=== PATIENT | female | born 1930 | race Caucasian/White ===

== ENCOUNTER 2016-09-23 06:37 | Day surgery (SDC) | payer OTHER, BC ==
[2016-09-23] MEDS ORDERED: DEXAMETHASONE INJECTION 10 MG, ONDANSETRON INJECTION 12 MG in SODIUM CHLORIDE 100 ML IVPB ONE (08:00)
[2016-09-23] MEDS ORDERED: SODIUM CHLORIDE IVPB ONE (08:30)
[2016-09-23] MEDS ORDERED: NIVOLUMAB IVPB ONE (08:30)
[2016-09-23 08:45] LABS: BASOPHIL 0.6 % (0-2.0); EOSINOPHIL 1.9 % (0-4.5); MCH 28.9 pg (25.7-33.7); MCHC 32.8 g/dl (32.0-36.0); MEAN CELL VOLUME 88.1 fl (80-96); MEAN PLT VOLUME 7.3 fl (7.5-11.1); NEUTROPHILS 81.2 % (42.8-82.8); PLATELET COUNT 336 K/MM3 (134-434); WHITE BLOOD COUNT 10.5 K/mm3 (4.0-10.0)
[2016-09-23] MEDS ORDERED: SODIUM CHLORIDE 250 ML IV ONE (09:30)
[2016-09-23 10:29] VITALS: BP 136/71; PULSE 111; TEMP 97.3
== END 2016-09-23 14:03 | disposition home or self-care (01) ==
LOC: J7W 06:37 → JONCCHEMO 06:37
PROVIDERS: ATTEND Internal Medicine Hematology & Oncology
DX: Z51.11 Encounter for antineoplastic chemotherapy (principal); C50.412 Malignant neoplasm of upper-outer quadrant of left female breast; C34.12 Malignant neoplasm of upper lobe, left bronchus or lung; I10 Essential (primary) hypertension; J43.9 Emphysema, unspecified
CPT/HCPCS: 96361; 96367; 96413; J9299; 36415; 85025; 96415

== ENCOUNTER 2016-10-07 07:02 | Day surgery (SDC) | payer OTHER, BC ==
[2016-10-07] MEDS ORDERED: DEXAMETHASONE INJECTION 10 MG, ONDANSETRON INJECTION 12 MG in SODIUM CHLORIDE 100 ML IVPB ONE (08:00)
[2016-10-07] MEDS ORDERED: NIVOLUMAB IVPB ONE (08:30)
[2016-10-07] MEDS ORDERED: SODIUM CHLORIDE IVPB ONE (08:30)
[2016-10-07 09:22] LABS: BASOPHIL 0.9 % (0-2.0); EOSINOPHIL 0.7 % (0-4.5); MCH 28.8 pg (25.7-33.7); MCHC 33.3 g/dl (32.0-36.0); MEAN CELL VOLUME 86.6 fl (80-96); MEAN PLT VOLUME 7.5 fl (7.5-11.1); NEUTROPHILS 80.9 % (42.8-82.8); PLATELET COUNT 218 K/MM3 (134-434); RDW 16.7 % (11.6-15.6); WHITE BLOOD COUNT 10.4 K/mm3 (4.0-10.0)
[2016-10-07] MEDS ORDERED: SODIUM CHLORIDE 250 ML IV ONE (09:30)
[2016-10-07 12:06] VITALS: BMI 23.6
== END 2016-10-07 14:34 | disposition home or self-care (01) ==
LOC: JONCCHEMO 07:02 → J7W 10:35 → JONCCHEMO 14:34
PROVIDERS: ATTEND Internal Medicine Hematology & Oncology
DX: Z51.11 Encounter for antineoplastic chemotherapy (principal); C50.412 Malignant neoplasm of upper-outer quadrant of left female breast; C34.12 Malignant neoplasm of upper lobe, left bronchus or lung
CPT/HCPCS: 96361; 96367; 96413; J1100; J2405; J7030; J9299; 36415; 85025; 96415

== ENCOUNTER 2016-10-28 06:59 | Day surgery (SDC) | payer OTHER, BC ==
[2016-10-28] MEDS ORDERED: DEXAMETHASONE INJECTION 10 MG, ONDANSETRON INJECTION 12 MG in SODIUM CHLORIDE 100 ML IVPB ONE (08:00)
[2016-10-28] MEDS ORDERED: NIVOLUMAB IVPB ONE (08:30)
[2016-10-28] MEDS ORDERED: SODIUM CHLORIDE IVPB ONE (08:30)
[2016-10-28] MEDS ORDERED: SODIUM CHLORIDE 250 ML IV ONE (09:30)
[2016-10-28 09:32] LABS: BASOPHIL 0.9 % (0-2.0); EOSINOPHIL 1.1 % (0-4.5); MCH 28.9 pg (25.7-33.7); MCHC 33.2 g/dl (32.0-36.0); MEAN PLT VOLUME 7.6 fl (7.5-11.1); NEUTROPHILS 79.3 % (42.8-82.8); PLATELET COUNT 210 K/MM3 (134-434); RDW 16.4 % (11.6-15.6); WHITE BLOOD COUNT 10.2 K/mm3 (4.0-10.0)
[2016-10-28 10:19] VITALS: TEMP 97.2
[2016-10-28 11:08] LABS: BASOPHIL 0.6 % (0-2.0); EOSINOPHIL 0.6 % (0-4.5); MCH 28.4 pg (25.7-33.7); MCHC 32.5 g/dl (32.0-36.0); MEAN CELL VOLUME 87.2 fl (80-96); NEUTROPHILS 79.6 % (42.8-82.8); PLATELET COUNT 202 K/MM3 (134-434); RDW 16.4 % (11.6-15.6)
[2016-10-28 11:31] LABS: CALCIUM 9.1 mg/dL (8.5-10.1); CREATININE 0.7 mg/dL (0.55-1.02)
[2016-10-28 12:33] LABS: ALBUMIN 3.5 g/dl (3.4-5.0); BILIRUBIN,DIRECT 0.2 mg/dL (0.0-0.2); BILIRUBIN,TOTAL 0.7 mg/dL (0.2-1.0); TOT PROT 6.7 g/dl (6.4-8.2)
[2016-10-28 12:57] VITALS: BP 106/63; PULSE 98
== END 2016-10-28 13:00 | disposition home or self-care (01) ==
LOC: JONCCHEMO 06:59 → J7W 10:07 → JONCCHEMO 13:00
PROVIDERS: ATTEND Internal Medicine Hematology & Oncology
PROC: 3E04305 Introduction of Other Antineoplastic into Central Vein, Percutaneous Approach (ICD-10-PCS; principal; 2016-10-28)
PROC: 3E0437Z Introduction of Electrolytic and Water Balance Substance into Central Vein, Percutaneous Approach (ICD-10-PCS; 2016-10-28)
PROC: 3E043GC Introduction of Other Therapeutic Substance into Central Vein, Percutaneous Approach (ICD-10-PCS; 2016-10-28)
DX: Z51.11 Encounter for antineoplastic chemotherapy (principal); C50.412 Malignant neoplasm of upper-outer quadrant of left female breast; C34.12 Malignant neoplasm of upper lobe, left bronchus or lung; I10 Essential (primary) hypertension; J43.9 Emphysema, unspecified; Z80.3 Family history of malignant neoplasm of breast; Z90.710 Acquired absence of both cervix and uterus; Z90.10 Acquired absence of unspecified breast and nipple
CPT/HCPCS: 96361; 96367; 96413; J1100; J2405; J7030; J9299; 36415; 80048; 80076; 82378; 85025

== ENCOUNTER 2016-11-11 06:55 | Day surgery (SDC) | payer OTHER, BC ==
[2016-11-11] MEDS ORDERED: DEXAMETHASONE INJECTION 10 MG, ONDANSETRON INJECTION 12 MG in SODIUM CHLORIDE 100 ML IVPB ONE (08:00)
[2016-11-11] MEDS ORDERED: NIVOLUMAB IVPB ONE (08:30)
[2016-11-11] MEDS ORDERED: SODIUM CHLORIDE IVPB ONE (08:30)
[2016-11-11 09:21] VITALS: TEMP 98.2
[2016-11-11] MEDS ORDERED: SODIUM CHLORIDE 250 ML IV ONE (09:30)
[2016-11-11 09:31] LABS: BASOPHIL 0.7 % (0-2.0); EOSINOPHIL 1.2 % (0-4.5); MCH 28.3 pg (25.7-33.7); MCHC 32.9 g/dl (32.0-36.0); MEAN CELL VOLUME 86.1 fl (80-96); MEAN PLT VOLUME 7.7 fl (7.5-11.1); NEUTROPHILS 76.6 % (42.8-82.8); PLATELET COUNT 216 K/MM3 (134-434); RDW 15.6 % (11.6-15.6); WHITE BLOOD COUNT 9.4 K/mm3 (4.0-10.0)
[2016-11-11 12:27] LABS: ALBUMIN 3.3 g/dl (3.4-5.0); BILIRUBIN,DIRECT 0.2 mg/dL (0.0-0.2); BILIRUBIN,TOTAL 0.6 mg/dL (0.2-1.0); CALCIUM 8.7 mg/dL (8.5-10.1); COCKROFT - GAULT 59.5; CREATININE 0.6 mg/dL (0.55-1.02); MAGNESIUM 1.6 mg/dL (1.8-2.4); TOT PROT 6.6 g/dl (6.4-8.2)
[2016-11-11] MEDS ORDERED: MAGNESIUM SULF 50% (8.12 MEQ/2 ML-1 GM VIAL) IVPB ONE (13:36)
[2016-11-11] MEDS ORDERED: MAGNESIUM SULF 50% (8.12 MEQ/2 ML-1 GM VIAL) ONE (13:36)
[2016-11-11 15:40] VITALS: BP 128/77; PULSE 97
== END 2016-11-11 15:35 | disposition home or self-care (01) ==
LOC: JONCCHEMO 06:55 → J7W 11:05 → JONCCHEMO 15:35
PROVIDERS: ATTEND Internal Medicine Hematology & Oncology
DX: Z51.11 Encounter for antineoplastic chemotherapy (principal); C34.90 Malignant neoplasm of unspecified part of unspecified bronchus or lung; C50.919 Malignant neoplasm of unspecified site of unspecified female breast
CPT/HCPCS: 36415; 80048; 80076; 83735; 85025; 96361; 96367; 96413; J9299

== ENCOUNTER 2016-11-25 07:09 | Day surgery (SDC) | payer OTHER, BC ==
[2016-11-25] MEDS ORDERED: ONDANSETRON INJECTION 12 MG in SODIUM CHLORIDE 50 ML IVPB ONE (08:00)
[2016-11-25] MEDS ORDERED: SODIUM CHLORIDE 250 ML IV ONE (08:00)
[2016-11-25] MEDS ORDERED: DEXAMETHASONE INJECTION 10 MG in DEXTROSE 5%-WATER - 50 ML IVPB ONE (08:00)
[2016-11-25] MEDS ORDERED: NIVOLUMAB IVPB ONE (08:30)
[2016-11-25] MEDS ORDERED: SODIUM CHLORIDE IVPB ONE (08:30)
[2016-11-25 08:51] LABS: WHITE BLOOD COUNT 9.6 K/mm3 (4.0-10.0)
[2016-11-25 08:52] LABS: BASOPHIL 0.8 % (0-2.0); EOSINOPHIL 1.3 % (0-4.5); MCH 28.7 pg (25.7-33.7); MCHC 33.3 g/dl (32.0-36.0); MEAN CELL VOLUME 86.3 fl (80-96); MEAN PLT VOLUME 7.7 fl (7.5-11.1); NEUTROPHILS 79.3 % (42.8-82.8); PLATELET COUNT 220 K/MM3 (134-434); RDW 46.8 % (11.6-15.6)
[2016-11-25 09:27] VITALS: BP 111/73; PULSE 89; TEMP 97.6
[2016-11-25 10:51] LABS: ALBUMIN 3.5 g/dl (3.4-5.0); BILIRUBIN,DIRECT 0.1 mg/dL (0.0-0.2); BILIRUBIN,TOTAL 0.4 mg/dL (0.2-1.0); CALCIUM 8.4 mg/dL (8.5-10.1); CREATININE 0.7 mg/dL (0.55-1.02); MAGNESIUM 1.6 mg/dL (1.8-2.4)
[2016-11-25 10:59] LABS: THYROID STIMULATING HORMONE 0.57 uIU/ml (0.358-3.74)
== END 2016-11-25 18:49 | disposition home or self-care (01) ==
LOC: JONCCHEMO 07:09 → J7W 09:21 → JONCCHEMO 18:49
PROVIDERS: ATTEND Internal Medicine Hematology & Oncology
DX: Z51.11 Encounter for antineoplastic chemotherapy (principal); C50.412 Malignant neoplasm of upper-outer quadrant of left female breast; C34.12 Malignant neoplasm of upper lobe, left bronchus or lung
CPT/HCPCS: 36415; 80048; 80076; 83735; 84439; 84443; 85025; 96360; 96361; 96367; 96413; J9299

== ENCOUNTER 2016-12-09 07:30 | Day surgery (SDC) | payer OTHER, BC ==
[2016-12-09] MEDS ORDERED: SODIUM CHLORIDE 250 ML IV ONE (08:00)
[2016-12-09] MEDS ORDERED: DEXAMETHASONE INJECTION 10 MG in DEXTROSE 5%-WATER - 50 ML IVPB ONE (08:00)
[2016-12-09] MEDS ORDERED: ONDANSETRON INJECTION 12 MG in SODIUM CHLORIDE 50 ML IVPB ONE (08:00)
[2016-12-09] MEDS ORDERED: SODIUM CHLORIDE IVPB ONE (08:30)
[2016-12-09] MEDS ORDERED: NIVOLUMAB IVPB ONE (08:30)
[2016-12-09 09:12] LABS: BASOPHIL 0.7 % (0-2.0); MCH 28.3 pg (25.7-33.7); MCHC 33.4 g/dl (32.0-36.0); MEAN CELL VOLUME 84.6 fl (80-96); MEAN PLT VOLUME 7.5 fl (7.5-11.1); NEUTROPHILS 74.3 % (42.8-82.8); PLATELET COUNT 230 K/MM3 (134-434); RDW 14.7 % (11.6-15.6)
[2016-12-09 13:07] LABS: BILIRUBIN,TOTAL 0.3 mg/dL (0.2-1.0)
[2016-12-09 13:14] LABS: ALBUMIN 3.2 g/dl (3.4-5.0); ALK PHOS 91 U/L (45-117); SGOT/AST 27 U/L (15-37); SGPT/ALT 17 U/L (12-78); THYROID STIMULATING HORMONE 0.46 uIU/ml (0.358-3.74); TOT PROT 6.6 g/dl (6.4-8.2)
[2016-12-09 13:16] LABS: BILIRUBIN,DIRECT < 0.1 mg/dL (0.0-0.2)
[2016-12-09] MEDS ORDERED: PORTA CATH FLUSH 10 ML IVPUSH ONE ×2 (14:23→15:35)
[2016-12-09 15:34] VITALS: BP 143/77; PULSE 99; TEMP 98
== END 2016-12-09 15:52 | disposition home or self-care (01) ==
LOC: JONCCHEMO 07:30 → J7W 10:14 → JONCCHEMO 15:52
PROVIDERS: ATTEND Internal Medicine Hematology & Oncology
DX: Z51.11 Encounter for antineoplastic chemotherapy (principal); C50.919 Malignant neoplasm of unspecified site of unspecified female breast; C78.00 Secondary malignant neoplasm of unspecified lung
CPT/HCPCS: 36415; 80076; 82378; 84439; 84443; 85025; 86300; 96360; 96361; 96367; 96413; J9299

== ENCOUNTER 2016-12-23 07:36 | Day surgery (SDC) | payer OTHER, BC ==
[2016-12-23] MEDS ORDERED: SODIUM CHLORIDE 250 ML IV ONE (08:00)
[2016-12-23] MEDS ORDERED: ONDANSETRON INJECTION 12 MG in SODIUM CHLORIDE 50 ML IVPB ONE (08:00)
[2016-12-23] MEDS ORDERED: DEXAMETHASONE INJECTION 10 MG in SODIUM CHLORIDE 50 ML IVPB ONE (08:00)
[2016-12-23] MEDS ORDERED: SODIUM CHLORIDE IVPB ONE (08:30)
[2016-12-23] MEDS ORDERED: NIVOLUMAB IVPB ONE (08:30)
[2016-12-23 08:41] LABS: BASOPHIL 0.9 % (0-2.0); EOSINOPHIL 1.2 % (0-4.5); MCH 27.8 pg (25.7-33.7); MCHC 32.8 g/dl (32.0-36.0); MEAN CELL VOLUME 84.7 fl (80-96); MEAN PLT VOLUME 7.9 fl (7.5-11.1); PLATELET COUNT 201 K/MM3 (134-434); RDW 15.2 % (11.6-15.6); WHITE BLOOD COUNT 9.2 K/mm3 (4.0-10.0)
[2016-12-23 11:30] LABS: CALCIUM 9.3 mg/dL (8.5-10.1); COCKROFT - GAULT 44.2; CREATININE 0.8 mg/dL (0.55-1.02); MAGNESIUM 1.9 mg/dL (1.8-2.4)
[2016-12-23] MEDS ORDERED: PORTA CATH FLUSH 10 ML IVPUSH ONE (11:30)
[2016-12-23 11:34] LABS: ALBUMIN 3.5 g/dl (3.4-5.0); BILIRUBIN,DIRECT 0.2 mg/dL (0.0-0.2); BILIRUBIN,TOTAL 0.5 mg/dL (0.2-1.0); TOT PROT 6.9 g/dl (6.4-8.2)
[2016-12-23 11:42] LABS: THYROID STIMULATING HORMONE 0.57 uIU/ml (0.358-3.74)
[2016-12-23 14:26] VITALS: BP 115/75; PULSE 93; TEMP 98.4
== END 2016-12-23 14:50 | disposition home or self-care (01) ==
LOC: JONCCHEMO 07:36 → J7W 09:48 → JONCCHEMO 14:50
PROVIDERS: ATTEND Internal Medicine Hematology & Oncology
DX: Z51.11 Encounter for antineoplastic chemotherapy (principal); C50.412 Malignant neoplasm of upper-outer quadrant of left female breast
CPT/HCPCS: 36415; 80048; 80076; 82378; 83735; 84439; 84443; 85025; 96360; 96361; 96367; 96375; 96413; J9299

== ENCOUNTER 2017-01-05 07:27 | Day surgery (SDC) | payer OTHER, BC ==
[2017-01-05 09:16] LABS: EOSINOPHIL 1.2 % (0-4.5); MCH 27.3 pg (25.7-33.7); MCHC 32.8 g/dl (32.0-36.0); MEAN CELL VOLUME 83.3 fl (80-96); MEAN PLT VOLUME 7.2 fl (7.5-11.1); NEUTROPHILS 78.8 % (42.8-82.8); PLATELET COUNT 246 K/MM3 (134-434); RDW 14.5 % (11.6-15.6); WHITE BLOOD COUNT 9.2 K/mm3 (4.0-10.0)
[2017-01-05] MEDS ORDERED: DEXAMETHASONE INJECTION 10 MG in SODIUM CHLORIDE 50 ML IVPB ONE (10:00)
[2017-01-05] MEDS ORDERED: ONDANSETRON INJECTION 12 MG in SODIUM CHLORIDE 50 ML IVPB ONE (10:00)
[2017-01-05] MEDS ORDERED: SODIUM CHLORIDE 250 ML IV ONE (10:00)
[2017-01-05] MEDS ORDERED: NIVOLUMAB IVPB ONE (10:30)
[2017-01-05] MEDS ORDERED: SODIUM CHLORIDE IVPB ONE (10:30)
[2017-01-05 10:44] LABS: ALBUMIN 3.1 g/dl (3.4-5.0); ANION GAP 14 (8-16); CALCIUM 8.9 mg/dL (8.5-10.1); CO2 22 mmol/L (21-32); CREATININE 0.7 mg/dL (0.55-1.02); GLUCOSE,RANDOM 106 mg/dL (74-106); MAGNESIUM 1.8 mg/dL (1.8-2.4); SGOT/AST 21 U/L (15-37); SGPT/ALT 19 U/L (12-78)
[2017-01-05 10:46] LABS: ALK PHOS 106 U/L (45-117); BILIRUBIN,TOTAL 0.2 mg/dL (0.2-1.0); TOT PROT 6.8 g/dl (6.4-8.2)
[2017-01-05 10:58] LABS: FREE T4 1.27 ng/dl (0.76-1.46); THYROID STIMULATING HORMONE 0.33 uIU/ml (0.358-3.74)
[2017-01-05] MEDS ORDERED: MAGNESIUM OXIDE 400 MG TABLET (FP) PO ONE (12:58)
[2017-01-05] MEDS ORDERED: PORTA CATH FLUSH 10 ML IVPUSH ONE (13:20)
[2017-01-05 15:19] VITALS: BP 127/77; PULSE 90; TEMP 97.8
== END 2017-01-05 15:34 | disposition home or self-care (01) ==
LOC: JONCCHEMO 07:27 → J7W 10:21 → JONCCHEMO 15:34
PROVIDERS: ATTEND Internal Medicine Hematology & Oncology
DX: Z51.11 Encounter for antineoplastic chemotherapy (principal); C50.412 Malignant neoplasm of upper-outer quadrant of left female breast
CPT/HCPCS: 36415; 80053; 83735; 84439; 84443; 85025; 96360; 96361; 96367; 96413; J9299

== ENCOUNTER 2017-01-20 07:37 | Day surgery (SDC) | payer OTHER, BC ==
[2017-01-20 09:30] LABS: BASOPHIL 0.6 % (0-2.0); EOSINOPHIL 1.4 % (0-4.5); MCH 27.3 pg (25.7-33.7); MCHC 32.5 g/dl (32.0-36.0); MEAN CELL VOLUME 84.1 fl (80-96); MEAN PLT VOLUME 7.6 fl (7.5-11.1); NEUTROPHILS 77.7 % (42.8-82.8); PLATELET COUNT 226 K/MM3 (134-434); RDW 15.6 % (11.6-15.6); WHITE BLOOD COUNT 7.6 K/mm3 (4.0-10.0)
[2017-01-20] MEDS ORDERED: ONDANSETRON INJECTION 12 MG in SODIUM CHLORIDE 50 ML IVPB ONE (10:00)
[2017-01-20] MEDS ORDERED: DEXAMETHASONE INJECTION 10 MG in SODIUM CHLORIDE 50 ML IVPB ONE (10:00)
[2017-01-20] MEDS ORDERED: SODIUM CHLORIDE 250 ML IV ONE (10:00)
[2017-01-20 10:03] LABS: ALBUMIN 3.6 g/dl (3.4-5.0); ANION GAP 8 (8-16); BILIRUBIN,DIRECT 0.1 mg/dL (0.0-0.2); BILIRUBIN,TOTAL 0.5 mg/dL (0.2-1.0); CALCIUM 8.9 mg/dL (8.5-10.1); CO2 29 mmol/L (21-32); CREATININE 0.8 mg/dL (0.55-1.02); GLUCOSE,RANDOM 99 mg/dL (74-106); MAGNESIUM 1.8 mg/dL (1.8-2.4); SGOT/AST 24 U/L (15-37); SGPT/ALT 18 U/L (12-78); TOT PROT 7.4 g/dl (6.4-8.2)
[2017-01-20 10:07] LABS: ALK PHOS 100 U/L (45-117)
[2017-01-20] MEDS ORDERED: NIVOLUMAB IVPB ONE (10:30)
[2017-01-20] MEDS ORDERED: SODIUM CHLORIDE IVPB ONE (10:30)
[2017-01-20] MEDS ORDERED: PORTA CATH FLUSH 10 ML IVPUSH ONE (10:45)
[2017-01-20 12:17] LABS: THYROID STIMULATING HORMONE 0.49 uIU/ml (0.358-3.74)
[2017-01-20 12:18] LABS: FREE T4 1.15 ng/dl (0.76-1.46)
[2017-01-20 14:35] VITALS: BP 134/72; PULSE 104; TEMP 97.9
== END 2017-01-20 16:33 | disposition home or self-care (01) ==
LOC: JONCCHEMO 07:37 → J7W 10:03 → JONCCHEMO 16:33
PROVIDERS: ATTEND Internal Medicine Hematology & Oncology
PROC: 3E04305 Introduction of Other Antineoplastic into Central Vein, Percutaneous Approach (ICD-10-PCS; principal; 2017-01-20)
PROC: 3E043GC Introduction of Other Therapeutic Substance into Central Vein, Percutaneous Approach (ICD-10-PCS; 2017-01-20)
PROC: 3E0437Z Introduction of Electrolytic and Water Balance Substance into Central Vein, Percutaneous Approach (ICD-10-PCS; 2017-01-20)
DX: Z51.11 Encounter for antineoplastic chemotherapy (principal); C34.12 Malignant neoplasm of upper lobe, left bronchus or lung; E05.20 Thyrotoxicosis with toxic multinodular goiter without thyrotoxic crisis or storm
CPT/HCPCS: 96361; 96375; 96413; J9299; 36415; 80053; 80076; 83735; 84439; 84443; 85025

== ENCOUNTER 2017-02-03 07:50 | Day surgery (SDC) | payer OTHER, BC ==
[2017-02-03 08:50] LABS: BASOPHIL 0.8 % (0-2.0); EOSINOPHIL 1.8 % (0-4.5); MCH 27.4 pg (25.7-33.7); MCHC 32.9 g/dl (32.0-36.0); MEAN CELL VOLUME 83.3 fl (80-96); MEAN PLT VOLUME 7.1 fl (7.5-11.1); NEUTROPHILS 73.4 % (42.8-82.8); PLATELET COUNT 223 K/MM3 (134-434); RDW 15.2 % (11.6-15.6); WHITE BLOOD COUNT 7.8 K/mm3 (4.0-10.0)
[2017-02-03 09:27] LABS: ALBUMIN 3.3 g/dl (3.4-5.0); ALK PHOS 88 U/L (45-117); ANION GAP 7 (8-16); BILIRUBIN,TOTAL 0.3 mg/dL (0.2-1.0); CO2 30 mmol/L (21-32); CREATININE 0.8 mg/dL (0.55-1.02); GLUCOSE,RANDOM 92 mg/dL (74-106); MAGNESIUM 1.6 mg/dL (1.8-2.4); SGOT/AST 20 U/L (15-37); SGPT/ALT 18 U/L (12-78)
[2017-02-03 09:28] LABS: BILIRUBIN,DIRECT < 0.1 mg/dL (0.0-0.2)
[2017-02-03] MEDS ORDERED: SODIUM CHLORIDE 250 ML IV ONE (10:00)
[2017-02-03] MEDS ORDERED: DEXAMETHASONE INJECTION 10 MG in SODIUM CHLORIDE 50 ML IVPB ONE (10:00)
[2017-02-03] MEDS ORDERED: ONDANSETRON INJECTION 12 MG in SODIUM CHLORIDE 50 ML IVPB ONE (10:00)
[2017-02-03] MEDS ORDERED: PORTA CATH FLUSH 10 ML IVPUSH ONE (10:02)
[2017-02-03 10:08] LABS: FREE T4 1.03 ng/dl (0.76-1.46)
[2017-02-03] MEDS ORDERED: SODIUM CHLORIDE IVPB ONE (10:30)
[2017-02-03] MEDS ORDERED: NIVOLUMAB IVPB ONE (10:30)
[2017-02-03] MEDS ORDERED: MAGNESIUM SULF 50% (8.12 MEQ/2 ML-1 GM VIAL) IVPB ONE (10:55)
[2017-02-03 14:43] VITALS: BP 106/65; PULSE 93; TEMP 98.1
== END 2017-02-03 14:58 | disposition home or self-care (01) ==
LOC: JONCCHEMO 07:50 → J7W 09:56 → JONCCHEMO 14:58
PROVIDERS: ATTEND Internal Medicine Hematology & Oncology
PROC: 3E04305 Introduction of Other Antineoplastic into Central Vein, Percutaneous Approach (ICD-10-PCS; principal; 2017-02-03)
PROC: 3E043GC Introduction of Other Therapeutic Substance into Central Vein, Percutaneous Approach (ICD-10-PCS; 2017-02-03)
PROC: 3E0437Z Introduction of Electrolytic and Water Balance Substance into Central Vein, Percutaneous Approach (ICD-10-PCS; 2017-02-03)
DX: Z51.11 Encounter for antineoplastic chemotherapy (principal); C34.12 Malignant neoplasm of upper lobe, left bronchus or lung; E05.20 Thyrotoxicosis with toxic multinodular goiter without thyrotoxic crisis or storm
CPT/HCPCS: 96361; 96375; 96413; J9299; 36415; 80053; 80076; 83735; 84439; 84443; 85025

== ENCOUNTER 2017-02-17 07:26 | Day surgery (SDC) | payer OTHER, BC ==
[2017-02-17] MEDS ORDERED: DEXAMETHASONE INJECTION 10 MG in SODIUM CHLORIDE 50 ML IVPB ONE (08:00)
[2017-02-17] MEDS ORDERED: ONDANSETRON INJECTION 12 MG in SODIUM CHLORIDE 50 ML IVPB ONE (08:15)
[2017-02-17] MEDS ORDERED: NIVOLUMAB IVPB ONE (08:30)
[2017-02-17] MEDS ORDERED: SODIUM CHLORIDE IVPB ONE (08:30)
[2017-02-17] MEDS ORDERED: SODIUM CHLORIDE 250 ML IV ONE (09:30)
[2017-02-17] MEDS ORDERED: PORTA CATH FLUSH 10 ML IVPUSH ONE (09:46)
[2017-02-17 10:50] LABS: BASOPHIL 0.5 % (0-2.0); EOSINOPHIL 0.9 % (0-4.5); MCH 27.4 pg (25.7-33.7); MCHC 32.6 g/dl (32.0-36.0); MEAN CELL VOLUME 84.1 fl (80-96); MEAN PLT VOLUME 7.5 fl (7.5-11.1); PLATELET COUNT 219 K/MM3 (134-434); WHITE BLOOD COUNT 7.5 K/mm3 (4.0-10.0)
[2017-02-17 11:21] LABS: ALBUMIN 3.5 g/dl (3.4-5.0); ANION GAP 9 (8-16); BILIRUBIN,DIRECT 0.1 mg/dL (0.0-0.2); CALCIUM 9.1 mg/dL (8.5-10.1); CO2 29 mmol/L (21-32); CREATININE 0.7 mg/dL (0.55-1.02); GLUCOSE,RANDOM 97 mg/dL (74-106); MAGNESIUM 1.7 mg/dL (1.8-2.4); SGOT/AST 23 U/L (15-37); SGPT/ALT 16 U/L (12-78)
[2017-02-17 11:23] LABS: ALK PHOS 81 U/L (45-117); BILIRUBIN,TOTAL 0.6 mg/dL (0.2-1.0); TOT PROT 6.9 g/dl (6.4-8.2)
[2017-02-17 12:04] LABS: THYROID STIMULATING HORMONE 0.37 uIU/ml (0.358-3.74)
[2017-02-17 14:43] VITALS: BP 128/62; PULSE 92; TEMP 98
== END 2017-02-17 14:48 | disposition home or self-care (01) ==
LOC: JONCCHEMO 07:26 → J7W 09:36 → JONCCHEMO 14:48
PROVIDERS: ATTEND Internal Medicine Hematology & Oncology
PROC: 3E04305 Introduction of Other Antineoplastic into Central Vein, Percutaneous Approach (ICD-10-PCS; principal; 2017-02-17)
PROC: 3E043GC Introduction of Other Therapeutic Substance into Central Vein, Percutaneous Approach (ICD-10-PCS; 2017-02-17)
PROC: 3E0437Z Introduction of Electrolytic and Water Balance Substance into Central Vein, Percutaneous Approach (ICD-10-PCS; 2017-02-17)
DX: Z51.11 Encounter for antineoplastic chemotherapy (principal); C34.12 Malignant neoplasm of upper lobe, left bronchus or lung; E05.20 Thyrotoxicosis with toxic multinodular goiter without thyrotoxic crisis or storm
CPT/HCPCS: 96361; 96375; 96413; J9299; 36415; 80048; 80076; 82378; 83735; 84439; 84443; 85025

== ENCOUNTER 2017-03-03 07:47 | Day surgery (SDC) | payer OTHER, BC ==
[2017-03-03] MEDS ORDERED: SODIUM CHLORIDE 250 ML IV ONE (08:00)
[2017-03-03] MEDS ORDERED: ONDANSETRON INJECTION 12 MG in SODIUM CHLORIDE 50 ML IVPB ONE (08:30)
[2017-03-03] MEDS ORDERED: DEXAMETHASONE INJECTION 10 MG in SODIUM CHLORIDE 50 ML IVPB ONE (08:30)
[2017-03-03] MEDS ORDERED: SODIUM CHLORIDE IVPB ONE (09:00)
[2017-03-03] MEDS ORDERED: NIVOLUMAB IVPB ONE (09:00)
[2017-03-03 09:53] LABS: BASOPHIL 0.6 % (0-2.0); EOSINOPHIL 1.5 % (0-4.5); MCH 27.6 pg (25.7-33.7); MCHC 32.4 g/dl (32.0-36.0); MEAN CELL VOLUME 85.2 fl (80-96); MEAN PLT VOLUME 7.5 fl (7.5-11.1); NEUTROPHILS 78.9 % (42.8-82.8); PLATELET COUNT 208 K/MM3 (134-434); RDW 16.7 % (11.6-15.6); WHITE BLOOD COUNT 7.4 K/mm3 (4.0-10.0)
[2017-03-03 10:18] LABS: ALBUMIN 3.5 g/dl (3.4-5.0); ALK PHOS 82 U/L (45-117); ANION GAP 5 (8-16); BILIRUBIN,DIRECT 0.1 mg/dL (0.0-0.2); BILIRUBIN,TOTAL 0.4 mg/dL (0.2-1.0); CALCIUM 9.4 mg/dL (8.5-10.1); CO2 32 mmol/L (21-32); CREATININE 0.8 mg/dL (0.55-1.02); GLUCOSE,RANDOM 93 mg/dL (74-106); MAGNESIUM 1.8 mg/dL (1.8-2.4); SGOT/AST 24 U/L (15-37); SGPT/ALT 20 U/L (12-78)
[2017-03-03] MEDS ORDERED: PORTA CATH FLUSH 10 ML IVPUSH ONE (11:05)
[2017-03-03 11:06] VITALS: TEMP 98.2
[2017-03-03 15:55] VITALS: BP 149/78; PULSE 81
== END 2017-03-03 15:00 | disposition home or self-care (01) ==
LOC: JONCCHEMO 07:47 → J7W 10:51 → JONCCHEMO 15:00
PROVIDERS: ATTEND Internal Medicine Hematology & Oncology
DX: Z51.11 Encounter for antineoplastic chemotherapy (principal); C34.12 Malignant neoplasm of upper lobe, left bronchus or lung; E05.20 Thyrotoxicosis with toxic multinodular goiter without thyrotoxic crisis or storm
CPT/HCPCS: 36415; 80053; 80076; 83735; 85025; 96361; 96375; 96413; J9299

== ENCOUNTER 2017-03-24 07:59 | Day surgery (SDC) | payer OTHER, BC ==
[2017-03-24 09:21] VITALS: TEMP 98.1
[2017-03-24 09:38] LABS: BASOPHIL 0.5 % (0-2.0); EOSINOPHIL 1.1 % (0-4.5); MCH 28.5 pg (25.7-33.7); MCHC 33.4 g/dl (32.0-36.0); MEAN CELL VOLUME 85.5 fl (80-96); MEAN PLT VOLUME 7.8 fl (7.5-11.1); NEUTROPHILS 77.6 % (42.8-82.8); PLATELET COUNT 238 K/MM3 (134-434); RDW 16.9 % (11.6-15.6); WHITE BLOOD COUNT 7.1 K/mm3 (4.0-10.0)
[2017-03-24 09:55] LABS: ALBUMIN 3.6 g/dl (3.4-5.0); ANION GAP 5 (8-16); BILIRUBIN,DIRECT < 0.2 mg/dL (0.0-0.2); BILIRUBIN,TOTAL 0.5 mg/dL (0.2-1.0); CALCIUM 9.2 mg/dL (8.5-10.1); CO2 29 mmol/L (21-32); CREATININE 0.8 mg/dL (0.55-1.02); GLUCOSE,RANDOM 104 mg/dL (74-106); MAGNESIUM 1.8 mg/dL (1.8-2.4); SGOT/AST 23 U/L (15-37)
[2017-03-24 10:00] LABS: ALK PHOS 78 U/L (45-117); SGPT/ALT 20 U/L (12-78); TOT PROT 7.1 g/dl (6.4-8.2)
[2017-03-24] MEDS ORDERED: ONDANSETRON INJECTION 12 MG in SODIUM CHLORIDE 50 ML IVPB ONE (10:00)
[2017-03-24] MEDS ORDERED: SODIUM CHLORIDE 250 ML IV ONE (10:00)
[2017-03-24] MEDS ORDERED: DEXAMETHASONE INJECTION 10 MG in DEXTROSE 5%-WATER - 50 ML IVPB ONE (10:00)
[2017-03-24] MEDS ORDERED: SODIUM CHLORIDE IVPB ONE (10:30)
[2017-03-24] MEDS ORDERED: NIVOLUMAB IVPB ONE (10:30)
[2017-03-24 10:52] LABS: THYROID STIMULATING HORMONE 0.87 uIU/ml (0.358-3.74)
[2017-03-24 17:19] VITALS: BP 124/72; PULSE 81
== END 2017-03-24 15:00 | disposition home or self-care (01) ==
LOC: JONCCHEMO 07:59 → J7W 10:47 → JONCCHEMO 15:00
PROVIDERS: ATTEND Internal Medicine Hematology & Oncology
PROC: 3E04305 Introduction of Other Antineoplastic into Central Vein, Percutaneous Approach (ICD-10-PCS; principal; 2017-03-24)
PROC: 3E043GC Introduction of Other Therapeutic Substance into Central Vein, Percutaneous Approach (ICD-10-PCS; 2017-03-24)
PROC: 3E0437Z Introduction of Electrolytic and Water Balance Substance into Central Vein, Percutaneous Approach (ICD-10-PCS; 2017-03-24)
DX: Z51.11 Encounter for antineoplastic chemotherapy (principal); C34.12 Malignant neoplasm of upper lobe, left bronchus or lung; E05.20 Thyrotoxicosis with toxic multinodular goiter without thyrotoxic crisis or storm; I10 Essential (primary) hypertension; J43.9 Emphysema, unspecified
CPT/HCPCS: 96361; 96367; 96375; 96413; J9299; 36415; 80053; 80076; 82378; 83735; 84439; 84443; 85025

== ENCOUNTER 2017-04-07 07:45 | Day surgery (SDC) | payer OTHER, BC ==
[2017-04-07 09:31] LABS: BASOPHIL 0.8 % (0-2.0); EOSINOPHIL 1.4 % (0-4.5); MCH 27.6 pg (25.7-33.7); MEAN CELL VOLUME 86.2 fl (80-96); MEAN PLT VOLUME 7.4 fl (7.5-11.1); PLATELET COUNT 236 K/MM3 (134-434); RDW 16.5 % (11.6-15.6); WHITE BLOOD COUNT 7.4 K/mm3 (4.0-10.0)
[2017-04-07] MEDS ORDERED: DEXAMETHASONE INJECTION 10 MG in SODIUM CHLORIDE 50 ML IVPB ONE (10:00)
[2017-04-07] MEDS ORDERED: SODIUM CHLORIDE 250 ML IV ONE (10:00)
[2017-04-07] MEDS ORDERED: ONDANSETRON INJECTION 12 MG in SODIUM CHLORIDE 50 ML IVPB ONE (10:00)
[2017-04-07 10:06] LABS: ALBUMIN 3.6 g/dl (3.4-5.0); ANION GAP 8 (8-16); BILIRUBIN,TOTAL 0.3 mg/dL (0.2-1.0); CALCIUM 9.5 mg/dL (8.5-10.1); CO2 29 mmol/L (21-32); CREATININE 0.7 mg/dL (0.55-1.02); GLUCOSE,RANDOM 91 mg/dL (74-106); SGOT/AST 22 U/L (15-37); SGPT/ALT 20 U/L (12-78); TOT PROT 7.3 g/dl (6.4-8.2)
[2017-04-07 10:07] LABS: ALK PHOS 86 U/L (45-117)
[2017-04-07 10:08] LABS: BILIRUBIN,DIRECT < 0.2 mg/dL (0.0-0.2)
[2017-04-07] MEDS ORDERED: SODIUM CHLORIDE IVPB ONE (10:30)
[2017-04-07] MEDS ORDERED: NIVOLUMAB IVPB ONE (10:30)
[2017-04-07 18:25] VITALS: BP 124/78; PULSE 93; TEMP 98.2
[2017-04-07] MEDS ORDERED: PORTA CATH FLUSH 10 ML IVPUSH ONE (18:25)
== END 2017-04-07 15:00 | disposition home or self-care (01) ==
LOC: JONCCHEMO 07:45 → J7W 10:33 → JONCCHEMO 15:00
PROVIDERS: ATTEND Internal Medicine Hematology & Oncology
DX: Z51.11 Encounter for antineoplastic chemotherapy (principal); C34.12 Malignant neoplasm of upper lobe, left bronchus or lung
CPT/HCPCS: 36415; 80053; 80076; 85025; 96361; 96375; 96413; J9299

== ENCOUNTER 2017-04-21 07:26 | Day surgery (SDC) | payer OTHER, BC ==
[2017-04-21] MEDS ORDERED: SODIUM CHLORIDE 250 ML IV ONE (08:00)
[2017-04-21] MEDS ORDERED: ONDANSETRON INJECTION 12 MG in SODIUM CHLORIDE 50 ML IVPB ONE (08:30)
[2017-04-21] MEDS ORDERED: DEXAMETHASONE INJECTION 10 MG in SODIUM CHLORIDE 50 ML IVPB ONE (08:30)
[2017-04-21 08:48] LABS: BASOPHIL 0.7 % (0-2.0); EOSINOPHIL 1.8 % (0-4.5); MCH 28.1 pg (25.7-33.7); MCHC 32.9 g/dl (32.0-36.0); MEAN CELL VOLUME 85.7 fl (80-96); MEAN PLT VOLUME 7.6 fl (7.5-11.1); NEUTROPHILS 74.9 % (42.8-82.8); PLATELET COUNT 231 K/MM3 (134-434); RDW 15.7 % (11.6-15.6)
[2017-04-21] MEDS ORDERED: NIVOLUMAB IVPB ONE (09:00)
[2017-04-21] MEDS ORDERED: SODIUM CHLORIDE IVPB ONE (09:00)
[2017-04-21 09:21] LABS: ALBUMIN 3.7 g/dl (3.4-5.0); ANION GAP 7 (8-16); BILIRUBIN,DIRECT 0.1 mg/dL (0.0-0.2); BILIRUBIN,TOTAL 0.3 mg/dL (0.2-1.0); CO2 29 mmol/L (21-32); CREATININE 0.9 mg/dL (0.55-1.02); GLUCOSE,RANDOM 86 mg/dL (74-106); MAGNESIUM 1.8 mg/dL (1.8-2.4); SGOT/AST 20 U/L (15-37); SGPT/ALT 20 U/L (12-78); TOT PROT 7.2 g/dl (6.4-8.2)
[2017-04-21 09:22] LABS: ALK PHOS 84 U/L (45-117)
[2017-04-21] MEDS ORDERED: PORTA CATH FLUSH 10 ML IVPUSH ONE (13:10)
[2017-04-21 17:27] VITALS: TEMP 97.8
[2017-04-21 17:33] VITALS: BP 128/62; PULSE 86
== END 2017-04-21 13:30 | disposition home or self-care (01) ==
LOC: JONCCHEMO 07:26 → J7W 09:09 → JONCCHEMO 13:30
PROVIDERS: ATTEND Internal Medicine Hematology & Oncology
PROC: 3E04305 Introduction of Other Antineoplastic into Central Vein, Percutaneous Approach (ICD-10-PCS; principal; 2017-04-21)
PROC: 3E043GC Introduction of Other Therapeutic Substance into Central Vein, Percutaneous Approach (ICD-10-PCS; 2017-04-21)
PROC: 3E0437Z Introduction of Electrolytic and Water Balance Substance into Central Vein, Percutaneous Approach (ICD-10-PCS; 2017-04-21)
DX: Z51.11 Encounter for antineoplastic chemotherapy (principal); C34.12 Malignant neoplasm of upper lobe, left bronchus or lung; E05.20 Thyrotoxicosis with toxic multinodular goiter without thyrotoxic crisis or storm
CPT/HCPCS: 36415; 80053; 80076; 83735; 85025; 96361; 96375; 96413; J9299

== ENCOUNTER 2017-05-04 07:35 | Day surgery (SDC) | payer OTHER, BC ==
[2017-05-04] MEDS ORDERED: SODIUM CHLORIDE 250 ML IV ONE (08:00)
[2017-05-04] MEDS ORDERED: ONDANSETRON INJECTION 12 MG in SODIUM CHLORIDE 50 ML IVPB ONE (08:30)
[2017-05-04] MEDS ORDERED: DEXAMETHASONE INJECTION 10 MG in SODIUM CHLORIDE 50 ML IVPB ONE (08:30)
[2017-05-04] MEDS ORDERED: SODIUM CHLORIDE IVPB ONE (09:00)
[2017-05-04] MEDS ORDERED: NIVOLUMAB IVPB ONE (09:00)
[2017-05-04 09:55] LABS: BASOPHIL 0.3 % (0-2.0); EOSINOPHIL 0.8 % (0-4.5); MCH 27.7 pg (25.7-33.7); MCHC 32.2 g/dl (32.0-36.0); MEAN PLT VOLUME 7.7 fl (7.5-11.1); NEUTROPHILS 81.3 % (42.8-82.8); PLATELET COUNT 220 K/MM3 (134-434); RDW 15.2 % (11.6-15.6); WHITE BLOOD COUNT 8.2 K/mm3 (4.0-10.0)
[2017-05-04 10:31] LABS: ALBUMIN 3.6 g/dl (3.4-5.0); ANION GAP 10 (8-16); BILIRUBIN,DIRECT 0.1 mg/dL (0.0-0.2); CALCIUM 9.5 mg/dL (8.5-10.1); CO2 28 mmol/L (21-32); CREATININE 0.8 mg/dL (0.55-1.02); GLUCOSE,RANDOM 93 mg/dL (74-106); MAGNESIUM 1.9 mg/dL (1.8-2.4); SGOT/AST 19 U/L (15-37); SGPT/ALT 19 U/L (12-78)
[2017-05-04 10:33] LABS: ALK PHOS 79 U/L (45-117); BILIRUBIN,TOTAL 0.6 mg/dL (0.2-1.0); TOT PROT 7.1 g/dl (6.4-8.2)
[2017-05-04 18:04] VITALS: BP 117/69; PULSE 80
[2017-05-04 18:22] VITALS: TEMP 97.8
== END 2017-05-04 13:45 | disposition home or self-care (01) ==
LOC: JONCCHEMO 07:35 → J7W 10:15 → JONCCHEMO 13:45
PROVIDERS: ATTEND Internal Medicine Hematology & Oncology
DX: Z51.11 Encounter for antineoplastic chemotherapy (principal); C34.12 Malignant neoplasm of upper lobe, left bronchus or lung
CPT/HCPCS: 36415; 80053; 80076; 83735; 85025; 96361; 96375; 96413; J9299

== ENCOUNTER 2017-05-18 07:31 | Day surgery (SDC) | payer OTHER, BC ==
[2017-05-18 09:10] LABS: BASOPHIL 0.4 % (0-2.0); EOSINOPHIL 0.5 % (0-4.5); MCH 27.7 pg (25.7-33.7); MCHC 31.9 g/dl (32.0-36.0); MEAN CELL VOLUME 86.8 fl (80-96); MEAN PLT VOLUME 7.3 fl (7.5-11.1); NEUTROPHILS 82.7 % (42.8-82.8); PLATELET COUNT 214 K/MM3 (134-434); RDW 14.8 % (11.6-15.6); WHITE BLOOD COUNT 11.2 K/mm3 (4.0-10.0)
[2017-05-18 09:37] LABS: ALBUMIN 3.5 g/dl (3.4-5.0); ALK PHOS 82 U/L (45-117); ANION GAP 8 (8-16); BILIRUBIN,DIRECT 0.1 mg/dL (0.0-0.2); BILIRUBIN,TOTAL 0.4 mg/dL (0.2-1.0); CO2 29 mmol/L (21-32); CREATININE 0.8 mg/dL (0.55-1.02); GLUCOSE,RANDOM 91 mg/dL (74-106); MAGNESIUM 1.8 mg/dL (1.8-2.4); SGOT/AST 20 U/L (15-37); SGPT/ALT 18 U/L (12-78); TOT PROT 7.4 g/dl (6.4-8.2)
[2017-05-18 09:48] VITALS: TEMP 97.9
[2017-05-18] MEDS ORDERED: PORTA CATH FLUSH 10 ML IVPUSH ONE (09:55)
[2017-05-18] MEDS ORDERED: ONDANSETRON INJECTION 12 MG in SODIUM CHLORIDE 50 ML IVPB ONE (10:00)
[2017-05-18] MEDS ORDERED: DEXAMETHASONE INJECTION 10 MG in DEXTROSE 5%-WATER - 50 ML IVPB ONE (10:00)
[2017-05-18] MEDS ORDERED: SODIUM CHLORIDE 250 ML IV ONE (10:00)
[2017-05-18] MEDS ORDERED: SODIUM CHLORIDE IVPB ONE (10:30)
[2017-05-18] MEDS ORDERED: NIVOLUMAB IVPB ONE (10:30)
[2017-05-18 15:46] VITALS: BP 119/77; PULSE 85
== END 2017-05-18 13:00 | disposition home or self-care (01) ==
LOC: JONCCHEMO 07:31 → J7W 09:38 → JONCCHEMO 13:00
PROVIDERS: ATTEND Internal Medicine Hematology & Oncology
DX: Z51.11 Encounter for antineoplastic chemotherapy (principal); C34.12 Malignant neoplasm of upper lobe, left bronchus or lung
CPT/HCPCS: 36415; 80053; 80076; 83735; 85025; 96361; 96367; 96375; 96413; J9299

== ENCOUNTER 2017-06-01 06:51 | Day surgery (SDC) | payer OTHER, BC ==
[2017-06-01 09:30] LABS: BASOPHIL 0.8 % (0-2.0); EOSINOPHIL 0.7 % (0-4.5); MCH 27.5 pg (25.7-33.7); MCHC 32.5 g/dl (32.0-36.0); MEAN CELL VOLUME 84.6 fl (80-96); MEAN PLT VOLUME 7.1 fl (7.5-11.1); NEUTROPHILS 81.7 % (42.8-82.8); PLATELET COUNT 284 K/MM3 (134-434); RDW 14.4 % (11.6-15.6); WHITE BLOOD COUNT 11.4 K/mm3 (4.0-10.0)
[2017-06-01 09:54] LABS: ALBUMIN 3.5 g/dl (3.4-5.0); ALK PHOS 88 U/L (45-117); ANION GAP 7 (8-16); BILIRUBIN,DIRECT 0.1 mg/dL (0.0-0.2); BILIRUBIN,TOTAL 0.4 mg/dL (0.2-1.0); CALCIUM 9.3 mg/dL (8.5-10.1); CO2 30 mmol/L (21-32); CREATININE 0.8 mg/dL (0.55-1.02); GLUCOSE,RANDOM 89 mg/dL (74-106); SGOT/AST 17 U/L (15-37); SGPT/ALT 17 U/L (12-78); TOT PROT 7.4 g/dl (6.4-8.2)
[2017-06-01] MEDS ORDERED: ONDANSETRON INJECTION 12 MG in SODIUM CHLORIDE 50 ML IVPB ONE (10:00)
[2017-06-01] MEDS ORDERED: SODIUM CHLORIDE 250 ML IV ONE (10:00)
[2017-06-01] MEDS ORDERED: DEXAMETHASONE INJECTION 10 MG in DEXTROSE 5%-WATER - 50 ML IVPB ONE (10:00)
[2017-06-01] MEDS ORDERED: SODIUM CHLORIDE IVPB ONE (10:30)
[2017-06-01] MEDS ORDERED: NIVOLUMAB IVPB ONE (10:30)
[2017-06-01 14:55] VITALS: TEMP 97.7
[2017-06-01 14:57] VITALS: BP 127/70; PULSE 91
[2017-06-01] MEDS ORDERED: PORTA CATH FLUSH 10 ML IVPUSH ONE (15:40)
== END 2017-06-01 13:25 | disposition home or self-care (01) ==
LOC: JONCNONCHE 06:51 → J7W 10:18 → JONCNONCHE 13:25
PROVIDERS: ATTEND Internal Medicine Hematology & Oncology
DX: Z12.11 Encounter for screening for malignant neoplasm of colon (principal); C34.12 Malignant neoplasm of upper lobe, left bronchus or lung
CPT/HCPCS: 36415; 80053; 80076; 83735; 85025; 96361; 96375; 96413; J9299

== ENCOUNTER 2017-06-29 07:11 | Day surgery (SDC) | payer OTHER, BC ==
[2017-06-29 09:11] LABS: BASOPHIL 0.8 % (0-2.0); EOSINOPHIL 2.2 % (0-4.5); MCH 27.8 pg (25.7-33.7); MCHC 32.2 g/dl (32.0-36.0); MEAN CELL VOLUME 86.6 fl (80-96); MEAN PLT VOLUME 7.8 fl (7.5-11.1); NEUTROPHILS 77.9 % (42.8-82.8); PLATELET COUNT 199 K/MM3 (134-434)
[2017-06-29 09:38] LABS: ALBUMIN 3.5 g/dl (3.4-5.0); ANION GAP 5 (8-16); BILIRUBIN,DIRECT < 0.2 mg/dL (0.0-0.2); BILIRUBIN,TOTAL 0.4 mg/dL (0.2-1.0); CALCIUM 8.8 mg/dL (8.5-10.1); CO2 32 mmol/L (21-32); CREATININE 0.7 mg/dL (0.55-1.02); GLUCOSE,RANDOM 92 mg/dL (74-106); MAGNESIUM 1.5 mg/dL (1.8-2.4); SGOT/AST 18 U/L (15-37); SGPT/ALT 18 U/L (12-78)
[2017-06-29 09:40] LABS: ALK PHOS 81 U/L (45-117)
[2017-06-29] MEDS ORDERED: ONDANSETRON INJECTION 12 MG in SODIUM CHLORIDE 50 ML IVPB ONE (10:00)
[2017-06-29] MEDS ORDERED: SODIUM CHLORIDE 250 ML IV ONE (10:00)
[2017-06-29] MEDS ORDERED: DEXAMETHASONE INJECTION 10 MG in DEXTROSE 5%-WATER - 50 ML IVPB ONE (10:00)
[2017-06-29] MEDS ORDERED: SODIUM CHLORIDE IVPB ONE (10:30)
[2017-06-29] MEDS ORDERED: NIVOLUMAB IVPB ONE (10:30)
[2017-06-29] MEDS ORDERED: PORTA CATH FLUSH 10 ML IVPUSH ONE (11:32)
[2017-06-29 11:33] VITALS: TEMP 97.7
[2017-06-29 14:38] VITALS: BP 127/75; PULSE 97
== END 2017-06-29 13:30 | disposition home or self-care (01) ==
LOC: JONCCHEMO 07:11 → J7W 10:36 → JONCCHEMO 13:30
PROVIDERS: ATTEND Internal Medicine Hematology & Oncology
DX: Z51.11 Encounter for antineoplastic chemotherapy (principal); C34.12 Malignant neoplasm of upper lobe, left bronchus or lung; Z85.3 Personal history of malignant neoplasm of breast
CPT/HCPCS: 36415; 80053; 80076; 83735; 85025; 96361; 96375; 96413; J9299

== ENCOUNTER 2017-07-13 07:25 | Day surgery (SDC) | payer OTHER, BC ==
[2017-07-13] MEDS ORDERED: SODIUM CHLORIDE 250 ML IV ONE (08:00)
[2017-07-13] MEDS ORDERED: DEXAMETHASONE INJECTION 10 MG, ONDANSETRON INJECTION 12 MG in SODIUM CHLORIDE 100 ML IVPB ONE (08:30)
[2017-07-13] MEDS ORDERED: SODIUM CHLORIDE IVPB ONE (09:00)
[2017-07-13] MEDS ORDERED: NIVOLUMAB IVPB ONE (09:00)
[2017-07-13 10:02] LABS: BASOPHIL 0.5 % (0-2.0); EOSINOPHIL 1.1 % (0-4.5); MCH 27.6 pg (25.7-33.7); MCHC 32.3 g/dl (32.0-36.0); MEAN CELL VOLUME 85.5 fl (80-96); MEAN PLT VOLUME 7.6 fl (7.5-11.1); NEUTROPHILS 81.1 % (42.8-82.8); PLATELET COUNT 263 K/MM3 (134-434); RDW 14.7 % (11.6-15.6); WHITE BLOOD COUNT 7.9 K/mm3 (4.0-10.0)
[2017-07-13 10:27] LABS: ALBUMIN 3.5 g/dl (3.4-5.0); ANION GAP 10 (8-16); BILIRUBIN,DIRECT < 0.2 mg/dL (0.0-0.2); BILIRUBIN,TOTAL 0.5 mg/dL (0.2-1.0); CO2 30 mmol/L (21-32); CREATININE 0.7 mg/dL (0.55-1.02); GLUCOSE,RANDOM 98 mg/dL (74-106); MAGNESIUM 1.7 mg/dL (1.8-2.4); SGOT/AST 18 U/L (15-37); SGPT/ALT 18 U/L (12-78); TOT PROT 7.2 g/dl (6.4-8.2)
[2017-07-13 10:28] LABS: ALK PHOS 76 U/L (45-117)
[2017-07-13 11:29] VITALS: TEMP 97.6
[2017-07-13 14:58] VITALS: BP 110/60; PULSE 90
== END 2017-07-13 16:00 | disposition home or self-care (01) ==
LOC: JONCCHEMO 07:25 → J7W 10:25 → JONCCHEMO 16:00
PROVIDERS: ATTEND Internal Medicine Hematology & Oncology
DX: Z51.11 Encounter for antineoplastic chemotherapy (principal); C34.12 Malignant neoplasm of upper lobe, left bronchus or lung; Z85.3 Personal history of malignant neoplasm of breast
CPT/HCPCS: 36415; 80053; 80076; 83735; 85025; 96361; 96367; 96375; 96413; J9299

== ENCOUNTER 2017-07-27 07:43 | Day surgery (SDC) | payer OTHER, BC ==
[2017-07-27] MEDS ORDERED: SODIUM CHLORIDE 250 ML IV ONE (08:00)
[2017-07-27] MEDS ORDERED: DEXAMETHASONE INJECTION 10 MG, ONDANSETRON INJECTION 12 MG in SODIUM CHLORIDE 100 ML IVPB ONE (08:30)
[2017-07-27] MEDS ORDERED: NIVOLUMAB IVPB ONE (09:00)
[2017-07-27] MEDS ORDERED: SODIUM CHLORIDE IVPB ONE (09:00)
[2017-07-27 09:38] LABS: BASO % 0.6 % (0-2.0); EOS % 1.6 % (0-4.5); MCH 27.1 pg (25.7-33.7); MCHC 31.7 g/dl (32.0-36.0); MEAN CELL VOLUME 85.5 fl (80-96); MEAN PLT VOLUME 7.8 fl (7.5-11.1); NEUT % 79.1 % (42.8-82.8); PLATELET COUNT 272 K/MM3 (134-434); RDW 15.2 % (11.6-15.6); WHITE BLOOD COUNT 9.2 K/mm3 (4.0-10.0)
[2017-07-27 10:08] LABS: ALBUMIN 3.5 g/dl (3.4-5.0); ALK PHOS 90 U/L (45-117); ANION GAP 6 (8-16); BILIRUBIN,DIRECT < 0.2 mg/dL (0.0-0.2); BILIRUBIN,TOTAL 0.4 mg/dL (0.2-1.0); CALCIUM 9.3 mg/dL (8.5-10.1); CO2 31 mmol/L (21-32); CREATININE 0.7 mg/dL (0.55-1.02); GLUCOSE,RANDOM 81 mg/dL (74-106); MAGNESIUM 1.9 mg/dL (1.8-2.4); SGOT/AST 19 U/L (15-37); SGPT/ALT 20 U/L (12-78); TOT PROT 7.4 g/dl (6.4-8.2)
[2017-07-27 11:02] VITALS: TEMP 97.9
[2017-07-27] MEDS ORDERED: PORTA CATH FLUSH 10 ML IVPUSH ONE (11:02)
[2017-07-27 14:13] VITALS: BP 128/76; PULSE 83
== END 2017-07-27 13:15 | disposition home or self-care (01) ==
LOC: JONCCHEMO 07:43 → J7W 10:01 → JONCCHEMO 13:15
PROVIDERS: ATTEND Internal Medicine Hematology & Oncology
PROC: 3E04305 Introduction of Other Antineoplastic into Central Vein, Percutaneous Approach (ICD-10-PCS; principal; 2017-07-27)
PROC: 3E043GC Introduction of Other Therapeutic Substance into Central Vein, Percutaneous Approach (ICD-10-PCS; 2017-07-27)
PROC: 3E0437Z Introduction of Electrolytic and Water Balance Substance into Central Vein, Percutaneous Approach (ICD-10-PCS; 2017-07-27)
DX: Z51.11 Encounter for antineoplastic chemotherapy (principal); C34.12 Malignant neoplasm of upper lobe, left bronchus or lung; E05.20 Thyrotoxicosis with toxic multinodular goiter without thyrotoxic crisis or storm; Z85.3 Personal history of malignant neoplasm of breast; J43.9 Emphysema, unspecified; I10 Essential (primary) hypertension
CPT/HCPCS: 36415; 80053; 80076; 83735; 85025; 96361; 96375; 96413; J9299

== ENCOUNTER 2017-08-10 07:44 | Day surgery (SDC) | payer OTHER, BC ==
[2017-08-10 09:46] LABS: BASO % 0.4 % (0-2.0); EOS % 1.1 % (0-4.5); HEMATOCRIT 41.8 % (32.4-45.2); HEMOGLOBIN 13.1 GM/dL (10.7-15.3); LYMPH % 9.7 % (8-40); MCHC 31.3 g/dl (32.0-36.0); MEAN CELL VOLUME 86.1 fl (80-96); MEAN PLT VOLUME 7.8 fl (7.5-11.1); MONO % 7.2 % (3.8-10.2); NEUT % 81.6 % (42.8-82.8); PLATELET COUNT 243 K/MM3 (134-434); RBC 4.86 M/mm3 (3.60-5.2); RDW 15.7 % (11.6-15.6); WHITE BLOOD COUNT 10.1 K/mm3 (4.0-10.0)
[2017-08-10] MEDS ORDERED: DEXAMETHASONE INJECTION 10 MG, ONDANSETRON INJECTION 12 MG in SODIUM CHLORIDE 250 ML IVPB ONE (10:00)
[2017-08-10 10:26] LABS: ALBUMIN 3.8 g/dl (3.4-5.0); ALK PHOS 94 U/L (45-117); ANION GAP 9 (8-16); BILIRUBIN,DIRECT < 0.2 mg/dL (0.0-0.2); BILIRUBIN,TOTAL 0.4 mg/dL (0.2-1.0); BLOOD UREA NITROGEN 28 mg/dL (7-18); CALCIUM 9.7 mg/dL (8.5-10.1); CHLORIDE 102 mmol/L (98-107); CO2 30 mmol/L (21-32); CREATININE 0.9 mg/dL (0.55-1.02); GLUCOSE,RANDOM 83 mg/dL (74-106); MAGNESIUM 1.6 mg/dL (1.8-2.4); POTASSIUM 3.9 mmol/L (3.5-5.1); SGOT/AST 26 U/L (15-37); SGPT/ALT 21 U/L (12-78); SODIUM 141 mmol/L (136-145); TOT PROT 7.7 g/dl (6.4-8.2)
[2017-08-10] MEDS ORDERED: NIVOLUMAB IVPB ONE (11:00)
[2017-08-10] MEDS ORDERED: SODIUM CHLORIDE IVPB ONE (11:00)
[2017-08-10] MEDS ORDERED: SODIUM CHLORIDE 250 ML IV ONE (14:15)
[2017-08-10 19:40] VITALS: TEMP 97.7
[2017-08-10] MEDS ORDERED: PORTA CATH FLUSH 10 ML IVPUSH ONE (19:44)
[2017-08-10 19:45] VITALS: BP 123/81; PULSE 94
== END 2017-08-10 15:30 | disposition home or self-care (01) ==
LOC: JONCCHEMO 07:44 → J7W 11:06 → JONCCHEMO 15:30
PROVIDERS: ATTEND Internal Medicine Hematology & Oncology
DX: Z51.11 Encounter for antineoplastic chemotherapy (principal); C34.12 Malignant neoplasm of upper lobe, left bronchus or lung; Z85.3 Personal history of malignant neoplasm of breast; E05.20 Thyrotoxicosis with toxic multinodular goiter without thyrotoxic crisis or storm; J43.9 Emphysema, unspecified; I10 Essential (primary) hypertension
CPT/HCPCS: 36415; 80053; 80076; 83735; 85025; 96361; 96367; 96375; 96413; J9299

== ENCOUNTER 2017-08-24 07:31 | Day surgery (SDC) | payer OTHER, BC ==
[2017-08-24 09:18] LABS: BASO % 0.7 % (0-2.0); EOS % 1.9 % (0-4.5); HEMATOCRIT 41.2 % (32.4-45.2); LYMPH % 10.2 % (8-40); MCH 27.1 pg (25.7-33.7); MCHC 31.6 g/dl (32.0-36.0); MEAN CELL VOLUME 85.8 fl (80-96); MEAN PLT VOLUME 7.6 fl (7.5-11.1); MONO % 7.9 % (3.8-10.2); NEUT % 79.3 % (42.8-82.8); PLATELET COUNT 237 K/MM3 (134-434); WHITE BLOOD COUNT 9.1 K/mm3 (4.0-10.0)
[2017-08-24 09:45] LABS: ALBUMIN 3.5 g/dl (3.4-5.0); ANION GAP 8 (8-16); BILIRUBIN,DIRECT < 0.2 mg/dL (0.0-0.2); BLOOD UREA NITROGEN 16 mg/dL (7-18); CALCIUM 8.5 mg/dL (8.5-10.1); CHLORIDE 102 mmol/L (98-107); CO2 29 mmol/L (21-32); CREATININE 0.8 mg/dL (0.55-1.02); GLUCOSE,RANDOM 81 mg/dL (74-106); MAGNESIUM 1.6 mg/dL (1.8-2.4); POTASSIUM 3.9 mmol/L (3.5-5.1); SGOT/AST 21 U/L (15-37); SGPT/ALT 18 U/L (12-78); SODIUM 139 mmol/L (136-145)
[2017-08-24 09:47] LABS: ALK PHOS 80 U/L (45-117); BILIRUBIN,TOTAL 0.5 mg/dL (0.2-1.0); TOT PROT 7.3 g/dl (6.4-8.2)
[2017-08-24] MEDS ORDERED: DEXAMETHASONE INJECTION 10 MG, ONDANSETRON INJECTION 12 MG in SODIUM CHLORIDE 100 ML IVPB ONE (10:00)
[2017-08-24] MEDS ORDERED: SODIUM CHLORIDE 250 ML IV ONE (10:00)
[2017-08-24] MEDS ORDERED: SODIUM CHLORIDE IVPB ONE (10:30)
[2017-08-24] MEDS ORDERED: NIVOLUMAB IVPB ONE (10:30)
[2017-08-24] MEDS ORDERED: MAGNESIUM 1GM/D5W - 1 GM/100 ML IVPB IVPB ONE (11:30)
[2017-08-24 12:51] VITALS: TEMP 97.6
[2017-08-24] MEDS ORDERED: PORTA CATH FLUSH 10 ML IVPUSH ONE (13:03)
[2017-08-24 15:44] VITALS: BP 113/72; PULSE 87
== END 2017-08-24 15:30 | disposition home or self-care (01) ==
LOC: JONCCHEMO 07:31 → J7W 10:38 → JONCCHEMO 15:30
PROVIDERS: ATTEND Internal Medicine Hematology & Oncology
DX: Z51.11 Encounter for antineoplastic chemotherapy (principal); C34.12 Malignant neoplasm of upper lobe, left bronchus or lung
CPT/HCPCS: 36415; 80053; 80076; 83735; 85025; 96361; 96367; 96375; 96413; 96415; 96417; J9299

== ENCOUNTER 2017-09-07 07:16 | Day surgery (SDC) | payer OTHER, BC ==
[2017-09-07] MEDS ORDERED: SODIUM CHLORIDE 250 ML IV ONE (08:00)
[2017-09-07] MEDS ORDERED: DEXAMETHASONE INJECTION 10 MG, ONDANSETRON INJECTION 12 MG in SODIUM CHLORIDE 100 ML IVPB ONE (08:30)
[2017-09-07] MEDS ORDERED: SODIUM CHLORIDE IVPB ONE (09:00)
[2017-09-07] MEDS ORDERED: NIVOLUMAB IVPB ONE (09:00)
[2017-09-07 09:11] LABS: BASO % 0.5 % (0-2.0); EOS % 1.2 % (0-4.5); HEMATOCRIT 41.7 % (32.4-45.2); HEMOGLOBIN 13.2 GM/dL (10.7-15.3); LYMPH % 10.2 % (8-40); MCH 27.1 pg (25.7-33.7); MCHC 31.7 g/dl (32.0-36.0); MEAN CELL VOLUME 85.5 fl (80-96); MEAN PLT VOLUME 7.9 fl (7.5-11.1); MONO % 6.6 % (3.8-10.2); NEUT % 81.5 % (42.8-82.8); PLATELET COUNT 229 K/MM3 (134-434); RBC 4.87 M/mm3 (3.60-5.2); RDW 15.6 % (11.6-15.6); WHITE BLOOD COUNT 9.2 K/mm3 (4.0-10.0)
[2017-09-07 10:07] LABS: ALBUMIN 3.7 g/dl (3.4-5.0); ALK PHOS 82 U/L (45-117); ANION GAP 9 (8-16); BILIRUBIN,DIRECT < 0.2 mg/dL (0.0-0.2); BILIRUBIN,TOTAL 0.5 mg/dL (0.2-1.0); BLOOD UREA NITROGEN 18 mg/dL (7-18); CALCIUM 9.4 mg/dL (8.5-10.1); CHLORIDE 100 mmol/L (98-107); CO2 31 mmol/L (21-32); CREATININE 0.8 mg/dL (0.55-1.02); GLUCOSE,RANDOM 79 mg/dL (74-106); MAGNESIUM 1.7 mg/dL (1.8-2.4); POTASSIUM 3.9 mmol/L (3.5-5.1); SGOT/AST 23 U/L (15-37); SGPT/ALT 18 U/L (12-78); SODIUM 140 mmol/L (136-145); TOT PROT 7.5 g/dl (6.4-8.2)
[2017-09-07] MEDS ORDERED: MAGNESIUM 1GM/D5W - 1 GM/100 ML IVPB IVPB ONE (11:15)
[2017-09-07 12:02] VITALS: TEMP 97.9
[2017-09-07] MEDS ORDERED: PORTA CATH FLUSH 10 ML IVPUSH ONE (12:05)
[2017-09-07 14:20] VITALS: BP 112/67; PULSE 92
== END 2017-09-07 14:10 | disposition home or self-care (01) ==
LOC: JONCCHEMO 07:16 → J7W 09:46 → JONCCHEMO 14:10
PROVIDERS: ATTEND Internal Medicine Hematology & Oncology
DX: Z51.11 Encounter for antineoplastic chemotherapy (principal); C34.12 Malignant neoplasm of upper lobe, left bronchus or lung
CPT/HCPCS: 36415; 80053; 80076; 83735; 85025; 96361; 96367; 96375; 96413; 96417; J1100; J9299

== ENCOUNTER 2017-09-21 07:30 | Day surgery (SDC) | payer OTHER, BC ==
[2017-09-21] MEDS ORDERED: SODIUM CHLORIDE 250 ML IV ONE (08:00)
[2017-09-21] MEDS ORDERED: DEXAMETHASONE INJECTION 10 MG, ONDANSETRON INJECTION 12 MG in SODIUM CHLORIDE 100 ML IVPB ONE (08:30)
[2017-09-21] MEDS ORDERED: NIVOLUMAB IVPB ONE (09:00)
[2017-09-21] MEDS ORDERED: SODIUM CHLORIDE IVPB ONE (09:00)
[2017-09-21 10:06] LABS: BASO % 0.4 % (0-2.0); EOS % 1.1 % (0-4.5); HEMATOCRIT 41.1 % (32.4-45.2); HEMOGLOBIN 13.1 GM/dL (10.7-15.3); LYMPH % 11.3 % (8-40); MCH 27.3 pg (25.7-33.7); MCHC 31.9 g/dl (32.0-36.0); MEAN CELL VOLUME 85.6 fl (80-96); MEAN PLT VOLUME 7.9 fl (7.5-11.1); NEUT % 80.2 % (42.8-82.8); PLATELET COUNT 235 K/MM3 (134-434); RDW 15.6 % (11.6-15.6); WHITE BLOOD COUNT 10.3 K/mm3 (4.0-10.0)
[2017-09-21 11:53] VITALS: TEMP 97.8
[2017-09-21] MEDS ORDERED: PORTA CATH FLUSH 10 ML IVPUSH ONE (11:53)
[2017-09-21 12:01] LABS: ALBUMIN 3.5 g/dl (3.4-5.0); ALK PHOS 75 U/L (45-117); ANION GAP 8 (8-16); BILIRUBIN,DIRECT < 0.2 mg/dL (0.0-0.2); BILIRUBIN,TOTAL 0.5 mg/dL (0.2-1.0); BLOOD UREA NITROGEN 16 mg/dL (7-18); CALCIUM 8.3 mg/dL (8.5-10.1); CHLORIDE 106 mmol/L (98-107); CO2 26 mmol/L (21-32); CREATININE 0.8 mg/dL (0.55-1.02); GLUCOSE,RANDOM 85 mg/dL (74-106); MAGNESIUM 1.6 mg/dL (1.8-2.4); SGOT/AST 22 U/L (15-37); SGPT/ALT 19 U/L (12-78); SODIUM 140 mmol/L (136-145); TOT PROT 7.1 g/dl (6.4-8.2)
[2017-09-21] MEDS ORDERED: MAGNESIUM SULF 50% (8.12 MEQ/2 ML-1 GM VIAL) ONE (12:37)
[2017-09-21] MEDS ORDERED: MAGNESIUM SULF 50% (8.12 MEQ/2 ML-1 GM VIAL) IVPB ONE (13:00)
[2017-09-21 15:37] VITALS: BP 118/64; PULSE 84
== END 2017-09-21 13:30 | disposition home or self-care (01) ==
LOC: JONCCHEMO 07:30 → J7W 10:30 → JONCCHEMO 13:30
PROVIDERS: ATTEND Internal Medicine Hematology & Oncology
DX: Z51.11 Encounter for antineoplastic chemotherapy (principal); C34.12 Malignant neoplasm of upper lobe, left bronchus or lung
CPT/HCPCS: 36415; 80053; 80076; 83735; 85025; 96367; 96375; 96413; J1100; J2405; J9299

== ENCOUNTER 2017-10-05 07:37 | Day surgery (SDC) | payer OTHER, BC ==
[2017-10-05] MEDS ORDERED: SODIUM CHLORIDE 250 ML IV ONE (09:00)
[2017-10-05 09:46] LABS: BASO % 0.4 % (0-2.0); EOS % 0.7 % (0-4.5); HEMATOCRIT 40.9 % (32.4-45.2); LYMPH % 11.7 % (8-40); MCH 27.3 pg (25.7-33.7); MCHC 31.8 g/dl (32.0-36.0); MEAN PLT VOLUME 7.4 fl (7.5-11.1); MONO % 8.2 % (3.8-10.2); PLATELET COUNT 221 K/MM3 (134-434); RBC 4.76 M/mm3 (3.60-5.2); RDW 15.9 % (11.6-15.6)
[2017-10-05] MEDS ORDERED: DEXAMETHASONE INJECTION 10 MG, ONDANSETRON INJECTION 12 MG in SODIUM CHLORIDE 100 ML IVPB ONE (10:00)
[2017-10-05 10:12] LABS: ALBUMIN 3.6 g/dl (3.4-5.0); ANION GAP 4 (8-16); BILIRUBIN,DIRECT < 0.2 mg/dL (0.0-0.2); BILIRUBIN,TOTAL 0.4 mg/dL (0.2-1.0); BLOOD UREA NITROGEN 18 mg/dL (7-18); CALCIUM 8.9 mg/dL (8.5-10.1); CHLORIDE 104 mmol/L (98-107); CO2 32 mmol/L (21-32); CREATININE 0.7 mg/dL (0.55-1.02); GLUCOSE,RANDOM 91 mg/dL (74-106); MAGNESIUM 1.9 mg/dL (1.8-2.4); POTASSIUM 4.1 mmol/L (3.5-5.1); SGOT/AST 18 U/L (15-37); SGPT/ALT 14 U/L (12-78); SODIUM 140 mmol/L (136-145); TOT PROT 7.1 g/dl (6.4-8.2)
[2017-10-05 10:13] LABS: ALK PHOS 77 U/L (45-117)
[2017-10-05] MEDS ORDERED: NIVOLUMAB IVPB ONE (10:30)
[2017-10-05] MEDS ORDERED: SODIUM CHLORIDE IVPB ONE (10:30)
[2017-10-05 16:59] VITALS: PULSE 80; TEMP 97.5
[2017-10-05 17:04] VITALS: BP 118/76
[2017-10-05] MEDS ORDERED: PORTA CATH FLUSH 10 ML IVPUSH ONE (17:04)
== END 2017-10-05 13:50 | disposition home or self-care (01) ==
LOC: JONCCHEMO 07:37 → J7W 10:33 → JONCCHEMO 13:50
PROVIDERS: ATTEND Internal Medicine Hematology & Oncology
PROC: 3E04305 Introduction of Other Antineoplastic into Central Vein, Percutaneous Approach (ICD-10-PCS; principal; 2017-10-05)
PROC: 3E043GC Introduction of Other Therapeutic Substance into Central Vein, Percutaneous Approach (ICD-10-PCS; 2017-10-05)
PROC: 3E0437Z Introduction of Electrolytic and Water Balance Substance into Central Vein, Percutaneous Approach (ICD-10-PCS; 2017-10-05)
DX: Z51.11 Encounter for antineoplastic chemotherapy (principal); C34.12 Malignant neoplasm of upper lobe, left bronchus or lung; E05.20 Thyrotoxicosis with toxic multinodular goiter without thyrotoxic crisis or storm
CPT/HCPCS: 36415; 80053; 80076; 83735; 85025; 96361; 96367; 96375; 96413; J1100; J9299

== ENCOUNTER 2017-10-19 07:16 | Day surgery (SDC) | payer OTHER, BC ==
[2017-10-19] MEDS ORDERED: SODIUM CHLORIDE 250 ML IV ONE (09:00)
[2017-10-19 09:52] LABS: BASO % 0.5 % (0-2.0); EOS % 1.1 % (0-4.5); HEMATOCRIT 39.6 % (32.4-45.2); HEMOGLOBIN 13.1 GM/dL (10.7-15.3); LYMPH % 10.5 % (8-40); MCH 28.5 pg (25.7-33.7); MCHC 33.2 g/dl (32.0-36.0); MEAN CELL VOLUME 85.9 fl (80-96); MEAN PLT VOLUME 7.9 fl (7.5-11.1); MONO % 7.3 % (3.8-10.2); NEUT % 80.6 % (42.8-82.8); PLATELET COUNT 266 K/MM3 (134-434); RBC 4.61 M/mm3 (3.60-5.2); RDW 16.3 % (11.6-15.6); WHITE BLOOD COUNT 9.3 K/mm3 (4.0-10.0)
[2017-10-19] MEDS ORDERED: DEXAMETHASONE INJECTION 10 MG, ONDANSETRON INJECTION 12 MG in SODIUM CHLORIDE 100 ML IVPB ONE (10:00)
[2017-10-19 10:16] LABS: ALBUMIN 3.6 g/dl (3.4-5.0); ANION GAP 10 (8-16); BLOOD UREA NITROGEN 18 mg/dL (7-18); CALCIUM 9.1 mg/dL (8.5-10.1); CHLORIDE 102 mmol/L (98-107); CO2 30 mmol/L (21-32); CREATININE 0.7 mg/dL (0.55-1.02); GLUCOSE,RANDOM 84 mg/dL (74-106); POTASSIUM 4.1 mmol/L (3.5-5.1); SGOT/AST 23 U/L (15-37); SGPT/ALT 17 U/L (12-78); SODIUM 142 mmol/L (136-145)
[2017-10-19 10:18] LABS: ALK PHOS 88 U/L (45-117); BILIRUBIN,TOTAL 0.6 mg/dL (0.2-1.0); TOT PROT 7.3 g/dl (6.4-8.2)
[2017-10-19] MEDS ORDERED: NIVOLUMAB IVPB ONE (10:30)
[2017-10-19] MEDS ORDERED: SODIUM CHLORIDE IVPB ONE (10:30)
[2017-10-19 12:14] LABS: ALBUMIN 3.7 g/dl (3.4-5.0); BILIRUBIN,DIRECT < 0.2 mg/dL (0.0-0.2); MAGNESIUM 1.9 mg/dL (1.8-2.4); SGOT/AST 22 U/L (15-37); SGPT/ALT 16 U/L (12-78)
[2017-10-19 12:16] LABS: ALK PHOS 85 U/L (45-117); BILIRUBIN,TOTAL 0.3 mg/dL (0.2-1.0); TOT PROT 7.2 g/dl (6.4-8.2)
[2017-10-19 14:33] VITALS: TEMP 97.6
[2017-10-19] MEDS ORDERED: PORTA CATH FLUSH 10 ML IVPUSH ONE (14:33)
[2017-10-19 14:35] VITALS: BP 123/75; PULSE 92
== END 2017-10-19 13:50 | disposition home or self-care (01) ==
LOC: JONCCHEMO 07:16 → J7W 10:44 → JONCCHEMO 13:50
PROVIDERS: ATTEND Internal Medicine Hematology & Oncology
DX: Z51.11 Encounter for antineoplastic chemotherapy (principal); C34.12 Malignant neoplasm of upper lobe, left bronchus or lung; E05.20 Thyrotoxicosis with toxic multinodular goiter without thyrotoxic crisis or storm
CPT/HCPCS: 36415; 80053; 80076; 83735; 84439; 84443; 85025; 96361; 96367; 96375; 96413; J1100; J9299

== ENCOUNTER 2017-11-02 07:32 | Day surgery (SDC) | payer OTHER, BC ==
[2017-11-02] MEDS ORDERED: NIVOLUMAB IVPB ONE (08:30)
[2017-11-02] MEDS ORDERED: SODIUM CHLORIDE IVPB ONE (08:30)
[2017-11-02] MEDS ORDERED: DEXAMETHASONE INJECTION 10 MG, ONDANSETRON INJECTION 12 MG in SODIUM CHLORIDE 100 ML IVPB ONE (08:30)
[2017-11-02] MEDS ORDERED: SODIUM CHLORIDE 250 ML IV ONE (09:00)
[2017-11-02 09:42] LABS: BASO % 0.2 % (0-2.0); EOS % 0.8 % (0-4.5); HEMATOCRIT 40.7 % (32.4-45.2); HEMOGLOBIN 13.3 GM/dL (10.7-15.3); LYMPH % 10.8 % (8-40); MCH 28.2 pg (25.7-33.7); MCHC 32.7 g/dl (32.0-36.0); MEAN CELL VOLUME 86.2 fl (80-96); MEAN PLT VOLUME 8.1 fl (7.5-11.1); MONO % 6.5 % (3.8-10.2); NEUT % 81.7 % (42.8-82.8); PLATELET COUNT 207 K/MM3 (134-434); RBC 4.72 M/mm3 (3.60-5.2); RDW 15.9 % (11.6-15.6)
[2017-11-02 10:06] LABS: ALBUMIN 3.7 g/dl (3.4-5.0); ALK PHOS 80 U/L (45-117); ANION GAP 5 (8-16); BILIRUBIN,TOTAL 0.3 mg/dL (0.2-1.0); BLOOD UREA NITROGEN 23 mg/dL (7-18); CALCIUM 9.3 mg/dL (8.5-10.1); CHLORIDE 105 mmol/L (98-107); CO2 32 mmol/L (21-32); CREATININE 0.7 mg/dL (0.55-1.02); GLUCOSE,RANDOM 86 mg/dL (74-106); POTASSIUM 3.9 mmol/L (3.5-5.1); SGOT/AST 21 U/L (15-37); SGPT/ALT 17 U/L (12-78); SODIUM 142 mmol/L (136-145); TOT PROT 7.4 g/dl (6.4-8.2)
[2017-11-02 11:27] LABS: BILIRUBIN,DIRECT < 0.2 mg/dL (0.0-0.2); MAGNESIUM 1.7 mg/dL (1.8-2.4)
[2017-11-02 11:30] VITALS: TEMP 98.1
[2017-11-02] MEDS ORDERED: PORTA CATH FLUSH 10 ML IVPUSH ONE (12:10)
[2017-11-02 13:53] VITALS: BP 114/70; PULSE 93
== END 2017-11-02 13:59 | disposition home or self-care (01) ==
LOC: JONCCHEMO 07:32 → J7W 11:04 → JONCCHEMO 13:59
PROVIDERS: ATTEND Internal Medicine Hematology & Oncology
DX: Z51.11 Encounter for antineoplastic chemotherapy (principal); C34.12 Malignant neoplasm of upper lobe, left bronchus or lung
CPT/HCPCS: 36415; 80053; 80076; 83735; 85025; 96361; 96367; 96375; 96413; J1100; J2405; J9299

== ENCOUNTER 2017-11-16 07:19 | Day surgery (SDC) | payer OTHER, BC ==
[2017-11-16] MEDS ORDERED: SODIUM CHLORIDE 250 ML IV ONE (08:00)
[2017-11-16] MEDS ORDERED: DEXAMETHASONE INJECTION 10 MG, ONDANSETRON INJECTION 12 MG in SODIUM CHLORIDE 100 ML IVPB ONE (08:30)
[2017-11-16 08:52] VITALS: TEMP 98
[2017-11-16] MEDS ORDERED: SODIUM CHLORIDE IVPB ONE (09:00)
[2017-11-16] MEDS ORDERED: NIVOLUMAB IVPB ONE (09:00)
[2017-11-16 09:13] LABS: BASO % 0.5 % (0-2.0); EOS % 0.6 % (0-4.5); HEMATOCRIT 41.1 % (32.4-45.2); HEMOGLOBIN 13.4 GM/dL (10.7-15.3); LYMPH % 10.1 % (8-40); MCH 27.8 pg (25.7-33.7); MCHC 32.7 g/dl (32.0-36.0); MEAN CELL VOLUME 85.1 fl (80-96); MEAN PLT VOLUME 7.5 fl (7.5-11.1); MONO % 6.3 % (3.8-10.2); NEUT % 82.5 % (42.8-82.8); PLATELET COUNT 277 K/MM3 (134-434); RBC 4.84 M/mm3 (3.60-5.2); WHITE BLOOD COUNT 9.5 K/mm3 (4.0-10.0)
[2017-11-16 09:32] LABS: ALBUMIN 3.8 g/dl (3.4-5.0); ALK PHOS 85 U/L (45-117); ANION GAP 6 (8-16); BILIRUBIN,TOTAL 0.4 mg/dL (0.2-1.0); BLOOD UREA NITROGEN 19 mg/dL (7-18); CALCIUM 9.4 mg/dL (8.5-10.1); CHLORIDE 103 mmol/L (98-107); CO2 32 mmol/L (21-32); CREATININE 0.8 mg/dL (0.55-1.02); GLUCOSE,RANDOM 100 mg/dL (74-106); POTASSIUM 4.6 mmol/L (3.5-5.1); SGOT/AST 22 U/L (15-37); SGPT/ALT 19 U/L (12-78); SODIUM 141 mmol/L (136-145); TOT PROT 7.8 g/dl (6.4-8.2)
[2017-11-16 09:34] LABS: BILIRUBIN,DIRECT 0.2 mg/dL (0.0-0.2)
[2017-11-16] MEDS ORDERED: PORTA CATH FLUSH 10 ML IVPUSH ONE (09:41)
[2017-11-16 13:35] VITALS: BP 116/65; PULSE 94
== END 2017-11-16 12:10 | disposition home or self-care (01) ==
LOC: JONCCHEMO 07:19 → J7W 09:31 → JONCCHEMO 12:10
PROVIDERS: ATTEND Internal Medicine Hematology & Oncology
DX: Z51.11 Encounter for antineoplastic chemotherapy (principal); C34.12 Malignant neoplasm of upper lobe, left bronchus or lung
CPT/HCPCS: 36415; 80053; 80076; 83735; 85025; 96361; 96367; 96375; 96413; J1100; J2405; J9299

== ENCOUNTER 2017-11-30 07:27 | Day surgery (SDC) | payer OTHER, BC ==
[2017-11-30] MEDS ORDERED: SODIUM CHLORIDE 250 ML IV ONE (09:00)
[2017-11-30 09:27] LABS: BASO % 0.3 % (0-2.0); EOS % 0.6 % (0-4.5); HEMATOCRIT 41.1 % (32.4-45.2); HEMOGLOBIN 13.4 GM/dL (10.7-15.3); LYMPH % 6.2 % (8-40); MCH 28.2 pg (25.7-33.7); MCHC 32.6 g/dl (32.0-36.0); MEAN CELL VOLUME 86.5 fl (80-96); MEAN PLT VOLUME 7.6 fl (7.5-11.1); MONO % 6.1 % (3.8-10.2); NEUT % 86.8 % (42.8-82.8); PLATELET COUNT 265 K/MM3 (134-434); RBC 4.74 M/mm3 (3.60-5.2); RDW 15.6 % (11.6-15.6); WHITE BLOOD COUNT 10.3 K/mm3 (4.0-10.0)
[2017-11-30 09:53] LABS: ALBUMIN 3.6 g/dl (3.4-5.0); ALK PHOS 88 U/L (45-117); ANION GAP 5 (8-16); BILIRUBIN,TOTAL 0.4 mg/dL (0.2-1.0); BLOOD UREA NITROGEN 17 mg/dL (7-18); CALCIUM 9.6 mg/dL (8.5-10.1); CHLORIDE 104 mmol/L (98-107); CO2 32 mmol/L (21-32); CREATININE 0.7 mg/dL (0.55-1.02); GLUCOSE,RANDOM 94 mg/dL (74-106); POTASSIUM 4.4 mmol/L (3.5-5.1); SGOT/AST 18 U/L (15-37); SGPT/ALT 15 U/L (12-78); SODIUM 141 mmol/L (136-145); TOT PROT 7.7 g/dl (6.4-8.2)
[2017-11-30 09:58] LABS: ALBUMIN 3.6 g/dl (3.4-5.0); ALK PHOS 92 U/L (45-117); BILIRUBIN,DIRECT < 0.2 mg/dL (0.0-0.2); BILIRUBIN,TOTAL 0.4 mg/dL (0.2-1.0); SGOT/AST 20 U/L (15-37); SGPT/ALT 15 U/L (12-78); TOT PROT 7.9 g/dl (6.4-8.2)
[2017-11-30] MEDS ORDERED: DEXAMETHASONE INJECTION 10 MG, ONDANSETRON INJECTION 12 MG in SODIUM CHLORIDE 100 ML IVPB ONE (10:00)
[2017-11-30] MEDS ORDERED: NIVOLUMAB IVPB ONE (10:30)
[2017-11-30] MEDS ORDERED: SODIUM CHLORIDE IVPB ONE (10:30)
[2017-11-30 11:57] VITALS: TEMP 97.8
[2017-11-30] MEDS ORDERED: PORTA CATH FLUSH 10 ML IVPUSH ONE (11:57)
[2017-11-30 14:52] VITALS: BP 126/76; PULSE 91
== END 2017-11-30 13:05 | disposition home or self-care (01) ==
LOC: JONCCHEMO 07:27 → J7W 10:00 → JONCCHEMO 13:05
PROVIDERS: ATTEND Internal Medicine Hematology & Oncology
DX: Z51.11 Encounter for antineoplastic chemotherapy (principal); C34.12 Malignant neoplasm of upper lobe, left bronchus or lung
CPT/HCPCS: 36415; 80053; 80076; 82378; 83735; 85025; 86300; 96361; 96367; 96375; 96413; J1100; J9299

== ENCOUNTER 2017-12-14 07:33 | Day surgery (SDC) | payer OTHER, BC ==
[2017-12-14] MEDS ORDERED: SODIUM CHLORIDE 250 ML IV ONE (09:00)
[2017-12-14 09:47] LABS: BASO % 0.5 % (0-2.0); EOS % 0.8 % (0-4.5); HEMATOCRIT 37.2 % (32.4-45.2); HEMOGLOBIN 12.6 GM/dL (10.7-15.3); LYMPH % 9.4 % (8-40); MCH 28.8 pg (25.7-33.7); MCHC 33.8 g/dl (32.0-36.0); MEAN CELL VOLUME 85.3 fl (80-96); MEAN PLT VOLUME 7.5 fl (7.5-11.1); MONO % 7.7 % (3.8-10.2); NEUT % 81.6 % (42.8-82.8); PLATELET COUNT 267 K/MM3 (134-434); RBC 4.36 M/mm3 (3.60-5.2); RDW 15.5 % (11.6-15.6); WHITE BLOOD COUNT 8.8 K/mm3 (4.0-10.0)
[2017-12-14] MEDS ORDERED: DEXAMETHASONE INJECTION 10 MG, ONDANSETRON INJECTION 12 MG in SODIUM CHLORIDE 100 ML IVPB ONE (10:00)
[2017-12-14] MEDS ORDERED: NIVOLUMAB IVPB ONE (10:30)
[2017-12-14] MEDS ORDERED: SODIUM CHLORIDE IVPB ONE (10:30)
[2017-12-14 11:13] LABS: ALBUMIN 3.5 g/dl (3.4-5.0); ALK PHOS 84 U/L (45-117); ANION GAP 5 (8-16); BILIRUBIN,TOTAL 0.4 mg/dL (0.2-1.0); BLOOD UREA NITROGEN 17 mg/dL (7-18); CALCIUM 9.1 mg/dL (8.5-10.1); CHLORIDE 105 mmol/L (98-107); CO2 31 mmol/L (21-32); CREATININE 0.7 mg/dL (0.55-1.02); GLUCOSE,RANDOM 96 mg/dL (74-106); POTASSIUM 4.5 mmol/L (3.5-5.1); SGOT/AST 18 U/L (15-37); SGPT/ALT 13 U/L (12-78); SODIUM 141 mmol/L (136-145); TOT PROT 7.5 g/dl (6.4-8.2)
[2017-12-14 15:03] VITALS: TEMP 97.7
[2017-12-14 15:05] VITALS: BP 113/73; PULSE 91
[2017-12-15 00:47] LABS: ALBUMIN 3.9 g/dl (3.4-5.0); ALK PHOS 85 U/L (45-117); BILIRUBIN,DIRECT < 0.2 mg/dL (0.0-0.2); BILIRUBIN,TOTAL 0.3 mg/dL (0.2-1.0); SGOT/AST 21 U/L (15-37); SGPT/ALT 13 U/L (12-78); TOT PROT 7.3 g/dl (6.4-8.2)
[2017-12-15 01:16] LABS: MAGNESIUM 1.8 mg/dL (1.8-2.4)
== END 2017-12-14 13:40 | disposition home or self-care (01) ==
LOC: JONCCHEMO 07:33 → J7W 10:30 → JONCCHEMO 13:40
PROVIDERS: ATTEND Internal Medicine Hematology & Oncology
DX: Z51.11 Encounter for antineoplastic chemotherapy (principal); C34.12 Malignant neoplasm of upper lobe, left bronchus or lung
CPT/HCPCS: 36415; 80053; 80076; 83735; 85025; 96361; 96367; 96375; 96413; J1100; J9299

== ENCOUNTER 2017-12-28 07:23 | Day surgery (SDC) | payer OTHER, BC ==
[2017-12-28] MEDS ORDERED: SODIUM CHLORIDE 250 ML IV ONE (08:00)
[2017-12-28] MEDS ORDERED: DEXAMETHASONE INJECTION 10 MG, ONDANSETRON INJECTION 12 MG in SODIUM CHLORIDE 100 ML IVPB ONE (08:30)
[2017-12-28] MEDS ORDERED: SODIUM CHLORIDE IVPB ONE (09:00)
[2017-12-28] MEDS ORDERED: NIVOLUMAB IVPB ONE (09:00)
[2017-12-28 09:46] LABS: BASO % 0.6 % (0-2.0); EOS % 1.4 % (0-4.5); HEMOGLOBIN 13.6 GM/dL (10.7-15.3); MCH 27.8 pg (25.7-33.7); MCHC 32.3 g/dl (32.0-36.0); MEAN PLT VOLUME 8.2 fl (7.5-11.1); MONO % 7.4 % (3.8-10.2); NEUT % 79.6 % (42.8-82.8); PLATELET COUNT 261 K/MM3 (134-434); RBC 4.88 M/mm3 (3.60-5.2); WHITE BLOOD COUNT 8.6 K/mm3 (4.0-10.0)
[2017-12-28 10:15] LABS: ALBUMIN 3.7 g/dl (3.4-5.0); ALK PHOS 85 U/L (45-117); ANION GAP 5 (8-16); BILIRUBIN,DIRECT < 0.2 mg/dL (0.0-0.2); BILIRUBIN,TOTAL 0.5 mg/dL (0.2-1.0); BLOOD UREA NITROGEN 19 mg/dL (7-18); CALCIUM 9.2 mg/dL (8.5-10.1); CHLORIDE 104 mmol/L (98-107); CO2 31 mmol/L (21-32); CREATININE 0.7 mg/dL (0.55-1.02); GLUCOSE,RANDOM 90 mg/dL (74-106); SGPT/ALT 17 U/L (12-78); SODIUM 140 mmol/L (136-145); TOT PROT 7.8 g/dl (6.4-8.2)
[2017-12-28 10:46] LABS: POTASSIUM 4.3 mmol/L (3.5-5.1)
[2017-12-28 10:47] LABS: MAGNESIUM 2.1 mg/dL (1.8-2.4); SGOT/AST 24 U/L (15-37)
[2017-12-28 11:53] VITALS: TEMP 97.9
[2017-12-28 15:10] VITALS: BP 161/87; PULSE 95
== END 2017-12-28 13:10 | disposition home or self-care (01) ==
LOC: JONCCHEMO 07:23 → J7W 10:19 → JONCCHEMO 13:10
PROVIDERS: ATTEND Internal Medicine Hematology & Oncology
DX: Z51.11 Encounter for antineoplastic chemotherapy (principal); C34.12 Malignant neoplasm of upper lobe, left bronchus or lung
CPT/HCPCS: 36415; 80053; 80076; 83735; 85025; 96361; 96367; 96375; 96413; J1100; J2405; J9299

== ENCOUNTER 2018-01-11 07:41 | Day surgery (SDC) | payer OTHER, BC ==
[2018-01-11] MEDS ORDERED: SODIUM CHLORIDE 250 ML IV ONE (08:00)
[2018-01-11] MEDS ORDERED: DEXAMETHASONE INJECTION 10 MG, ONDANSETRON INJECTION 12 MG in SODIUM CHLORIDE 100 ML IVPB ONE (08:30)
[2018-01-11] MEDS ORDERED: NIVOLUMAB IVPB ONE (09:00)
[2018-01-11] MEDS ORDERED: SODIUM CHLORIDE IVPB ONE (09:00)
[2018-01-11 09:52] LABS: BASO % 0.6 % (0-2.0); EOS % 1.7 % (0-4.5); HEMATOCRIT 40.1 % (32.4-45.2); LYMPH % 9.6 % (8-40); MCH 27.8 pg (25.7-33.7); MCHC 32.3 g/dl (32.0-36.0); MEAN CELL VOLUME 86.1 fl (80-96); MEAN PLT VOLUME 8.1 fl (7.5-11.1); NEUT % 80.1 % (42.8-82.8); PLATELET COUNT 216 K/MM3 (134-434); RBC 4.66 M/mm3 (3.60-5.2); RDW 16.4 % (11.6-15.6)
[2018-01-11 10:16] LABS: ANION GAP 4 (8-16); CALCIUM 9.2 mg/dL (8.5-10.1); CHLORIDE 102 mmol/L (98-107); CO2 33 mmol/L (21-32); CREATININE 0.7 mg/dL (0.55-1.02); GLUCOSE,RANDOM 86 mg/dL (74-106); POTASSIUM 4.3 mmol/L (3.5-5.1); SODIUM 139 mmol/L (136-145)
[2018-01-11 10:31] LABS: BLOOD UREA NITROGEN 16 mg/dL (7-18)
[2018-01-11 18:02] VITALS: BP 136/67; PULSE 82; TEMP 97.5
== END 2018-01-11 13:30 | disposition home or self-care (01) ==
LOC: JONCCHEMO 07:41 → J7W 10:34 → JONCCHEMO 13:30
PROVIDERS: ATTEND Internal Medicine Hematology & Oncology
DX: Z51.11 Encounter for antineoplastic chemotherapy (principal); C34.12 Malignant neoplasm of upper lobe, left bronchus or lung
CPT/HCPCS: 36415; 80048; 83735; 85025; 96367; 96375; 96413; J1100; J2405; J9299

== ENCOUNTER 2018-01-25 07:30 | Day surgery (SDC) | payer OTHER, BC ==
[2018-01-25 09:33] LABS: BASO % 0.6 % (0-2.0); EOS % 1.6 % (0-4.5); HEMATOCRIT 40.5 % (32.4-45.2); HEMOGLOBIN 13.3 GM/dL (10.7-15.3); LYMPH % 11.1 % (8-40); MCH 28.4 pg (25.7-33.7); MCHC 32.7 g/dl (32.0-36.0); MEAN CELL VOLUME 86.7 fl (80-96); MEAN PLT VOLUME 8.1 fl (7.5-11.1); MONO % 6.4 % (3.8-10.2); NEUT % 80.3 % (42.8-82.8); PLATELET COUNT 223 K/MM3 (134-434); RBC 4.67 M/mm3 (3.60-5.2); RDW 16.3 % (11.6-15.6); WHITE BLOOD COUNT 7.9 K/mm3 (4.0-10.0)
[2018-01-25] MEDS ORDERED: DEXAMETHASONE INJECTION 10 MG, ONDANSETRON INJECTION 12 MG in SODIUM CHLORIDE 100 ML IVPB ONE (10:00)
[2018-01-25 10:05] LABS: ALBUMIN 3.7 g/dl (3.4-5.0); ALK PHOS 77 U/L (45-117); ANION GAP 5 (8-16); BILIRUBIN,DIRECT 0.2 mg/dL (0.0-0.2); BILIRUBIN,TOTAL 0.6 mg/dL (0.2-1.0); BLOOD UREA NITROGEN 22 mg/dL (7-18); CALCIUM 9.1 mg/dL (8.5-10.1); CHLORIDE 105 mmol/L (98-107); CO2 31 mmol/L (21-32); CREATININE 0.9 mg/dL (0.55-1.02); GLUCOSE,RANDOM 98 mg/dL (74-106); MAGNESIUM 1.6 mg/dL (1.8-2.4); POTASSIUM 4.4 mmol/L (3.5-5.1); SGOT/AST 24 U/L (15-37); SGPT/ALT 22 U/L (12-78); SODIUM 141 mmol/L (136-145); TOT PROT 7.4 g/dl (6.4-8.2)
[2018-01-25] MEDS ORDERED: NIVOLUMAB IVPB ONE (10:30)
[2018-01-25] MEDS ORDERED: SODIUM CHLORIDE 250 ML IV ONE (10:30)
[2018-01-25] MEDS ORDERED: SODIUM CHLORIDE IVPB ONE (10:30)
[2018-01-25] MEDS ORDERED: MAGNESIUM SULFATE IN WATER 2 GM/50 ML IVPB IVPB ONE (11:00)
[2018-01-25 15:35] VITALS: PULSE 85; TEMP 98.4
[2018-01-25 15:36] VITALS: BP 114/72
[2018-01-25] MEDS ORDERED: PORTA CATH FLUSH 10 ML IVPUSH ONE (15:45)
== END 2018-01-25 13:40 | disposition home or self-care (01) ==
LOC: JONCCHEMO 07:30 → J7W 10:05 → JONCCHEMO 13:40
PROVIDERS: ATTEND Internal Medicine Hematology & Oncology
DX: Z51.11 Encounter for antineoplastic chemotherapy (principal); C34.12 Malignant neoplasm of upper lobe, left bronchus or lung
CPT/HCPCS: 36415; 80053; 80076; 83735; 85025; 96361; 96367; 96375; 96413; 96417; J1100; J9299

== ENCOUNTER 2018-03-01 07:33 | Day surgery (SDC) | payer OTHER, BC ==
[2018-03-01] MEDS ORDERED: SODIUM CHLORIDE 250 ML IV ONE (08:00)
[2018-03-01] MEDS ORDERED: SODIUM CHLORIDE 500 ML IV ONE ×2 (08:00→11:30)
[2018-03-01] MEDS ORDERED: DEXAMETHASONE INJECTION 10 MG, ONDANSETRON INJECTION 12 MG in SODIUM CHLORIDE 100 ML IVPB ONE (08:30)
[2018-03-01] MEDS ORDERED: NIVOLUMAB IVPB ONE (09:00)
[2018-03-01] MEDS ORDERED: SODIUM CHLORIDE IVPB ONE (09:00)
[2018-03-01] MEDS ORDERED: FOSAPREPITANT DIMEGLUMINE 150 MG in SODIUM CHLORIDE 145 ML IVPB ONE (09:30)
[2018-03-01] MEDS ORDERED: DEXAMETHASONE INJECTION 10 MG in SODIUM CHLORIDE 50 ML IVPB ONE (09:30)
[2018-03-01] MEDS ORDERED: PALONOSETRON HCL 0.25 MG/5 ML VIAL IVPUSH ONE (09:30)
[2018-03-01 09:41] LABS: BASO % 0.4 % (0-2.0); EOS % 0.7 % (0-4.5); HEMATOCRIT 40.8 % (32.4-45.2); HEMOGLOBIN 13.4 GM/dL (10.7-15.3); LYMPH % 7.6 % (8-40); MCH 28.1 pg (25.7-33.7); MCHC 32.9 g/dl (32.0-36.0); MEAN CELL VOLUME 85.5 fl (80-96); MEAN PLT VOLUME 7.9 fl (7.5-11.1); MONO % 6.1 % (3.8-10.2); NEUT % 85.2 % (42.8-82.8); PLATELET COUNT 222 K/MM3 (134-434); RBC 4.77 M/mm3 (3.60-5.2); RDW 15.5 % (11.6-15.6); WHITE BLOOD COUNT 9.2 K/mm3 (4.0-10.0)
[2018-03-01] MEDS ORDERED: GEMCITABINE HCL 1,672 MG in SODIUM CHLORIDE 250 ML IV ONE (10:00)
[2018-03-01 10:19] LABS: ALBUMIN 3.6 g/dl (3.4-5.0); BILIRUBIN,DIRECT 0.2 mg/dL (0.0-0.2); MAGNESIUM 1.7 mg/dL (1.8-2.4)
[2018-03-01 10:25] LABS: ALBUMIN 3.5 g/dl (3.4-5.0); ANION GAP 8 (8-16); BLOOD UREA NITROGEN 16 mg/dL (7-18); CHLORIDE 107 mmol/L (98-107); CO2 30 mmol/L (21-32); GLUCOSE,RANDOM 94 mg/dL (74-106); SODIUM 145 mmol/L (136-145)
[2018-03-01] MEDS ORDERED: SODIUM CHLORIDE IV ONE (10:30)
[2018-03-01] MEDS ORDERED: CISPLATIN IV ONE (10:30)
[2018-03-01 10:38] LABS: ALK PHOS 81 U/L (45-117); BILIRUBIN,TOTAL 0.4 mg/dL (0.2-1.0); CREATININE 0.7 mg/dL (0.55-1.02); SGOT/AST 20 U/L (15-37); SGPT/ALT 19 U/L (12-78); TOT PROT 7.1 g/dl (6.4-8.2); TOT PROT 7.5 g/dl (6.4-8.2)
[2018-03-01] MEDS ORDERED: PORTA CATH FLUSH 10 ML IVPUSH ONE (11:57)
[2018-03-01 14:12] VITALS: BP 139/66; PULSE 96
[2018-03-01 14:21] VITALS: TEMP 98.2
== END 2018-03-01 14:15 | disposition home or self-care (01) ==
LOC: JONCCHEMO 07:33 → J7W 10:11 → JONCCHEMO 14:15
PROVIDERS: ATTEND Internal Medicine Hematology & Oncology
DX: Z51.11 Encounter for antineoplastic chemotherapy (principal)
CPT/HCPCS: 36415; 80053; 80076; 82378; 83735; 84439; 84443; 85025; 96361; 96367; 96375; 96413; J1100; J2405; J9299

== ENCOUNTER 2018-03-15 07:21 | Day surgery (SDC) | payer OTHER, BC ==
[2018-03-15] MEDS ORDERED: SODIUM CHLORIDE 250 ML IV ONE (09:00)
[2018-03-15 09:06] LABS: BASO % 0.5 % (0-2.0); EOS % 1.5 % (0-4.5); HEMATOCRIT 38.6 % (32.4-45.2); LYMPH % 10.3 % (8-40); MCH 28.6 pg (25.7-33.7); MCHC 33.8 g/dl (32.0-36.0); MEAN CELL VOLUME 84.6 fl (80-96); MEAN PLT VOLUME 8.3 fl (7.5-11.1); MONO % 9.3 % (3.8-10.2); NEUT % 78.4 % (42.8-82.8); PLATELET COUNT 213 K/MM3 (134-434); RBC 4.56 M/mm3 (3.60-5.2); RDW 14.9 % (11.6-15.6); WHITE BLOOD COUNT 7.8 K/mm3 (4.0-10.0)
[2018-03-15 09:37] VITALS: TEMP 98.2
[2018-03-15] MEDS ORDERED: PORTA CATH FLUSH 10 ML IVPUSH ONE (09:37)
[2018-03-15] MEDS ORDERED: DEXAMETHASONE INJECTION 10 MG, ONDANSETRON INJECTION 12 MG in SODIUM CHLORIDE 100 ML IVPB ONE (10:00)
[2018-03-15] MEDS ORDERED: NIVOLUMAB IVPB ONE (10:30)
[2018-03-15] MEDS ORDERED: SODIUM CHLORIDE IVPB ONE (10:30)
[2018-03-15 11:06] LABS: CHLORIDE 106 mmol/L (98-107); SODIUM 142 mmol/L (136-145)
[2018-03-15 11:12] LABS: ALBUMIN 3.6 g/dl (3.4-5.0); ALK PHOS 78 U/L (45-117); ANION GAP 13 (8-16); BILIRUBIN,TOTAL 0.5 mg/dL (0.2-1.0); BLOOD UREA NITROGEN 21 mg/dL (7-18); CALCIUM 9.1 mg/dL (8.5-10.1); CO2 23 mmol/L (21-32); CREATININE 0.7 mg/dL (0.55-1.02); GLUCOSE,RANDOM 88 mg/dL (74-106); SGPT/ALT 20 U/L (12-78); TOT PROT 7.1 g/dl (6.4-8.2)
[2018-03-15 11:18] LABS: BILIRUBIN,DIRECT < 0.2 mg/dL (0.0-0.2); MAGNESIUM 1.7 mg/dL (1.8-2.4); POTASSIUM 4.4 mmol/L (3.5-5.1); SGOT/AST 34 U/L (15-37)
[2018-03-15] MEDS ORDERED: MAGNESIUM 1GM/D5W - 1 GM/100 ML IVPB IVPB ONE (12:30)
[2018-03-15] MEDS ORDERED: MAGNESIUM SULF 50% (8.12 MEQ/2 ML-1 GM VIAL) ONE (12:43)
[2018-03-15 15:21] VITALS: BP 121/67; PULSE 78
== END 2018-03-15 14:00 | disposition home or self-care (01) ==
LOC: JONCCHEMO 07:21 → J7W 09:16 → JONCCHEMO 14:00
PROVIDERS: ATTEND Internal Medicine Hematology & Oncology
DX: Z51.11 Encounter for antineoplastic chemotherapy (principal); C34.12 Malignant neoplasm of upper lobe, left bronchus or lung
CPT/HCPCS: 36415; 80053; 80076; 82378; 83735; 85025; 96361; 96367; 96375; 96413; 96417; J1100; J9299

== ENCOUNTER 2018-03-29 07:24 | Day surgery (SDC) | payer OTHER, BC ==
[2018-03-29] MEDS ORDERED: SODIUM CHLORIDE 250 ML IV ONE (09:00)
[2018-03-29 09:39] LABS: BASO % 0.5 % (0-2.0); EOS % 1.1 % (0-4.5); HEMATOCRIT 38.9 % (32.4-45.2); HEMOGLOBIN 12.8 GM/dL (10.7-15.3); LYMPH % 11.4 % (8-40); MCH 27.4 pg (25.7-33.7); MCHC 32.8 g/dl (32.0-36.0); MEAN CELL VOLUME 83.6 fl (80-96); MEAN PLT VOLUME 7.8 fl (7.5-11.1); MONO % 8.6 % (3.8-10.2); NEUT % 78.4 % (42.8-82.8); PLATELET COUNT 197 K/MM3 (134-434); RBC 4.66 M/mm3 (3.60-5.2); RDW 14.9 % (11.6-15.6); WHITE BLOOD COUNT 7.3 K/mm3 (4.0-10.0)
[2018-03-29] MEDS ORDERED: DEXAMETHASONE INJECTION 10 MG, ONDANSETRON INJECTION 12 MG in SODIUM CHLORIDE 100 ML IVPB ONE (10:00)
[2018-03-29 10:09] LABS: CALCIUM 8.9 mg/dL (8.5-10.1); CHLORIDE 105 mmol/L (98-107); POTASSIUM 3.9 mmol/L (3.5-5.1); SODIUM 143 mmol/L (136-145)
[2018-03-29 10:16] LABS: ALBUMIN 3.4 g/dl (3.4-5.0); ALK PHOS 75 U/L (45-117); ANION GAP 8 MMOL/L (8-16); BILIRUBIN,DIRECT < 0.2 mg/dL (0.0-0.2); BILIRUBIN,TOTAL 0.4 mg/dL (0.2-1.0); BLOOD UREA NITROGEN 16 mg/dL (7-18); CO2 30 mmol/L (21-32); CREATININE 0.7 mg/dL (0.55-1.02); GLUCOSE,RANDOM 107 mg/dL (74-106); MAGNESIUM 1.6 mg/dL (1.8-2.4); SGOT/AST 21 U/L (15-37); SGPT/ALT 20 U/L (12-78); TOT PROT 7.1 g/dl (6.4-8.2)
[2018-03-29] MEDS ORDERED: NIVOLUMAB IVPB ONE (10:30)
[2018-03-29] MEDS ORDERED: SODIUM CHLORIDE IVPB ONE (10:30)
[2018-03-29] MEDS ORDERED: MAGNESIUM SULF 50% (8.12 MEQ/2 ML-1 GM VIAL) IVPB ONE (10:45)
[2018-03-29 13:11] VITALS: TEMP 97.9
[2018-03-29] MEDS ORDERED: PORTA CATH FLUSH 10 ML IVPUSH ONE (13:18)
[2018-03-29 14:16] VITALS: BP 130/81; PULSE 95
== END 2018-03-29 14:22 | disposition home or self-care (01) ==
LOC: JONCCHEMO 07:24 → J7W 10:50 → JONCCHEMO 14:22
PROVIDERS: ATTEND Internal Medicine Hematology & Oncology
DX: Z51.11 Encounter for antineoplastic chemotherapy (principal); C34.12 Malignant neoplasm of upper lobe, left bronchus or lung
CPT/HCPCS: 36415; 80048; 80076; 83735; 85025; 96361; 96366; 96367; 96375; 96413; 96417; J1100; J9299

== ENCOUNTER 2018-04-13 07:36 | Day surgery (SDC) | payer OTHER, BC ==
[2018-04-13] MEDS ORDERED: SODIUM CHLORIDE 250 ML IV ONE (08:00)
[2018-04-13] MEDS ORDERED: DEXAMETHASONE INJECTION 10 MG, ONDANSETRON INJECTION 12 MG in SODIUM CHLORIDE 100 ML IVPB ONE (08:30)
[2018-04-13] MEDS ORDERED: SODIUM CHLORIDE IVPB ONE (09:00)
[2018-04-13] MEDS ORDERED: NIVOLUMAB IVPB ONE (09:00)
[2018-04-13 09:03] LABS: BASO % 0.6 % (0-2.0); EOS % 1.5 % (0-4.5); HEMATOCRIT 39.8 % (32.4-45.2); HEMOGLOBIN 12.8 GM/dL (10.7-15.3); LYMPH % 10.7 % (8-40); MCH 27.7 pg (25.7-33.7); MCHC 32.2 g/dl (32.0-36.0); MEAN CELL VOLUME 85.8 fl (80-96); MONO % 9.3 % (3.8-10.2); NEUT % 77.9 % (42.8-82.8); PLATELET COUNT 214 K/MM3 (134-434); RBC 4.63 M/mm3 (3.60-5.2); RDW 15.8 % (11.6-15.6); WHITE BLOOD COUNT 6.9 K/mm3 (4.0-10.0)
[2018-04-13 09:31] LABS: ALBUMIN 3.3 g/dl (3.4-5.0); ANION GAP 8 MMOL/L (8-16); BILIRUBIN,DIRECT < 0.2 mg/dL (0.0-0.2); BILIRUBIN,TOTAL 0.4 mg/dL (0.2-1.0); BLOOD UREA NITROGEN 27 mg/dL (7-18); CALCIUM 8.9 mg/dL (8.5-10.1); CHLORIDE 105 mmol/L (98-107); CO2 30 mmol/L (21-32); CREATININE 0.7 mg/dL (0.55-1.02); GLUCOSE,RANDOM 92 mg/dL (74-106); MAGNESIUM 1.8 mg/dL (1.8-2.4); POTASSIUM 4.1 mmol/L (3.5-5.1); SGOT/AST 22 U/L (15-37); SGPT/ALT 18 U/L (12-78); SODIUM 143 mmol/L (136-145)
[2018-04-13 09:32] LABS: ALK PHOS 86 U/L (45-117)
[2018-04-13 13:54] VITALS: TEMP 97.8
[2018-04-13] MEDS ORDERED: PORTA CATH FLUSH 10 ML IVPUSH ONE (13:55)
[2018-04-13 14:08] VITALS: BP 123/67; PULSE 88
== END 2018-04-13 13:00 | disposition home or self-care (01) ==
LOC: JONCCHEMO 07:36 → J7W 09:50 → JONCCHEMO 13:00
PROVIDERS: ATTEND Internal Medicine Hematology & Oncology
PROC: 3E04305 Introduction of Other Antineoplastic into Central Vein, Percutaneous Approach (ICD-10-PCS; principal; 2018-04-13)
PROC: 3E043GC Introduction of Other Therapeutic Substance into Central Vein, Percutaneous Approach (ICD-10-PCS; 2018-04-13)
PROC: 3E0437Z Introduction of Electrolytic and Water Balance Substance into Central Vein, Percutaneous Approach (ICD-10-PCS; 2018-04-13)
DX: Z51.11 Encounter for antineoplastic chemotherapy (principal); C50.412 Malignant neoplasm of upper-outer quadrant of left female breast; C34.12 Malignant neoplasm of upper lobe, left bronchus or lung
CPT/HCPCS: 36415; 80053; 80076; 83735; 84436; 84439; 84443; 85025; 96361; 96367; 96375; 96413; J1100; J2405; J9299

== ENCOUNTER 2018-04-27 07:32 | Day surgery (SDC) | payer OTHER, BC ==
[2018-04-27] MEDS ORDERED: SODIUM CHLORIDE 250 ML IV ONE (09:00)
[2018-04-27 09:24] LABS: BASO % 0.5 % (0-2.0); EOS % 1.1 % (0-4.5); HEMOGLOBIN 13.1 GM/dL (10.7-15.3); LYMPH % 12.4 % (8-40); MCH 28.5 pg (25.7-33.7); MCHC 33.6 g/dl (32.0-36.0); MEAN CELL VOLUME 84.7 fl (80-96); MEAN PLT VOLUME 8.3 fl (7.5-11.1); MONO % 8.7 % (3.8-10.2); NEUT % 77.3 % (42.8-82.8); PLATELET COUNT 212 K/MM3 (134-434); RBC 4.61 M/mm3 (3.60-5.2); RDW 15.4 % (11.6-15.6); WHITE BLOOD COUNT 7.5 K/mm3 (4.0-10.0)
[2018-04-27 09:50] LABS: ALBUMIN 3.5 g/dl (3.4-5.0); ANION GAP 8 MMOL/L (8-16); BILIRUBIN,DIRECT < 0.2 mg/dL (0.0-0.2); BLOOD UREA NITROGEN 22 mg/dL (7-18); CALCIUM 9.4 mg/dL (8.5-10.1); CHLORIDE 105 mmol/L (98-107); CO2 29 mmol/L (21-32); CREATININE 0.8 mg/dL (0.55-1.3); GLUCOSE,RANDOM 81 mg/dL (74-106); MAGNESIUM 1.7 mg/dL (1.8-2.4); POTASSIUM 4.2 mmol/L (3.5-5.1); SGOT/AST 22 U/L (15-37); SODIUM 142 mmol/L (136-145)
[2018-04-27 09:53] LABS: ALK PHOS 84 U/L (45-117); BILIRUBIN,TOTAL 0.5 mg/dL (0.2-1); SGPT/ALT 17 U/L (13-61); TOT PROT 7.2 g/dl (6.4-8.2)
[2018-04-27] MEDS ORDERED: DEXAMETHASONE INJECTION 10 MG, ONDANSETRON INJECTION 12 MG in SODIUM CHLORIDE 100 ML IVPB ONE (10:00)
[2018-04-27] MEDS ORDERED: SODIUM CHLORIDE IVPB ONE (10:30)
[2018-04-27] MEDS ORDERED: NIVOLUMAB IVPB ONE (10:30)
[2018-04-27] MEDS ORDERED: MAGNESIUM OXIDE 400 MG TABLET (FP) PO ONE (11:15)
[2018-04-27 15:48] VITALS: TEMP 98.6
[2018-04-27] MEDS ORDERED: PORTA CATH FLUSH 10 ML IVPUSH ONE (16:28)
[2018-04-27 16:32] VITALS: BP 122/68; PULSE 95
== END 2018-04-27 14:15 | disposition home or self-care (01) ==
LOC: JONCCHEMO 07:32 → JERBED 10:03 → J7W 10:33 → JONCCHEMO 14:15
PROVIDERS: ATTEND Internal Medicine Hematology & Oncology
DX: Z51.11 Encounter for antineoplastic chemotherapy (principal); C50.412 Malignant neoplasm of upper-outer quadrant of left female breast; C34.12 Malignant neoplasm of upper lobe, left bronchus or lung
CPT/HCPCS: 36415; 80053; 80076; 83735; 85025; 96361; 96367; 96375; 96413; J1100; J9299

== ENCOUNTER 2018-05-11 08:40 | Day surgery (SDC) | payer OTHER, BC ==
[2018-05-11] MEDS ORDERED: SODIUM CHLORIDE 250 ML IV ONE (09:00)
[2018-05-11 09:57] LABS: BASO % 0.6 % (0-2.0); EOS % 1.2 % (0-4.5); HEMATOCRIT 39.3 % (32.4-45.2); HEMOGLOBIN 12.3 GM/dL (10.7-15.3); LYMPH % 10.6 % (8-40); MCH 26.9 pg (25.7-33.7); MCHC 31.4 g/dl (32.0-36.0); MEAN CELL VOLUME 85.6 fl (80-96); MEAN PLT VOLUME 7.8 fl (7.5-11.1); MONO % 9.4 % (3.8-10.2); NEUT % 78.2 % (42.8-82.8); PLATELET COUNT 204 K/MM3 (134-434); RBC 4.59 M/mm3 (3.60-5.2); RDW 15.6 % (11.6-15.6); WHITE BLOOD COUNT 6.6 K/mm3 (4.0-10.0)
[2018-05-11] MEDS ORDERED: DEXAMETHASONE INJECTION 10 MG, ONDANSETRON INJECTION 12 MG in SODIUM CHLORIDE 100 ML IVPB ONE (10:00)
[2018-05-11] MEDS ORDERED: SODIUM CHLORIDE IVPB ONE (10:30)
[2018-05-11] MEDS ORDERED: NIVOLUMAB IVPB ONE (10:30)
[2018-05-11 11:46] LABS: ALBUMIN 3.4 g/dl (3.4-5.0); ALK PHOS 82 U/L (45-117); BILIRUBIN,DIRECT < 0.2 mg/dL (0.0-0.2); BILIRUBIN,TOTAL 0.4 mg/dL (0.2-1); MAGNESIUM 1.9 mg/dL (1.8-2.4); SGOT/AST 24 U/L (15-37); SGPT/ALT 16 U/L (13-61); TOT PROT 7.1 g/dl (6.4-8.2)
[2018-05-11 11:50] LABS: ALBUMIN 3.5 g/dl (3.4-5.0); ALK PHOS 82 U/L (45-117); ANION GAP 5 MMOL/L (8-16); BILIRUBIN,TOTAL 0.5 mg/dL (0.2-1); BLOOD UREA NITROGEN 26 mg/dL (7-18); CALCIUM 8.8 mg/dL (8.5-10.1); CHLORIDE 104 mmol/L (98-107); CO2 31 mmol/L (21-32); CREATININE 0.8 mg/dL (0.55-1.3); GLUCOSE,RANDOM 72 mg/dL (74-106); POTASSIUM 4.3 mmol/L (3.5-5.1); SGOT/AST 24 U/L (15-37); SGPT/ALT 17 U/L (13-61); SODIUM 141 mmol/L (136-145); TOT PROT 7.3 g/dl (6.4-8.2)
[2018-05-11 16:22] VITALS: BP 122/69; PULSE 87; TEMP 98.1
[2018-05-11] MEDS ORDERED: PORTA CATH FLUSH 10 ML IVPUSH ONE (16:22)
== END 2018-05-11 14:00 | disposition home or self-care (01) ==
LOC: JONCCHEMO 08:40 → J7W 10:27 → JONCCHEMO 14:00
PROVIDERS: ATTEND Internal Medicine Hematology & Oncology
DX: Z51.11 Encounter for antineoplastic chemotherapy (principal); C34.12 Malignant neoplasm of upper lobe, left bronchus or lung; C50.412 Malignant neoplasm of upper-outer quadrant of left female breast
CPT/HCPCS: 36415; 80053; 80076; 83735; 84439; 84443; 85025; 96361; 96367; 96375; 96413; J1100; J9299

== ENCOUNTER 2018-05-25 07:38 | Day surgery (SDC) | payer OTHER, BC ==
[2018-05-25] MEDS ORDERED: DEXAMETHASONE INJECTION 10 MG, ONDANSETRON INJECTION 12 MG in SODIUM CHLORIDE 100 ML IVPB ONE (10:00)
[2018-05-25] MEDS ORDERED: SODIUM CHLORIDE 250 ML IV ONE (10:00)
[2018-05-25 10:08] LABS: BASO % 0.5 % (0-2.0); EOS % 0.6 % (0-4.5); HEMATOCRIT 40.8 % (32.4-45.2); HEMOGLOBIN 13.2 GM/dL (10.7-15.3); LYMPH % 9.1 % (8-40); MCHC 32.4 g/dl (32.0-36.0); MEAN CELL VOLUME 86.4 fl (80-96); MEAN PLT VOLUME 8.2 fl (7.5-11.1); MONO % 7.1 % (3.8-10.2); NEUT % 82.7 % (42.8-82.8); PLATELET COUNT 207 K/MM3 (134-434); RBC 4.72 M/mm3 (3.60-5.2); RDW 15.9 % (11.6-15.6); WHITE BLOOD COUNT 8.1 K/mm3 (4.0-10.0)
[2018-05-25] MEDS ORDERED: SODIUM CHLORIDE IVPB ONE (10:30)
[2018-05-25] MEDS ORDERED: NIVOLUMAB IVPB ONE (10:30)
[2018-05-25 10:35] LABS: ALBUMIN 3.7 g/dl (3.4-5.0); BILIRUBIN,DIRECT 0.2 mg/dL (0.0-0.2); BILIRUBIN,TOTAL 0.7 mg/dL (0.2-1); MAGNESIUM 1.9 mg/dL (1.8-2.4); TOT PROT 7.4 g/dl (6.4-8.2)
[2018-05-25 10:36] LABS: ALBUMIN 3.6 g/dl (3.4-5.0); ALK PHOS 82 U/L (45-117); ANION GAP 4 MMOL/L (8-16); BILIRUBIN,TOTAL 0.5 mg/dL (0.2-1); BLOOD UREA NITROGEN 22 mg/dL (7-18); CALCIUM 9.3 mg/dL (8.5-10.1); CHLORIDE 105 mmol/L (98-107); CO2 29 mmol/L (21-32); CREATININE 0.7 mg/dL (0.55-1.3); GLUCOSE,RANDOM 81 mg/dL (74-106); POTASSIUM 4.2 mmol/L (3.5-5.1); SGOT/AST 27 U/L (15-37); SGPT/ALT 20 U/L (13-61); SODIUM 138 mmol/L (136-145); TOT PROT 7.2 g/dl (6.4-8.2)
[2018-05-25 14:28] VITALS: BP 120/72; PULSE 95; TEMP 96.8
== END 2018-05-25 13:45 | disposition home or self-care (01) ==
LOC: JONCCHEMO 07:38 → J7W 10:41 → JONCCHEMO 13:45
PROVIDERS: ATTEND Internal Medicine Hematology & Oncology
DX: Z51.11 Encounter for antineoplastic chemotherapy (principal); C34.12 Malignant neoplasm of upper lobe, left bronchus or lung; C50.412 Malignant neoplasm of upper-outer quadrant of left female breast
CPT/HCPCS: 36415; 80053; 80076; 83735; 85025; 96361; 96367; 96375; 96413; J1100; J9299

== ENCOUNTER 2018-06-08 07:29 | Day surgery (SDC) | payer OTHER, BC ==
[2018-06-08] MEDS ORDERED: SODIUM CHLORIDE 250 ML IV ONE (09:00)
[2018-06-08] MEDS ORDERED: DEXAMETHASONE INJECTION 10 MG, ONDANSETRON INJECTION 12 MG in SODIUM CHLORIDE 100 ML IVPB ONE (10:00)
[2018-06-08 10:25] LABS: BASO % 0.3 % (0-2.0); EOS % 0.7 % (0-4.5); HEMATOCRIT 42.8 % (32.4-45.2); HEMOGLOBIN 13.6 GM/dL (10.7-15.3); LYMPH % 10.8 % (8-40); MCH 27.8 pg (25.7-33.7); MCHC 31.8 g/dl (32.0-36.0); MEAN CELL VOLUME 87.5 fl (80-96); MEAN PLT VOLUME 8.4 fl (7.5-11.1); MONO % 5.5 % (3.8-10.2); NEUT % 82.7 % (42.8-82.8); PLATELET COUNT 204 K/MM3 (134-434); RDW 16.4 % (11.6-15.6); WHITE BLOOD COUNT 7.2 K/mm3 (4.0-10.0)
[2018-06-08] MEDS ORDERED: NIVOLUMAB IVPB ONE (10:30)
[2018-06-08] MEDS ORDERED: SODIUM CHLORIDE IVPB ONE (10:30)
[2018-06-08 11:01] LABS: ALBUMIN 3.9 g/dl (3.4-5.0); ALK PHOS 92 U/L (45-117); ANION GAP 8 MMOL/L (8-16); BILIRUBIN,DIRECT 0.1 mg/dL (0.0-0.2); BILIRUBIN,TOTAL 0.4 mg/dL (0.2-1); BLOOD UREA NITROGEN 22 mg/dL (7-18); CALCIUM 9.2 mg/dL (8.5-10.1); CHLORIDE 105 mmol/L (98-107); CO2 28 mmol/L (21-32); CREATININE 0.7 mg/dL (0.55-1.3); GLUCOSE,RANDOM 89 mg/dL (74-106); MAGNESIUM 2.1 mg/dL (1.8-2.4); POTASSIUM 4.2 mmol/L (3.5-5.1); SGOT/AST 28 U/L (15-37); SGPT/ALT 22 U/L (13-61); SODIUM 141 mmol/L (136-145); TOT PROT 7.6 g/dl (6.4-8.2)
[2018-06-08 14:11] VITALS: TEMP 98.4
[2018-06-08] MEDS ORDERED: PORTA CATH FLUSH 10 ML IVPUSH ONE (14:11)
[2018-06-08 14:18] VITALS: BP 109/51; PULSE 89
== END 2018-06-08 13:30 | disposition home or self-care (01) ==
LOC: JONCCHEMO 07:29 → J7W 10:38 → JONCCHEMO 13:30
PROVIDERS: ATTEND Internal Medicine Hematology & Oncology
DX: Z51.11 Encounter for antineoplastic chemotherapy (principal); C34.12 Malignant neoplasm of upper lobe, left bronchus or lung; C50.412 Malignant neoplasm of upper-outer quadrant of left female breast
CPT/HCPCS: 36415; 80053; 80076; 83735; 84439; 84443; 85025; 96361; 96367; 96375; 96413; J1100; J9299

== ENCOUNTER 2018-06-22 07:14 | Day surgery (SDC) | payer OTHER, BC ==
[2018-06-22] MEDS ORDERED: SODIUM CHLORIDE 250 ML IV ONE (08:00)
[2018-06-22] MEDS ORDERED: DEXAMETHASONE INJECTION 10 MG, ONDANSETRON INJECTION 12 MG in SODIUM CHLORIDE 100 ML IVPB ONE (08:30)
[2018-06-22] MEDS ORDERED: SODIUM CHLORIDE IVPB ONE (09:00)
[2018-06-22] MEDS ORDERED: NIVOLUMAB IVPB ONE (09:00)
[2018-06-22 09:20] LABS: BASO % 0.5 % (0-2.0); EOS % 1.4 % (0-4.5); HEMATOCRIT 42.9 % (32.4-45.2); HEMOGLOBIN 13.7 GM/dL (10.7-15.3); LYMPH % 11.6 % (8-40); MCH 27.8 pg (25.7-33.7); MCHC 31.9 g/dl (32.0-36.0); MEAN CELL VOLUME 87.1 fl (80-96); MEAN PLT VOLUME 7.9 fl (7.5-11.1); NEUT % 78.5 % (42.8-82.8); PLATELET COUNT 200 K/MM3 (134-434); RBC 4.93 M/mm3 (3.60-5.2); WHITE BLOOD COUNT 7.5 K/mm3 (4.0-10.0)
[2018-06-22 09:55] LABS: ALK PHOS 92 U/L (45-117); ANION GAP 8 MMOL/L (8-16); BILIRUBIN,TOTAL 0.4 mg/dL (0.2-1); BLOOD UREA NITROGEN 28 mg/dL (7-18); CALCIUM 9.2 mg/dL (8.5-10.1); CHLORIDE 103 mmol/L (98-107); CO2 29 mmol/L (21-32); CREATININE 0.8 mg/dL (0.55-1.3); GLUCOSE,RANDOM 77 mg/dL (74-106); POTASSIUM 4.2 mmol/L (3.5-5.1); SGOT/AST 24 U/L (15-37); SGPT/ALT 19 U/L (13-61); SODIUM 140 mmol/L (136-145); TOT PROT 7.5 g/dl (6.4-8.2)
[2018-06-22 10:47] LABS: BILIRUBIN,DIRECT 0.1 mg/dL (0.0-0.2); MAGNESIUM 1.8 mg/dL (1.8-2.4)
[2018-06-22 16:12] VITALS: BP 124/66; PULSE 86; TEMP 97.8
== END 2018-06-22 13:25 | disposition home or self-care (01) ==
LOC: JONCCHEMO 07:14 → J7W 10:01 → JONCCHEMO 13:25
PROVIDERS: ATTEND Internal Medicine Hematology & Oncology
DX: Z51.11 Encounter for antineoplastic chemotherapy (principal); C34.12 Malignant neoplasm of upper lobe, left bronchus or lung
CPT/HCPCS: 36415; 80053; 80076; 83735; 84439; 84443; 85025; 96361; 96367; 96375; 96413; J1100; J2405; J9299

== ENCOUNTER 2018-07-06 07:12 | Day surgery (SDC) | payer OTHER, BC ==
[2018-07-06] MEDS ORDERED: SODIUM CHLORIDE 250 ML IV ONE (09:00)
[2018-07-06 09:40] LABS: HEMATOCRIT 37.5 % (32.4-45.2); MEAN CELL VOLUME 85.3 fl (80-96); RBC 4.39 M/mm3 (3.60-5.2); WHITE BLOOD COUNT 8.6 K/mm3 (4.0-10.0)
[2018-07-06 09:41] LABS: BASO % 0.5 % (0-2.0); EOS % 0.5 % (0-4.5); LYMPH % 7.4 % (8-40); MCH 29.5 pg (25.7-33.7); MCHC 34.6 g/dl (32.0-36.0); MEAN PLT VOLUME 8.1 fl (7.5-11.1); MONO % 7.1 % (3.8-10.2); NEUT % 84.5 % (42.8-82.8); PLATELET COUNT 236 K/MM3 (134-434); RDW 15.8 % (11.6-15.6)
[2018-07-06] MEDS ORDERED: DEXAMETHASONE SODIUM PHOSPHATE 10 MG, ONDANSETRON INJECTION 12 MG in SODIUM CHLORIDE 10... IVPB ONE (10:00)
[2018-07-06] MEDS ORDERED: NIVOLUMAB IVPB ONE (10:30)
[2018-07-06] MEDS ORDERED: SODIUM CHLORIDE IVPB ONE (10:30)
[2018-07-06 10:40] LABS: ALBUMIN 3.4 g/dl (3.4-5.0); ALK PHOS 87 U/L (45-117); ANION GAP 9 MMOL/L (8-16); BILIRUBIN,DIRECT 0.2 mg/dL (0.0-0.2); BILIRUBIN,TOTAL 0.5 mg/dL (0.2-1); BLOOD UREA NITROGEN 21 mg/dL (7-18); CHLORIDE 104 mmol/L (98-107); CO2 27 mmol/L (21-32); CREATININE 0.8 mg/dL (0.55-1.3); GLUCOSE,RANDOM 88 mg/dL (74-106); MAGNESIUM 2.1 mg/dL (1.8-2.4); POTASSIUM 4.2 mmol/L (3.5-5.1); SGOT/AST 25 U/L (15-37); SGPT/ALT 19 U/L (13-61); SODIUM 140 mmol/L (136-145); TOT PROT 7.1 g/dl (6.4-8.2)
[2018-07-06 13:35] VITALS: TEMP 98.1
[2018-07-06 14:58] VITALS: BP 122/68; PULSE 92
== END 2018-07-06 13:00 | disposition home or self-care (01) ==
LOC: JONCCHEMO 07:12 → J7W 10:55 → JONCCHEMO 13:00
PROVIDERS: ATTEND Internal Medicine Hematology & Oncology
DX: Z51.11 Encounter for antineoplastic chemotherapy (principal); C34.12 Malignant neoplasm of upper lobe, left bronchus or lung
CPT/HCPCS: 36415; 80053; 80076; 83735; 85025; 96361; 96367; 96375; 96413; J9299

== ENCOUNTER 2018-07-20 05:47 | Day surgery (SDC) | payer OTHER, BC ==
[2018-07-20] MEDS ORDERED: SODIUM CHLORIDE 250 ML IV ONE (09:00)
[2018-07-20 09:35] LABS: BASO % 0.5 % (0-2.0); EOS % 0.7 % (0-4.5); HEMATOCRIT 40.3 % (32.4-45.2); HEMOGLOBIN 12.7 GM/dL (10.7-15.3); LYMPH % 8.5 % (8-40); MCH 27.5 pg (25.7-33.7); MCHC 31.6 g/dl (32.0-36.0); MEAN PLT VOLUME 7.8 fl (7.5-11.1); MONO % 7.6 % (3.8-10.2); NEUT % 82.7 % (42.8-82.8); PLATELET COUNT 248 K/MM3 (134-434); RBC 4.63 M/mm3 (3.60-5.2); RDW 15.7 % (11.6-15.6); WHITE BLOOD COUNT 11.5 K/mm3 (4.0-10.0)
[2018-07-20 09:38] VITALS: TEMP 98.2
[2018-07-20] MEDS ORDERED: DEXAMETHASONE SODIUM PHOSPHATE 10 MG, ONDANSETRON INJECTION 12 MG in SODIUM CHLORIDE 10... IVPB ONE (10:00)
[2018-07-20 10:17] LABS: ALBUMIN 3.4 g/dl (3.4-5.0); BILIRUBIN,DIRECT 0.1 mg/dL (0.0-0.2); BILIRUBIN,TOTAL 0.4 mg/dL (0.2-1); MAGNESIUM 1.9 mg/dL (1.8-2.4)
[2018-07-20 10:18] LABS: ALBUMIN 3.4 g/dl (3.4-5.0); ALK PHOS 95 U/L (45-117); ANION GAP 7 MMOL/L (8-16); BILIRUBIN,TOTAL 0.3 mg/dL (0.2-1); BLOOD UREA NITROGEN 20 mg/dL (7-18); CALCIUM 8.7 mg/dL (8.5-10.1); CHLORIDE 104 mmol/L (98-107); CO2 29 mmol/L (21-32); CREATININE 0.7 mg/dL (0.55-1.3); GLUCOSE,RANDOM 92 mg/dL (74-106); POTASSIUM 4.4 mmol/L (3.5-5.1); SGOT/AST 23 U/L (15-37); SGPT/ALT 21 U/L (13-61); SODIUM 140 mmol/L (136-145)
[2018-07-20] MEDS ORDERED: SODIUM CHLORIDE IVPB ONE (10:30)
[2018-07-20] MEDS ORDERED: NIVOLUMAB IVPB ONE (10:30)
[2018-07-20] MEDS ORDERED: PORTA CATH FLUSH 10 ML IVPUSH ONE (11:00)
[2018-07-20 14:38] VITALS: BP 126/73; PULSE 78
== END 2018-07-20 13:30 | disposition home or self-care (01) ==
LOC: JONCCHEMO 05:47 → J7W 10:15 → JONCCHEMO 13:30
PROVIDERS: ATTEND Internal Medicine Hematology & Oncology
DX: Z51.11 Encounter for antineoplastic chemotherapy (principal); C34.12 Malignant neoplasm of upper lobe, left bronchus or lung
CPT/HCPCS: 36415; 80053; 80076; 83735; 85025; 96361; 96367; 96375; 96413; J9299

== ENCOUNTER 2018-08-10 07:22 | Day surgery (SDC) | payer OTHER, BC ==
[2018-08-10] MEDS ORDERED: SODIUM CHLORIDE 250 ML IV ONE (08:00)
[2018-08-10] MEDS ORDERED: DEXAMETHASONE SODIUM PHOSPHATE 10 MG, ONDANSETRON INJECTION 12 MG in SODIUM CHLORIDE 10... IVPB ONE (08:30)
[2018-08-10] MEDS ORDERED: SODIUM CHLORIDE IVPB ONE (09:00)
[2018-08-10] MEDS ORDERED: NIVOLUMAB IVPB ONE (09:00)
[2018-08-10 09:45] LABS: BASO % 0.5 % (0-2.0); EOS % 0.8 % (0-4.5); HEMATOCRIT 39.7 % (32.4-45.2); HEMOGLOBIN 13.5 GM/dL (10.7-15.3); LYMPH % 10.7 % (8-40); MCH 29.1 pg (25.7-33.7); MEAN CELL VOLUME 85.7 fl (80-96); MONO % 7.8 % (3.8-10.2); NEUT % 80.2 % (42.8-82.8); PLATELET COUNT 212 K/MM3 (134-434); RBC 4.63 M/mm3 (3.60-5.2); RDW 16.2 % (11.6-15.6); WHITE BLOOD COUNT 6.8 K/mm3 (4.0-10.0)
[2018-08-10] MEDS ORDERED: MAGNESIUM SULF 50% (8.12 MEQ/2 ML-1 GM VIAL) IVPB ONE (10:15)
[2018-08-10] MEDS ORDERED: PORTA CATH FLUSH 10 ML IVPUSH ONE (10:24)
[2018-08-10 10:25] LABS: ALBUMIN 3.7 g/dl (3.4-5.0); ALK PHOS 86 U/L (45-117); ANION GAP 7 MMOL/L (8-16); BILIRUBIN,DIRECT 0.1 mg/dL (0.0-0.2); BILIRUBIN,TOTAL 0.4 mg/dL (0.2-1); BLOOD UREA NITROGEN 25 mg/dL (7-18); CHLORIDE 103 mmol/L (98-107); CO2 29 mmol/L (21-32); CREATININE 0.9 mg/dL (0.55-1.3); GLUCOSE,RANDOM 105 mg/dL (74-106); MAGNESIUM 1.9 mg/dL (1.8-2.4); POTASSIUM 4.3 mmol/L (3.5-5.1); SGOT/AST 25 U/L (15-37); SGPT/ALT 19 U/L (13-61); SODIUM 139 mmol/L (136-145); TOT PROT 7.5 g/dl (6.4-8.2)
[2018-08-10 10:26] VITALS: TEMP 97.6
[2018-08-10 14:05] VITALS: BP 117/65; PULSE 100
== END 2018-08-10 14:15 | disposition home or self-care (01) ==
LOC: JONCCHEMO 07:22 → J7W 09:59 → JONCCHEMO 14:15
PROVIDERS: ATTEND Internal Medicine Hematology & Oncology
DX: Z51.11 Encounter for antineoplastic chemotherapy (principal); C34.12 Malignant neoplasm of upper lobe, left bronchus or lung
CPT/HCPCS: 36415; 80048; 80076; 83735; 84439; 84443; 85025; 96361; 96367; 96375; 96413; 96417; J2405; J9299

== ENCOUNTER 2018-08-24 07:15 | Day surgery (SDC) | payer OTHER, BC ==
[2018-08-24] MEDS ORDERED: SODIUM CHLORIDE 250 ML IV ONE (08:00)
[2018-08-24] MEDS ORDERED: DEXAMETHASONE SODIUM PHOSPHATE 10 MG, ONDANSETRON INJECTION 12 MG in SODIUM CHLORIDE 10... IVPB ONE (08:30)
[2018-08-24] MEDS ORDERED: SODIUM CHLORIDE IVPB ONE (09:00)
[2018-08-24] MEDS ORDERED: NIVOLUMAB IVPB ONE (09:00)
[2018-08-24 09:12] LABS: BASO % 0.5 % (0-2.0); EOS % 1.1 % (0-4.5); HEMATOCRIT 40.2 % (32.4-45.2); HEMOGLOBIN 13.6 GM/dL (10.7-15.3); LYMPH % 13.3 % (8-40); MCH 29.4 pg (25.7-33.7); MCHC 33.9 g/dl (32.0-36.0); MEAN CELL VOLUME 86.8 fl (80-96); MEAN PLT VOLUME 8.7 fl (7.5-11.1); MONO % 9.2 % (3.8-10.2); NEUT % 75.9 % (42.8-82.8); PLATELET COUNT 220 K/MM3 (134-434); RBC 4.63 M/mm3 (3.60-5.2); WHITE BLOOD COUNT 9.1 K/mm3 (4.0-10.0)
[2018-08-24 09:38] LABS: ANION GAP 8 MMOL/L (8-16); BLOOD UREA NITROGEN 25 mg/dL (7-18); CALCIUM 9.1 mg/dL (8.5-10.1); CHLORIDE 104 mmol/L (98-107); CO2 30 mmol/L (21-32); CREATININE 0.9 mg/dL (0.55-1.3); GLUCOSE,RANDOM 95 mg/dL (74-106); MAGNESIUM 1.8 mg/dL (1.8-2.4); POTASSIUM 4.3 mmol/L (3.5-5.1); SODIUM 143 mmol/L (136-145); URIC ACID 4.8 mg/dL (2.6-7.2)
[2018-08-24 10:11] LABS: LDH 199 U/L (84-246)
[2018-08-24 11:00] LABS: ALBUMIN 3.8 g/dl (3.4-5.0); BILIRUBIN,DIRECT 0.1 mg/dL (0.0-0.2); BILIRUBIN,TOTAL 0.5 mg/dL (0.2-1); TOT PROT 7.4 g/dl (6.4-8.2)
[2018-08-24 17:15] VITALS: BP 129/63; PULSE 74; TEMP 98.1
[2018-08-24] MEDS ORDERED: PORTA CATH FLUSH 10 ML IVPUSH ONE (17:15)
== END 2018-08-24 13:20 | disposition home or self-care (01) ==
LOC: JONCCHEMO 07:15 → J7W 10:19 → JONCCHEMO 13:20
PROVIDERS: ATTEND Internal Medicine Hematology & Oncology
DX: Z51.11 Encounter for antineoplastic chemotherapy (principal); C34.12 Malignant neoplasm of upper lobe, left bronchus or lung
CPT/HCPCS: 36415; 80048; 80076; 83615; 83735; 84550; 85025; 96361; 96367; 96375; 96413; J2405; J9299

== ENCOUNTER 2018-09-14 07:06 | Day surgery (SDC) | payer OTHER, BC ==
[2018-09-14] MEDS ORDERED: SODIUM CHLORIDE 250 ML IV ONE (09:00)
[2018-09-14 09:27] LABS: BASO % 0.2 % (0-2.0); EOS % 0.5 % (0-4.5); HEMATOCRIT 40.8 % (32.4-45.2); HEMOGLOBIN 13.9 GM/dL (10.7-15.3); LYMPH % 6.6 % (8-40); MCHC 34.1 g/dl (32.0-36.0); MEAN CELL VOLUME 87.9 fl (80-96); MEAN PLT VOLUME 8.1 fl (7.5-11.1); MONO % 8.6 % (3.8-10.2); NEUT % 84.1 % (42.8-82.8); PLATELET COUNT 208 K/MM3 (134-434); RBC 4.64 M/mm3 (3.60-5.2); RDW 14.8 % (11.6-15.6); WHITE BLOOD COUNT 8.1 K/mm3 (4.0-10.0)
[2018-09-14] MEDS ORDERED: DEXAMETHASONE SODIUM PHOSPHATE 10 MG, ONDANSETRON INJECTION 12 MG in SODIUM CHLORIDE 10... IVPB ONE (10:00)
[2018-09-14 10:01] LABS: ALBUMIN 3.6 g/dl (3.4-5.0); ALK PHOS 94 U/L (45-117); ANION GAP 6 MMOL/L (8-16); BILIRUBIN,DIRECT 0.2 mg/dL (0.0-0.2); BILIRUBIN,TOTAL 0.5 mg/dL (0.2-1); BLOOD UREA NITROGEN 17 mg/dL (7-18); CALCIUM 9.2 mg/dL (8.5-10.1); CHLORIDE 103 mmol/L (98-107); CO2 32 mmol/L (21-32); CREATININE 0.7 mg/dL (0.55-1.3); GLUCOSE,RANDOM 88 mg/dL (74-106); MAGNESIUM 1.8 mg/dL (1.8-2.4); POTASSIUM 3.8 mmol/L (3.5-5.1); SGOT/AST 20 U/L (15-37); SGPT/ALT 17 U/L (13-61); SODIUM 141 mmol/L (136-145); TOT PROT 7.4 g/dl (6.4-8.2)
[2018-09-14] MEDS ORDERED: NIVOLUMAB IVPB ONE (10:30)
[2018-09-14] MEDS ORDERED: SODIUM CHLORIDE IVPB ONE (10:30)
[2018-09-14] MEDS ORDERED: PORTA CATH FLUSH 10 ML IVPUSH ONE (16:14)
[2018-09-14 16:18] VITALS: BP 123/82; PULSE 115; TEMP 97.9
== END 2018-09-14 13:45 | disposition home or self-care (01) ==
LOC: JONCCHEMO 07:06 → J7W 10:38 → JONCCHEMO 13:45
PROVIDERS: ATTEND Internal Medicine Hematology & Oncology
DX: Z51.11 Encounter for antineoplastic chemotherapy (principal); C34.12 Malignant neoplasm of upper lobe, left bronchus or lung
CPT/HCPCS: 36415; 80048; 80076; 83735; 84436; 84439; 84443; 85025; 96361; 96367; 96375; 96413; J2405; J9299

== ENCOUNTER 2018-09-28 05:39 | Day surgery (SDC) | payer OTHER, BC ==
[2018-09-28] MEDS ORDERED: SODIUM CHLORIDE 250 ML IV ONE (08:00)
[2018-09-28] MEDS ORDERED: DEXAMETHASONE SODIUM PHOSPHATE 10 MG, ONDANSETRON INJECTION 12 MG in SODIUM CHLORIDE 10... IVPB ONE (08:30)
[2018-09-28] MEDS ORDERED: NIVOLUMAB IVPB ONE (09:00)
[2018-09-28] MEDS ORDERED: SODIUM CHLORIDE IVPB ONE (09:00)
[2018-09-28 09:01] LABS: BASO % 0.3 % (0-2.0); EOS % 0.4 % (0-4.5); HEMATOCRIT 38.3 % (32.4-45.2); HEMOGLOBIN 12.7 GM/dL (10.7-15.3); LYMPH % 6.9 % (8-40); MCHC 33.3 g/dl (32.0-36.0); MEAN CELL VOLUME 87.2 fl (80-96); MEAN PLT VOLUME 7.7 fl (7.5-11.1); MONO % 6.2 % (3.8-10.2); NEUT % 86.2 % (42.8-82.8); PLATELET COUNT 236 K/MM3 (134-434); RBC 4.39 M/mm3 (3.60-5.2); RDW 14.6 % (11.6-15.6); WHITE BLOOD COUNT 9.8 K/mm3 (4.0-10.0)
[2018-09-28 09:40] LABS: ALBUMIN 3.5 g/dl (3.4-5.0); BILIRUBIN,DIRECT 0.1 mg/dL (0.0-0.2); BILIRUBIN,TOTAL 0.4 mg/dL (0.2-1); MAGNESIUM 1.6 mg/dL (1.8-2.4); TOT PROT 7.1 g/dl (6.4-8.2)
[2018-09-28 09:51] LABS: ALBUMIN 3.5 g/dl (3.4-5.0); ALK PHOS 89 U/L (45-117); ANION GAP 5 MMOL/L (8-16); BILIRUBIN,TOTAL 0.4 mg/dL (0.2-1); BLOOD UREA NITROGEN 20 mg/dL (7-18); CALCIUM 8.8 mg/dL (8.5-10.1); CHLORIDE 105 mmol/L (98-107); CO2 31 mmol/L (21-32); CREATININE 0.7 mg/dL (0.55-1.3); GLUCOSE,RANDOM 87 mg/dL (74-106); POTASSIUM 3.8 mmol/L (3.5-5.1); SGOT/AST 20 U/L (15-37); SGPT/ALT 20 U/L (13-61); SODIUM 141 mmol/L (136-145); TOT PROT 7.1 g/dl (6.4-8.2)
[2018-09-28] MEDS ORDERED: MAGNESIUM SULF 50% (8.12 MEQ/2 ML-1 GM VIAL) IVPB ONE (11:30)
[2018-09-28 15:44] VITALS: BP 129/67; PULSE 107; TEMP 97.8
== END 2018-09-28 14:05 | disposition home or self-care (01) ==
LOC: JONCCHEMO 05:39 → J7W 09:58 → JONCCHEMO 14:05
PROVIDERS: ATTEND Internal Medicine Hematology & Oncology
DX: Z51.11 Encounter for antineoplastic chemotherapy (principal); C34.12 Malignant neoplasm of upper lobe, left bronchus or lung
CPT/HCPCS: 36415; 80053; 80076; 82150; 82530; 82533; 83690; 83735; 84439; 84443; 85025; 96361; 96367; 96368; 96375; 96413; 96417; J2405; J9299

== ENCOUNTER 2018-10-12 07:10 | Day surgery (SDC) | payer OTHER, BC ==
[2018-10-12] MEDS ORDERED: SODIUM CHLORIDE 250 ML IV ONE (08:00)
[2018-10-12] MEDS ORDERED: DEXAMETHASONE SODIUM PHOSPHATE 10 MG, ONDANSETRON INJECTION 12 MG in SODIUM CHLORIDE 10... IVPB ONE (08:30)
[2018-10-12] MEDS ORDERED: SODIUM CHLORIDE IVPB ONE (09:00)
[2018-10-12] MEDS ORDERED: NIVOLUMAB IVPB ONE (09:00)
[2018-10-12 09:23] LABS: BASO % 0.4 % (0-2.0); EOS % 0.8 % (0-4.5); HEMATOCRIT 39.4 % (32.4-45.2); HEMOGLOBIN 13.2 GM/dL (10.7-15.3); LYMPH % 8.2 % (8-40); MCH 29.7 pg (25.7-33.7); MCHC 33.6 g/dl (32.0-36.0); MEAN CELL VOLUME 88.4 fl (80-96); MEAN PLT VOLUME 8.1 fl (7.5-11.1); MONO % 8.4 % (3.8-10.2); NEUT % 82.2 % (42.8-82.8); PLATELET COUNT 211 K/MM3 (134-434); RBC 4.46 M/mm3 (3.60-5.2); RDW 14.6 % (11.6-15.6); WHITE BLOOD COUNT 7.1 K/mm3 (4.0-10.0)
[2018-10-12 09:51] LABS: ALBUMIN 3.5 g/dl (3.4-5.0); ALK PHOS 88 U/L (45-117); ANION GAP 4 MMOL/L (8-16); BILIRUBIN,TOTAL 0.5 mg/dL (0.2-1); BLOOD UREA NITROGEN 25 mg/dL (7-18); CALCIUM 9.4 mg/dL (8.5-10.1); CHLORIDE 104 mmol/L (98-107); CO2 32 mmol/L (21-32); CREATININE 0.8 mg/dL (0.55-1.3); GLUCOSE,RANDOM 98 mg/dL (74-106); POTASSIUM 4.3 mmol/L (3.5-5.1); SGOT/AST 19 U/L (15-37); SGPT/ALT 17 U/L (13-61); SODIUM 141 mmol/L (136-145); TOT PROT 7.4 g/dl (6.4-8.2)
[2018-10-12 09:57] LABS: ALBUMIN 3.6 g/dl (3.4-5.0); BILIRUBIN,DIRECT 0.2 mg/dL (0.0-0.2); BILIRUBIN,TOTAL 0.6 mg/dL (0.2-1); MAGNESIUM 1.9 mg/dL (1.8-2.4); TOT PROT 7.4 g/dl (6.4-8.2)
[2018-10-12 16:13] VITALS: TEMP 97.5
[2018-10-12] MEDS ORDERED: PORTA CATH FLUSH 10 ML IVPUSH ONE (16:13)
[2018-10-12 16:15] VITALS: BP 131/87; PULSE 100
== END 2018-10-12 14:00 | disposition home or self-care (01) ==
LOC: JONCCHEMO 07:10 → J7W 11:04 → JONCCHEMO 14:00
PROVIDERS: ATTEND Internal Medicine Hematology & Oncology
DX: Z51.11 Encounter for antineoplastic chemotherapy (principal); C34.12 Malignant neoplasm of upper lobe, left bronchus or lung
CPT/HCPCS: 36415; 80053; 80076; 83735; 85025; 96361; 96367; 96375; 96413; J2405; J9299

== ENCOUNTER 2018-10-26 06:21 | Day surgery (SDC) | payer OTHER, BC ==
[2018-10-26] MEDS ORDERED: SODIUM CHLORIDE 250 ML IV ONE (09:00)
[2018-10-26 09:13] LABS: BASO % 0.2 % (0-2.0); EOS % 0.3 % (0-4.5); HEMATOCRIT 39.9 % (32.4-45.2); HEMOGLOBIN 13.5 GM/dL (10.7-15.3); LYMPH % 5.6 % (8-40); MCH 29.9 pg (25.7-33.7); MCHC 33.8 g/dl (32.0-36.0); MEAN CELL VOLUME 88.5 fl (80-96); MEAN PLT VOLUME 8.1 fl (7.5-11.1); MONO % 4.6 % (3.8-10.2); NEUT % 89.3 % (42.8-82.8); PLATELET COUNT 221 K/MM3 (134-434); RBC 4.51 M/mm3 (3.60-5.2); RDW 14.8 % (11.6-15.6); WHITE BLOOD COUNT 9.6 K/mm3 (4.0-10.0)
[2018-10-26 09:53] LABS: ALBUMIN 3.4 g/dl (3.4-5.0); ALK PHOS 87 U/L (45-117); ANION GAP 8 MMOL/L (8-16); BILIRUBIN,TOTAL 0.5 mg/dL (0.2-1); BLOOD UREA NITROGEN 22 mg/dL (7-18); CALCIUM 9.1 mg/dL (8.5-10.1); CHLORIDE 101 mmol/L (98-107); CO2 29 mmol/L (21-32); CREATININE 0.7 mg/dL (0.55-1.3); GLUCOSE,RANDOM 102 mg/dL (74-106); POTASSIUM 4.2 mmol/L (3.5-5.1); SGOT/AST 21 U/L (15-37); SGPT/ALT 19 U/L (13-61); SODIUM 138 mmol/L (136-145); TOT PROT 7.6 g/dl (6.4-8.2)
[2018-10-26] MEDS ORDERED: DEXAMETHASONE SODIUM PHOSPHATE 10 MG, ONDANSETRON INJECTION 12 MG in SODIUM CHLORIDE 10... IVPB ONE (10:00)
[2018-10-26 10:18] LABS: ALBUMIN 3.4 g/dl (3.4-5.0); BILIRUBIN,DIRECT 0.1 mg/dL (0.0-0.2); BILIRUBIN,TOTAL 0.5 mg/dL (0.2-1); MAGNESIUM 1.9 mg/dL (1.8-2.4); TOT PROT 7.5 g/dl (6.4-8.2)
[2018-10-26] MEDS ORDERED: SODIUM CHLORIDE IVPB ONE (10:30)
[2018-10-26] MEDS ORDERED: NIVOLUMAB IVPB ONE (10:30)
[2018-10-26 13:19] VITALS: TEMP 97.8
[2018-10-26 13:27] VITALS: BP 108/56; PULSE 74
[2018-10-26] MEDS ORDERED: PORTA CATH FLUSH 10 ML IVPUSH ONE (13:27)
== END 2018-10-26 12:25 | disposition home or self-care (01) ==
LOC: JONCCHEMO 06:21 → J7W 09:25 → JONCCHEMO 12:25
PROVIDERS: ATTEND Internal Medicine Hematology & Oncology
PROC: 3E04305 Introduction of Other Antineoplastic into Central Vein, Percutaneous Approach (ICD-10-PCS; principal; 2018-10-26)
PROC: 3E043GC Introduction of Other Therapeutic Substance into Central Vein, Percutaneous Approach (ICD-10-PCS; 2018-10-26)
PROC: 3E0437Z Introduction of Electrolytic and Water Balance Substance into Central Vein, Percutaneous Approach (ICD-10-PCS; 2018-10-26)
DX: Z51.11 Encounter for antineoplastic chemotherapy (principal); C34.12 Malignant neoplasm of upper lobe, left bronchus or lung; Z85.3 Personal history of malignant neoplasm of breast; E05.20 Thyrotoxicosis with toxic multinodular goiter without thyrotoxic crisis or storm; I10 Essential (primary) hypertension; J43.9 Emphysema, unspecified
CPT/HCPCS: 36415; 80053; 80076; 82150; 83690; 83735; 84439; 84443; 85025; 96367; 96375; 96413; J2405; J9299

== ENCOUNTER 2018-11-09 07:02 | Day surgery (SDC) | payer OTHER, BC ==
[2018-11-09 08:53] LABS: BASO % 1.1 % (0-2.0); EOS % 0.4 % (0-4.5); HEMATOCRIT 40.3 % (32.4-45.2); MCH 28.3 pg (25.7-33.7); MCHC 32.3 g/dl (32.0-36.0); MEAN CELL VOLUME 87.6 fl (80-96); MEAN PLT VOLUME 7.2 fl (7.5-11.1); MONO % 5.1 % (3.8-10.2); NEUT % 88.4 % (42.8-82.8); PLATELET COUNT 254 K/MM3 (134-434); RDW 14.6 % (11.6-15.6); WHITE BLOOD COUNT 13.6 K/mm3 (4.0-10.0)
[2018-11-09] MEDS ORDERED: SODIUM CHLORIDE 250 ML IV ONE (09:00)
[2018-11-09 09:22] LABS: ALBUMIN 3.6 g/dl (3.4-5.0); ALK PHOS 87 U/L (45-117); ANION GAP 9 MMOL/L (8-16); BILIRUBIN,TOTAL 0.3 mg/dL (0.2-1); BLOOD UREA NITROGEN 22 mg/dL (7-18); CALCIUM 9.4 mg/dL (8.5-10.1); CHLORIDE 102 mmol/L (98-107); CO2 29 mmol/L (21-32); CREATININE 0.7 mg/dL (0.55-1.3); GLUCOSE,RANDOM 95 mg/dL (74-106); POTASSIUM 4.2 mmol/L (3.5-5.1); SGOT/AST 21 U/L (15-37); SGPT/ALT 18 U/L (13-61); SODIUM 140 mmol/L (136-145); TOT PROT 7.4 g/dl (6.4-8.2)
[2018-11-09 09:29] LABS: ALBUMIN 3.5 g/dl (3.4-5.0); BILIRUBIN,DIRECT 0.1 mg/dL (0.0-0.2); BILIRUBIN,TOTAL 0.3 mg/dL (0.2-1); MAGNESIUM 2.1 mg/dL (1.8-2.4); TOT PROT 7.3 g/dl (6.4-8.2)
[2018-11-09] MEDS ORDERED: DEXAMETHASONE SODIUM PHOSPHATE 10 MG, ONDANSETRON INJECTION 12 MG in SODIUM CHLORIDE 10... IVPB ONE (10:00)
[2018-11-09] MEDS ORDERED: SODIUM CHLORIDE IVPB ONE (10:30)
[2018-11-09] MEDS ORDERED: NIVOLUMAB IVPB ONE (10:30)
[2018-11-09] MEDS ORDERED: PORTA CATH FLUSH 10 ML IVPUSH ONE (12:45)
[2018-11-09 13:40] VITALS: BP 116/73; PULSE 92
[2018-11-09 13:41] VITALS: TEMP 99.1
== END 2018-11-09 13:20 | disposition home or self-care (01) ==
LOC: JONCCHEMO 07:02 → J7W 09:44 → JONCCHEMO 13:20
PROVIDERS: ATTEND Internal Medicine Hematology & Oncology
DX: Z51.11 Encounter for antineoplastic chemotherapy (principal); C34.12 Malignant neoplasm of upper lobe, left bronchus or lung
CPT/HCPCS: 36415; 80053; 80076; 82150; 82530; 83690; 83735; 84439; 84443; 85025; 96361; 96367; 96375; 96413; J2405; J9299

== ENCOUNTER 2018-11-23 07:08 | Day surgery (SDC) | payer OTHER, BC ==
[2018-11-23] MEDS ORDERED: SODIUM CHLORIDE 250 ML IV ONE (08:00)
[2018-11-23] MEDS ORDERED: DEXAMETHASONE SODIUM PHOSPHATE 10 MG, ONDANSETRON INJECTION 12 MG in SODIUM CHLORIDE 10... IVPB ONE (08:30)
[2018-11-23] MEDS ORDERED: NIVOLUMAB IVPB ONE (09:00)
[2018-11-23] MEDS ORDERED: SODIUM CHLORIDE IVPB ONE (09:00)
[2018-11-23 09:37] LABS: BASO % 0.3 % (0-2.0); EOS % 1.2 % (0-4.5); HEMATOCRIT 39.4 % (32.4-45.2); HEMOGLOBIN 12.9 GM/dL (10.7-15.3); LYMPH % 8.5 % (8-40); MCH 28.8 pg (25.7-33.7); MCHC 32.9 g/dl (32.0-36.0); MEAN CELL VOLUME 87.8 fl (80-96); MEAN PLT VOLUME 8.1 fl (7.5-11.1); MONO % 8.4 % (3.8-10.2); NEUT % 81.6 % (42.8-82.8); PLATELET COUNT 195 K/MM3 (134-434); RBC 4.48 M/mm3 (3.60-5.2); RDW 15.4 % (11.6-15.6); WHITE BLOOD COUNT 8.1 K/mm3 (4.0-10.0)
[2018-11-23 10:02] LABS: ALBUMIN 3.6 g/dl (3.4-5.0); ALK PHOS 85 U/L (45-117); ANION GAP 3 MMOL/L (8-16); BILIRUBIN,DIRECT 0.2 mg/dL (0.0-0.2); BILIRUBIN,TOTAL 0.5 mg/dL (0.2-1); BLOOD UREA NITROGEN 20 mg/dL (7-18); CALCIUM 9.4 mg/dL (8.5-10.1); CHLORIDE 104 mmol/L (98-107); CO2 35 mmol/L (21-32); CREATININE 0.7 mg/dL (0.55-1.3); GLUCOSE,RANDOM 84 mg/dL (74-106); MAGNESIUM 1.9 mg/dL (1.8-2.4); POTASSIUM 4.3 mmol/L (3.5-5.1); SGOT/AST 20 U/L (15-37); SGPT/ALT 19 U/L (13-61); SODIUM 141 mmol/L (136-145); TOT PROT 7.2 g/dl (6.4-8.2)
[2018-11-23 15:04] VITALS: PULSE 94; TEMP 98.3
[2018-11-23 15:08] VITALS: BP 111/76
[2018-11-23] MEDS ORDERED: PORTA CATH FLUSH 10 ML IVPUSH ONE (15:08)
== END 2018-11-23 12:35 | disposition home or self-care (01) ==
LOC: JONCCHEMO 07:08 → J7W 09:27 → JONCCHEMO 12:35
PROVIDERS: ATTEND Internal Medicine Hematology & Oncology
DX: Z51.11 Encounter for antineoplastic chemotherapy (principal); C34.12 Malignant neoplasm of upper lobe, left bronchus or lung
CPT/HCPCS: 36415; 80048; 80076; 83735; 85025; 96361; 96367; 96375; 96413; J2405; J9299

== ENCOUNTER 2018-12-14 07:13 | Day surgery (SDC) | payer OTHER, BC ==
[2018-12-14] MEDS ORDERED: SODIUM CHLORIDE 250 ML IV ONE (09:00)
[2018-12-14] MEDS ORDERED: DEXAMETHASONE SODIUM PHOSPHATE 10 MG, ONDANSETRON INJECTION 12 MG in SODIUM CHLORIDE 10... IVPB ONE (09:30)
[2018-12-14] MEDS ORDERED: SODIUM CHLORIDE IVPB ONE (10:00)
[2018-12-14] MEDS ORDERED: NIVOLUMAB IVPB ONE (10:00)
[2018-12-14 10:07] LABS: BASO % 0.7 % (0-2.0); HEMATOCRIT 41.2 % (32.4-45.2); HEMOGLOBIN 13.4 GM/dL (10.7-15.3); MCH 28.2 pg (25.7-33.7); MCHC 32.4 g/dl (32.0-36.0); MEAN PLT VOLUME 8.2 fl (7.5-11.1); MONO % 8.5 % (3.8-10.2); NEUT % 74.8 % (42.8-82.8); PLATELET COUNT 224 K/MM3 (134-434); RBC 4.74 M/mm3 (3.60-5.2); RDW 15.7 % (11.6-15.6); WHITE BLOOD COUNT 7.2 K/mm3 (4.0-10.0)
[2018-12-14 11:43] LABS: ALBUMIN 3.9 g/dl (3.4-5.0); BILIRUBIN,DIRECT 0.2 mg/dL (0.0-0.2); BILIRUBIN,TOTAL 0.6 mg/dL (0.2-1); CREATININE 0.9 mg/dL (0.55-1.3); MAGNESIUM 1.9 mg/dL (1.8-2.4); POTASSIUM 4.5 mmol/L (3.5-5.1); TOT PROT 7.4 g/dl (6.4-8.2)
[2018-12-14 15:27] VITALS: TEMP 97.7
[2018-12-14 15:28] VITALS: BP 126/74; PULSE 89
== END 2018-12-14 14:15 | disposition home or self-care (01) ==
LOC: JONCCHEMO 07:13 → J7W 09:32 → JONCCHEMO 14:15
PROVIDERS: ATTEND Internal Medicine Hematology & Oncology
DX: Z51.11 Encounter for antineoplastic chemotherapy (principal); C34.12 Malignant neoplasm of upper lobe, left bronchus or lung; Z87.891 Personal history of nicotine dependence; Z85.3 Personal history of malignant neoplasm of breast
CPT/HCPCS: 36415; 80053; 80076; 83735; 84439; 84443; 85025; 96361; 96367; 96375; 96413; J2405; J9299

== ENCOUNTER 2018-12-28 07:35 | Day surgery (SDC) | payer OTHER, BC ==
[2018-12-28] MEDS ORDERED: SODIUM CHLORIDE 250 ML IV ONE (09:00)
[2018-12-28 09:07] LABS: BASO % 0.6 % (0-2.0); EOS % 2.1 % (0-4.5); HEMATOCRIT 41.9 % (32.4-45.2); HEMOGLOBIN 13.3 GM/dL (10.7-15.3); LYMPH % 9.9 % (8-40); MCH 27.8 pg (25.7-33.7); MCHC 31.7 g/dl (32.0-36.0); MEAN CELL VOLUME 87.7 fl (80-96); MEAN PLT VOLUME 7.9 fl (7.5-11.1); MONO % 7.9 % (3.8-10.2); NEUT % 79.5 % (42.8-82.8); PLATELET COUNT 181 K/MM3 (134-434); RBC 4.78 M/mm3 (3.60-5.2); RDW 15.9 % (11.6-15.6); WHITE BLOOD COUNT 6.7 K/mm3 (4.0-10.0)
[2018-12-28 09:46] LABS: ALBUMIN 3.6 g/dl (3.4-5.0); BILIRUBIN,DIRECT 0.1 mg/dL (0.0-0.2); BILIRUBIN,TOTAL 0.4 mg/dL (0.2-1); CALCIUM 9.3 mg/dL (8.5-10.1); CREATININE 0.6 mg/dL (0.55-1.3); MAGNESIUM 2.3 mg/dL (1.8-2.4); POTASSIUM 4.6 mmol/L (3.5-5.1); TOT PROT 7.2 g/dl (6.4-8.2)
[2018-12-28] MEDS ORDERED: DEXAMETHASONE SODIUM PHOSPHATE 10 MG, ONDANSETRON INJECTION 12 MG in SODIUM CHLORIDE 10... IVPB ONE (10:00)
[2018-12-28] MEDS ORDERED: SODIUM CHLORIDE IVPB ONE (10:30)
[2018-12-28] MEDS ORDERED: NIVOLUMAB IVPB ONE (10:30)
[2018-12-28 15:08] VITALS: BP 136/67; TEMP 98.1
[2018-12-28] MEDS ORDERED: PORTA CATH FLUSH 10 ML IVPUSH ONE (15:09)
[2018-12-28 15:11] VITALS: PULSE 99
== END 2018-12-28 13:03 | disposition home or self-care (01) ==
LOC: JONCCHEMO 07:35 → J7W 10:06 → JONCCHEMO 13:03
PROVIDERS: ATTEND Internal Medicine Hematology & Oncology
DX: Z51.11 Encounter for antineoplastic chemotherapy (principal); C34.12 Malignant neoplasm of upper lobe, left bronchus or lung; Z87.891 Personal history of nicotine dependence; Z85.3 Personal history of malignant neoplasm of breast
CPT/HCPCS: 36415; 80048; 80076; 83735; 84439; 84443; 85025; 96361; 96367; 96375; 96413; J2405; J9299

== ENCOUNTER 2019-01-11 07:15 | Day surgery (SDC) | payer OTHER, BC ==
[2019-01-11] MEDS ORDERED: SODIUM CHLORIDE 250 ML IV ONE (09:00)
[2019-01-11 09:05] LABS: BASO % 0.6 % (0-2.0); EOS % 1.9 % (0-4.5); HEMATOCRIT 42.1 % (32.4-45.2); HEMOGLOBIN 13.5 GM/dL (10.7-15.3); LYMPH % 15.2 % (8-40); MCHC 32.1 g/dl (32.0-36.0); MEAN CELL VOLUME 87.2 fl (80-96); MEAN PLT VOLUME 7.9 fl (7.5-11.1); MONO % 9.5 % (3.8-10.2); NEUT % 72.8 % (42.8-82.8); PLATELET COUNT 201 K/MM3 (134-434); RBC 4.82 M/mm3 (3.60-5.2); RDW 16.1 % (11.6-15.6); WHITE BLOOD COUNT 6.9 K/mm3 (4.0-10.0)
[2019-01-11 09:39] LABS: ALBUMIN 3.9 g/dl (3.4-5.0); BILIRUBIN,DIRECT 0.1 mg/dL (0.0-0.2); BILIRUBIN,TOTAL 0.5 mg/dL (0.2-1); CALCIUM 9.6 mg/dL (8.5-10.1); CREATININE 0.9 mg/dL (0.55-1.3); MAGNESIUM 2.3 mg/dL (1.8-2.4); TOT PROT 7.6 g/dl (6.4-8.2)
[2019-01-11] MEDS ORDERED: DEXAMETHASONE SODIUM PHOSPHATE 10 MG, ONDANSETRON INJECTION 12 MG in SODIUM CHLORIDE 10... IVPB ONE (10:00)
[2019-01-11] MEDS ORDERED: NIVOLUMAB IVPB ONE (10:30)
[2019-01-11] MEDS ORDERED: SODIUM CHLORIDE IVPB ONE (10:30)
[2019-01-11 17:07] VITALS: BP 133/68; PULSE 96; TEMP 98.6
[2019-01-11] MEDS ORDERED: PORTA CATH FLUSH 10 ML IVPUSH ONE (17:07)
== END 2019-01-11 12:40 | disposition home or self-care (01) ==
LOC: JONCCHEMO 07:15 → J7W 09:27 → JONCCHEMO 12:40
PROVIDERS: ATTEND Internal Medicine Hematology & Oncology
DX: Z51.11 Encounter for antineoplastic chemotherapy (principal); C34.12 Malignant neoplasm of upper lobe, left bronchus or lung; Z87.891 Personal history of nicotine dependence; Z85.3 Personal history of malignant neoplasm of breast
CPT/HCPCS: 36415; 80048; 80076; 82150; 83690; 83735; 84443; 85025; 96361; 96367; 96375; 96413; J2405; J9299

== ENCOUNTER 2019-01-25 06:35 | Day surgery (SDC) | payer OTHER, BC ==
[2019-01-25 08:42] LABS: BASO % 0.6 % (0-2.0); EOS % 0.8 % (0-4.5); HEMATOCRIT 40.3 % (32.4-45.2); HEMOGLOBIN 13.2 GM/dL (10.7-15.3); LYMPH % 7.2 % (8-40); MCH 28.6 pg (25.7-33.7); MCHC 32.9 g/dl (32.0-36.0); MEAN PLT VOLUME 7.2 fl (7.5-11.1); MONO % 6.2 % (3.8-10.2); NEUT % 85.2 % (42.8-82.8); PLATELET COUNT 253 K/MM3 (134-434); RBC 4.63 M/mm3 (3.60-5.2); RDW 15.6 % (11.6-15.6); WHITE BLOOD COUNT 9.3 K/mm3 (4.0-10.0)
[2019-01-25] MEDS ORDERED: SODIUM CHLORIDE 250 ML IV ONE (09:00)
[2019-01-25 09:24] LABS: ALBUMIN 3.4 g/dl (3.4-5.0); BILIRUBIN,DIRECT 0.1 mg/dL (0.0-0.2); BILIRUBIN,TOTAL 0.5 mg/dL (0.2-1); BLOOD UREA NITROGEN 19.9 mg/dL (7-18); CALCIUM 9.1 mg/dL (8.5-10.1); CREATININE 0.8 mg/dL (0.55-1.3); MAGNESIUM 2.1 mg/dL (1.8-2.4); POTASSIUM 4.1 mmol/L (3.5-5.1); TOT PROT 7.3 g/dl (6.4-8.2)
[2019-01-25] MEDS ORDERED: DEXAMETHASONE SODIUM PHOSPHATE 10 MG, ONDANSETRON INJECTION 12 MG in SODIUM CHLORIDE 10... IVPB ONE (09:30)
[2019-01-25] MEDS ORDERED: SODIUM CHLORIDE IVPB ONE (10:00)
[2019-01-25] MEDS ORDERED: NIVOLUMAB IVPB ONE (10:00)
[2019-01-25 15:55] VITALS: BP 121/67; PULSE 84; TEMP 98
[2019-01-25] MEDS ORDERED: PORTA CATH FLUSH 10 ML IVPUSH ONE (15:55)
== END 2019-01-25 13:50 | disposition home or self-care (01) ==
LOC: JONCCHEMO 06:35 → J7W 09:47 → JONCCHEMO 13:50
PROVIDERS: ATTEND Internal Medicine Hematology & Oncology
DX: Z51.11 Encounter for antineoplastic chemotherapy (principal); C50.911 Malignant neoplasm of unspecified site of right female breast; C79.31 Secondary malignant neoplasm of brain
CPT/HCPCS: 36415; 80048; 80076; 82150; 83690; 83735; 84443; 85025; 96361; 96367; 96375; 96413; J2405; J9299

== ENCOUNTER 2019-02-15 05:47 | Day surgery (SDC) | payer OTHER, BC ==
[2019-02-15] MEDS ORDERED: SODIUM CHLORIDE 250 ML IV ONE (09:00)
[2019-02-15 09:25] LABS: BASO % 0.3 % (0-2.0); EOS % 0.6 % (0-4.5); HEMATOCRIT 41.4 % (32.4-45.2); HEMOGLOBIN 13.5 GM/dL (10.7-15.3); MCH 27.9 pg (25.7-33.7); MCHC 32.5 g/dl (32.0-36.0); MEAN CELL VOLUME 85.8 fl (80-96); MEAN PLT VOLUME 7.7 fl (7.5-11.1); MONO % 7.9 % (3.8-10.2); NEUT % 82.2 % (42.8-82.8); RBC 4.82 M/mm3 (3.60-5.2); RDW 14.8 % (11.6-15.6); WHITE BLOOD COUNT 7.8 K/mm3 (4.0-10.0)
[2019-02-15] MEDS ORDERED: DEXAMETHASONE SODIUM PHOSPHATE 10 MG, ONDANSETRON INJECTION 12 MG in SODIUM CHLORIDE 10... IVPB ONE (10:00)
[2019-02-15 10:03] LABS: ALBUMIN 3.6 g/dl (3.4-5.0); BILIRUBIN,DIRECT 0.2 mg/dL (0.0-0.2); BILIRUBIN,TOTAL 0.6 mg/dL (0.2-1); BLOOD UREA NITROGEN 22.4 mg/dL (7-18); CALCIUM 9.3 mg/dL (8.5-10.1); CREATININE 0.8 mg/dL (0.55-1.3); MAGNESIUM 2.1 mg/dL (1.8-2.4); TOT PROT 7.7 g/dl (6.4-8.2)
[2019-02-15 10:15] LABS: PLATELET COUNT 267 K/MM3 (134-434)
[2019-02-15] MEDS ORDERED: NIVOLUMAB IVPB ONE (10:30)
[2019-02-15] MEDS ORDERED: SODIUM CHLORIDE IVPB ONE (10:30)
[2019-02-15 16:05] VITALS: BP 102/66; PULSE 100; TEMP 97.9
[2019-02-15] MEDS ORDERED: PORTA CATH FLUSH 10 ML IVPUSH ONE (16:05)
== END 2019-02-15 13:00 | disposition home or self-care (01) ==
LOC: JONCCHEMO 05:47 → J7W 09:57 → JONCCHEMO 13:00
PROVIDERS: ATTEND Internal Medicine Hematology & Oncology
DX: Z51.11 Encounter for antineoplastic chemotherapy (principal); C50.911 Malignant neoplasm of unspecified site of right female breast; C79.31 Secondary malignant neoplasm of brain
CPT/HCPCS: 36415; 80048; 80076; 82150; 83690; 83735; 84443; 85025; 96361; 96367; 96375; 96413; J2405; J9299

== ENCOUNTER 2019-03-01 07:07 | Day surgery (SDC) | payer OTHER, BC | END 2019-03-01 13:15 | disposition home or self-care (01) | LOC: JONCCHEMO 07:07 → J7W 10:06 → JONCCHEMO 13:15 ==

== ENCOUNTER 2019-03-15 06:46 | Day surgery (SDC) | payer OTHER, BC ==
[2019-03-15] MEDS ORDERED: SODIUM CHLORIDE 250 ML IV ONE (09:00)
[2019-03-15 09:22] LABS: BASO % 0.8 % (0-2.0); EOS % 1.5 % (0-4.5); HEMATOCRIT 39.2 % (32.4-45.2); HEMOGLOBIN 12.7 GM/dL (10.7-15.3); LYMPH % 14.4 % (8-40); MCH 28.1 pg (25.7-33.7); MCHC 32.5 g/dl (32.0-36.0); MEAN CELL VOLUME 86.6 fl (80-96); MEAN PLT VOLUME 7.6 fl (7.5-11.1); MONO % 7.3 % (3.8-10.2); PLATELET COUNT 209 K/MM3 (134-434); RBC 4.52 M/mm3 (3.60-5.2); RDW 15.2 % (11.6-15.6); WHITE BLOOD COUNT 6.3 K/mm3 (4.0-10.0)
[2019-03-15] MEDS ORDERED: DEXAMETHASONE SODIUM PHOSPHATE 10 MG, ONDANSETRON INJECTION 12 MG in SODIUM CHLORIDE 10... IVPB ONE (09:30)
[2019-03-15 09:57] LABS: AMYLASE 52 U/L (25-115); LIPASE 101 U/L (73-393)
[2019-03-15] MEDS ORDERED: SODIUM CHLORIDE IVPB ONE (10:00)
[2019-03-15] MEDS ORDERED: NIVOLUMAB IVPB ONE (10:00)
[2019-03-15 10:13] LABS: ALBUMIN 3.5 g/dl (3.4-5.0); BILIRUBIN,DIRECT 0.2 mg/dL (0.0-0.2); BILIRUBIN,TOTAL 0.4 mg/dL (0.2-1); BLOOD UREA NITROGEN 21.8 mg/dL (7-18); CALCIUM 9.1 mg/dL (8.5-10.1); CREATININE 0.8 mg/dL (0.55-1.3); TOT PROT 7.1 g/dl (6.4-8.2)
[2019-03-15 15:09] VITALS: BP 133/71; PULSE 95; TEMP 97.9
[2019-03-15] MEDS ORDERED: PORTA CATH FLUSH 10 ML IVPUSH ONE (15:10)
== END 2019-03-15 14:20 | disposition home or self-care (01) ==
LOC: JONCCHEMO 06:46 → J7W 10:18 → JONCCHEMO 14:20
PROVIDERS: ATTEND Internal Medicine Hematology & Oncology
DX: Z51.11 Encounter for antineoplastic chemotherapy (principal); C34.90 Malignant neoplasm of unspecified part of unspecified bronchus or lung; C50.911 Malignant neoplasm of unspecified site of right female breast; C79.31 Secondary malignant neoplasm of brain; E05.90 Thyrotoxicosis, unspecified without thyrotoxic crisis or storm
CPT/HCPCS: 36415; 80048; 80076; 82150; 83690; 83735; 84443; 85025; 96361; 96367; 96375; 96413; J2405; J9299

== ENCOUNTER 2019-03-29 06:58 | Day surgery (SDC) | payer OTHER, BC ==
[2019-03-29] MEDS ORDERED: SODIUM CHLORIDE 250 ML IV ONE (09:00)
[2019-03-29 09:07] LABS: BASO % 0.9 % (0-2.0); EOS % 1.8 % (0-4.5); HEMATOCRIT 39.2 % (32.4-45.2); HEMOGLOBIN 12.8 GM/dL (10.7-15.3); LYMPH % 14.3 % (8-40); MCH 28.4 pg (25.7-33.7); MCHC 32.6 g/dl (32.0-36.0); MEAN CELL VOLUME 87.2 fl (80-96); MEAN PLT VOLUME 7.7 fl (7.5-11.1); MONO % 9.1 % (3.8-10.2); NEUT % 73.9 % (42.8-82.8); PLATELET COUNT 208 K/MM3 (134-434); RBC 4.49 M/mm3 (3.60-5.2); RDW 15.6 % (11.6-15.6); WHITE BLOOD COUNT 7.4 K/mm3 (4.0-10.0)
[2019-03-29] MEDS ORDERED: DEXAMETHASONE SODIUM PHOSPHATE 10 MG, ONDANSETRON INJECTION 12 MG in SODIUM CHLORIDE 10... IVPB ONE (09:30)
[2019-03-29 09:43] LABS: ALBUMIN 3.5 g/dl (3.4-5.0); BILIRUBIN,DIRECT 0.1 mg/dL (0.0-0.2); BILIRUBIN,TOTAL 0.5 mg/dL (0.2-1); BLOOD UREA NITROGEN 18.9 mg/dL (7-18); CALCIUM 9.1 mg/dL (8.5-10.1); CREATININE 0.8 mg/dL (0.55-1.3); POTASSIUM 4.2 mmol/L (3.5-5.1)
[2019-03-29] MEDS ORDERED: SODIUM CHLORIDE IVPB ONE (10:00)
[2019-03-29] MEDS ORDERED: NIVOLUMAB IVPB ONE (10:00)
[2019-03-29 15:39] VITALS: TEMP 98.3
[2019-03-29 15:45] VITALS: BP 139/61; PULSE 89
[2019-03-29] MEDS ORDERED: PORTA CATH FLUSH 10 ML IVPUSH ONE (15:45)
== END 2019-03-29 15:00 | disposition home or self-care (01) ==
LOC: JONCCHEMO 06:58 → J7W 10:40 → JONCCHEMO 15:00
PROVIDERS: ATTEND Internal Medicine Hematology & Oncology
DX: Z51.11 Encounter for antineoplastic chemotherapy (principal); C34.90 Malignant neoplasm of unspecified part of unspecified bronchus or lung; C50.911 Malignant neoplasm of unspecified site of right female breast; C79.31 Secondary malignant neoplasm of brain; E05.90 Thyrotoxicosis, unspecified without thyrotoxic crisis or storm
CPT/HCPCS: 36415; 80048; 80076; 82150; 83690; 83735; 84439; 84443; 85025; 96361; 96367; 96375; 96413; J2405; J9299

== ENCOUNTER 2019-04-12 05:38 | Day surgery (SDC) | payer OTHER, BC ==
[2019-04-12 09:26] LABS: ALBUMIN 3.6 g/dl (3.4-5.0); BILIRUBIN,DIRECT 0.1 mg/dL (0.0-0.2); BILIRUBIN,TOTAL 0.4 mg/dL (0.2-1); BLOOD UREA NITROGEN 16.4 mg/dL (7-18); CALCIUM 9.1 mg/dL (8.5-10.1); CREATININE 0.8 mg/dL (0.55-1.3); MAGNESIUM 1.8 mg/dL (1.8-2.4); POTASSIUM 4.6 mmol/L (3.5-5.1)
[2019-04-12 09:45] LABS: BASO % 0.4 % (0-2.0); EOS % 1.6 % (0-4.5); HEMATOCRIT 39.9 % (32.4-45.2); HEMOGLOBIN 13.1 GM/dL (10.7-15.3); MCH 28.5 pg (25.7-33.7); MCHC 32.9 g/dl (32.0-36.0); MEAN CELL VOLUME 86.5 fl (80-96); MEAN PLT VOLUME 7.9 fl (7.5-11.1); MONO % 7.2 % (3.8-10.2); NEUT % 77.8 % (42.8-82.8); PLATELET COUNT 222 K/MM3 (134-434); RBC 4.62 M/mm3 (3.60-5.2); RDW 16.1 % (11.6-15.6); WHITE BLOOD COUNT 7.9 K/mm3 (4.0-10.0)
[2019-04-12] MEDS ORDERED: DEXAMETHASONE SODIUM PHOSPHATE 10 MG, ONDANSETRON INJECTION 12 MG in SODIUM CHLORIDE 10... IVPB ONE (10:00)
[2019-04-12] MEDS ORDERED: SODIUM CHLORIDE 250 ML IV ONE (10:00)
[2019-04-12] MEDS ORDERED: SODIUM CHLORIDE IVPB ONE (10:30)
[2019-04-12] MEDS ORDERED: NIVOLUMAB IVPB ONE (10:30)
[2019-04-12 17:10] VITALS: TEMP 98.7
[2019-04-12 17:18] VITALS: BP 122/69; PULSE 81
[2019-04-12] MEDS ORDERED: PORTA CATH FLUSH 10 ML IVPUSH ONE (17:18)
== END 2019-04-12 13:40 | disposition home or self-care (01) ==
LOC: JONCCHEMO 05:38 → J7W 10:00 → JONCCHEMO 13:40
PROVIDERS: ATTEND Internal Medicine Hematology & Oncology
DX: Z51.11 Encounter for antineoplastic chemotherapy (principal); C34.90 Malignant neoplasm of unspecified part of unspecified bronchus or lung; C50.911 Malignant neoplasm of unspecified site of right female breast; C79.31 Secondary malignant neoplasm of brain
CPT/HCPCS: 36415; 80048; 80076; 82150; 83690; 83735; 84443; 85025; 96361; 96367; 96375; 96413; J9299

== ENCOUNTER 2019-04-26 05:21 | Day surgery (SDC) | payer OTHER, BC ==
[2019-04-26 08:49] LABS: BASO % 0.6 % (0-2.0); EOS % 0.8 % (0-4.5); HEMATOCRIT 40.9 % (32.4-45.2); HEMOGLOBIN 13.3 GM/dL (10.7-15.3); LYMPH % 9.9 % (8-40); MCH 28.3 pg (25.7-33.7); MCHC 32.5 g/dl (32.0-36.0); MEAN CELL VOLUME 87.2 fl (80-96); MEAN PLT VOLUME 7.6 fl (7.5-11.1); NEUT % 82.7 % (42.8-82.8); PLATELET COUNT 230 K/MM3 (134-434); RBC 4.69 M/mm3 (3.60-5.2); RDW 16.3 % (11.6-15.6); WHITE BLOOD COUNT 8.1 K/mm3 (4.0-10.0)
[2019-04-26] MEDS ORDERED: SODIUM CHLORIDE 250 ML IV ONE (09:00)
[2019-04-26 09:26] LABS: ALBUMIN 3.7 g/dl (3.4-5.0); BILIRUBIN,TOTAL 0.7 mg/dL (0.2-1); BLOOD UREA NITROGEN 15.1 mg/dL (7-18); CALCIUM 9.2 mg/dL (8.5-10.1); CREATININE 0.8 mg/dL (0.55-1.3); MAGNESIUM 1.9 mg/dL (1.8-2.4); POTASSIUM 4.2 mmol/L (3.5-5.1); TOT PROT 7.1 g/dl (6.4-8.2)
[2019-04-26] MEDS ORDERED: DEXAMETHASONE SODIUM PHOSPHATE 10 MG, ONDANSETRON INJECTION 12 MG in SODIUM CHLORIDE 10... IVPB ONE (10:00)
[2019-04-26] MEDS ORDERED: NIVOLUMAB IVPB ONE (10:30)
[2019-04-26] MEDS ORDERED: SODIUM CHLORIDE IVPB ONE (10:30)
[2019-04-26 15:01] VITALS: TEMP 98.6
[2019-04-26] MEDS ORDERED: PORTA CATH FLUSH 10 ML IVPUSH ONE (15:01)
[2019-04-26 15:02] VITALS: BP 120/68; PULSE 105
== END 2019-04-26 13:00 | disposition home or self-care (01) ==
LOC: JONCCHEMO 05:21 → J7W 09:23 → JONCCHEMO 13:00
PROVIDERS: ATTEND Internal Medicine Hematology & Oncology
DX: Z51.11 Encounter for antineoplastic chemotherapy (principal); C34.92 Malignant neoplasm of unspecified part of left bronchus or lung; C77.1 Secondary and unspecified malignant neoplasm of intrathoracic lymph nodes; Z72.0 Tobacco use; Z85.3 Personal history of malignant neoplasm of breast
CPT/HCPCS: 36415; 80053; 83735; 84439; 84443; 85025; 96361; 96367; 96375; 96413; J9299

== ENCOUNTER 2019-05-10 05:39 | Day surgery (SDC) | payer OTHER, BC ==
[2019-05-10] MEDS ORDERED: SODIUM CHLORIDE 250 ML IV ONE (09:00)
[2019-05-10 09:15] LABS: BASO % 0.4 % (0-2.0); EOS % 1.2 % (0-4.5); HEMATOCRIT 41.3 % (32.4-45.2); HEMOGLOBIN 13.6 GM/dL (10.7-15.3); LYMPH % 11.9 % (8-40); MCH 28.6 pg (25.7-33.7); MEAN CELL VOLUME 86.6 fl (80-96); MEAN PLT VOLUME 7.9 fl (7.5-11.1); MONO % 7.8 % (3.8-10.2); NEUT % 78.7 % (42.8-82.8); PLATELET COUNT 238 K/MM3 (134-434); RBC 4.76 M/mm3 (3.60-5.2); RDW 15.4 % (11.6-15.6); WHITE BLOOD COUNT 7.9 K/mm3 (4.0-10.0)
[2019-05-10] MEDS ORDERED: DEXAMETHASONE SODIUM PHOSPHATE 10 MG, ONDANSETRON INJECTION 12 MG in SODIUM CHLORIDE 10... IVPB ONE (09:30)
[2019-05-10 09:51] LABS: ALBUMIN 3.8 g/dl (3.4-5.0); BILIRUBIN,TOTAL 0.4 mg/dL (0.2-1); BLOOD UREA NITROGEN 26.8 mg/dL (7-18); CALCIUM 9.6 mg/dL (8.5-10.1); CREATININE 0.9 mg/dL (0.55-1.3); POTASSIUM 4.3 mmol/L (3.5-5.1); TOT PROT 7.5 g/dl (6.4-8.2)
[2019-05-10] MEDS ORDERED: NIVOLUMAB IVPB ONE (10:00)
[2019-05-10] MEDS ORDERED: SODIUM CHLORIDE IVPB ONE (10:00)
[2019-05-10 15:49] VITALS: PULSE 90
[2019-05-10] MEDS ORDERED: PORTA CATH FLUSH 10 ML IVPUSH ONE (15:49)
[2019-05-10 15:51] VITALS: BP 113/75; TEMP 98.7
== END 2019-05-10 13:27 | disposition home or self-care (01) ==
LOC: JONCCHEMO 05:39 → J7W 09:55 → JONCCHEMO 13:27
PROVIDERS: ATTEND Internal Medicine Hematology & Oncology
DX: Z51.11 Encounter for antineoplastic chemotherapy (principal); C34.2 Malignant neoplasm of middle lobe, bronchus or lung; C77.1 Secondary and unspecified malignant neoplasm of intrathoracic lymph nodes; Z72.0 Tobacco use; Z85.3 Personal history of malignant neoplasm of breast
CPT/HCPCS: 36415; 80053; 83735; 85025; 96361; 96367; 96375; 96413; J9299

== ENCOUNTER 2019-05-23 07:07 | Day surgery (SDC) | payer OTHER, BC ==
[2019-05-23] MEDS ORDERED: SODIUM CHLORIDE 250 ML IV ONE (09:00)
[2019-05-23] MEDS ORDERED: DEXAMETHASONE SODIUM PHOSPHATE 10 MG, ONDANSETRON INJECTION 12 MG in SODIUM CHLORIDE 10... IVPB ONE (09:30)
[2019-05-23] MEDS ORDERED: SODIUM CHLORIDE IVPB ONE ×2 (10:00)
[2019-05-23] MEDS ORDERED: NIVOLUMAB IVPB ONE ×2 (10:00)
[2019-05-23 10:19] LABS: BASO % 0.4 % (0-2.0); EOS % 0.7 % (0-4.5); HEMATOCRIT 41.8 % (32.4-45.2); HEMOGLOBIN 13.7 GM/dL (10.7-15.3); LYMPH % 10.9 % (8-40); MCH 28.4 pg (25.7-33.7); MCHC 32.7 g/dl (32.0-36.0); MEAN CELL VOLUME 86.7 fl (80-96); MEAN PLT VOLUME 7.8 fl (7.5-11.1); MONO % 5.7 % (3.8-10.2); NEUT % 82.3 % (42.8-82.8); PLATELET COUNT 212 K/MM3 (134-434); RBC 4.82 M/mm3 (3.60-5.2); WHITE BLOOD COUNT 8.6 K/mm3 (4.0-10.0)
[2019-05-23 10:54] LABS: ALBUMIN 3.7 g/dl (3.4-5.0); BILIRUBIN,TOTAL 0.6 mg/dL (0.2-1); BLOOD UREA NITROGEN 20.7 mg/dL (7-18); CREATININE 0.7 mg/dL (0.55-1.3); MAGNESIUM 1.9 mg/dL (1.8-2.4); POTASSIUM 4.1 mmol/L (3.5-5.1); TOT PROT 7.1 g/dl (6.4-8.2)
[2019-05-23 16:42] VITALS: BP 137/67; PULSE 89; TEMP 98.1
[2019-05-23] MEDS ORDERED: PORTA CATH FLUSH 10 ML IVPUSH ONE (16:42)
== END 2019-05-23 13:55 | disposition home or self-care (01) ==
LOC: JONCCHEMO 07:07 → J7W 10:58 → JONCCHEMO 13:55
PROVIDERS: ATTEND Internal Medicine Hematology & Oncology
DX: Z51.11 Encounter for antineoplastic chemotherapy (principal); C34.2 Malignant neoplasm of middle lobe, bronchus or lung; C77.1 Secondary and unspecified malignant neoplasm of intrathoracic lymph nodes; Z85.3 Personal history of malignant neoplasm of breast; Z72.0 Tobacco use
CPT/HCPCS: 36415; 80053; 83735; 85025; 96361; 96367; 96375; 96413; J2405; J9299

== ENCOUNTER 2019-06-07 05:26 | Day surgery (SDC) | payer OTHER, BC ==
[2019-06-07] MEDS ORDERED: SODIUM CHLORIDE 250 ML IV ONE (09:00)
[2019-06-07 09:43] LABS: BASO % 0.5 % (0-2.0); EOS % 0.9 % (0-4.5); HEMATOCRIT 41.2 % (32.4-45.2); HEMOGLOBIN 13.5 GM/dL (10.7-15.3); LYMPH % 11.6 % (8-40); MCH 28.2 pg (25.7-33.7); MCHC 32.8 g/dl (32.0-36.0); MEAN PLT VOLUME 7.7 fl (7.5-11.1); PLATELET COUNT 223 K/MM3 (134-434); RBC 4.78 M/mm3 (3.60-5.2); RDW 14.7 % (11.6-15.6); WHITE BLOOD COUNT 6.9 K/mm3 (4.0-10.0)
[2019-06-07] MEDS ORDERED: DEXAMETHASONE SODIUM PHOSPHATE 10 MG, ONDANSETRON INJECTION 12 MG in SODIUM CHLORIDE 10... IVPB ONE (10:00)
[2019-06-07 10:18] LABS: ALBUMIN 3.5 g/dl (3.4-5.0); BILIRUBIN,TOTAL 0.8 mg/dL (0.2-1); BLOOD UREA NITROGEN 17.5 mg/dL (7-18); CALCIUM 9.1 mg/dL (8.5-10.1); CREATININE 0.7 mg/dL (0.55-1.3); POTASSIUM 4.1 mmol/L (3.5-5.1)
[2019-06-07] MEDS ORDERED: SODIUM CHLORIDE IVPB ONE (10:30)
[2019-06-07] MEDS ORDERED: NIVOLUMAB IVPB ONE (10:30)
[2019-06-07 14:19] VITALS: TEMP 98.3
[2019-06-07 14:20] VITALS: BP 149/63; PULSE 63
== END 2019-06-07 12:40 | disposition home or self-care (01) ==
LOC: JONCCHEMO 05:26 → J7W 09:32 → JONCCHEMO 12:40
PROVIDERS: ATTEND Internal Medicine Hematology & Oncology
PROC: 3E04305 Introduction of Other Antineoplastic into Central Vein, Percutaneous Approach (ICD-10-PCS; principal; 2019-06-07)
PROC: 3E043GC Introduction of Other Therapeutic Substance into Central Vein, Percutaneous Approach (ICD-10-PCS; 2019-06-07)
PROC: 3E0437Z Introduction of Electrolytic and Water Balance Substance into Central Vein, Percutaneous Approach (ICD-10-PCS; 2019-06-07)
DX: Z51.11 Encounter for antineoplastic chemotherapy (principal); C34.12 Malignant neoplasm of upper lobe, left bronchus or lung; E05.20 Thyrotoxicosis with toxic multinodular goiter without thyrotoxic crisis or storm; Z85.3 Personal history of malignant neoplasm of breast
CPT/HCPCS: 36415; 80053; 83735; 84443; 85025; 96361; 96367; 96413; J2405; J9299

== ENCOUNTER 2019-06-28 07:04 | Day surgery (SDC) | payer OTHER, BC ==
[2019-06-28] MEDS ORDERED: SODIUM CHLORIDE 250 ML IV ONE (09:00)
[2019-06-28] MEDS ORDERED: DEXAMETHASONE SODIUM PHOSPHATE 10 MG, ONDANSETRON INJECTION 12 MG in SODIUM CHLORIDE 10... IVPB ONE (10:00)
[2019-06-28] MEDS ORDERED: SODIUM CHLORIDE IVPB ONE (10:30)
[2019-06-28] MEDS ORDERED: NIVOLUMAB IVPB ONE (10:30)
[2019-06-28 10:57] LABS: BASO % 0.4 % (0-2.0); EOS % 0.9 % (0-4.5); HEMATOCRIT 40.7 % (32.4-45.2); HEMOGLOBIN 13.3 GM/dL (10.7-15.3); MCH 28.2 pg (25.7-33.7); MCHC 32.8 g/dl (32.0-36.0); MEAN CELL VOLUME 86.1 fl (80-96); MEAN PLT VOLUME 7.8 fl (7.5-11.1); MONO % 7.2 % (3.8-10.2); NEUT % 77.5 % (42.8-82.8); PLATELET COUNT 241 K/MM3 (134-434); RBC 4.73 M/mm3 (3.60-5.2); RDW 14.9 % (11.6-15.6); WHITE BLOOD COUNT 6.2 K/mm3 (4.0-10.0)
[2019-06-28 11:47] LABS: ALBUMIN 3.7 g/dl (3.4-5.0); BILIRUBIN,TOTAL 0.5 mg/dL (0.2-1); BLOOD UREA NITROGEN 18.7 mg/dL (7-18); CALCIUM 9.2 mg/dL (8.5-10.1); CREATININE 0.7 mg/dL (0.55-1.3); MAGNESIUM 1.7 mg/dL (1.8-2.4); POTASSIUM 4.1 mmol/L (3.5-5.1); TOT PROT 7.2 g/dl (6.4-8.2)
[2019-06-28] MEDS ORDERED: MAGNESIUM OXIDE 400 MG TABLET (FP) PO ONE (15:00)
[2019-06-28] MEDS ORDERED: PORTA CATH FLUSH 10 ML IVPUSH ONE (16:45)
[2019-06-28 16:47] VITALS: BP 120/57; PULSE 98; TEMP 99.1
== END 2019-06-28 15:35 | disposition home or self-care (01) ==
LOC: JONCCHEMO 07:04 → J7W 14:21 → JONCCHEMO 15:35
PROVIDERS: ATTEND Internal Medicine Hematology & Oncology
DX: Z51.11 Encounter for antineoplastic chemotherapy (principal); C34.12 Malignant neoplasm of upper lobe, left bronchus or lung; E05.90 Thyrotoxicosis, unspecified without thyrotoxic crisis or storm; Z85.3 Personal history of malignant neoplasm of breast; Z87.891 Personal history of nicotine dependence
CPT/HCPCS: 36415; 80053; 83735; 84443; 85025; 96361; 96367; 96413; J9299

== ENCOUNTER 2019-07-12 05:39 | Day surgery (SDC) | payer OTHER, BC ==
[2019-07-12 08:49] LABS: BASO % 0.4 % (0-2.0); EOS % 1.5 % (0-4.5); HEMATOCRIT 41.7 % (32.4-45.2); HEMOGLOBIN 13.5 GM/dL (10.7-15.3); LYMPH % 12.4 % (8-40); MCHC 32.5 g/dl (32.0-36.0); MEAN CELL VOLUME 86.1 fl (80-96); MEAN PLT VOLUME 7.9 fl (7.5-11.1); NEUT % 78.7 % (42.8-82.8); PLATELET COUNT 237 K/MM3 (134-434); RBC 4.84 M/mm3 (3.60-5.2); RDW 14.7 % (11.6-15.6); WHITE BLOOD COUNT 7.7 K/mm3 (4.0-10.0)
[2019-07-12] MEDS ORDERED: SODIUM CHLORIDE 250 ML IV ONE (09:00)
[2019-07-12 09:27] LABS: ALBUMIN 3.6 g/dl (3.4-5.0); BILIRUBIN,TOTAL 0.4 mg/dL (0.2-1); BLOOD UREA NITROGEN 18.6 mg/dL (7-18); CALCIUM 9.1 mg/dL (8.5-10.1); CREATININE 0.8 mg/dL (0.55-1.3); MAGNESIUM 1.9 mg/dL (1.8-2.4); POTASSIUM 3.9 mmol/L (3.5-5.1); TOT PROT 7.1 g/dl (6.4-8.2)
[2019-07-12] MEDS ORDERED: DEXAMETHASONE SODIUM PHOSPHATE 10 MG, ONDANSETRON INJECTION 12 MG in SODIUM CHLORIDE 10... IVPB ONE (09:30)
[2019-07-12] MEDS ORDERED: SODIUM CHLORIDE IVPB ONE (10:00)
[2019-07-12] MEDS ORDERED: NIVOLUMAB IVPB ONE (10:00)
[2019-07-12 14:25] VITALS: BP 127/68; PULSE 94; TEMP 97.4
[2019-07-12] MEDS ORDERED: PORTA CATH FLUSH 10 ML IVPUSH ONE (14:25)
== END 2019-07-12 13:05 | disposition home or self-care (01) ==
LOC: JONCCHEMO 05:39 → J7W 09:40 → JONCCHEMO 13:05
PROVIDERS: ATTEND Internal Medicine Hematology & Oncology
DX: Z51.11 Encounter for antineoplastic chemotherapy (principal); C34.12 Malignant neoplasm of upper lobe, left bronchus or lung; C79.51 Secondary malignant neoplasm of bone; Z85.3 Personal history of malignant neoplasm of breast
CPT/HCPCS: 36415; 80053; 83735; 84443; 85025; 96361; 96367; 96413; J2405; J9299

== ENCOUNTER 2019-07-26 07:19 | Day surgery (SDC) | payer OTHER, BC ==
[2019-07-26 08:49] LABS: BASO % 0.4 % (0-2.0); EOS % 0.6 % (0-4.5); HEMATOCRIT 38.9 % (32.4-45.2); LYMPH % 9.9 % (8-40); MCH 28.5 pg (25.7-33.7); MCHC 33.3 g/dl (32.0-36.0); MEAN CELL VOLUME 85.5 fl (80-96); MEAN PLT VOLUME 7.8 fl (7.5-11.1); MONO % 5.9 % (3.8-10.2); NEUT % 83.2 % (42.8-82.8); PLATELET COUNT 219 K/MM3 (134-434); RBC 4.55 M/mm3 (3.60-5.2); RDW 14.9 % (11.6-15.6); WHITE BLOOD COUNT 8.4 K/mm3 (4.0-10.0)
[2019-07-26] MEDS ORDERED: SODIUM CHLORIDE 250 ML IV ONE (09:00)
[2019-07-26 09:25] LABS: ALBUMIN 3.6 g/dl (3.4-5.0); BILIRUBIN,TOTAL 0.4 mg/dL (0.2-1); BLOOD UREA NITROGEN 18.7 mg/dL (7-18); CALCIUM 8.9 mg/dL (8.5-10.1); CREATININE 0.7 mg/dL (0.55-1.3); MAGNESIUM 1.6 mg/dL (1.8-2.4); POTASSIUM 3.6 mmol/L (3.5-5.1); TOT PROT 7.3 g/dl (6.4-8.2)
[2019-07-26] MEDS ORDERED: DEXAMETHASONE SODIUM PHOSPHATE 10 MG, ONDANSETRON INJECTION 12 MG in SODIUM CHLORIDE 10... IVPB ONE (10:00)
[2019-07-26] MEDS ORDERED: amLODIPine BESYLATE 2.5 MG TABLET (FP) PO PRN (10:08)
[2019-07-26] MEDS ORDERED: MAGNESIUM OXIDE 400 MG TABLET (FP) PO ONE (10:15)
[2019-07-26] MEDS ORDERED: NIVOLUMAB IVPB ONE (10:30)
[2019-07-26] MEDS ORDERED: SODIUM CHLORIDE IVPB ONE (10:30)
[2019-07-26 12:46] VITALS: TEMP 97.8
[2019-07-26] MEDS ORDERED: PORTA CATH FLUSH 10 ML IVPUSH ONE (12:48)
[2019-07-26 13:54] VITALS: BP 144/78; PULSE 101
== END 2019-07-26 14:00 | disposition home or self-care (01) ==
LOC: JONCCHEMO 07:19 → J7W 10:05 → JONCCHEMO 14:00
PROVIDERS: ATTEND Internal Medicine Hematology & Oncology
PROC: 3E04305 Introduction of Other Antineoplastic into Central Vein, Percutaneous Approach (ICD-10-PCS; principal; 2019-07-26)
PROC: 3E043GC Introduction of Other Therapeutic Substance into Central Vein, Percutaneous Approach (ICD-10-PCS; 2019-07-26)
PROC: 3E0437Z Introduction of Electrolytic and Water Balance Substance into Central Vein, Percutaneous Approach (ICD-10-PCS; 2019-07-26)
DX: Z51.11 Encounter for antineoplastic chemotherapy (principal); C34.12 Malignant neoplasm of upper lobe, left bronchus or lung; E05.00 Thyrotoxicosis with diffuse goiter without thyrotoxic crisis or storm; Z85.3 Personal history of malignant neoplasm of breast; J43.8 Other emphysema
CPT/HCPCS: 36415; 80053; 83735; 84443; 85025; 96361; 96367; 96413; J9299

== ENCOUNTER 2019-08-03 13:39 | Emergency (ER) | payer OTHER, BC ==
[2019-08-03 13:57] VITALS: BP 97/44; PULSE 82; TEMP 98; BMI 22.4
[2019-08-03] MEDS ORDERED: SODIUM CHLORIDE 0.9% 500 ML INFUS.BAG IV ONE (14:57)
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
[2019-08-03 15:51] LABS: BASO % 0.2 % (0-2.0); EOS % 0.2 % (0-4.5); HEMATOCRIT 32.3 % (32.4-45.2); HEMOGLOBIN 10.6 GM/dL (10.7-15.3); LYMPH % 5.8 % (8-40); MCH 27.9 pg (25.7-33.7); MCHC 32.7 g/dl (32.0-36.0); MEAN CELL VOLUME 85.4 fl (80-96); MEAN PLT VOLUME 8.5 fl (7.5-11.1); MONO % 9.3 % (3.8-10.2); NEUT % 84.5 % (42.8-82.8); PLATELET COUNT 222 K/MM3 (134-434); RBC 3.79 M/mm3 (3.60-5.2); RDW 14.7 % (11.6-15.6); WHITE BLOOD COUNT 11.7 K/mm3 (4.0-10.0)
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
[2019-08-03 16:23] LABS: ALBUMIN 2.8 g/dl (3.4-5.0); BILIRUBIN,TOTAL 0.8 mg/dL (0.2-1); BLOOD UREA NITROGEN 25.4 mg/dL (7-18); CALCIUM 8.6 mg/dL (8.5-10.1); CREATININE 0.7 mg/dL (0.55-1.3); POTASSIUM 3.9 mmol/L (3.5-5.1); TOT PROT 6.6 g/dl (6.4-8.2)
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
--- NOTE | 2019-08-04 13:36 | EKG ---
Test Reason : Blood Pressure : / mmHG Vent. Rate : 082 BPM Atrial Rate : 082 BPM P-R Int : 148 ms QRS Dur : 078 ms QT Int : 354 ms P-R-T Axes : 061 011 057 degrees QTc Int : 413 ms SINUS RHYTHM WITH PREMATURE ATRIAL COMPLEXES OTHERWISE NORMAL ECG WHEN COMPARED WITH ECG OF 03-DEC-2014 13:05, PREMATURE ATRIAL COMPLEXES ARE NOW PRESENT Confirmed by MD WYATT, MIKAELA ([id number]) on 08/04/2019 1:35:41 PM Referred By: Confirmed By:MIKAELA SCHNEIDER MD
== END 2019-08-03 19:00 | disposition left against medical advice (07) ==
LOC: JER 13:39
DX: S29.8XXA Other specified injuries of thorax, initial encounter (principal); V49.69XA Unspecified car occupant injured in collision with other motor vehicles in traffic accident, initial encounter; Y92.488 Other paved roadways as the place of occurrence of the external cause; Y93.89 Activity, other specified; Y99.8 Other external cause status; I10 Essential (primary) hypertension; E03.9 Hypothyroidism, unspecified; J44.9 Chronic obstructive pulmonary disease, unspecified; D64.9 Anemia, unspecified; C34.90 Malignant neoplasm of unspecified part of unspecified bronchus or lung; Z85.3 Personal history of malignant neoplasm of breast; Z90.12 Acquired absence of left breast and nipple
CPT/HCPCS: 36415; 71260-TC; 74177-TC; 80053; 82550; 84484; 85025; 93005; 93010; 99282-25; Q9967

== ENCOUNTER 2019-08-16 05:38 | Day surgery (SDC) | payer OTHER, BC ==
[2019-08-16 09:32] LABS: BASO % 0.4 % (0-2.0); EOS % 0.9 % (0-4.5); HEMATOCRIT 36.5 % (32.4-45.2); LYMPH % 6.2 % (8-40); MCH 27.9 pg (25.7-33.7); MEAN CELL VOLUME 84.7 fl (80-96); MEAN PLT VOLUME 7.2 fl (7.5-11.1); MONO % 5.4 % (3.8-10.2); NEUT % 87.1 % (42.8-82.8); PLATELET COUNT 336 K/MM3 (134-434); RBC 4.31 M/mm3 (3.60-5.2); RDW 15.1 % (11.6-15.6); WHITE BLOOD COUNT 9.7 K/mm3 (4.0-10.0)
[2019-08-16] MEDS ORDERED: SODIUM CHLORIDE 250 ML IV ONE (10:00)
[2019-08-16] MEDS ORDERED: DEXAMETHASONE SODIUM PHOSPHATE 10 MG, ONDANSETRON INJECTION 12 MG in SODIUM CHLORIDE 10... IVPB ONE (10:00)
[2019-08-16] MEDS ORDERED: NIVOLUMAB IVPB ONE (10:30)
[2019-08-16] MEDS ORDERED: SODIUM CHLORIDE IVPB ONE (10:30)
[2019-08-16 10:42] LABS: ALBUMIN 3.3 g/dl (3.4-5.0); BILIRUBIN,TOTAL 0.4 mg/dL (0.2-1); CALCIUM 9.2 mg/dL (8.5-10.1); CREATININE 0.7 mg/dL (0.55-1.3); MAGNESIUM 1.8 mg/dL (1.8-2.4); TOT PROT 7.1 g/dl (6.4-8.2)
[2019-08-16 12:52] LABS: EPI CELLS 3.8 /HPF (0-5/HPF); HYALINE CASTS 4 /lpf (0-8); URINE APPEARANCE CLEAR; URINE BACTERIA 23.4 /hpf (NEGATIVE); URINE BILIRUBIN NEGATIVE (NEGATIVE); URINE COLOR DK YELLOW; URINE GLUCOSE (UA) NEGATIVE (NEGATIVE); URINE KETONE NEGATIVE (NEGATIVE); URINE LEUK ESTERASE 1+ (NEGATIVE); URINE NITRITE NEGATIVE (NEGATIVE); URINE PROTEIN NEGATIVE (NEGATIVE); URINE UROBILINOGEN 0.2 mg/dL (0.2-1.0); URINE WBC 4 /hpf (0-5)
[2019-08-16 15:05] LABS: URINE RBC 0 /hpf (0-4)
[2019-08-16 15:56] VITALS: BP 106/67; PULSE 104; TEMP 97.7
[2019-08-16] MEDS ORDERED: PORTA CATH FLUSH 10 ML IVPUSH ONE (15:56)
[2019-08-17 11:07] LABS: MICROALBUMIN/CREATININE RATIO 11.3 mg/g creat (0.0-30.0)
== END 2019-08-16 14:20 | disposition home or self-care (01) ==
LOC: JONCCHEMO 05:38 → J7W 10:12 → JONCCHEMO 14:20
PROVIDERS: ATTEND Internal Medicine Hematology & Oncology
DX: Z51.11 Encounter for antineoplastic chemotherapy (principal); C34.12 Malignant neoplasm of upper lobe, left bronchus or lung; J43.8 Other emphysema
CPT/HCPCS: 36415; 80053; 81003; 82043; 82306; 82570; 83036; 83735; 84439; 84443; 84481; 85025; 96361; 96367; 96413; J9299

== ENCOUNTER 2019-08-30 07:03 | Day surgery (SDC) | payer OTHER, BC ==
[2019-08-30] MEDS ORDERED: SODIUM CHLORIDE 250 ML IV ONE (09:00)
[2019-08-30 09:30] LABS: BASO % 0.6 % (0-2.0); EOS % 1.6 % (0-4.5); HEMATOCRIT 37.3 % (32.4-45.2); LYMPH % 7.8 % (8-40); MCH 27.5 pg (25.7-33.7); MCHC 32.3 g/dl (32.0-36.0); MEAN CELL VOLUME 85.2 fl (80-96); MONO % 5.8 % (3.8-10.2); NEUT % 84.2 % (42.8-82.8); PLATELET COUNT 279 K/MM3 (134-434); RBC 4.37 M/mm3 (3.60-5.2); RDW 16.1 % (11.6-15.6); WHITE BLOOD COUNT 7.9 K/mm3 (4.0-10.0)
[2019-08-30] MEDS ORDERED: DEXAMETHASONE SODIUM PHOSPHATE 10 MG, ONDANSETRON INJECTION 12 MG in SODIUM CHLORIDE 10... IVPB ONE (09:30)
[2019-08-30 09:53] LABS: ALBUMIN 3.2 g/dl (3.4-5.0); BILIRUBIN,DIRECT 0.2 mg/dL (0.0-0.2); BILIRUBIN,TOTAL 0.5 mg/dL (0.2-1); BLOOD UREA NITROGEN 17.8 mg/dL (7-18); CALCIUM 9.2 mg/dL (8.5-10.1); CREATININE 0.7 mg/dL (0.55-1.3); MAGNESIUM 1.7 mg/dL (1.8-2.4); POTASSIUM 4.1 mmol/L (3.5-5.1); TOT PROT 6.6 g/dl (6.4-8.2)
[2019-08-30] MEDS ORDERED: SODIUM CHLORIDE IVPB ONE (10:00)
[2019-08-30] MEDS ORDERED: NIVOLUMAB IVPB ONE (10:00)
[2019-08-30] MEDS ORDERED: MAGNESIUM OXIDE 400 MG TABLET (FP) PO ONE (10:17)
[2019-08-30 14:08] VITALS: TEMP 97.8
[2019-08-30 14:18] VITALS: BP 138/72; PULSE 86
[2019-08-30] MEDS ORDERED: PORTA CATH FLUSH 10 ML IVPUSH ONE (14:18)
== END 2019-08-30 13:10 | disposition home or self-care (01) ==
LOC: JONCCHEMO 07:03 → J7W 09:56 → JONCCHEMO 13:10
PROVIDERS: ATTEND Internal Medicine Hematology & Oncology
DX: Z51.11 Encounter for antineoplastic chemotherapy (principal); C34.12 Malignant neoplasm of upper lobe, left bronchus or lung
CPT/HCPCS: 36415; 80048; 80076; 83735; 84439; 85025; 86376; 86800; 96361; 96367; 96413; J2405; J9299

== ENCOUNTER 2019-09-13 05:36 | Day surgery (SDC) | payer OTHER, BC ==
[2019-09-13] MEDS ORDERED: SODIUM CHLORIDE 250 ML IV ONE (09:15)
[2019-09-13 09:26] LABS: BASO % 0.5 % (0-2.0); EOS % 1.3 % (0-4.5); HEMATOCRIT 36.8 % (32.4-45.2); LYMPH % 9.4 % (8-40); MCH 27.5 pg (25.7-33.7); MCHC 32.5 g/dl (32.0-36.0); MEAN CELL VOLUME 84.6 fl (80-96); MEAN PLT VOLUME 7.8 fl (7.5-11.1); MONO % 7.4 % (3.8-10.2); NEUT % 81.4 % (42.8-82.8); PLATELET COUNT 268 K/MM3 (134-434); RBC 4.35 M/mm3 (3.60-5.2); RDW 15.8 % (11.6-15.6); WHITE BLOOD COUNT 10.1 K/mm3 (4.0-10.0)
[2019-09-13] MEDS ORDERED: DEXAMETHASONE SODIUM PHOSPHATE 10 MG, ONDANSETRON INJECTION 12 MG in SODIUM CHLORIDE 10... IVPB ONE (09:30)
[2019-09-13] MEDS ORDERED: SODIUM CHLORIDE IVPB ONE (10:00)
[2019-09-13] MEDS ORDERED: NIVOLUMAB IVPB ONE (10:00)
[2019-09-13 10:10] LABS: ALBUMIN 3.5 g/dl (3.4-5.0); BILIRUBIN,TOTAL 0.6 mg/dL (0.2-1); BLOOD UREA NITROGEN 19.6 mg/dL (7-18); CALCIUM 9.4 mg/dL (8.5-10.1); CREATININE 0.7 mg/dL (0.55-1.3); MAGNESIUM 1.8 mg/dL (1.8-2.4); POTASSIUM 4.1 mmol/L (3.5-5.1); TOT PROT 7.4 g/dl (6.4-8.2)
[2019-09-13 16:29] VITALS: TEMP 98.6
[2019-09-13 16:37] VITALS: BP 122/63; PULSE 96
== END 2019-09-13 13:20 | disposition home or self-care (01) ==
LOC: JONCCHEMO 05:36 → J7W 09:41 → JONCCHEMO 13:20
PROVIDERS: ATTEND Internal Medicine Hematology & Oncology
PROC: 3E04305 Introduction of Other Antineoplastic into Central Vein, Percutaneous Approach (ICD-10-PCS; principal; 2019-09-13)
PROC: 3E043GC Introduction of Other Therapeutic Substance into Central Vein, Percutaneous Approach (ICD-10-PCS; 2019-09-13)
PROC: 3E0437Z Introduction of Electrolytic and Water Balance Substance into Central Vein, Percutaneous Approach (ICD-10-PCS; 2019-09-13)
DX: Z51.11 Encounter for antineoplastic chemotherapy (principal); C34.12 Malignant neoplasm of upper lobe, left bronchus or lung
CPT/HCPCS: 36415; 80053; 83735; 84443; 85025; 96361; 96367; 96413; J2405; J9299

== ENCOUNTER 2019-10-04 05:45 | Day surgery (SDC) | payer OTHER, BC ==
[2019-10-04 09:14] LABS: BASO % 0.5 % (0-2.0); EOS % 1.6 % (0-4.5); HEMATOCRIT 38.1 % (32.4-45.2); HEMOGLOBIN 12.3 GM/dL (10.7-15.3); LYMPH % 11.2 % (8-40); MCHC 32.2 g/dl (32.0-36.0); MEAN PLT VOLUME 7.9 fl (7.5-11.1); MONO % 8.4 % (3.8-10.2); NEUT % 78.3 % (42.8-82.8); PLATELET COUNT 263 K/MM3 (134-434); RBC 4.54 M/mm3 (3.60-5.2); RDW 15.2 % (11.6-15.6); WHITE BLOOD COUNT 7.4 K/mm3 (4.0-10.0)
[2019-10-04] MEDS ORDERED: DEXAMETHASONE SODIUM PHOSPHATE 10 MG, ONDANSETRON INJECTION 12 MG in SODIUM CHLORIDE 10... IVPB ONE (10:00)
[2019-10-04] MEDS ORDERED: SODIUM CHLORIDE 250 ML IV ONE (10:00)
[2019-10-04 10:04] LABS: ALBUMIN 3.6 g/dl (3.4-5.0); BILIRUBIN,TOTAL 0.4 mg/dL (0.2-1); BLOOD UREA NITROGEN 23.6 mg/dL (7-18); CALCIUM 9.6 mg/dL (8.5-10.1); CREATININE 0.8 mg/dL (0.55-1.3); POTASSIUM 4.2 mmol/L (3.5-5.1); TOT PROT 7.5 g/dl (6.4-8.2)
[2019-10-04] MEDS ORDERED: SODIUM CHLORIDE IVPB ONE (10:30)
[2019-10-04] MEDS ORDERED: NIVOLUMAB IVPB ONE (10:30)
[2019-10-04 14:40] VITALS: TEMP 98
[2019-10-04] MEDS ORDERED: PORTA CATH FLUSH 10 ML IVPUSH ONE (14:56)
[2019-10-04 14:57] VITALS: BP 114/63; PULSE 91
== END 2019-10-04 13:45 | disposition home or self-care (01) ==
LOC: JONCCHEMO 05:45 → J7W 10:15 → JONCCHEMO 13:45
PROVIDERS: ATTEND Internal Medicine Hematology & Oncology
DX: Z51.11 Encounter for antineoplastic chemotherapy (principal); C34.12 Malignant neoplasm of upper lobe, left bronchus or lung
CPT/HCPCS: 36415; 80053; 83735; 84443; 85025; 96361; 96367; 96413; J2405; J9299

== ENCOUNTER 2019-10-18 05:32 | Day surgery (SDC) | payer OTHER, BC ==
[2019-10-18 08:50] LABS: BASO % 0.4 % (0-2.0); EOS % 0.8 % (0-4.5); HEMATOCRIT 37.2 % (32.4-45.2); LYMPH % 11.8 % (8-40); MCH 26.8 pg (25.7-33.7); MCHC 32.3 g/dl (32.0-36.0); MEAN CELL VOLUME 82.9 fl (80-96); MONO % 8.4 % (3.8-10.2); NEUT % 78.6 % (42.8-82.8); PLATELET COUNT 238 K/MM3 (134-434); RBC 4.49 M/mm3 (3.60-5.2); RDW 15.6 % (11.6-15.6); WHITE BLOOD COUNT 7.3 K/mm3 (4.0-10.0)
[2019-10-18] MEDS ORDERED: SODIUM CHLORIDE 250 ML IV ONE (09:00)
[2019-10-18 09:30] LABS: ALBUMIN 3.5 g/dl (3.4-5.0); BILIRUBIN,TOTAL 0.5 mg/dL (0.2-1); BLOOD UREA NITROGEN 20.8 mg/dL (7-18); CALCIUM 8.6 mg/dL (8.5-10.1); CREATININE 0.7 mg/dL (0.55-1.3); MAGNESIUM 1.7 mg/dL (1.8-2.4); POTASSIUM 3.8 mmol/L (3.5-5.1); TOT PROT 7.1 g/dl (6.4-8.2)
[2019-10-18] MEDS ORDERED: MAGNESIUM OXIDE 400 MG TABLET (FP) PO ONE (09:57)
[2019-10-18] MEDS ORDERED: DEXAMETHASONE SODIUM PHOSPHATE 10 MG, ONDANSETRON INJECTION 12 MG in SODIUM CHLORIDE 10... IVPB ONE (10:00)
[2019-10-18] MEDS ORDERED: SODIUM CHLORIDE IVPB ONE (10:30)
[2019-10-18] MEDS ORDERED: NIVOLUMAB IVPB ONE (10:30)
[2019-10-18] MEDS ORDERED: ALTEPLASE 2 MG VIAL CVP ONE (13:30)
[2019-10-18 17:29] VITALS: TEMP 97.9
[2019-10-18] MEDS ORDERED: PORTA CATH FLUSH 10 ML IVPUSH ONE (17:34)
[2019-10-18 17:35] VITALS: BP 125/65; PULSE 96
== END 2019-10-18 15:00 | disposition home or self-care (01) ==
LOC: JONCCHEMO 05:32 → J7W 09:30 → JONCCHEMO 15:00
PROVIDERS: ATTEND Nurse Practitioner Family
DX: Z51.11 Encounter for antineoplastic chemotherapy (principal); C34.12 Malignant neoplasm of upper lobe, left bronchus or lung
CPT/HCPCS: 36415; 80053; 83735; 84443; 85025; J2405; J2997; J9299

== ENCOUNTER 2019-11-01 06:23 | Day surgery (SDC) | payer OTHER, BC ==
[2019-11-01] MEDS ORDERED: SODIUM CHLORIDE 250 ML IV ONE (09:00)
[2019-11-01 09:01] LABS: BASO % 0.5 % (0-2.0); HEMATOCRIT 38.1 % (32.4-45.2); HEMOGLOBIN 12.2 GM/dL (10.7-15.3); LYMPH % 10.6 % (8-40); MCH 26.5 pg (25.7-33.7); MCHC 32.2 g/dl (32.0-36.0); MEAN CELL VOLUME 82.4 fl (80-96); MEAN PLT VOLUME 7.8 fl (7.5-11.1); MONO % 6.3 % (3.8-10.2); NEUT % 81.6 % (42.8-82.8); PLATELET COUNT 257 K/MM3 (134-434); RBC 4.62 M/mm3 (3.60-5.2); RDW 15.3 % (11.6-15.6); WHITE BLOOD COUNT 7.3 K/mm3 (4.0-10.0)
[2019-11-01] MEDS ORDERED: DEXAMETHASONE SODIUM PHOSPHATE 10 MG, ONDANSETRON INJECTION 12 MG in SODIUM CHLORIDE 10... IVPB ONE (09:30)
[2019-11-01 09:36] LABS: BLOOD UREA NITROGEN 18.4 mg/dL (7-18)
[2019-11-01 09:37] LABS: ALBUMIN 3.6 g/dl (3.4-5.0); BILIRUBIN,TOTAL 0.8 mg/dL (0.2-1); CREATININE 0.7 mg/dL (0.55-1.3); MAGNESIUM 1.7 mg/dL (1.8-2.4); POTASSIUM 3.7 mmol/L (3.5-5.1); TOT PROT 7.4 g/dl (6.4-8.2)
[2019-11-01] MEDS ORDERED: SODIUM CHLORIDE IVPB ONE (10:00)
[2019-11-01] MEDS ORDERED: NIVOLUMAB IVPB ONE (10:00)
[2019-11-01] MEDS ORDERED: MAGNESIUM OXIDE 400 MG TABLET (FP) PO ONE (10:45)
[2019-11-01 14:43] VITALS: TEMP 97.9
[2019-11-01 14:53] VITALS: BP 131/72; PULSE 98
== END 2019-11-01 13:15 | disposition home or self-care (01) ==
LOC: JONCCHEMO 06:23 → J7W 10:07 → JONCCHEMO 13:15
PROVIDERS: ATTEND Nurse Practitioner Family
DX: Z51.11 Encounter for antineoplastic chemotherapy (principal); C34.12 Malignant neoplasm of upper lobe, left bronchus or lung
CPT/HCPCS: 36415; 80053; 83735; 84443; 85025; 96361; 96367; 96413; J2405; J9299

== ENCOUNTER 2020-02-05 05:36 | Day surgery (SDC) | payer OTHER, BC ==
[2020-02-05] MEDS ORDERED: SODIUM CHLORIDE 250 ML IV ONE (10:00)
[2020-02-05] MEDS ORDERED: DEXAMETHASONE SODIUM PHOSPHATE 10 MG, ONDANSETRON INJECTION 12 MG in SODIUM CHLORIDE 10... IVPB ONE (10:00)
[2020-02-05 10:23] LABS: BASO % 0.6 % (0-2.0); HEMOGLOBIN 10.7 GM/dL (10.7-15.3); LYMPH % 10.7 % (8-40); MCH 25.7 pg (25.7-33.7); MCHC 31.5 g/dl (32.0-36.0); MEAN CELL VOLUME 81.6 fl (80-96); MEAN PLT VOLUME 8.1 fl (7.5-11.1); MONO % 6.8 % (3.8-10.2); NEUT % 80.9 % (42.8-82.8); PLATELET COUNT 274 K/MM3 (134-434); RBC 4.16 M/mm3 (3.60-5.2); RDW 16.9 % (11.6-15.6); WHITE BLOOD COUNT 7.5 K/mm3 (4.0-10.0)
[2020-02-05] MEDS ORDERED: NIVOLUMAB IVPB ONE (10:30)
[2020-02-05] MEDS ORDERED: SODIUM CHLORIDE IVPB ONE (10:30)
[2020-02-05 11:38] LABS: ALBUMIN 3.2 g/dl (3.4-5.0); BILIRUBIN,DIRECT 0.1 mg/dL (0.0-0.2); BILIRUBIN,TOTAL 0.3 mg/dL (0.2-1); BLOOD UREA NITROGEN 17.7 mg/dL (7-18); CREATININE 0.7 mg/dL (0.55-1.3); MAGNESIUM 1.9 mg/dL (1.8-2.4); POTASSIUM 4.2 mmol/L (3.5-5.1); TOT PROT 6.8 g/dl (6.4-8.2)
[2020-02-05 15:56] VITALS: TEMP 98.3
[2020-02-05] MEDS ORDERED: PORTA CATH FLUSH 10 ML IVPUSH ONE (15:59)
[2020-02-05 16:00] VITALS: BP 124/64; PULSE 102
== END 2020-02-05 14:25 | disposition home or self-care (01) ==
LOC: JONCCHEMO 05:36
PROVIDERS: ATTEND Nurse Practitioner Family
PROC: 3E04305 Introduction of Other Antineoplastic into Central Vein, Percutaneous Approach (ICD-10-PCS; principal; 2020-02-05)
PROC: 3E043GC Introduction of Other Therapeutic Substance into Central Vein, Percutaneous Approach (ICD-10-PCS; 2020-02-05)
PROC: 3E0437Z Introduction of Electrolytic and Water Balance Substance into Central Vein, Percutaneous Approach (ICD-10-PCS; 2020-02-05)
DX: Z51.11 Encounter for antineoplastic chemotherapy (principal); C34.12 Malignant neoplasm of upper lobe, left bronchus or lung; E05.20 Thyrotoxicosis with toxic multinodular goiter without thyrotoxic crisis or storm; Z85.3 Personal history of malignant neoplasm of breast; Z90.10 Acquired absence of unspecified breast and nipple; I10 Essential (primary) hypertension; J43.9 Emphysema, unspecified
CPT/HCPCS: 36415; 80048; 80076; 83735; 84439; 84443; 85025; 96361; 96367; 96413; J9299

== ENCOUNTER 2020-02-19 07:15 | Day surgery (SDC) | payer OTHER, BC ==
[2020-02-19] MEDS ORDERED: SODIUM CHLORIDE 250 ML IV ONE (09:00)
[2020-02-19] MEDS ORDERED: DEXAMETHASONE SODIUM PHOSPHATE 10 MG, ONDANSETRON INJECTION 12 MG in SODIUM CHLORIDE 10... IVPB ONE (09:30)
[2020-02-19] MEDS ORDERED: NIVOLUMAB IVPB ONE (10:00)
[2020-02-19] MEDS ORDERED: SODIUM CHLORIDE IVPB ONE (10:00)
[2020-02-19 10:03] LABS: BASO % 0.4 % (0-2.0); EOS % 1.2 % (0-4.5); HEMATOCRIT 35.1 % (32.4-45.2); HEMOGLOBIN 11.1 GM/dL (10.7-15.3); LYMPH % 11.8 % (8-40); MCH 25.4 pg (25.7-33.7); MCHC 31.7 g/dl (32.0-36.0); MEAN CELL VOLUME 80.2 fl (80-96); MEAN PLT VOLUME 8.2 fl (7.5-11.1); MONO % 7.7 % (3.8-10.2); NEUT % 78.9 % (42.8-82.8); PLATELET COUNT 263 K/MM3 (134-434); RBC 4.38 M/mm3 (3.60-5.2); RDW 16.8 % (11.6-15.6); WHITE BLOOD COUNT 7.9 K/mm3 (4.0-10.0)
[2020-02-19 11:48] LABS: ALBUMIN 3.3 g/dl (3.4-5.0); BILIRUBIN,DIRECT 0.1 mg/dL (0.0-0.2); BILIRUBIN,TOTAL 0.4 mg/dL (0.2-1); BLOOD UREA NITROGEN 21.3 mg/dL (7-18); CALCIUM 8.8 mg/dL (8.5-10.1); CREATININE 0.8 mg/dL (0.55-1.3); MAGNESIUM 1.8 mg/dL (1.8-2.4); POTASSIUM 4.6 mmol/L (3.5-5.1); TOT PROT 6.9 g/dl (6.4-8.2)
[2020-02-19 12:18] LABS: URINE APPEARANCE CLEAR; URINE BILIRUBIN NEGATIVE (NEGATIVE); URINE COLOR DK YELLOW; URINE GLUCOSE (UA) NEGATIVE (NEGATIVE); URINE KETONE NEGATIVE (NEGATIVE); URINE LEUK ESTERASE NEGATIVE (NEGATIVE); URINE NITRITE NEGATIVE (NEGATIVE); URINE PROTEIN NEGATIVE (NEGATIVE); URINE UROBILINOGEN 0.2 mg/dL (0.2-1.0)
[2020-02-19 15:30] VITALS: TEMP 98.2
[2020-02-19 15:31] VITALS: BP 103/51; PULSE 84
== END 2020-02-19 14:30 | disposition home or self-care (01) ==
LOC: JONCCHEMO 07:15
PROVIDERS: ATTEND Internal Medicine Hematology & Oncology
DX: Z51.11 Encounter for antineoplastic chemotherapy (principal); C34.12 Malignant neoplasm of upper lobe, left bronchus or lung; Z85.3 Personal history of malignant neoplasm of breast
CPT/HCPCS: 36415; 80048; 80061; 80076; 81003; 82306; 82565; 83036; 83721; 83735; 84439; 84443; 85025; 86376; 86800; 96361; 96367; 96413; J2405; J9299

== ENCOUNTER 2020-03-04 07:05 | Day surgery (SDC) | payer OTHER, BC ==
[2020-03-04] MEDS ORDERED: SODIUM CHLORIDE 250 ML IV ONE (09:00)
[2020-03-04] MEDS ORDERED: DEXAMETHASONE SODIUM PHOSPHATE 10 MG, ONDANSETRON INJECTION 12 MG in SODIUM CHLORIDE 10... IVPB ONE (09:30)
[2020-03-04] MEDS ORDERED: SODIUM CHLORIDE IVPB ONE (10:00)
[2020-03-04] MEDS ORDERED: NIVOLUMAB IVPB ONE (10:00)
[2020-03-04 11:02] LABS: BASO % 0.4 % (0-2.0); EOS % 0.3 % (0-4.5); HEMATOCRIT 35.8 % (32.4-45.2); HEMOGLOBIN 11.2 GM/dL (10.7-15.3); LYMPH % 4.3 % (8-40); MCH 25.1 pg (25.7-33.7); MCHC 31.3 g/dl (32.0-36.0); MEAN CELL VOLUME 80.4 fl (80-96); MEAN PLT VOLUME 8.2 fl (7.5-11.1); MONO % 4.7 % (3.8-10.2); NEUT % 90.3 % (42.8-82.8); PLATELET COUNT 292 K/MM3 (134-434); RBC 4.45 M/mm3 (3.60-5.2); RDW 16.5 % (11.6-15.6); WHITE BLOOD COUNT 15.8 K/mm3 (4.0-10.0)
[2020-03-04 11:39] LABS: ALBUMIN 3.4 g/dl (3.4-5.0); BILIRUBIN,DIRECT 0.1 mg/dL (0.0-0.2); BILIRUBIN,TOTAL 0.4 mg/dL (0.2-1); BLOOD UREA NITROGEN 18.9 mg/dL (7-18); CALCIUM 9.1 mg/dL (8.5-10.1); CREATININE 0.8 mg/dL (0.55-1.3); TOT PROT 7.1 g/dl (6.4-8.2)
[2020-03-04 15:21] VITALS: TEMP 97.8
[2020-03-04 15:30] VITALS: BP 110/57; PULSE 100
[2020-03-04] MEDS ORDERED: PORTA CATH FLUSH 10 ML IVPUSH ONE (15:30)
== END 2020-03-04 14:10 | disposition home or self-care (01) ==
LOC: JONCCHEMO 07:05
PROVIDERS: ATTEND Internal Medicine Hematology & Oncology
DX: Z51.11 Encounter for antineoplastic chemotherapy (principal); C34.12 Malignant neoplasm of upper lobe, left bronchus or lung; Z85.3 Personal history of malignant neoplasm of breast
CPT/HCPCS: 36415; 80048; 80076; 83735; 84439; 84443; 85025; 96361; 96367; 96413; J2405; J9299

== ENCOUNTER 2020-03-18 07:22 | Day surgery (SDC) | payer OTHER, BC ==
[2020-03-18] MEDS ORDERED: SODIUM CHLORIDE 250 ML IV ONE (09:00)
[2020-03-18] MEDS ORDERED: DEXAMETHASONE SODIUM PHOSPHATE 10 MG, ONDANSETRON INJECTION 12 MG in SODIUM CHLORIDE 10... IVPB ONE (10:00)
[2020-03-18] MEDS ORDERED: SODIUM CHLORIDE IVPB ONE (10:30)
[2020-03-18] MEDS ORDERED: NIVOLUMAB IVPB ONE (10:30)
[2020-03-18 10:46] LABS: BASO % 0.4 % (0-2.0); EOS % 0.3 % (0-4.5); HEMATOCRIT 33.8 % (32.4-45.2); HEMOGLOBIN 10.4 GM/dL (10.7-15.3); LYMPH % 5.4 % (8-40); MCH 24.1 pg (25.7-33.7); MCHC 30.8 g/dl (32.0-36.0); MEAN CELL VOLUME 78.5 fl (80-96); MEAN PLT VOLUME 7.7 fl (7.5-11.1); MONO % 5.5 % (3.8-10.2); NEUT % 88.4 % (42.8-82.8); PLATELET COUNT 346 K/MM3 (134-434); RBC 4.31 M/mm3 (3.60-5.2); RDW 15.6 % (11.6-15.6); WHITE BLOOD COUNT 12.8 K/mm3 (4.0-10.0)
[2020-03-18 11:20] LABS: BILIRUBIN,DIRECT 0.1 mg/dL (0.0-0.2); BILIRUBIN,TOTAL 0.5 mg/dL (0.2-1); BLOOD UREA NITROGEN 15.9 mg/dL (7-18); CREATININE 0.8 mg/dL (0.55-1.3); MAGNESIUM 1.9 mg/dL (1.8-2.4); TOT PROT 7.2 g/dl (6.4-8.2)
[2020-03-18 16:00] VITALS: TEMP 97.9
[2020-03-18 16:03] VITALS: BP 117/65; PULSE 93
== END 2020-03-18 13:10 | disposition home or self-care (01) ==
LOC: JONCCHEMO 07:22
PROVIDERS: ATTEND Internal Medicine Hematology & Oncology
DX: Z51.11 Encounter for antineoplastic chemotherapy (principal); C34.12 Malignant neoplasm of upper lobe, left bronchus or lung; Z85.3 Personal history of malignant neoplasm of breast
CPT/HCPCS: 36415; 80048; 80076; 83735; 84439; 84443; 85025; 96361; 96367; 96413; J9299

== ENCOUNTER 2020-04-15 07:10 | Day surgery (SDC) | payer OTHER, BC ==
[2020-04-15] MEDS ORDERED: SODIUM CHLORIDE 250 ML IV ONE (09:00)
[2020-04-15] MEDS ORDERED: DEXAMETHASONE SODIUM PHOSPHATE 10 MG, ONDANSETRON INJECTION 12 MG in SODIUM CHLORIDE 10... IVPB ONE (09:30)
[2020-04-15 09:45] LABS: BASO % 0.5 % (0-2.0); EOS % 0.3 % (0-4.5); HEMATOCRIT 31.5 % (32.4-45.2); HEMOGLOBIN 9.8 GM/dL (10.7-15.3); LYMPH % 7.8 % (8-40); MEAN CELL VOLUME 77.3 fl (80-96); MEAN PLT VOLUME 7.8 fl (7.5-11.1); MONO % 8.1 % (3.8-10.2); NEUT % 83.3 % (42.8-82.8); PLATELET COUNT 240 K/MM3 (134-434); RBC 4.07 M/mm3 (3.60-5.2); WHITE BLOOD COUNT 7.6 K/mm3 (4.0-10.0)
[2020-04-15] MEDS ORDERED: SODIUM CHLORIDE IVPB ONE (10:00)
[2020-04-15] MEDS ORDERED: NIVOLUMAB IVPB ONE (10:00)
[2020-04-15 10:16] LABS: BILIRUBIN,DIRECT 0.2 mg/dL (0.0-0.2); BILIRUBIN,TOTAL 0.4 mg/dL (0.2-1); BLOOD UREA NITROGEN 20.5 mg/dL (7-18); CALCIUM 8.5 mg/dL (8.5-10.1); CREATININE 0.7 mg/dL (0.55-1.3); MAGNESIUM 1.7 mg/dL (1.8-2.4); POTASSIUM 3.9 mmol/L (3.5-5.1); TOT PROT 6.5 g/dl (6.4-8.2)
[2020-04-15] MEDS ORDERED: MAGNESIUM OXIDE 400 MG TABLET (FP) PO ONE (11:45)
[2020-04-15 17:29] VITALS: TEMP 98.4
[2020-04-15 17:33] VITALS: BP 102/64; PULSE 97
[2020-04-15] MEDS ORDERED: PORTA CATH FLUSH 10 ML IVPUSH ONE (17:33)
== END 2020-04-15 13:30 | disposition home or self-care (01) ==
LOC: JONCCHEMO 07:10
PROVIDERS: ATTEND Internal Medicine Hematology & Oncology
PROC: 3E04305 Introduction of Other Antineoplastic into Central Vein, Percutaneous Approach (ICD-10-PCS; principal; 2020-04-15)
PROC: 3E043GC Introduction of Other Therapeutic Substance into Central Vein, Percutaneous Approach (ICD-10-PCS; 2020-04-15)
PROC: 3E0437Z Introduction of Electrolytic and Water Balance Substance into Central Vein, Percutaneous Approach (ICD-10-PCS; 2020-04-15)
DX: Z51.11 Encounter for antineoplastic chemotherapy (principal); C34.12 Malignant neoplasm of upper lobe, left bronchus or lung; E05.20 Thyrotoxicosis with toxic multinodular goiter without thyrotoxic crisis or storm
CPT/HCPCS: 36415; 80048; 80076; 82150; 82728; 83540; 83550; 83690; 83735; 84439; 84443; 85025; 96361; 96367; 96413; J2405; J9299

== ENCOUNTER 2020-04-29 06:49 | Day surgery (SDC) | payer OTHER, BC ==
--- OUTSIDE RECORDS SUMMARY | 2020-04-29 06:52 | XMS ---
:1930 Author Organization [facility] Support Name Relationship Address Phone RE, RETIRED Unavailable Unavailable Unavailable JUAREZ SUNG [address] [place] [address] RE Unavailable Unavailable Unavailable JUAN GUTIERREZ 2 [facility] [phone] [place] [address] Re-disclosure Warning The records that you are about to access may contain information from federally- assisted alcohol or drug abuse programs. If such information is present, then the following federally mandated warning applies: This information has been disclosed to you from records protected by federal confidentiality rules (42 CFR part 2). The federal rules prohibit you from making any further disclosure of this information unless further disclosure is expressly permitted by the written consent of the person to whom it pertains or as otherwise permitted by 42 CFR part 2. A general authorization for the release of medical or other information is NOT sufficient for this purpose. The Federal rules restrict any use of the information to criminally investigate or prosecute any alcohol or drug abuse patient.The records that you are about to access may contain highly sensitive health information, the redisclosure of which is protected by Article 27-F of the [facility] Public Health law. If you continue you may haveaccess to information: Regarding HIV / AIDS; Provided by facilities licensed or operated by the [facility] Office of Mental Health; or Provided by the [facility] Office for People With Developmental Disabilities. If such information is present, then the following [facility] mandated warning applies: This information has been disclosed to you from confidential records which are protected by state law. State law prohibits you from making any further disclosure of this information without the specific written consent of the person to whom it pertains, or as otherwise permitted by law. Any unauthorized further disclosure in violation of state law may result in a fine or long-term sentence or both. A general authorization for the release of medical or other information is NOT sufficient authorization for further disclosure. Insurance Providers Payer name Policy type Policy ID Covered Covered republican's Policy P ricky / Coverage republican ID relationship to Gill Inf ormation type gill BC PPO [id number] SP [id number] GHI CBP OUTPT [id number] SP [id number] MEDICARE [id number] SP [id number] GHI CBP OUTPT [id number] SP [id number] BC PPO [id number] SP [id number] GHI CBP OUTPT [id number] SP [id number] BC PPO [id number] SP [id number] GHI CBP OUTPT [id number] SP [id number] BC PPO [id number] SP [id number] PENDING WC/NF [id number] SP [id number] ONLY MEDICARE [id number] SP [id number] A SELF PAY INSURANCE
[2020-04-29] MEDS ORDERED: IRON SUCROSE INJECTION 200 MG in SODIUM CHLORIDE 100 ML IVPB ONE (09:30)
[2020-04-29 09:41] LABS: BASO % 0.5 % (0-2.0); EOS % 0.2 % (0-4.5); HEMATOCRIT 33.6 % (32.4-45.2); HEMOGLOBIN 10.5 GM/dL (10.7-15.3); LYMPH % 8.2 % (8-40); MCH 23.8 pg (25.7-33.7); MCHC 31.3 g/dl (32.0-36.0); MEAN PLT VOLUME 7.9 fl (7.5-11.1); MONO % 5.9 % (3.8-10.2); NEUT % 85.2 % (42.8-82.8); PLATELET COUNT 271 K/MM3 (134-434); RBC 4.42 M/mm3 (3.60-5.2); RDW 17.9 % (11.6-15.6); WHITE BLOOD COUNT 9.4 K/mm3 (4.0-10.0)
[2020-04-29] MEDS ORDERED: SODIUM CHLORIDE 250 ML IV ONE (10:00)
[2020-04-29 10:21] LABS: ALBUMIN 3.2 g/dl (3.4-5.0); BILIRUBIN,DIRECT 0.1 mg/dL (0.0-0.2); BILIRUBIN,TOTAL 0.4 mg/dL (0.2-1); BLOOD UREA NITROGEN 19.2 mg/dL (7-18); CALCIUM 8.8 mg/dL (8.5-10.1); CREATININE 0.7 mg/dL (0.55-1.3); MAGNESIUM 1.9 mg/dL (1.8-2.4); POTASSIUM 4.1 mmol/L (3.5-5.1); TOT PROT 6.9 g/dl (6.4-8.2)
[2020-04-29] MEDS ORDERED: DEXAMETHASONE SODIUM PHOSPHATE 10 MG, ONDANSETRON INJECTION 12 MG in SODIUM CHLORIDE 10... IVPB ONE (10:30)
[2020-04-29] MEDS ORDERED: NIVOLUMAB IVPB ONE (11:00)
[2020-04-29] MEDS ORDERED: SODIUM CHLORIDE IVPB ONE (11:00)
[2020-04-29 16:00] VITALS: TEMP 98.1
[2020-04-29 16:08] VITALS: BP 108/54; PULSE 84
== END 2020-04-29 13:20 | disposition home or self-care (01) ==
LOC: JONCCHEMO 06:49
PROVIDERS: ATTEND Internal Medicine Hematology & Oncology
DX: Z51.11 Encounter for antineoplastic chemotherapy (principal); C34.12 Malignant neoplasm of upper lobe, left bronchus or lung
CPT/HCPCS: 36415; 80048; 80076; 82150; 83690; 83735; 84439; 84443; 85025; 96361; 96367; 96413; J1756; J2405; J9299

== ENCOUNTER 2020-05-18 12:27 | Inpatient (IN) | payer OTHER, BC ==
[2020-05-18 12:42] VITALS: BMI 22.5
--- OUTSIDE RECORDS SUMMARY | 2020-05-18 12:45 | XMS ---
:1930 Author Organization [facility] Support Name Relationship Address Phone RE, RETIRED Unavailable Unavailable Unavailable JUAREZ SUNG [address] [place] [address] RE Unavailable Unavailable Unavailable JUAN GUTIERREZ 2 [facility] [phone] [place] [address] Re-disclosure Warning The records that you are [...] is protected by Article 27-F of the [facility] Public Health law. If you continue you may haveaccess to information: Regarding HIV / AIDS; Provided by facilities licensed or operated by the [facility] Office of Mental Health; or Provided by the [facility] Office for People With Developmental Disabilities. If such information is present, then the following [facility] mandated warning applies: This information has been [...] law may result in a fine or longterm sentence or both. A general authorization for the release of medical or other information is NOT sufficient authorization for further disclosure. Insurance Providers Payer name Policy type Policy ID Covered Covered alliance party's Policy P ricky / Coverage alliance party ID relationship to Gill Inf ormation type gill BC PPO [id number] SP [id number] GHI CBP OUTPT [id number] SP [id number] MEDICARE [id number] SP [id number] BC PPO [id number] SP [id number] GHI CBP OUTPT [id number] SP [id number] GHI CBP OUTPT [id number] SP [id number] BC PPO [id number] SP [id number] GHI CBP OUTPT [id number] SP [id number] BC PPO [id number] SP [id number] PENDING WC/NF [id number] SP [id number] ONLY MEDICARE [id number] SP [id number] A SELF PAY INSURANCE
--- NOTE | 2020-05-18 13:44 | PDOC ---
History of Present Illness - General Chief Complaint: Injury Stated Complaint: FALL Time Seen by Provider: 05/18/20 12:43 - History of Present Illness Initial Comments: 05/18/20 13:22 HPI: 89 y/o F with hx of HTN, COPD, chemo+radiation for lung cancer, left breast cancer s/p left breast mastectomy, hypothyroidism, anemia presenting with pain from previous fall. Patient fell down 7 stairs 2 weeks ago. She reports her right leg gave out and denies any syncopal symptoms. She was helped up by her tenant and was able to walk back up the stairs home. She now reports persistent left knee pain and BL diffuse thorax and back pain. She also reports worsening SOB [id number] since the fall. She denies fever, chills, chest pain, leg swelling, abd pain, n/v. PMHx: as noted above ROS: as noted SHx: Denies tobacco use; no alcohol use; no rec drugs Allergies: NKDA ROS: GENERAL/CONSTITUTIONAL: No fever or chills. No weakness. HEAD, EYES, EARS, NOSE AND THROAT: No change in vision. No ear pain or discharge. No sore throat. CARDIOVASCULAR: No chest pain; +shortness of breath RESPIRATORY: No wheezing, or hemoptysis. GASTROINTESTINAL: No nausea, vomiting, diarrhea or constipation. GENITOURINARY: No dysuria, frequency, or change in urination. MUSCULOSKELETAL: +back pain. SKIN: No rash NEUROLOGIC: No headache, vertigo, loss of consciousness, or change in strength/sensation. ENDOCRINE: No increased thirst. No abnormal weight change HEMATOLOGIC/LYMPHATIC: No anemia, easy bleeding, or history of blood clots. ALLERGIC/IMMUNOLOGIC: No hives or skin allergy. PE: GENERAL: Awake, alert, and fully oriented, no acute distress HEAD: No signs of trauma, normocephalic, atraumatic EYES: EOMI, sclera anicteric, conjunctiva clear ENT: Auricles normal inspection, hearing grossly normal, nares patent, oropharynx clear without exudates. Moist mucosa NECK: Normal ROM, no lymphadenopathy, no midline cervical ttp LUNGS: No increased work of breathing, symmetrical chest rise, bibasilar rales HEART: Regular rate, regular rhythm, normal S1 and S2, no murmur, peripheral pulses 2+ and equal bilaterally. ABDOMEN: Soft, nondistended, nontender. No guarding, no rebound. No masses. No CVAT MUSCULOSKELETAL: FROM, diffuse anterior and posterior thorax pain with no focal bony ttp, left knee with FROM and no bony ttp NEUROLOGICAL: Cranial nerves II through XII grossly intact. Normal speech, stable gait, no focal sensorimotor deficits SKIN: Warm, Dry, normal turgor, no rashes or lesions noted Past History - Medical History Allergies/Adverse Reactions: Allergies Allergy/AdvReac Type Severity Reaction Status Date / Time No Known Drug Allergies Allergy Verified 08/03/19 13:56 Home Medications: Ambulatory Orders Sertraline HCl [Zoloft] 12.5 mg PO ASDIR 09/28/11 Nebivolol HCl [Bystolic] 10 mg PO HS 03/18/16 Multivit-Min/Iron Fum/Folic AC [Uagni-Cxkuwvs-Zaodltru Tablet] 1 tablet PO DAILY 11/11/16 Alprazolam 0.25 mg PO ASDIR PRN 03/15/19 Mirtazapine 15 mg PO HS 03/15/19 Albuterol Sulfate Inhaler - [Ventolin HFA Inhaler -] 1 puff IH ASDIR 04/01/20 Omeprazole Magnesium [Prilosec] 2.5 mg PO DAILY 04/01/20 Umeclidinium Brm/Vilanterol Tr [Anoro Ellipta 62.5-25 Mcg INH] 1 puff IH ASDIR 04/01/20 Tramadol HCl 12.5 mg PO 05/18/20 Anemia: Yes (bleeding internally) Asthma: No Cancer: Yes (LEFT BREAST, LUNG CA) Cardiac Disorders: No CVA: No COPD: Yes CHF: No Dementia: No Diabetes: No GI Disorders: Yes (HX OF DUODENAL EROSION, ULCER) Disorders: No HTN: Yes Hypercholesterolemia: No Liver Disease: No Seizures: No Thyroid Disease: Yes (HYPOTHYROIDISM, nodules) - Surgical History Abdominal Surgery: Yes (PARTIAL COLECTOMY FOR ABD. MASS) Appendectomy: No Cardiac Surgery: No Cholecystectomy: No Lung Surgery: Yes (L LUNG BX) Neurologic Surgery: No Orthopedic Surgery: No - Immunization History Immunization Up to Date: Yes - Psycho-Social/Smoking History Smoking History: Never smoked Have you smoked in the past 12 months: No If you are a former smoker, when did you quit?: 10 YRS *Physical Exam - Vital Signs Last Vital Signs Temp Pulse Resp BP Pulse Ox 97 F L 66 22 H 110/72 73 L 05/18/20 12:31 05/18/20 12:31 05/18/20 12:31 05/18/20 12:31 05/18/20 12:31 ED Treatment Course - LABORATORY CBC & Chemistry Diagram: 05/18/20 13:50 05/18/20 13:50 - RADIOLOGY Radiology Studies Ordered: Category Date Time Status CERVICAL SPINE CT W/O CONTR [CT] Stat CT Scan 05/18/20 13:[address] WITHOUT CONTRAST [CT] Stat CT Scan 05/18/20 13:[address] WITHOUT CONTRAST [CT] Stat CT Scan 05/18/20 13:[address] W/O CONTRAST [CT] Stat CT Scan 05/18/20 13:[address] W/O CONTRAST [CT] Stat CT Scan 05/18/20 13:11 Ordered Medical Decision Making - Medical Decision Making 05/18/20 13:59 89 y/o F with hx of HTN, COPD, chemo+radiation for lung cancer, left breast cancer s/p left breast mastectomy, hypothyroidism, anemia presenting with pain from previous fall now complaining from left knee pain, anterior/posterior thorax pain and SOB. VSS, AF. PE with thoracic midline ttp and diffuse thorax ttp. Will perform trauma w/u -ct head, C/T/L spine, chest -ekg, cbc, cmp, card prof, mg -pain control 05/18/20 14:02 ekg with sinus tachy, nl intervals, no waqas/d, peaked t waves in v3/v4 05/18/20 19:38 CT chest with left sided infiltrate; will treat for pna ct head C/T/L spine negative for fx will treat for hypoxia, sob, and pna Discharge - Discharge Information Problems reviewed: Yes Clinical Impression/Diagnosis: Pneumonia, SOB (shortness of breath) Condition: Stable - Admission Yes - Follow up/Referral - Patient Discharge Instructions - Post Discharge Activity
[2020-05-18] MEDS ORDERED: ACETAMINOPHEN 1000 MG/100 ML VIAL (NON FORMULARY) IVPB ONE (13:53)
--- NOTE | 2020-05-18 13:54 | PDOC ---
Documentation entered by Celi Lawson SCRIBE, acting as scribe for Bro Trevino MD. Bro Trevino MD: This documentation has been prepared by the darlinibeRenny Sydney, SCRIBE, under my direction and personally reviewed by me in its entirety. I confirm that the documentation accurately reflects all work, treatment, procedures, and medical decision making performed by me. Attending Attestation - Resident Resident Name: FareedKanika - ED Attending Attestation I have performed the following: I have examined & evaluated the patient, The case was reviewed & discussed with the resident, I agree w/resident's findings & plan, Exceptions are as noted - HPI HPI: 05/18/20 13:14 89y F hx of breast ca, lung ca (on inmmunotherapy) presents sp fall 2 weeks ago. She fell down 7 stairs without any LOC, was assissted by a tenant and was ambulatory immediately afterwards and had some mild chest/rib discofmort. She expected to be sore for couple of days however the soreness has not improved, Right knee it is painful when she is weightbearing however no pain she is moving at rest. Pt also notes her soreness int eh chest has not improved very much. She was also having worsening SOB. She dneis any headache, n/v, vision changes, neck pain, focal numbness/tingling/weakness, fever/chills. She has had a chronic cough since being dx with her ca, she denie scough being any wrose than usual. - Physicial Exam PE: 05/18/20 13:51 GENERAL: The patient is awake, alert, and fully oriented, Nontoxic - in no acute distress. HEAD: Normocephalic, atraumatic. EYES: extraocular movements intact, sclera anicteric, conjunctiva clear. ENT: Normal voice, Moist mucous membranes. NECK: Normal range of motion, supple LUNGS: scattered bibasilar rales, no acute respiratory distress HEART: Regular rate and rhythm, normal S1 and S2 without murmur, rub or gallop. ABDOMEN: Soft, nontender, No guarding, no rebound. No CVA tenderness BACK: Mild tenderness in the mid throacic spine without stepoff/crepitis/ecchymosis EXTREMITIES: Normal range of motion, no edema. no focal bony tenderness NEUROLOGICAL: No facial assymetry, Normal speech, moving all 4 ext spontaneously and symmetrically, PSYCH: Normal mood, normal affect. SKIN: Warm, Dry, normal turgor, - Medical Decision Making 05/18/20 13:[address] to r/o rib fx or complciations such as atelectasis/pna will obtian ct head/spine will reasesss Heart Score/ECG Review - ECG Impressions Comment:: 05/18/20 14:02 Twelve-lead EKG was performed and reviewed by me. There is normal sinus rhythm with a rate of 112 The axis is normal. The intervals are normal.
[2020-05-18] MEDS ORDERED: ACETAMINOPHEN INJECTION 100 ML IVPB ONE (13:58)
[2020-05-18] MEDS ORDERED: ACETAMINOPHEN 500 MG TABLET (FP) PO ONE (14:02)
[2020-05-18 14:03] LABS: BASO % 0.1 % (0-2.0); EOS % 0.3 % (0-4.5); HEMATOCRIT 29.7 % (32.4-45.2); HEMOGLOBIN 9.3 GM/dL (10.7-15.3); LYMPH % 5.9 % (8-40); MCH 23.2 pg (25.7-33.7); MCHC 31.2 g/dl (32.0-36.0); MEAN CELL VOLUME 74.4 fl (80-96); MEAN PLT VOLUME 7.2 fl (7.5-11.1); NEUT % 87.7 % (42.8-82.8); PLATELET COUNT 390 K/MM3 (134-434); RDW 18.5 % (11.6-15.6); WHITE BLOOD COUNT 13.6 K/mm3 (4.0-10.0)
[2020-05-18 14:38] LABS: ALBUMIN 2.5 g/dl (3.4-5.0); BILIRUBIN,TOTAL 0.5 mg/dL (0.2-1); BLOOD UREA NITROGEN 32.3 mg/dL (7-18); CALCIUM 8.6 mg/dL (8.5-10.1); CREATININE 0.8 mg/dL (0.55-1.3); MAGNESIUM 2.1 mg/dL (1.8-2.4); PHOSPHOROUS 3.5 mg/dL (2.5-4.9); POTASSIUM 4.4 mmol/L (3.5-5.1); TOT PROT 6.4 g/dl (6.4-8.2)
[2020-05-18] MEDS ORDERED: ACETAMINOPHEN 325 MG TABLET (FP) ONE (15:19)
[2020-05-18] MEDS ORDERED: AZITHROMYCIN IVPB 500 MG in DEXTROSE 5%-WATER - 250 ML IVPB ONE (18:43)
[2020-05-18] MEDS ORDERED: CEFTRIAXONE 1 GM in DEXTROSE 5%-WATER - 100 ML IVPB ONE (18:43)
[2020-05-18] MEDS ORDERED: CEFTRIAXONE 1 GM/50 ML BAG ONE (18:53)
--- NOTE | 2020-05-18 19:24 | PN ---
Teaching Attending Note Name of Resident: Laney Olivas ATTENDING PHYSICIAN STATEMENT I saw and evaluated the patient. I reviewed the resident's note and discussed the case with the resident. I agree with the resident's findings and plan as documented. SUBJECTIVE: Patient is an 89 year old woman with a PMH of HTN, COPD, Lung cancer (on ?ch emo+radiation, immunotherapy), Left breast cancer (s/p left breast mastectomy), Hypothyroidism and Anemia presenting with pain from previous fall. Patient fell down 7 stairs 2 weeks ago. She reports her right leg gave out and denies any syncopal symptoms. She was helped up by her tenant and was able to walk back up the stairs home. She now reports persistent left knee pain and bilateral diffuse thorax and back pain. She also reports worsening SOB for 2 weeks since the fall. Has a cough productive of yellowish sputum. Patient denies headache, palpitations, dizziness, fever, chills, nausea, vomiting, diarrhea, constipation, dysuria, frequency, urgency, melena, hematochezia or hematuria. Lives alone. Former smoker. Denies alcohol, tobacco or illicit drug use. No sick contacts or recent travels. Family history is unremarkable. OBJECTIVE: Alert Vital Signs Period Temp Pulse Resp BP Sys/Delatorre Pulse Ox Last 24 Hr 97 F-98.3 F 66-102 16-22 106-110/57-72 73-100 HEENT: No Jaundice, eye redness or discharge, PERRLA, EOMI. Normocephalic, atraumatic. External ears are normal and hearing is grossly intact. No nasal discharge. Neck: Supple, nontender. No palpable adenopathy or thyromegaly. No JVD Chest: Good effort. Clear to auscultation and percussion. Heart: Regular. No S3, rub or murmur Abdomen: Not distended, soft, nontender and no HSM. No rebound or guarding. Normal bowel sounds. Ext: Peripheral pulses intact. No leg edema. Skin: Warm and dry. No petechiae, rash or ecchymosis. Neuro: Alert. Oriented x3. CN 2-12 grossly intact. Sensation grossly intact in all four extremities and DTR are symmetric. Psych: Appropriate mood and affect. Good insight. Home Medications Medication Instructions Recorded Sertraline HCl [Zoloft] 12.5 mg PO ASDIR 09/28/11 Nebivolol HCl [Bystolic] 10 mg PO HS 03/18/16 Multivit-Min/Iron Fum/Folic AC 1 tablet PO DAILY 11/11/16 [Sgbbk-Xpnsodx-Qhnyneie Tablet] Alprazolam 0.25 mg PO ASDIR PRN 03/15/19 Mirtazapine 15 mg PO HS 03/15/19 Albuterol Sulfate Inhaler - 1 puff IH ASDIR 04/01/20 [Ventolin HFA Inhaler -] Omeprazole Magnesium [Prilosec] 2.5 mg PO DAILY 04/01/20 Umeclidinium Brm/Vilanterol Tr 1 puff IH ASDIR 04/01/20 [Anoro Ellipta 62.5-25 Mcg INH] Tramadol HCl 12.5 mg PO 05/18/20 Abnormal Lab Results 05/18/20 05/18/20 13:50 13:50 WBC 13.6 H Hgb 9.3 L Hct 29.7 L MCV 74.4 L MCH 23.2 L MCHC 31.2 L RDW 18.5 H MPV 7.2 L Absolute Neuts (auto) 11.9 H Neutrophils % 87.7 H Lymphocytes % 5.9 L D Anion Gap 5 L BUN 32.3 H Alkaline Phosphatase 143 H Creatine Kinase 25 L Troponin I 0.09 H Albumin 2.5 L Current Medications Generic Name Dose Route Start Last Admin Trade Name Freq PRN Reason Stop Dose Admin Acetaminophen 650 mg 05/18/20 22:04 Tylenol - PO Q4H PRN PAIN LEVEL 6-10 Albuterol Sulfate 2 puff 05/18/20 22:22 Ventolin Hfa Inhaler - IH Q4H PRN SHORT OF BREATH/WHEEZING Ceftriaxone Sodium 1 gm/ 50 mls @ 100 mls/hr 05/19/20 10:00 Dextrose IVPB DAILY [facility]ITY Azithromycin 500 mg in 250 mls @ 250 mls/hr 05/19/20 10:00 Zithromax 500mg Ivpb (Pre-Docked) IVPB DAILY [facility] Methylprednisolone Sodium Succinate 40 mg 05/19/20 10:00 Solu-Medrol - IVPUSH DAILY [facility] ASSESSMENT AND PLAN: 1. Fall/Pneumonia/Acute hypoxic respiratory failure - No evidence of acute intracranial pathology on noncontrast head CT scan. Cervical, thoracic and lumbar spine CT did not show any fracture or subluxation. Oxygen saturation was 73-93% on room air. CT of chest reported as showing MAHENDRA consolidation/infiltrate. ER staff prescribed Tylenol, IV Ceftriaxone, IV Azit hromycin for the patient. Will treat with Duoneb, Solumedrol 40 mg qd and Symbicort and monitor peak flow. EKG shows sinus tachycardia at 112/minute, PACs and QTc 455 with no significant acute ischemic ST-T wave changes. Initial troponin is 0.09. Elevated troponin may be demand ischemia, but will rule out ACS. Will trend troponin, repeat EKG, get ECHO and consult ID/Pulmonary. Viral testing for COVID-19 ordered and patient placed on airborne, droplet and contact isolation. Started on supplemental oxygen via nasal cannula. Will continue comprehensive care for all of patients comorbid conditions. 2. Hypoalbuminemia - Possibly due to combined effects of malnutrition and inflammation associated with comorbid conditions. Will ensure adequate dietary protein intake and also consult front desk person. Urinalysis pending. 3. Anemia Likely multifactorial. Will do basic anemia work up including serial stool guaiacs, reticulocyte count and iron studies. GI consult. 4. Hypertension Will restart suitable outpatient antihypertensive drugs when clinically appropriate. Subsequently, will revise regimen to ensure [id number] excellent BP control. Patient counseled on the injurious effects of uncontrolled hypertension. Nonpharmacologic measures to control hypertension like weight loss, salt restriction and exercise stressed. Importance of adherence to treatment regimen and attainment of normotension emphasized. 5. DVT prophylaxis - Lovenox 40 mg SQ q 24 hours. 6. Advance directives - Full code
[2020-05-18] MEDS ORDERED: AZITHROMYCIN IVPB 500 MG/250 ML BAG IVPB ONE (19:32)
--- OUTSIDE RECORDS SUMMARY | 2020-05-18 20:56 | XMS ---
:1930 Author Organization [facility] Support Name Relationship Address Phone RE, RETIRED Unavailable Unavailable Unavailable JUARZE SUNG [address] [place] [address] RE Unavailable Unavailable Unavailable JUAN GUTIERREZ [address] [facility] [phone] [place] [address] Re-disclosure Warning The records that you are [...] is protected by Article 27-F of the [facility] Public Health law. If you continue you may haveaccess to information: Regarding HIV / AIDS; Provided by facilities licensed or operated by the [facility] Office of Mental Health; or Provided by the [facility] Office for People With Developmental Disabilities. If such information is present, then the following [facility] mandated warning applies: This information has [...] law may result in a fine or fpc sentence or both. A general authorization for the release of medical or other information is NOT sufficient authorization for further disclosure. Insurance Providers Payer name Policy type Policy ID Covered Covered alliance party's Policy P ricky / Coverage alliance party ID relationship to Gill Inf ormation type gill BC PPO [id number] SP [id number] GHI CBP OUTPT [id number] SP [id number] MEDICARE [id number] SP [id number] BC PPO [id number] SP [id number] GHI CBP OUTPT [id number] SP [id number] GHI CBP OUTPT [id number] SP [id number] BC PPO [id number] SP [id number] GHI CBP OUTPT [id number] SP [id number] BC PPO [id number] SP [id number] PENDING WC/NF [id number] SP [id number] ONLY MEDICARE [id number] SP [id number] A SELF PAY INSURANCE
--- NOTE | 2020-05-18 21:30 | HP ---
CHIEF COMPLAINT: Fall 2 weeks ago with persistent symptoms PCP: Dr. Bro Garcia HISTORY OF PRESENT ILLNESS: Rehan Perea is an 89 year old woman with left squamous cell lung cancer (diagnosed 2013), on immunotherapy, and PMH htn, COPD, hypothyroidism, GI bleed (duodenal ulcer 4 years ago) presenting with 2 weeks of worsening dyspnea, chronic cough, left knee pain, and rib cage pain following a fall she experienced approx 2 weeks ago. Patient lives by herself, states she was walking the 10 steps up to her apartment door when she tripped and landed on her buttocks; landing on a sitting position at the top of the stairs. She denies preceding lightheadedness, palpitations, chest pain, headache, nausea. States she had been experiencing her chronic left leg pain prior to the incident. Denies LOC during the fall, and says it was unwitnessed. She had her cell phone in hands and was able to call her apartment tenant, who immediately presented to her and urged her to seek care at the ED. She refused, as she said she was 'not in much pain', and believed her soreness would subside over the past few days. However, the soreness on her rib/cage/side where she landed did not subside, and gradually worsened to 9/10 while she ambulates at home. She also reported increased dyspnea, and worsening in her chronic cough, with more sputum production than usual. Denies fever, chills, lightheadedness, nausea, vomiting, abdominal pain, hematochezia. Reports 22 pound weight loss the past 3 months. ER course was notable for: - Vitals: T 98.4, HR 104, BP 112/70, RR 16, O2 sat 92% on room air --> 100% on 2L O2 - First troponin .09 --> second troponin .08 - CT head, cervical, thoracic, lumbar -- negative for acute intracranial pathology - CT chest: L upper lung mass vs. consolidation - EKG: sinus tachy, no ST elevation/depression, PACs PAST MEDICAL HISTORY: L squamous cell lung caner on immunotherapy Opdivo -- diagnosed 2013 Breast cancer s/p L breast mastectomy Hypertension COPD Duodenal erosion -- 4 years ago PAST SURGICAL HISTORY: Mastectomy 1985 Partial colectomy (?) Social History: Smoking: Former smoker, quit 10 years ago Alcohol: Socially (1x/mo) Drugs: None Allergies No Known Drug Allergies Allergy (Verified 08/03/19 13:56) HOME MEDICATIONS: Home Medications Medication Instructions Recorded Sertraline HCl [Zoloft] 12.5 mg PO ASDIR 09/28/11 Nebivolol HCl [Bystolic] 10 mg PO HS 03/18/16 Multivit-Min/Iron Fum/Folic AC 1 tablet PO DAILY 11/11/16 [Ifwxv-Ethkrdz-Bpsrbrfg Tablet] Alprazolam 0.25 mg PO ASDIR PRN 03/15/19 Mirtazapine 15 mg PO HS 03/15/19 Albuterol Sulfate Inhaler - 1 puff IH ASDIR 04/01/20 [Ventolin HFA Inhaler -] Omeprazole Magnesium [Prilosec] 2.5 mg PO DAILY 04/01/20 Umeclidinium Brm/Vilanterol Tr 1 puff IH ASDIR 04/01/20 [Anoro Ellipta 62.5-25 Mcg INH] Tramadol HCl 12.5 mg PO 05/18/20 REVIEW OF SYSTEMS SEE HPI PHYSICAL EXAMINATION Vital Signs - 24 hr 05/18/20 05/18/20 05/18/20 12:31 12:50 16:00 Temperature 97 F L 98.3 F Pulse Rate 66 Pulse Rate [ 102 H Left Radial] Respiratory 22 H 16 Rate Blood Pressure 110/72 Blood Pressure 106/57 L [Right Arm] O2 Sat by Pulse 73 L 93 L 100 Oximetry (%) 05/18/20 20:54 Temperature 98.4 F Pulse Rate Pulse Rate [ 87 Left Radial] Respiratory 20 Rate Blood Pressure Blood Pressure 112/70 [Right Arm] O2 Sat by Pulse 98 Oximetry (%) GENERAL: Awake, alert, and fully oriented, in no acute distress. HEAD: Normal with no signs of trauma. EYES: Pupils equal, round and reactive to light, extraocular movements intact EARS, NOSE, THROAT: Ears normal, nares patent, oropharynx clear without exudates. NECK: Normal range of motion, supple without lymphadenopathy LUNGS: Crackles at apex of left lung. No accessory muscle use. HEART: Regular rate and rhythm, normal S1 and S2 without murmur. Tenderness to palpation overlying sternum. ABDOMEN: Soft, nontender, not distended, normoactive bowel sounds, no guarding, no rebound, no masses. MUSCULOSKELETAL: Normal range of motion at knee joints. LOWER EXTREMITIES: 2+ pulses, warm, well-perfused. No calf tenderness. No peripheral edema. NEUROLOGICAL: Alert and oriented X3. Cranial nerves II-XII intact. PSYCHIATRIC: Cooperative. Good eye contact. Appropriate mood and affect. SKIN: Warm, dry, normal turgor, no rashes or lesions noted, normal capillary refill. Laboratory Results - last 24 hr 05/18/20 05/18/20 05/18/20 13:50 13:50 13:50 WBC 13.6 H RBC 4.00 Hgb 9.3 L Hct 29.7 L MCV 74.4 L MCH 23.2 L MCHC 31.2 L RDW 18.5 H Plt Count 390 D MPV 7.2 L Absolute Neuts (auto) 11.9 H Neutrophils % 87.7 H Lymphocytes % 5.9 L D Monocytes % 6.0 Eosinophils % 0.3 Basophils % 0.1 Nucleated RBC % 0 Sodium 138 Potassium 4.4 Chloride 102 Carbon Dioxide 31 Anion Gap 5 L BUN 32.3 H Creatinine 0.8 Est GFR (CKD-EPI)AfAm 76.83 Est GFR (CKD-EPI)NonAf 66.29 Random Glucose 93 Calcium 8.6 Phosphorus 3.5 Magnesium 2.1 Total Bilirubin 0.5 AST 35 ALT 44 Alkaline Phosphatase 143 H Creatine Kinase 25 L Troponin I 0.09 H Total Protein 6.4 Albumin 2.5 L Blood Type O POSITIVE Antibody Screen Negative ASSESSMENT/PLAN: Rehan Perea is a 89 year old diagnosed with left squamous cell lung cancer, on Opdivo, who experienced a fall 2 weeks ago and presents today with worsening pain where she landed (left chest wall, left knee), and dyspnea, with imaging revealing L upper lobe infiltrate. Pneumonia vs. less likely COPD exacerbation - CXR: L upper lobe consolidation with a white count of 13.6 - Received 1 dose Azithromycin, Rocephin in ED - F/u UA to r/o other source of infection - Continue with Ceftriaxone, Azithromycin - Continue with Solumedrol 40 Anemia with low MCV - Likely iron def anemia - F/u iron studies - GI consult to evaluate for GI bleed - F/u Serial stool guaiac x 3 R/O ACS - Trend troponin - First trop elevated .09 --> .08 - Likely demand ischemia in setting of decreased PO intake over past week Fall - Likely mechanical - CT imaging head, cervical, thoracic, lumbar spine, and chest CT negative for acute pathology - F/u L knee XR ordered - Fall risk precautions Dehydration - Decreased po intake over past week - Encourage po intake to avoid iv fluids DVT prophylaxis: SCD (anemic r/o gi bleed) FEN - No standing fluids - Monitor am labs - Diet: low sodium Dispo: Med/surg Family Medical History Family History: As Documented Visit type - Medication Review Med list reviewed for High Risk Meds patients 65 and older: Yes - Emergency Visit Emergency Visit: Yes ED Registration Date: 05/18/20 Care time: The patient presented to the Emergency Department on the above date and was hospitalized for further evaluation of their emergent condition. - New Patient This patient is new to me today: Yes Date on this admission: 05/19/20 - Critical Care Critical Care patient: No ATTENDING PHYSICIAN STATEMENT I saw and evaluated the patient. I reviewed the resident's note and discussed the case with the resident. I agree with the resident's findings and plan as documented. SUBJECTIVE: OBJECTIVE: ASSESSMENT AND PLAN:
--- NOTE | 2020-05-18 21:43 | EKG ---
Test Reason : Blood Pressure : / mmHG Vent. Rate : 112 BPM Atrial Rate : 112 BPM P-R Int : 138 ms QRS Dur : 076 ms QT Int : 334 ms P-R-T Axes : -10 002 054 degrees QTc Int : 455 ms SINUS TACHYCARDIA WITH PREMATURE ATRIAL COMPLEXES OTHERWISE NORMAL ECG WHEN COMPARED WITH ECG OF 03-AUG-2019 15:33, NO SIGNIFICANT CHANGE WAS FOUND Confirmed by Joanie Hester ([id number]) on 05/18/2020 9:43:31 PM Referred By: Confirmed By:Joanie Hester
[2020-05-18] MEDS ORDERED: ACETAMINOPHEN 325 MG TABLET (FP) PO PRN (22:04)
[2020-05-18] MEDS ORDERED: ALBUTEROL SO4 HFA INHALER IH PRN (22:22)
[2020-05-18] MEDS ORDERED: methylPREDNISolone NA SUCC 40 MG/1 ML VIAL IVPUSH ONE (22:26)
[2020-05-19] MEDS ORDERED: methylPREDNISolone NA SUCC 40 MG/1 ML VIAL ONE ×2 (00:30→11:02)
[2020-05-19] MEDS ORDERED: MELATONIN 5 MG TABLETS ONE (02:35)
[2020-05-19 05:41] LABS: BASO % 0.5 % (0-2.0); HEMATOCRIT 31.7 % (32.4-45.2); HEMOGLOBIN 9.7 GM/dL (10.7-15.3); LYMPH % 2.7 % (8-40); MCH 22.9 pg (25.7-33.7); MCHC 30.7 g/dl (32.0-36.0); MEAN CELL VOLUME 74.6 fl (80-96); MONO % 0.8 % (3.8-10.2); PLATELET COUNT 375 K/MM3 (134-434); RBC 4.25 M/mm3 (3.60-5.2); RDW 18.6 % (11.6-15.6); WHITE BLOOD COUNT 15.4 K/mm3 (4.0-10.0)
[2020-05-19 06:08] LABS: ALBUMIN 2.5 g/dl (3.4-5.0); BILIRUBIN,TOTAL 0.4 mg/dL (0.2-1); BLOOD UREA NITROGEN 33.6 mg/dL (7-18); CALCIUM 8.6 mg/dL (8.5-10.1); CREATININE 0.8 mg/dL (0.55-1.3); POTASSIUM 5.1 mmol/L (3.5-5.1); TOT PROT 6.4 g/dl (6.4-8.2)
[2020-05-19 06:15] LABS: ANISOCYTOSIS 2+; MACROCYTOSIS 0; OVALOCYTE 1+; PLATELET ESTIMATE NORMAL
[2020-05-19] MEDS ORDERED: CEFTRIAXONE 1 GM in DEXTROSE 5%-WATER - 50 ML IVPB SCH (10:00)
--- NOTE | 2020-05-19 10:36 | CON.CARD ---
Consult Consult Specialty:: Cardiology Referred by:: Hospitalist Medicine Reason for Consultation:: Elevated troponins - History of Present Illness Chief Complaint: Post mechanical fall, gait disturbance History of Present Illness: Patient is an 89 year old woman with a PMH of HTN, COPD, Lung cancer (on ?chemo+radiation, immunotherapy), Left breast cancer (s/p left breast mastectomy), Hypothyroidism, anemia, sciatica presented with pain from previous fall. Patient fell down 7 stairs 2 weeks ago. She reports her right leg gave out and denies any near or true syncopal symptoms. She was helped up by her tenant and was able to walk back up the stairs home. She now reports persistent left knee pain and bilateral diffuse thorax and back pain, CT scan shows T8 compression fractures. Patient denies headache, chest pain, dyspnea, palpitations, dizziness, fever, chills, nausea, vomiting, diarrhea, constipation, dysuria, frequency, urgency, melena, hematochezia or hematuria. Lives alone. Former smoker. Denies alcohol, tobacco or illicit drug use. No sick contacts or recent travels. Family history is unremarkable. - History Source History Provided By: Patient Limitations to Obtaining History: No Limitations - Past Medical History Pulmonary: Yes: COPD - Alcohol/Substance Use Hx Alcohol Use: No - Smoking History Smoking history: Never smoked Have you smoked in the past 12 months: No If you are a former smoker, when did you quit?: 10 YRS Home Medications - Allergies Allergies/Adverse Reactions: Allergies Allergy/AdvReac Type Severity Reaction Status Date / Time No Known Drug Allergies Allergy Verified 08/03/19 13:56 - Home Medications Home Medications: Ambulatory Orders Sertraline HCl [Zoloft] 12.5 mg PO ASDIR 09/28/11 Nebivolol HCl [Bystolic] 10 mg PO HS 03/18/16 Multivit-Min/Iron Fum/Folic AC [Kzanc-Syjrfqa-Pglpuusm Tablet] 1 tablet PO DAILY 11/11/16 Alprazolam 0.25 mg PO ASDIR PRN 03/15/19 Mirtazapine 15 mg PO HS 03/15/19 Albuterol Sulfate Inhaler - [Ventolin HFA Inhaler -] 1 puff IH ASDIR 04/01/20 Omeprazole Magnesium [Prilosec] 2.5 mg PO DAILY 04/01/20 Umeclidinium Brm/Vilanterol Tr [Anoro Ellipta 62.5-25 Mcg INH] 1 puff IH ASDIR 04/01/20 Review of Systems - Review of Systems Musculoskeletal: reports: Back Pain Neurological: reports: Unsteady Gait Vital Signs: Vital Signs Temperature 98.2 F 05/19/20 06:20 Pulse Rate 92 H 05/19/20 06:20 Respiratory Rate 18 05/19/20 06:20 Blood Pressure 123/66 05/19/20 06:20 O2 Sat by Pulse Oximetry (%) 100 05/19/20 06:20 Constitutional: Yes: No Distress, Calm, Thin Neck: Yes: Supple Respiratory: Yes: Regular, CTA Bilaterally Gastrointestinal: Yes: Normal Bowel Sounds, Soft Cardiovascular: Yes: Regular Rate and Rhythm JVD: No Carotid Bruit: No Heart Sounds: Yes: S1, S2 Edema: No - Other Data Labs, Other Data: CBC, BMP 05/19/20 05:35 05/19/20 05:35 Troponin, BNP 05/18/20 05/19/20 13:50 00:30 Troponin I 0.09 H 0.08 H Troponin, BNP 05/18/20 05/19/20 13:50 00:30 Troponin I 0.[address] @ 112 PAC Ejection Fraction %: LVEF > or = 40 % Imaging - Results Chest X-ray: Report Reviewed (NAD) Problem List - Problems (1) Demand ischemia Code(s): I24.8 - OTHER FORMS OF ACUTE ISCHEMIC HEART DISEASE (2) Sinus tachycardia Code(s): R00.0 - TACHYCARDIA, UNSPECIFIED (3) Compression fracture of T8 vertebra Code(s): S22.060A - WEDGE COMPRESSION FRACTURE OF T7-T8 VERTEBRA, INIT Qualifiers: Encounter type: initial encounter Qualified Code(s): S22.060A - Wedge compression fracture of T7-T8 vertebra, initial encounter for closed fracture (4) Pneumonia Code(s): J18.9 - PNEUMONIA, UNSPECIFIED ORGANISM Qualifiers: Pneumonia type: due to unspecified organism Laterality: left Lung l ocation: upper lobe of lung Qualified Code(s): J18.9 - Pneumonia, unspecified organism (5) SOB (shortness of breath) Code(s): R06.02 - SHORTNESS OF BREATH (6) COPD (chronic obstructive pulmonary disease) Code(s): J44.9 - CHRONIC OBSTRUCTIVE PULMONARY DISEASE, UNSPECIFIED Qualifiers: COPD type: unspecified COPD Qualified Code(s): J44.9 - Chronic obstructive pulmonary disease, unspecified (7) Mass of left lung Code(s): R91.8 - OTHER NONSPECIFIC ABNORMAL FINDING OF LUNG FIELD Assessment/Plan 05/18/[address]: New compression fracture T8, with moderate-sized left effusion and new small right effusion, MAHENDRA/periaortic mass unchanged 1. Mechanical fall due to gait instability, T8 compression fracture 2. Acute hypoxic respiratory failure, MAHENDRA mass with pleural effusion, r/o post- obstructive PNA 3. Sinus tachycardia and demand ischemia referable to above 4. Anemia 5. Hypertension 6. COPD P:1. Empiric abx course, IV steroids, BD, O2 as needed 2. Trops plateaued and downtrending, resume Bystolic as hemodynamics tolerate 3. Analgesia as needed, PT as tolerated, DVT prophylaxis 4. Thank you for consultative opportunity
[2020-05-19] MEDS ORDERED: CEFTRIAXONE 1 GM/50 ML BAG ONE (11:01)
[2020-05-19] MEDS ORDERED: AZITHROMYCIN IVPB 500 MG/250 ML BAG IVPB ONE (11:02)
[2020-05-19] MEDS: methylPREDNISolone NA SUCC 40 MG/1 ML VIAL IVPUSH SCH (12:02)
[2020-05-19] MEDS: AZITHROMYCIN IVPB 500 MG/250 ML BAG IVPB SCH (12:38)
--- NOTE | 2020-05-19 13:03 | PN ---
Teaching Attending Note Name of Resident: James Boudreaux ATTENDING PHYSICIAN STATEMENT I saw and evaluated the patient. I reviewed the resident's note and discussed the case with the resident. I agree with the resident's findings and plan as documented. SUBJECTIVE: Feeling much better - less dyspnea. Cough, yellow sputum. No hemptysis. No CP. No fever/chills. Denies melena/hematochezia. OBJECTIVE: Afebrile, Hemodynamically stable. Frail, cachectic. Last Vital Signs Temp Pulse Resp BP Pulse Ox 98.2 F 92 H 18 123/66 100 05/19/20 06:20 05/19/20 06:20 05/19/20 06:20 05/19/20 06:20 05/19/20 07:30 HEENT - Atramatic, Normocephalic Heart - S1, S2, RRR Lungs - L sided crackles Abdomen - Soft, non-tender. Bowel Sounds normal. Extremities - no edema, no calf tenderness. Neuro - AAO x 3. Tone/power normal all extremities. MS - Mild tenderness lower thoracic spine. Laboratory Results - last 24 hr 05/18/20 05/18/20 05/18/20 13:50 13:50 13:50 WBC 13.6 H RBC 4.00 Hgb 9.3 L Hct 29.7 L MCV 74.4 L MCH 23.2 L MCHC 31.2 L RDW 18.5 H Plt Count 390 D MPV 7.2 L Absolute Neuts (auto) 11.9 H Neutrophils % 87.7 H Neutrophils % (Manual) Band Neutrophils % Lymphocytes % 5.9 L D Lymphocytes % (Manual) Monocytes % 6.0 Monocytes % (Manual) Eosinophils % 0.3 Eosinophils % (Manual) Basophils % 0.1 Basophils % (Manual) Myelocytes % (Man) Promyelocytes % (Man) Blast Cells % (Manual) Nucleated RBC % 0 Metamyelocytes Hypochromia Platelet Estimate Polychromasia Poikilocytosis Basophilic Stippling Anisocytosis Microcytosis Macrocytosis Ovalocytes Sodium 138 Potassium 4.4 Chloride 102 Carbon Dioxide 31 Anion Gap 5 L BUN 32.3 H Creatinine 0.8 Est GFR (CKD-EPI)AfAm 76.83 Est GFR (CKD-EPI)NonAf 66.29 Random Glucose 93 Calcium 8.6 Phosphorus 3.5 Magnesium 2.1 Iron TIBC Iron Saturation Unsaturated IBC Ferritin Total Bilirubin 0.5 AST 35 ALT 44 Alkaline Phosphatase 143 H Creatine Kinase 25 L Troponin I 0.09 H Total Protein 6.4 Albumin 2.5 L Blood Type O POSITIVE Antibody Screen Negative 05/19/20 05/19/20 05/19/20 00:30 05:35 05:35 WBC 15.4 H RBC 4.25 Hgb 9.7 L Hct 31.7 L MCV 74.6 L MCH 22.9 L MCHC 30.7 L RDW 18.6 H Plt Count 375 MPV 7.0 L Absolute Neuts (auto) 14.8 H Neutrophils % 96.0 H Neutrophils % (Manual) 100.0 H Band Neutrophils % 0.0 Lymphocytes % 2.7 L D Lymphocytes % (Manual) 0.0 L Monocytes % 0.8 L D Monocytes % (Manual) 0 L Eosinophils % 0.0 D Eosinophils % (Manual) 0.0 Basophils % 0.5 D Basophils % (Manual) 0.0 Myelocytes % (Man) 0 Promyelocytes % (Man) 0 Blast Cells % (Manual) 0 Nucleated RBC % 0 Metamyelocytes 0 Hypochromia 2+ Platelet Estimate Normal Polychromasia 1+ Poikilocytosis 1+ Basophilic Stippling 1+ Anisocytosis 2+ Microcytosis 2+ Macrocytosis 0 Ovalocytes 1+ Sodium 140 Potassium 5.1 Chloride 103 Carbon Dioxide 36 H Anion Gap 0 L BUN 33.6 H Creatinine 0.8 Est GFR (CKD-EPI)AfAm 76.83 Est GFR (CKD-EPI)NonAf 66.29 Random Glucose 127 H Calcium 8.6 Phosphorus Magnesium Iron 13 L TIBC 207 L Iron Saturation 6 L Unsaturated IBC 194 L Ferritin 459.1 H Total Bilirubin 0.4 AST 23 ALT 39 Alkaline Phosphatase 140 H Creatine Kinase Troponin I 0.08 H Total Protein 6.4 Albumin 2.5 L Blood Type Antibody Screen Current Medications Generic Name Dose Route Start Last Admin Trade Name Freq PRN Reason Stop Dose Admin Acetaminophen 650 mg 05/18/20 22:04 Tylenol - PO Q4H PRN PAIN LEVEL 6-10 Albuterol Sulfate 2 puff 05/18/20 22:22 Ventolin Hfa Inhaler - IH Q4H PRN SHORT OF BREATH/WHEEZING Ceftriaxone Sodium 1 gm/ 50 mls @ 100 mls/hr 05/19/20 10:00 05/19/20 11:45 Dextrose IVPB 100 mls/hr DAILY [facility] Administration Azithromycin 500 mg in 250 mls @ 250 mls/hr 05/19/20 10:00 05/19/20 12:38 Zithromax 500mg Ivpb (Pre-Docked) IVPB 250 mls/hr DAILY [facility] Administration Influenza Virus Vaccine 60 mcg 05/19/20 10:53 Flulaval Quad [id number] Syr IM 05/19/20 10:54 .ONCE ONE Melatonin 1 mg 05/19/20 22:00 Melatonin PO HS [facility] Methylprednisolone Sodium Succinate 40 mg 05/19/20 10:00 05/19/20 12:02 Solu-Medrol - IVPUSH 40 mg DAILY [facility] Administration Home Medications Medication Instructions Recorded Sertraline HCl [Zoloft] 12.5 mg PO ASDIR 09/28/11 Nebivolol HCl [Bystolic] 10 mg PO HS 03/18/16 Multivit-Min/Iron Fum/Folic AC 1 tablet PO DAILY 11/11/16 [Znszd-Txcnvhq-Huxjebbk Tablet] Alprazolam 0.25 mg PO ASDIR PRN 03/15/19 Mirtazapine 15 mg PO HS 03/15/19 Albuterol Sulfate Inhaler - 1 puff IH ASDIR 04/01/20 [Ventolin HFA Inhaler -] Omeprazole Magnesium [Prilosec] 2.5 mg PO DAILY 04/01/20 Umeclidinium Brm/Vilanterol Tr 1 puff IH ASDIR 04/01/20 [Anoro Ellipta 62.5-25 Mcg INH] ASSESSMENT AND PLAN: 89 year old female with history of 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 No hemoptysis. Reports mechnical fall 2 weeks ago with R chest wall tenderness and R knee pain. No preceding CP/palpitations/lightheadedness. No head injury or LOC. 1. Sepsis and Acute Hypoxic respiratory Failure secondary to L sided Pneumonia (?post-obstructive) + Acute Exacerbation COPD CXR - MAHENDRA mass +/- consolidation Chest CT - MAHENDRA/hany-aortic mass, L sided pleural effusion ?underlying consolidation Leukocytosis WBC 13.6, tacycardia, tachypnea on presentation Afebrile, Hemodynamically Stable. Started on Ceftriaxone/Azithromycin - will switch Ceftriaxone to Zosyn given patient's immunocompromised state on immunotherapy. Sputum Cx and Urine Legionella/Strep Ag requested. Continue Solumedrol Bronchodilators Supplemental O2 as required. 2. Troponin egression, likely sec to demand ischemia Cardiology evaluated - no further work-up at this time. Continue Nebivolol. 3. New T8 Vertebral fracture on CT - secondary to fall Mild T spine tenderness CT Head/C-Spine - no acute findings. CT T/L Spine - new T8 compression fracture, old T5, L1/2 fractures. Will order MRI to evaluate acuity, stability, and ?association with possible mets. 4. Microcytic Anemia/Iron deficinecy Anemia Hx GI blood loss due to DU Denies melena/hematochezia. FOBT GI conulted PPI 5. Enlarged Thyroid on CT, incidental finding TSH 0.46/Free T4 1.21 04/29/20 Endocrinology referral on discharge DVT Px - SCDs. Lovenox/Heparin held due to microcytic anemia.
[2020-05-19] MEDS ORDERED: ALBUTEROL SO4 0.5 % INH SOLN 2.5 MG/0.5 ML VIAL.NEB. NEB PRN (13:20)
--- NOTE | 2020-05-19 14:47 | PN ---
Physical Exam: SUBJECTIVE: Patient seen and examined. OBJECTIVE: Vital Signs Period Temp Pulse Resp BP Sys/Delatorre Pulse Ox Last 24 Hr 98.2 F-98.4 F 87-102 16-20 106-123/57-70 98-100 GENERAL: The patient is awake, alert, and fully oriented, in no acute distress. HEAD: Normal with no signs of trauma. EYES: PERRL, extraocular movements intact, sclera anicteric, conjunctiva clear. No ptosis. ENT: Ears normal, nares patent, oropharynx clear without exudates, moist mucous membranes. NECK: Trachea midline, full range of motion, supple. LUNGS: L sided crackles HEART: Regular rate and rhythm, S1, S2 without murmur, rub or gallop. ABDOMEN: Soft, nontender, nondistended, normoactive bowel sounds, no guarding, no rebound, no hepatosplenomegaly, no masses. mild T spine tenderness EXTREMITIES: 2+ pulses, warm, well-perfused, no edema. NEUROLOGICAL: Cranial nerves II through XII grossly intact. Normal speech, gait not observed. PSYCH: Normal mood, normal affect. SKIN: Warm, dry, normal turgor, no rashes or lesions noted Laboratory Results - last 24 hr 05/18/20 05/18/20 05/19/20 13:50 13:50 00:30 WBC RBC Hgb Hct MCV MCH MCHC RDW Plt Count MPV Absolute Neuts (auto) Neutrophils % Neutrophils % (Manual) Band Neutrophils % Lymphocytes % Lymphocytes % (Manual) Monocytes % Monocytes % (Manual) Eosinophils % Eosinophils % (Manual) Basophils % Basophils % (Manual) Myelocytes % (Man) Promyelocytes % (Man) Blast Cells % (Manual) Nucleated RBC % Metamyelocytes Hypochromia Platelet Estimate Polychromasia Poikilocytosis Basophilic Stippling Anisocytosis Microcytosis Macrocytosis Ovalocytes Sodium 138 Potassium 4.4 Chloride 102 Carbon Dioxide 31 Anion Gap 5 L BUN 32.3 H Creatinine 0.8 Est GFR (CKD-EPI)AfAm 76.83 Est GFR (CKD-EPI)NonAf 66.29 Random Glucose 93 Calcium 8.6 Phosphorus 3.5 Magnesium 2.1 Iron TIBC Iron Saturation Unsaturated IBC Ferritin Total Bilirubin 0.5 AST 35 ALT 44 Alkaline Phosphatase 143 H Creatine Kinase 25 L Troponin I 0.09 H 0.08 H Total Protein 6.4 Albumin 2.5 L Blood Type O POSITIVE Antibody Screen Negative 05/19/20 05/19/20 05:35 05:35 WBC 15.4 H RBC 4.25 Hgb 9.7 L Hct 31.7 L MCV 74.6 L MCH 22.9 L MCHC 30.7 L RDW 18.6 H Plt Count 375 MPV 7.0 L Absolute Neuts (auto) 14.8 H Neutrophils % 96.0 H Neutrophils % (Manual) 100.0 H Band Neutrophils % 0.0 Lymphocytes % 2.7 L D Lymphocytes % (Manual) 0.0 L Monocytes % 0.8 L D Monocytes % (Manual) 0 L Eosinophils % 0.0 D Eosinophils % (Manual) 0.0 Basophils % 0.5 D Basophils % (Manual) 0.0 Myelocytes % (Man) 0 Promyelocytes % (Man) 0 Blast Cells % (Manual) 0 Nucleated RBC % 0 Metamyelocytes 0 Hypochromia 2+ Platelet Estimate Normal Polychromasia 1+ Poikilocytosis 1+ Basophilic Stippling 1+ Anisocytosis 2+ Microcytosis 2+ Macrocytosis 0 Ovalocytes 1+ Sodium 140 Potassium 5.1 Chloride 103 Carbon Dioxide 36 H Anion Gap 0 L BUN 33.6 H Creatinine 0.8 Est GFR (CKD-EPI)AfAm 76.83 Est GFR (CKD-EPI)NonAf 66.29 Random Glucose 127 H Calcium 8.6 Phosphorus Magnesium Iron 13 L TIBC 207 L Iron Saturation 6 L Unsaturated IBC 194 L Ferritin 459.1 H Total Bilirubin 0.4 AST 23 ALT 39 Alkaline Phosphatase 140 H Creatine Kinase Troponin I Total Protein 6.4 Albumin 2.5 L Blood Type Antibody Screen Active Medications Generic Name Dose Route Start Last Admin Trade Name Freq PRN Reason Stop Dose Admin Acetaminophen 650 mg 05/18/20 22:04 Tylenol - PO Q4H PRN PAIN LEVEL 6-10 Albuterol Sulfate 2 puff 05/18/20 22:22 Ventolin Hfa Inhaler - IH Q4H PRN SHORT OF BREATH/WHEEZING Albuterol Sulfate 1 amp 05/19/20 13:20 Ventolin 0.5% - NEB Q4H PRN SHORT OF BREATH/WHEEZING Albuterol/Ipratropium 1 amp 05/19/20 16:00 Duoneb - NEB RQID TRINITY Azithromycin 500 mg in 250 mls @ 250 mls/hr 05/19/20 10:00 05/19/20 12:38 Zithromax 500mg Ivpb (Pre-Docked) IVPB 250 mls/hr DAILY [facility] Administration Piperacillin Sod/Tazobactam 50 mls @ 100 mls/hr 05/19/20 13:30 Sod 3.375 gm/ Dextrose IVPB Q8H-IV [facility] Protocol Influenza Virus Vaccine 60 mcg 05/19/20 10:53 Flulaval Quad Syr IM 05/19/20 10:54 .ONCE ONE Melatonin 1 mg 05/19/20 22:00 Melatonin PO HS [facility] Methylprednisolone Sodium Succinate 40 mg 05/19/20 10:00 05/19/20 12:02 Solu-Medrol - IVPUSH 40 mg DAILY [facility] Administration Pantoprazole Sodium 40 mg 05/19/20 13:30 Protonix - PO DAILY [facility] ASSESSMENT/PLAN: 89 year old female with history of left Squamous Cell Lung Cancer (diagnosed 2013, on Immunotherapy), HTN, COPD, Hypothyroidism, Breast Ca s/p Mastectomy 1984, Hx of GI bleed (sec to duodenal ulcer 4 years ago), Depression, presents with 2 week history of worsening dyspnea, cough, yellow sputum, found to be hypoxic with SpO2 in 70s on room air. No hemoptysis. Reports mechnical fall 2 weeks ago with R chest wall tenderness and R knee pain. No preceding CP/palpitations/lightheadedness. No head injury or LOC. Admitted for sepsis and acute hypoxic respiratory failure secondary to pneumonia. Sepsis and acute hypoxic respiratory failure secondary to L sided pneumonia -CXR MAHENDRA mass + - consolidation, chest CT with MAHENDRA mass, L sided pleural efu reva, underlying consolidation -leukocytosis 13.6 -- 15.4, tachycardic and tachypneic on presentation -Ceftriaxone and azithro start, switched to Zosyn from Ceftriaxone due to immunocompromise state -continue solumedrol -bronchodilators -O2 supplemental as needed Troponin elevation -resolved, 0.09 - 0.08 -cardiology evaluated, no further work up -continue nebivolol New T8 vertebral fracture mild T spine tenderness -CT head and spine with no acute fractures -thoracic spine MRI ordered Microcytic anemia -hx blood loss due to duodenal ulcer -denies melena and hematochezia -FOBT, GI consulted -protonix Incidental enlarge thyroid -seen on CT -endocrine referral on discharge DVT SCDs due to microcytic anemia PPx SCDs Held chemical prophylaxis due to anemia Dispo Admitted to med surg. ATTENDING PHYSICIAN STATEMENT I saw and evaluated the patient. I reviewed the resident's note and discussed the case with the resident. I agree with the resident's findings and plan as documented. SUBJECTIVE: OBJECTIVE: ASSESSMENT AND PLAN:
--- NOTE | 2020-05-19 15:48 | CON.GI ---
Consult Consult Specialty:: GI Referred by:: Hospitalist service Reason for Consultation:: Anemia - History of Present Illness Chief Complaint: Right leg pain followed by fall at home History of Present Illness: 89F, Lung Ca on immunotherapy, s/p fall at home 2 weeks ago. Fall was secondary to right leg pain. leg pain and left sided rib pain did not improve so she came to the ER. Noted anemic. Being treated for possible PNA. No overt bleeding, rectal bleeding, melena. Had colonoscopy 2011 that revealed severe sigmoid diverticulosis, moderate diverticulosis throughout the remainder of the colon. 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 Describes 20 pound weight loss over the last year. Appetite improved since being in hospital. No early satiety, dysphagia, odynophagia, nausea, vomiting, abdominal pain. + chronic cough that has worsened over the last couple of days. Is now on solumedrol and Abx. - History Source History Provided By: Patient, Medical Record - Past Medical History Pulmonary: Yes: COPD Heme/Onc: Yes: Anemia, Other (BCA, Lung Ca on immunotherapy ) - Past Surgical History Past Surgical History: Yes: Mastectomy (left) Additional Surgical History: removal of ovarian tumor and hysterectomy - Alcohol/Substance Use Hx Alcohol Use: No - Smoking History Smoking history: Never smoked Have you smoked in the past 12 months: No If you are a former smoker, when did you quit?: 10 YRS - Social History Usual Living Arrangement: With Significant Other Place of : [facility] Home Medications - Allergies Allergies/Adverse Reactions: Allergies Allergy/AdvReac Type Severity Reaction Status Date / Time No Known Drug Allergies Allergy Verified 08/03/19 13:56 - Home Medications Home Medications: Ambulatory Orders Sertraline HCl [Zoloft] 12.5 mg PO ASDIR 09/28/11 Alprazolam 0.25 mg PO ASDIR PRN 03/15/19 Mirtazapine 15 mg PO HS 03/15/19 Albuterol Sulfate Inhaler - [Ventolin HFA Inhaler -] 1 puff IH ASDIR 04/01/20 Omeprazole Magnesium [Prilosec] 2.5 mg PO DAILY 04/01/20 Umeclidinium Brm/Vilanterol Tr [Anoro Ellipta 62.5-25 Mcg INH] 1 puff IH ASDIR 04/01/20 Magnesium Oxide [Mag-Ox -] 400 mg PO DAILY 05/19/20 Nebivolol HCl [Bystolic] 10 mg PO HS 05/19/20 Tramadol HCl 50 mg PO DAILY 05/19/20 Review of Systems - Review of Systems Constitutional: reports: Unintentional Wgt. Loss. denies: Fever Cardiovascular: denies: Chest Pain Respiratory: reports: Cough, SOB Gastrointestinal: denies: Abdominal Pain, Constipation, Diarrhea, Melena, Nausea, Rectal Bleeding, Vomiting, Vomiting Blood Physical Exam-GI Vital Signs: Vital Signs Temperature 98.2 F 05/19/20 06:20 Pulse Rate 92 H 05/19/20 06:20 Respiratory Rate 18 05/19/20 06:20 Blood Pressure 123/66 05/19/20 06:20 O2 Sat by Pulse Oximetry (%) 100 05/19/20 07:30 Constitutional: Yes: Calm Eyes: No: Sclera Icterus Cardiovascular: Yes: Regular Rate and Rhythm Respiratory: Yes: Rhonchi (bases bilaterally) Gastrointestinal Inspection: Yes: Scars (midline vertical pelvic surgical scar). No: Distention ...Auscultate: Yes: Normoactive Bowel Sounds ...Palpate: Yes: Soft. No: Hepatomegaly, Splenomegaly, Tenderness ...Percussion: No: Tympanitic ...Rectal Exam: Yes: Other (No external lesions, no masses, ligght brown formed stool in rectal vault, guaiac negative,) Edema: No (No LE edema) Neurological: Yes: Alert Labs: CBC, BMP 05/19/20 05:35 05/19/20 05:35 Problem List - Problems (1) Anemia Assessment/Plan: Known history of anemia. Likely multifactorial: if if immunotherapy contributing, component of iron deficiency (Receives IV iron therapy from her oncologist) No overt bleeeding, guaiac negative on exam When acute issues have resolved and when patient medically optimized, can discuss options regarding upper endoscopy / colonoscopy to assess for GI source if iron deficiency. Ms. Perea wanted to address this as an outpatient. She has my office information to arrange follow-up. Continue protonix 40mg once daily while on Corticosteroid therapy. Code(s): D64.9 - ANEMIA, UNSPECIFIED
[2020-05-19] MEDS ORDERED: PIPERACILLIN/TAZOB 3.375 GM 3.375 GM/50 ML BAG IVPB ONE (15:49)
[2020-05-19] MEDS ORDERED: ALBUTEROL SO4 2.5/IPRATROPIUM 0.5 INH SOL 3 ML VIAL.NEB. NEB SCH (16:00)
[2020-05-19] MEDS ORDERED: PIPERACILLIN/TAZOB 3.375 GM 3.375 GM in DEXTROSE 5%-WATER - 50 ML IVPB SCH (16:00)
[2020-05-19] MEDS: PANTOPRAZOLE 40 MG TABLET PO SCH (16:00)
[2020-05-19] MEDS: PIPERACILLIN/TAZOB 3.375 GM 3.375 GM in DEXTROSE 5%-WATER - 50 ML IVPB SCH (19:58)
[2020-05-19] MEDS: MELATONIN 1 MG TABLET PO SCH (22:27)
[2020-05-20] MEDS ORDERED: PIPERACILLIN/TAZOBACTAM 3.375 GM VIAL IVPB ONE ×3 (02:28→22:30)
[2020-05-20] MEDS ORDERED: DEXTROSE 5%-WATER - 50 ML IVPB ONE ×3 (02:28→22:30)
[2020-05-20] MEDS: PIPERACILLIN/TAZOB 3.375 GM 3.375 GM in DEXTROSE 5%-WATER - 50 ML IVPB SCH ×3 (02:39→21:00)
[2020-05-20] MEDS ORDERED: PORTA CATH FLUSH 10 ML IVPUSH PRN (05:43)
[2020-05-20 07:16] LABS: URINE APPEARANCE CLOUDY; URINE BILIRUBIN NEGATIVE (NEGATIVE); URINE COLOR YELLOW; URINE GLUCOSE (UA) NEGATIVE (NEGATIVE); URINE KETONE NEGATIVE (NEGATIVE); URINE LEUK ESTERASE NEGATIVE (NEGATIVE); URINE NITRITE NEGATIVE (NEGATIVE); URINE PROTEIN NEGATIVE (NEGATIVE); URINE UROBILINOGEN 0.2 mg/dL (0.2-1.0)
[2020-05-20 08:37] LABS: BASO % 0.1 % (0-2.0); EOS % 0.1 % (0-4.5); HEMATOCRIT 28.9 % (32.4-45.2); HEMOGLOBIN 9.1 GM/dL (10.7-15.3); LYMPH % 6.6 % (8-40); MCH 23.6 pg (25.7-33.7); MCHC 31.4 g/dl (32.0-36.0); MEAN CELL VOLUME 75.1 fl (80-96); MEAN PLT VOLUME 7.4 fl (7.5-11.1); MONO % 6.5 % (3.8-10.2); NEUT % 86.7 % (42.8-82.8); PLATELET COUNT 411 K/MM3 (134-434); RBC 3.85 M/mm3 (3.60-5.2); WHITE BLOOD COUNT 13.5 K/mm3 (4.0-10.0)
[2020-05-20 09:11] LABS: ALBUMIN 2.3 g/dl (3.4-5.0); BILIRUBIN,TOTAL 0.6 mg/dL (0.2-1); BLOOD UREA NITROGEN 27.7 mg/dL (7-18); CALCIUM 8.8 mg/dL (8.5-10.1); CREATININE 0.7 mg/dL (0.55-1.3); MAGNESIUM 1.9 mg/dL (1.8-2.4); PHOSPHOROUS 3.5 mg/dL (2.5-4.9); POTASSIUM 4.3 mmol/L (3.5-5.1); TOT PROT 6.1 g/dl (6.4-8.2)
[2020-05-20] MEDS ORDERED: PIPERACILLIN/TAZOB 3.375 GM 3.375 GM in DEXTROSE 5%-WATER - 50 ML IVPB SCH (10:00)
[2020-05-20] MEDS: AZITHROMYCIN IVPB 500 MG/250 ML BAG IVPB SCH (10:01)
[2020-05-20] MEDS: methylPREDNISolone NA SUCC 40 MG/1 ML VIAL IVPUSH SCH (10:01)
[2020-05-20] MEDS: PANTOPRAZOLE 40 MG TABLET PO SCH (10:01)
[2020-05-20] MEDS ORDERED: FLU VACCINE (FLULAVAL) PF 60 MCG/0.5 ML SYRINGE 2020-2021 IM ONE (11:00)
--- NOTE | 2020-05-20 13:41 | CON.ID ---
Consult Consult Specialty:: infectious diseases Referred by:: Reason for Consultation:: pneumonia - History of Present Illness Chief Complaint: fall,sob History of Present Illness: 89 year old woman with left squamous cell lung cancer , on immunotherapy, and PMH htn, COPD, hypothyroidism, GI bleed (duodenal ulcer 4 years ago) presenting with 2 weeks of worsening dyspnea, chronic cough, left knee pain, and rib cage pain following a fall she experienced approx 2 weeks ago. Patient lives by herself, states she was walking the 10 steps up to her apartment door when she tripped and landed on her buttocks; landing on a sitting position at the top of the stairs. She denies preceding lightheadedness, palpitations, chest pain, headache, nausea. States she had been experiencing her chronic left leg pain prior to the incident. Denies LOC during the fall, and says it was unwitnessed. She had her cell phone in hands and was able to call her apartment tenant, who immediately presented to her and urged her to seek care at the ED. She refused, as she said she was 'not in much pain', and believed her soreness would subside over the past few days. However, the soreness on her rib/cage/side where she landed did not subside, and gradually worsened to 9/10 while she ambulates at home. She also reported increased dyspnea, and worsening in her chronic cough, with more sputum production than usual. Denies fever, chills, lightheadedness, nausea, vomiting, abdominal pain, hematochezia. Reports 22 pound weight loss the past 3 months. patient mentions that she was not on oxygen at home and currently patient re quiring oxygen - History Source History Provided By: Patient Limitations to Obtaining History: No Limitations - Past Medical History Pulmonary: Yes: COPD - Past Surgical History Past Surgical History: Yes: Mastectomy (left) Additional Surgical History: removal of ovarian tumor and hysterectomy - Alcohol/Substance Use Hx Alcohol Use: No - Smoking History Smoking history: Never smoked Have you smoked in the past 12 months: No If you are a former smoker, when did you quit?: 10 YRS - Social History Usual Living Arrangement: With Significant Other Home Medications - Allergies Allergies/Adverse Reactions: Allergies Allergy/AdvReac Type Severity Reaction Status Date / Time No Known Drug Allergies Allergy Verified 08/03/19 13:56 - Home Medications Home Medications: Ambulatory Orders Sertraline HCl [Zoloft] 12.5 mg PO ASDIR 09/28/11 Alprazolam 0.25 mg PO ASDIR PRN 03/15/19 Mirtazapine 15 mg PO HS 03/15/19 Albuterol Sulfate Inhaler - [Ventolin HFA Inhaler -] 1 puff IH ASDIR 04/01/20 Omeprazole Magnesium [Prilosec] 2.5 mg PO DAILY 04/01/20 Umeclidinium Brm/Vilanterol Tr [Anoro Ellipta 62.5-25 Mcg INH] 1 puff IH ASDIR 04/01/20 Magnesium Oxide [Mag-Ox -] 400 mg PO DAILY 05/19/20 Nebivolol HCl [Bystolic] 10 mg PO HS 05/19/20 Tramadol HCl 25 mg PO DAILY PRN 05/19/20 Review of Systems - Review of Systems Constitutional: reports: Weakness Eyes: reports: No Symptoms HENT: reports: No Symptoms Neck: reports: No Symptoms Cardiovascular: reports: No Symptoms Respiratory: reports: SOB, SOB on Exertion, Other Gastrointestinal: reports: No Symptoms Genitourinary: reports: No Symptoms Musculoskeletal: reports: No Symptoms Integumentary: reports: No Symptoms Neurological: reports: No Symptoms Endocrine: reports: No Symptoms Hematology/Lymphatic: reports: No Symptoms Psychiatric: reports: No Symptoms Physical Exam Vital Signs: Vital Signs Temperature 97.5 F L 05/20/20 06:00 Pulse Rate 102 H 05/20/20 06:00 Respiratory Rate 20 05/20/20 06:00 Blood Pressure 129/67 05/20/20 06:00 O2 Sat by Pulse Oximetry (%) 99 05/20/20 06:00 Constitutional: Yes: Calm, Mild Distress, Thin Eyes: Yes: Conjunctiva Clear HENT: Yes: Atraumatic, Normocephalic Neck: Yes: Supple, Trachea Midline Cardiovascular: Yes: Regular Rate and Rhythm Respiratory: Yes: On Nasal O2, Poor Air Entry, Rhonchi Gastrointestinal: Yes: Normal Bowel Sounds, Soft Musculoskeletal: Yes: WNL Extremities: Yes: WNL Neurological: Yes: Alert, Oriented Psychiatric: Yes: Alert, Oriented Labs: CBC, BMP 05/20/20 06:06 05/20/20 06:06 Imaging - Results Chest X-ray: Report Reviewed, Image Reviewed Cat Scan: Report Reviewed, Image Reviewed Assessment/Plan Problem List - Problems (1) Demand ischemia Code(s): I24.8 - OTHER FORMS OF ACUTE ISCHEMIC HEART DISEASE (2) Sinus tachycardia Code(s): R00.0 - TACHYCARDIA, UNSPECIFIED (3) Compression fracture of T8 vertebra Code(s): S22.060A - WEDGE COMPRESSION FRACTURE OF T7-T8 VERTEBRA, INIT Qualifiers: Encounter type: initial encounter Qualified Code(s): S22.060A - Wedge co mpression fracture of T7-T8 vertebra, initial encounter for closed fracture (4) Pneumonia Code(s): J18.9 - PNEUMONIA, UNSPECIFIED ORGANISM Qualifiers: Pneumonia type: due to unspecified organism Laterality: left Lung location: upper lobe of lung Qualified Code(s): J18.9 - Pneumonia, unspecified organism (5) SOB (shortness of breath) Code(s): R06.02 - SHORTNESS OF BREATH (6) COPD (chronic obstructive pulmonary disease) Code(s): J44.9 - CHRONIC OBSTRUCTIVE PULMONARY DISEASE, UNSPECIFIED Qualifiers: COPD type: unspecified COPD Qualified Code(s): J44.9 - Chronic obstructive pulmonary disease, unspecified (7) Mass of left lung Code(s): R91.8 - OTHER NONSPECIFIC ABNORMAL FINDING OF LUNG FIELD patient has developed a new effusion, also patient does not use oxygen at home plan i am going to continue zosyn for another 24 hours will see how patient does if remains stable will switch to oral abx resp support also follow how much oxygen level requirement
--- NOTE | 2020-05-20 14:51 | PN ---
Physical Exam: SUBJECTIVE: Patient seen and examined. OBJECTIVE: Vital Signs Period Temp Pulse Resp BP Sys/Delatorre Pulse Ox Last 24 Hr 97.1 F-98.1 F 102-112 20-20 100-129/58-69 92-100 ENERAL: The patient is awake, alert, and fully oriented, in no acute distress. HEAD: Normal with no signs of trauma. EYES: PERRL, extraocular movements intact, sclera anicteric, conjunctiva clear. No ptosis. ENT: Ears normal, nares patent, oropharynx clear without exudates, moist mucous membranes. NECK: Trachea midline, full range of motion, supple. LUNGS: L sided crackles HEART: Regular rate and rhythm, S1, S2 without murmur, rub or gallop. ABDOMEN: Soft, nontender, nondistended, normoactive bowel sounds, no guarding, no rebound, no hepatosplenomegaly, no masses. mild T spine tenderness EXTREMITIES: 2+ pulses, warm, well-perfused, no edema. NEUROLOGICAL: Cranial nerves II through XII grossly intact. Normal speech, gait not observed. PSYCH: Normal mood, normal affect. SKIN: Warm, dry, normal turgor, no rashes or lesions noted Laboratory Results - last 24 hr 05/18/20 05/20/20 05/20/20 20:53 06:06 06:06 WBC 13.5 H RBC 3.85 Hgb 9.1 L Hct 28.9 L MCV 75.1 L MCH 23.6 L MCHC 31.4 L RDW 18.0 H Plt Count 411 MPV 7.4 L Absolute Neuts (auto) 11.7 H Neutrophils % 86.7 H Lymphocytes % 6.6 L D Monocytes % 6.5 D Eosinophils % 0.1 D Basophils % 0.1 Nucleated RBC % 0 Sodium 141 Potassium 4.3 Chloride 103 Carbon Dioxide 35 H Anion Gap 4 L BUN 27.7 H Creatinine 0.7 Est GFR (CKD-EPI)AfAm 90.29 Est GFR (CKD-EPI)NonAf 77.90 Random Glucose 94 Calcium 8.8 Phosphorus 3.5 Magnesium 1.9 Total Bilirubin 0.6 AST 16 ALT 31 Alkaline Phosphatase 120 H Total Protein 6.1 L Albumin 2.3 L Urine Color Urine Appearance Urine pH Ur Specific [place] Urine Protein Urine Glucose (UA) Urine Ketones Urine Blood Urine Nitrite Urine Bilirubin Urine Urobilinogen Ur Leukocyte Esterase COVID-19 ([facility]) Not detected 05/20/20 06:06 WBC RBC Hgb Hct MCV MCH MCHC RDW Plt Count MPV Absolute Neuts (auto) Neutrophils % Lymphocytes % Monocytes % Eosinophils % Basophils % Nucleated RBC % Sodium Potassium Chloride Carbon Dioxide Anion Gap BUN Creatinine Est GFR (CKD-EPI)AfAm Est GFR (CKD-EPI)NonAf Random Glucose Calcium Phosphorus Magnesium Total Bilirubin AST ALT Alkaline Phosphatase Total Protein Albumin Urine Color Yellow Urine Appearance Cloudy Urine pH 5.0 Ur Specific [place] 1.025 Urine Protein Negative Urine Glucose (UA) Negative Urine Ketones Negative Urine Blood Negative Urine Nitrite Negative Urine Bilirubin Negative Urine Urobilinogen 0.2 Ur Leukocyte Esterase Negative COVID-19 ([facility]) Active Medications Generic Name Dose Route Start Last Admin Trade Name Freq PRN Reason Stop Dose Admin Acetaminophen 650 mg 05/18/20 22:04 Tylenol - PO Q4H PRN PAIN LEVEL 6-10 Albuterol Sulfate 1 amp 05/20/20 15:54 Ventolin 0.5% - NEB Q4H PRN SHORT OF BREATH/WHEEZING Albuterol/Ipratropium 1 amp 05/20/20 16:00 Duoneb - NEB RQID [facility] IV Flush 10 ml 05/20/20 05:43 Curtis-Cath Flush IVPUSH PRN PRN protocol, maintain patency Azithromycin 500 mg in 250 mls @ 250 mls/hr 05/19/20 10:00 05/20/20 10:01 Zithromax 500mg Ivpb (Pre-Docked) IVPB 250 mls/hr DAILY [facility] Administration Piperacillin Sod/Tazobactam 50 mls @ 100 mls/hr 05/20/20 14:30 Sod 3.375 gm/ Dextrose IVPB Q8H-IV [facility] Protocol Melatonin 1 mg 05/19/20 22:00 05/19/20 22:27 Melatonin PO 1 mg HS [facility] Administration Methylprednisolone Sodium Succinate 40 mg 05/19/20 10:00 05/20/20 10:01 Solu-Medrol - IVPUSH 40 mg DAILY [facility] Administration Pantoprazole Sodium 40 mg 05/19/20 13:30 05/20/20 10:01 Protonix - PO 40 mg DAILY [facility] Administration ASSESSMENT/PLAN: 89 year old female with history of left Squamous Cell Lung Cancer (diagnosed 2013, on Immunotherapy), HTN, COPD, Hypothyroidism, Breast Ca s/p Mastectomy 1984, Hx of GI bleed (sec to duodenal ulcer 4 years ago), Depression, presents with 2 week history of worsening dyspnea, cough, yellow sputum, found to be hypoxic with SpO2 in 70s on room air. No hemoptysis. Reports mechnical fall 2 weeks ago with R chest wall tenderness and R knee pain. No preceding CP/palpitations/lightheadedness. No head injury or LOC. Admitted for sepsis and acute hypoxic respiratory failure secondary to pneumonia. Sepsis and acute hypoxic respiratory failure secondary to L sided pneumonia -CXR MAHENDRA mass + - consolidation, chest CT with MAHENDRA mass, L sided pleural efusion, underlying consolidation -leukocytosis 13.6-->15.4-->13.5 (downtrending now), tachycardic and tachypneic on presentation -Ceftriaxone and azithro start, switched to Zosyn from Ceftriaxone due to immunocompromised state -continue solumedrol -bronchodilators -O2 supplemental as needed Troponin elevation -resolved, 0.09 - 0.08 -cardiology evaluated, no further work up -continue nebivolol New T8 vertebral fracture mild T spine tenderness -CT head and spine with no acute fractures -thoracic spine MRI ordered Microcytic anemia -hx blood loss due to duodenal ulcer -denies melena and hematochezia -FOBT, GI consulted; will follow up outpatient -protonix Incidental enlarge thyroid -seen on CT -endocrine referral on discharge DVT SCDs due to microcytic anemia PPx SCDs Held chemical prophylaxis due to anemia Dispo Admitted to med surg. ATTENDING PHYSICIAN STATEMENT I saw and evaluated the patient. I reviewed the resident's note and discussed the case with the resident. I agree with the resident's findings and plan as documented. SUBJECTIVE: OBJECTIVE: ASSESSMENT AND PLAN:
[2020-05-20] MEDS ORDERED: ALBUTEROL SO4 0.5 % INH SOLN 2.5 MG/0.5 ML VIAL.NEB. NEB PRN (15:54)
[2020-05-20] MEDS: ALBUTEROL SO4 2.5/IPRATROPIUM 0.5 INH SOL 3 ML VIAL.NEB. NEB SCH ×2 (16:09→21:04)
--- NOTE | 2020-05-20 17:56 | PN ---
Teaching Attending Note Name of Resident: Romelia Ruby ATTENDING PHYSICIAN STATEMENT I saw and evaluated the patient. I reviewed the resident's note and discussed the case with the resident. I agree with the resident's findings and plan as documented. SUBJECTIVE: OBJECTIVE: HEENT - Atramatic, Normocephalic Heart - S1, S2, RRR Lungs - L sided crackles Abdomen - Soft, non-tender. Bowel Sounds normal. Extremities - no edema, no calf tenderness. Neuro - AAO x 3. Tone/power normal all extremities. MS - Mild tenderness lower thoracic spine. ASSESSMENT AND PLAN: 89 year old lady with history of left Squamous Cell Lung Cancer (diagnosed 2013, on Immunotherapy), HTN, COPD, Hx Thyroid nodules, Breast Ca s/p Mastectomy 1984, Hx of GI bleed (sec to duodenal ulcer 4 years ago), Depression, presents with 2 week history of worsening dyspnea, cough, yellow sputum, found to be hypoxic on RA with SpO2 in 70s. No hemoptysis. Reports mechnical fall 2 weeks ago with R chest wall tenderness and R knee pain. No preceding CP/palpitations/lightheadedness. No head injury or LOC. # Sepsis and Acute Hypoxic respiratory Failure secondary to L sided Pneumonia (?post-obstructive) + Acute Exacerbation COPD CXR - MAHENDRA mass +/- consolidation Chest CT - MAHENDRA/hany-aortic mass, L sided pleural effusion ?underlying consolidation Leukocytosis WBC 13.6, tacycardia, tachypnea on presentation Afebrile, Hemodynamically Stable. Started on Ceftriaxone/Azithromycin - will switch Ceftriaxone to Zosyn given patient's immunocompromised state on immunotherapy. Sputum Cx and Urine Legionella/Strep Ag requested. Continue Solumedrol Bronchodilators Supplemental O2 as required. will switch to PO augmentin in AM if continues to be stable # New T8 Vertebral fracture on CT - secondary to fall Mild T spine tenderness CT Head/C-Spine - no acute findings. CT T/L Spine - new T8 compression fracture, old T5, L1/2 fractures. Will order MRI to evaluate acuity, stability, and ?association with possible mets. Microcytic Anemia/Iron deficinecy Anemia enlarged thyroid DVT Px - SCDs
[2020-05-20] MEDS: MELATONIN 1 MG TABLET PO SCH (22:32)
[2020-05-21] MEDS: PIPERACILLIN/TAZOB 3.375 GM 3.375 GM in DEXTROSE 5%-WATER - 50 ML IVPB SCH ×2 (02:22→09:35)
[2020-05-21 07:56] LABS: BASO % 0.2 % (0-2.0); EOS % 0.3 % (0-4.5); HEMATOCRIT 27.7 % (32.4-45.2); HEMOGLOBIN 8.6 GM/dL (10.7-15.3); LYMPH % 6.1 % (8-40); MCH 23.3 pg (25.7-33.7); MCHC 30.9 g/dl (32.0-36.0); MEAN CELL VOLUME 75.4 fl (80-96); MEAN PLT VOLUME 7.4 fl (7.5-11.1); MONO % 6.6 % (3.8-10.2); NEUT % 86.8 % (42.8-82.8); PLATELET COUNT 348 K/MM3 (134-434); RBC 3.67 M/mm3 (3.60-5.2); RDW 18.2 % (11.6-15.6)
[2020-05-21] MEDS: ALBUTEROL SO4 2.5/IPRATROPIUM 0.5 INH SOL 3 ML VIAL.NEB. NEB SCH ×4 (08:00→20:23)
[2020-05-21 08:29] LABS: BLOOD UREA NITROGEN 25.9 mg/dL (7-18); CALCIUM 8.4 mg/dL (8.5-10.1); CREATININE 0.7 mg/dL (0.55-1.3); MAGNESIUM 1.6 mg/dL (1.8-2.4); PHOSPHOROUS 3.3 mg/dL (2.5-4.9); POTASSIUM 3.9 mmol/L (3.5-5.1)
[2020-05-21] MEDS ORDERED: DEXTROSE 5%-WATER - 50 ML IVPB ONE (09:30)
[2020-05-21] MEDS ORDERED: PIPERACILLIN/TAZOBACTAM 3.375 GM VIAL IVPB ONE (09:30)
[2020-05-21] MEDS: AZITHROMYCIN IVPB 500 MG/250 ML BAG IVPB SCH (09:35)
[2020-05-21] MEDS: methylPREDNISolone NA SUCC 40 MG/1 ML VIAL IVPUSH SCH (09:37)
[2020-05-21] MEDS: PANTOPRAZOLE 40 MG TABLET PO SCH (09:37)
--- NOTE | 2020-05-21 10:49 | PN ---
Progress Note, Physician History of Present Illness: desats on room air and walking wbc has normalized - Current Medication List Current Medications: Active Medications Acetaminophen (Tylenol -) 650 mg PO Q4H PRN PRN Reason: PAIN LEVEL 6-10 Albuterol Sulfate (Ventolin 0.5% -) 1 amp NEB Q4H PRN PRN Reason: SHORT OF BREATH/WHEEZING Albuterol/Ipratropium (Duoneb -) 1 amp NEB RQID [facility] Last Admin: 05/20/20 21:04 Dose: 1 amp Documented by: IV Flush (Curtis-Cath Flush) 10 ml IVPUSH PRN PRN PRN Reason: protocol, maintain patency Azithromycin (Zithromax 500mg Ivpb (Pre-Docked)) 500 mg in 250 mls @ 250 mls/hr IVPB DAILY [facility] Last Admin: 05/21/20 09:35 Dose: 250 mls/hr Documented by: Piperacillin Sod/Tazobactam (Sod 3.375 gm/ Dextrose) 50 mls @ 100 mls/hr IVPB Q8H-IV [facility]; Protocol Last Admin: 05/21/20 09:35 Dose: 100 mls/hr Documented by: Melatonin (Melatonin) 1 mg PO HS [facility] [place] Last Admin: 05/20/20 22:32 Dose: 1 mg Documented by: Methylprednisolone Sodium Succinate (Solu-Medrol -) 40 mg IVPUSH DAILY [facility] Last Admin: 05/21/20 09:37 Dose: 40 mg Documented by: Pantoprazole Sodium (Protonix -) 40 mg PO DAILY [facility] Last Admin: 05/21/20 09:37 Dose: 40 mg Documented by: - Objective Vital Signs: Vital Signs Temperature 98.4 F 05/21/20 09:55 Pulse Rate 122 H 05/21/20 09:55 Respiratory Rate 18 05/21/20 09:55 Blood Pressure 109/65 05/21/20 09:55 O2 Sat by Pulse Oximetry (%) 94 L 05/21/20 09:55 Constitutional: Yes: No Distress, Calm Cardiovascular: Yes: S1, S2 Respiratory: Yes: Regular, CTA Bilaterally Gastrointestinal: Yes: Normal Bowel Sounds, Soft Musculoskeletal: Yes: WNL Extremities: Yes: WNL Neurological: Yes: Alert, Oriented Psychiatric: Yes: Alert, Oriented Labs: CBC, BMP 05/21/20 06:55 05/21/20 06:55 Assessment/Plan Problem List - Problems (1) Demand ischemia Code(s): I24.8 - OTHER FORMS OF ACUTE ISCHEMIC HEART DISEASE (2) Sinus tachycardia Code(s): R00.0 - TACHYCARDIA, UNSPECIFIED (3) Compression fracture of T8 vertebra Code(s): S22.060A - WEDGE COMPRESSION FRACTURE OF T7-T8 VERTEBRA, INIT Qualifiers: Encounter type: initial encounter Qualified Code(s): S22.060A - Wedge compression fracture of T7-T8 vertebra, initial encounter for closed fracture (4) Pneumonia Code(s): J18.9 - PNEUMONIA, UNSPECIFIED ORGANISM Qualifiers: Pneumonia type: due to unspecified organism Laterality: left Lung location: upper lobe of lung Qualified Code(s): J18.9 - Pneumonia, unspecified organism (5) SOB (shortness of breath) Code(s): R06.02 - SHORTNESS OF BREATH (6) COPD (chronic obstructive pulmonary disease) Code(s): J44.9 - CHRONIC OBSTRUCTIVE PULMONARY DISEASE, UNSPECIFIED Qualifiers: COPD type: unspecified COPD Qualified Code(s): J44.9 - Chronic obstructive pulmonary disease, unspecified (7) Mass of left lung Code(s): R91.8 - OTHER NONSPECIFIC ABNORMAL FINDING OF LUNG FIELD patient has developed a new effusion, also patient does not use oxygen at home plan i am going to continue zosyn for another 24 hours patient can be switched to oral augmentin needs oxygen still
--- NOTE | 2020-05-21 11:02 | PN ---
Progress Note, Physician History of Present Illness: Back pain improved, non-productive cough, denies dyspnea. - Current Medication List Current Medications: Active Medications Acetaminophen (Tylenol -) 650 mg PO Q4H PRN PRN Reason: PAIN LEVEL 6-10 Albuterol Sulfate (Ventolin 0.5% -) 1 amp NEB Q4H PRN PRN Reason: SHORT OF BREATH/WHEEZING Albuterol/Ipratropium (Duoneb -) 1 amp NEB RQID [facility] Last Admin: 05/21/20 08:00 Dose: Not Given Documented by: IV Flush (Curtis-Cath Flush) 10 ml IVPUSH PRN PRN PRN Reason: protocol, maintain patency Azithromycin (Zithromax 500mg Ivpb (Pre-Docked)) 500 mg in 250 mls @ 250 mls/hr IVPB DAILY [facility] Last Admin: 05/21/20 09:35 Dose: 250 mls/hr Documented by: Piperacillin Sod/Tazobactam (Sod 3.375 gm/ Dextrose) 50 mls @ 100 mls/hr IVPB Q8H-IV [facility]; Protocol Last Admin: 05/21/20 09:35 Dose: 100 mls/hr Documented by: Melatonin (Melatonin) 1 mg PO HS [facility] Last Admin: 05/20/20 22:32 Dose: 1 mg Documented by: Methylprednisolone Sodium Succinate (Solu-Medrol -) 40 mg IVPUSH DAILY [facility] Last Admin: 05/21/20 09:37 Dose: 40 mg Documented by: Pantoprazole Sodium (Protonix -) 40 mg PO DAILY [facility] Last Admin: 05/21/20 09:37 Dose: 40 mg Documented by: - Objective Vital Signs: Vital Signs Temperature 98.4 F 05/21/20 09:55 Pulse Rate 122 H 05/21/20 09:55 Respiratory Rate 18 05/21/20 09:55 Blood Pressure 109/65 05/21/20 09:55 O2 Sat by Pulse Oximetry (%) 94 L 05/21/20 09:55 Constitutional: Yes: No Distress, Calm, Thin Neck: Yes: Supple Cardiovascular: Yes: Tachycardia Respiratory: Yes: Regular, Diminished, On Nasal O2, SOB Gastrointestinal: Yes: Normal Bowel Sounds, Soft Musculoskeletal: Yes: Back Pain Edema: No Labs: CBC, BMP 05/21/20 06:55 05/21/20 06:55 Problem List - Problems (1) Demand ischemia Code(s): I24.8 - OTHER FORMS OF ACUTE ISCHEMIC HEART DISEASE (2) Sinus tachycardia Code(s): R00.0 - TACHYCARDIA, UNSPECIFIED (3) Compression fracture of T8 vertebra Code(s): S22.060A - WEDGE COMPRESSION FRACTURE OF T7-T8 VERTEBRA, INIT Qualifiers: Qualified Code(s): S22.060A - Wedge compression fracture of T7-T8 vertebra, initial encounter for closed fracture (4) Pneumonia Code(s): J18.9 - PNEUMONIA, UNSPECIFIED ORGANISM Qualifiers: Qualified Code(s): J18.9 - Pneumonia, unspecified organism (5) SOB (shortness of breath) Code(s): R06.02 - SHORTNESS OF BREATH (6) COPD (chronic obstructive pulmonary disease) Code(s): J44.9 - CHRONIC OBSTRUCTIVE PULMONARY DISEASE, UNSPECIFIED Qualifiers: Qualified Code(s): J44.9 - Chronic obstructive pulmonary disease, unspecified (7) Mass of left lung Code(s): R91.8 - OTHER NONSPECIFIC ABNORMAL FINDING OF LUNG FIELD Assessment/Plan 05/18/[address]: New compression fracture T8, with moderate-sized left effusi on and new small right effusion, MAHENDRA/periaortic mass unchanged 05/18/20 CT/MRI chest confirmed possible mets to T2,5,7, and collapse of T8 05/18/20 CT head neg for pathology 1. Mechanical fall due to gait instability, T8 compression fracture, mets to T2,5,7 2. Acute hypoxic respiratory failure, MAHENDRA mass with pleural effusion, r/o post- obstructive PNA 3. Sinus tachycardia and demand ischemia referable to above 4. Microcytic Anemia/Iron deficiency Anemia 5. Hypertension 6. COPD P:1. Empiric abx course, IV steroids with GI protection, BD, O2 as needed 2. Trops plateaued and downtrending, resume Bystolic 2.5 qd as hemodynamics tolerate 3. Analgesia as needed, PT as tolerated, DVT prophylaxis
--- NOTE | 2020-05-21 14:56 | PN ---
Teaching Attending Note Name of Resident: James Boudreaux ATTENDING PHYSICIAN STATEMENT I saw and evaluated the patient. I reviewed the resident's note and discussed the case with the resident. I agree with the resident's findings and plan as documented. SUBJECTIVE: pt seen and examined OBJECTIVE: Last Vital Signs Temp Pulse Resp BP Pulse Ox 98.4 F 125 H 18 109/65 95 05/21/20 09:55 05/21/20 11:29 05/21/20 09:55 05/21/20 09:55 05/21/20 11:29 HEENT - Atramatic, Normocephalic Heart - S1, S2, RRR Lungs - L sided crackles Abdomen - Soft, non-tender. Bowel Sounds normal. Extremities - no edema, no calf tenderness. Neuro - AAO x 3. Tone/power normal all extremities. MS - Mild tenderness lower thoracic spine. CBCD WBC 10.0 K/mm3 (4.0-10.0) 05/21/20 06:55 RBC 3.67 M/mm3 (3.60-5.2) 05/21/20 06:55 Hgb 8.6 GM/dL (10.7-15.3) L 05/21/20 06:55 Hct 27.7 % (32.4-45.2) L 05/21/20 06:55 MCV 75.4 fl (80-96) L 05/21/20 06:55 MCHC 30.9 g/dl (32.0-36.0) L 05/21/20 06:55 RDW 18.2 % (11.6-15.6) H 05/21/20 06:55 Plt Count 348 K/MM3 (134-434) 05/21/20 06:55 MPV 7.4 fl (7.5-11.1) L 05/21/20 06:55 CMP Sodium 142 mmol/L (136-145) 05/21/20 06:55 Potassium 3.9 mmol/L (3.5-5.1) 05/21/20 06:55 Chloride 103 mmol/L (98-107) 05/21/20 06:55 Carbon Dioxide 35 mmol/L (21-32) H 05/21/20 06:55 Anion Gap 4 MMOL/L (8-16) L 05/21/20 06:55 BUN 25.9 mg/dL (7-18) H 05/21/20 06:55 Creatinine 0.7 mg/dL (0.55-1.3) 05/21/20 06:55 Random Glucose 92 mg/dL (74-106) 05/21/20 06:55 Calcium 8.4 mg/dL (8.5-10.1) L 05/21/20 06:55 Total Bilirubin 0.6 mg/dL (0.2-1) 05/20/20 06:06 AST 16 U/L (15-37) 05/20/20 06:06 ALT 31 U/L (13-61) 05/20/20 06:06 Alkaline Phosphatase 120 U/L (45-117) H 05/20/20 06:06 Total Protein 6.1 g/dl (6.4-8.2) L 05/20/20 06:06 Albumin 2.3 g/dl (3.4-5.0) L 05/20/20 06:06 CARDIAC ENZYMES Creatine Kinase 25 U/L (26-192) L 05/18/20 13:50 Troponin I 0.08 ng/ml (0.00-0.05) H 05/19/20 00:30 Active Medications Acetaminophen (Tylenol -) 650 mg PO Q4H PRN PRN Reason: PAIN LEVEL 6-10 Albuterol Sulfate (Ventolin 0.5% -) 1 amp NEB Q4H PRN PRN Reason: SHORT OF BREATH/WHEEZING Albuterol/Ipratropium (Duoneb -) 1 amp NEB RQID [facility] Last Admin: 05/21/20 11:29 Dose: Not Given Documented by: Amoxicillin/Clavulanate Potassium (Augmentin - 875mg Tablet) 1 tab PO BID@0800,1730 [facility] Stop: 05/25/20 07:59 IV Flush (Curtis-Cath Flush) 10 ml IVPUSH PRN PRN PRN Reason: protocol, maintain patency Melatonin (Melatonin) 1 mg PO HS [facility] Last Admin: 05/20/20 22:32 Dose: 1 mg Documented by: Methylprednisolone Sodium Succinate (Solu-Medrol -) 40 mg IVPUSH DAILY [facility] Last Admin: 05/21/20 09:37 Dose: 40 mg Documented by: Pantoprazole Sodium (Protonix -) 40 mg PO DAILY [facility] Last Admin: 05/21/20 09:37 Dose: 40 mg Documented by: ASSESSMENT AND PLAN: 89 year old lady with history of left Squamous Cell Lung Cancer (diagnosed 2013, on Immunotherapy), HTN, COPD, Hx Thyroid nodules, Breast Ca s/p Mastectomy 1984, Hx of GI bleed (sec to duodenal ulcer 4 years ago), Depression, presents with 2 week history of worsening dyspnea, cough and mechanical fall # Sepsis and Acute Hypoxic respiratory Failure secondary to L sided Pneumonia (?post-obstructive) + Acute Exacerbation COPD CXR - MAHENDRA mass +/- consolidation Chest CT - MAHENDRA/hany-aortic mass, L sided pleural effusion ?underlying consolidation Leukocytosis resolved, still tachy Afebrile, Hemodynamically Stable. Started on Ceftriaxone/Azithromycin - will switch Ceftriaxone to Zosyn given patient's immunocompromised state on immunotherapy. Sputum Cx and Urine Legionella/Strep Ag requested. Continue Solumedrol Bronchodilators Supplemental O2 as required. will switch to PO augmentin in AM if continues to be stable # New T8 Vertebral fracture on CT - secondary to fall Mild T spine tenderness CT/MRI chest confirmed possible mets to T2,5,7, and collapse of T8 CT head neg for pathology Microcytic Anemia/Iron deficinecy Anemia enlarged thyroid DVT Px - SCDs
--- NOTE | 2020-05-21 15:06 | DS ---
Physical Exam: SUBJECTIVE: Patient seen and examined. No acute overnight events OBJECTIVE: Vital Signs Period Temp Pulse Resp BP Sys/Delatorre Pulse Ox Last 24 Hr 97.4 F-98.4 F 103-125 18-21 95-129/58-74 92-100 PHYSICAL EXAM GENERAL: The patient is awake, alert, and fully oriented, in no acute distress. HEENT: NCAT. PERRLA EOMI. LUNGS: Decreased breath sounds in left upper lobe. No wheezing. HEART: Regular rate and rhythm, S1, S2 without murmur, rub or gallop. ABDOMEN: Soft, nontender, nondistended, normoactive bowel sounds, no guarding. EXTREMITIES: 2+ pulses, warm, well-perfused, no edema. NEUROLOGICAL: Cranial nerves II through XII grossly intact. PSYCH: Normal mood, normal affect. SKIN: Warm, dry, normal turgor, no rashes or lesions noted LABS Laboratory Results - last 24 hr 05/21/20 05/21/20 06:55 06:55 WBC 10.0 RBC 3.67 Hgb 8.6 L Hct 27.7 L MCV 75.4 L MCH 23.3 L MCHC 30.9 L RDW 18.2 H Plt Count 348 MPV 7.4 L Absolute Neuts (auto) 8.7 H Neutrophils % 86.8 H Lymphocytes % 6.1 L Monocytes % 6.6 Eosinophils % 0.3 D Basophils % 0.2 Nucleated RBC % 0 Sodium 142 Potassium 3.9 Chloride 103 Carbon Dioxide 35 H Anion Gap 4 L BUN 25.9 H Creatinine 0.7 Est GFR (CKD-EPI)AfAm 90.29 Est GFR (CKD-EPI)NonAf 77.90 Random Glucose 92 Calcium 8.4 L Phosphorus 3.3 Magnesium 1.6 L HOSPITAL COURSE: 89 y.o. F PMH left squamous cell lung CA (diagnosed 2013, on immunotherapy once evry [address] Garcia's oncology service), HTN, COPD, thyroid nodules, breast CA s/p mastectomy in 1984, hx of GI bleed (sec to duodenal ulcer ~2015), depression presented to the hospital with a 2 week history of worsening dyspnea, cough and mechanical fall. Patient was admitted for sepsis and acute hypoxic respiratory failure secondary to left sided pneumonia with an overlying acute COPD exacerbation as well as mechanical fall. She was treated with IV rocephin/ zithromax in light of her immunocompromised state on immunotherapy. She was also started on steroids, bronchodilators and supplemental oxygen. Patient has been transitioned to PO Augmentin which she will continue for an additional 3 days, totaling 7 days of antibiotics. While here the patient was found to have a new T8 vertebral fracture likely s/p mechanical fall. Imaging also significant for findings of possible metastasis to T2, T5 and T7. Patient was informed of these findings with instructions to follow up with her oncologist Dr. Garcia; she has an appointment scheduled for May 29. She will be sent home with home oxygen which has been set up at her home. Date of Admission:05/18/20 * 05/18 CT C-spine: Significant degenerative changes of the cervical spine as described No compression fracture Incidental findings of left upper lobe mass and abnormal thyroid gland Clinically warranted consider MRI of the cervical spine, ultrasound of the thyroid gland and CT scan of the chest * 05/18 CT head: No acute bleed or mass or fracture.No CT evidence of acute infarct. * 05/18 CT L&T-spine: New compression fracture of T8 not seen on recent prior study of 04/22/2020 . Compression fracture deformities of T5, L1 and L2 were noted on the prior study Multilevel degenerative changes * 05/18 CT chest: IMPRESSION: Compared to recent CT scan of the chest of 04/22/2020 there is a new compression fracture at T8. In addition there is increased size of a moderate-sized left pleural effusion and there is a new small right pleural effusion. Left upper lobe/periaortic mass is again noted grossly unchanged in size taking account differences in scanning technique * 05/18 L knee XR: No acute left knee pathology. 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 No large epidural soft tissue component or prevertebral soft tissue paravertebral masses. Left side pleural effusion with loss of volume left lung sequela most probably to prior surgery with history of lung cancer. Date of Discharge: 05/21/20 Discharge Summary Problems reviewed: Yes Reason For Visit: SHORTNESS OF BREATH,PNEUMONIA Current Active Problems Anemia (Acute) COPD (chronic obstructive pulmonary disease) (Acute) Compression fracture of T8 vertebra (Acute) Demand ischemia (Acute) Mass of left lung (Acute) Pneumonia (Acute) SOB (shortness of breath) (Acute) Sinus tachycardia (Acute) Condition: Stable - Instructions Diet, Activity, Other Instructions: Your visit: You were admitted to the hospital for shortness of breath. You were found to have pneumonia. You were treated with antibiotics, oxygen and steroids with improvement of your symptoms. You were also found to have -an enlarged thyroid -compression fracture in the T8 level of your spine Medications: Take the antibiotic Augmentin 500-125mg, 1 pill 2 times per day. Follow up: 1. Primary care doctor in 2 weeks for post hospital follow up care. 2. Oncologist as soon as possible. You were found to have new lesions in your spine that are likely from your cancer. It is important you discuss these findings with your oncologist for further management and treatment options. 3. Firestopper Installer in 2 weeks. 4. Endrocrinologist, Dr. Obnado, for enlarged thyroid Additional Instructions: -You are being discharged to your home. -Please return to the Emergency Department if you experience worsening pain, fevers, chills, shortness of breath, or chest pain, or if you experience any worsening, new or concerning symptoms. Referrals: Fito Yoon MD [Staff Physician] - Sky Varela MD [Staff Physician] - Karlo Obando MD [Staff Physician] - Bro Garcia MD [Staff Physician] - Adrian Martinez MD [Staff Physician] - Disposition: HOME - Home Medications Comprehensive Discharge Medication List: Ambulatory Orders Sertraline HCl [Zoloft] 12.5 mg PO ASDIR 09/28/11 Alprazolam 0.25 mg PO ASDIR PRN 03/15/19 Mirtazapine 15 mg PO HS 03/15/19 Albuterol Sulfate Inhaler - [Ventolin HFA Inhaler -] 1 puff IH ASDIR 04/01/20 Omeprazole Magnesium [Prilosec] 2.5 mg PO DAILY 04/01/20 Umeclidinium Brm/Vilanterol Tr [Anoro Ellipta 62.5-25 Mcg INH] 1 puff IH ASDIR 04/01/20 Magnesium Oxide [Mag-Ox -] 400 mg PO DAILY 05/19/20 Nebivolol HCl [Bystolic] 10 mg PO HS 05/19/20 Tramadol HCl 25 mg PO DAILY PRN 05/19/20 Amoxicillin/Potassium Clav [Augmentin 500-125 Tablet] 1 each PO BID 3 Days #6 tablet 05/21/20 ATTENDING PHYSICIAN STATEMENT I saw and evaluated the patient. I reviewed the resident's note and discussed the case with the resident. I agree with the resident's findings and plan as documented. SUBJECTIVE: OBJECTIVE: ASSESSMENT AND PLAN:
[2020-05-21 20:51] VITALS: TEMP 97.8
[2020-05-21] MEDS: MELATONIN 1 MG TABLET PO SCH (21:44)
[2020-05-22] MEDS ORDERED: AMOX TR/POT CLAV 875MG/125MG TABLETS (FP) PO SCH (08:00)
[2020-05-22] MEDS: ALBUTEROL SO4 2.5/IPRATROPIUM 0.5 INH SOL 3 ML VIAL.NEB. NEB SCH ×3 (08:05→11:27)
[2020-05-22 08:43] VITALS: BP 100/56; PULSE 115
[2020-05-22] MEDS: methylPREDNISolone NA SUCC 40 MG/1 ML VIAL IVPUSH SCH (09:05)
[2020-05-22] MEDS: PANTOPRAZOLE 40 MG TABLET PO SCH (09:05)
[2020-05-22] MEDS ORDERED: NEBIVOLOL 2.5 MG TABLET (FP) PO SCH (10:00)
--- NOTE | 2020-05-22 10:11 | PN ---
Progress Note, Physician History of Present Illness: Back pain improved, non-productive cough, denies dyspnea. - Current Medication List Current Medications: Active Medications Acetaminophen (Tylenol -) 650 mg PO Q4H PRN PRN Reason: PAIN LEVEL 6-10 Albuterol Sulfate (Ventolin 0.5% -) 1 amp NEB Q4H PRN PRN Reason: SHORT OF BREATH/WHEEZING Albuterol/Ipratropium (Duoneb -) 1 amp NEB RQID [facility] Last Admin: 05/22/20 08:05 Dose: 1 amp Documented by: Amoxicillin/Clavulanate Potassium (Augmentin - 875mg Tablet) 1 tab PO BID@0800,1730 [facility] Stop: 05/25/20 07:59 Last Admin: 05/22/20 09:05 Dose: 1 tab Documented by: IV Flush (Curtis-Cath Flush) 10 ml IVPUSH PRN PRN PRN Reason: protocol, maintain patency Melatonin (Melatonin) 1 mg PO HS [facility] Last Admin: 05/21/20 21:44 Dose: 1 mg Documented by: Methylprednisolone Sodium Succinate (Solu-Medrol -) 40 mg IVPUSH DAILY [facility] Last Admin: 05/22/20 09:05 Dose: 40 mg Documented by: Nebivolol (Bystolic -) 2.5 mg PO DAILY [facility] Last Admin: 05/22/20 09:05 Dose: 2.5 mg Documented by: Pantoprazole Sodium (Protonix -) 40 mg PO DAILY [facility] Last Admin: 05/22/20 09:05 Dose: 40 mg Documented by: - Objective Vital Signs: Vital Signs Temperature 97.8 F 05/22/20 08:42 Pulse Rate 115 H 05/22/20 08:42 Respiratory Rate 20 05/22/20 08:42 Blood Pressure 100/56 L 05/22/20 08:42 O2 Sat by Pulse Oximetry (%) 94 L 05/22/20 08:42 Constitutional: Yes: No Distress, Calm, Thin Neck: Yes: Supple Cardiovascular: Yes: Regular Rate and Rhythm Respiratory: Yes: Regular, CTA Bilaterally Gastrointestinal: Yes: Normal Bowel Sounds, Soft Edema: No Labs: CBC, BMP 05/21/20 06:55 05/21/20 06:55 Problem List - Problems (1) Demand ischemia Code(s): I24.8 - OTHER FORMS OF ACUTE ISCHEMIC HEART DISEASE (2) Sinus tachycardia Code(s): R00.0 - TACHYCARDIA, UNSPECIFIED (3) Compression fracture of T8 vertebra Code(s): S22.060A - WEDGE COMPRESSION FRACTURE OF T7-T8 VERTEBRA, INIT Qualifiers: Encounter type: initial encounter Qualified Code(s): S22.060A - Wedge compression fracture of T7-T8 vertebra, initial encounter for closed fracture (4) Pneumonia Code(s): J18.9 - PNEUMONIA, UNSPECIFIED ORGANISM Qualifiers: Pneumonia type: due to unspecified organism Laterality: left Lung location: upper lobe of lung Qualified Code(s): J18.9 - Pneumonia, unspecified organism (5) SOB (shortness of breath) Code(s): R06.02 - SHORTNESS OF BREATH (6) COPD (chronic obstructive pulmonary disease) Code(s): J44.9 - CHRONIC OBSTRUCTIVE PULMONARY DISEASE, UNSPECIFIED Qualifiers: COPD type: unspecified COPD Qualified Code(s): J44.9 - Chronic obstructive pulmonary disease, unspecified (7) Mass of left lung Code(s): R91.8 - OTHER NONSPECIFIC ABNORMAL FINDING OF LUNG FIELD Assessment/Plan 05/18/[address]: New compression fracture T8, with moderate-sized left effusion and new small right effusion, MAHENDRA/periaortic mass unchanged 05/18/20 CT/MRI chest confirmed possible mets to T2,5,7, and collapse of T8 05/18/20 CT head neg for pathology 1. Mechanical fall due to gait instability, T8 compression fracture, mets to T2,5,7 2. Acute hypoxic respiratory failure, MAHENDRA mass with pleural effusion, r/o post- obstructive PNA 3. Sinus tachycardia and demand ischemia referable to above 4. Microcytic Anemia/Iron deficiency Anemia 5. Hypertension 6. COPD P:1. Empiric abx course, IV steroids with GI protection, BD, O2 as needed 2. Trops plateaued and downtrending, resume Bystolic 2.5 qd as hemodynamics tolerate 3. Analgesia as needed, PT as tolerated, DVT prophylaxis
--- NOTE | 2020-05-22 10:28 | PN ---
Progress Note, Physician History of Present Illness: stable no new issues - Current Medication List Current Medications: Active Medications Acetaminophen (Tylenol -) 650 mg PO Q4H PRN PRN Reason: PAIN LEVEL 6-10 Albuterol Sulfate (Ventolin 0.5% -) 1 amp NEB Q4H PRN PRN Reason: SHORT OF BREATH/WHEEZING Albuterol/Ipratropium (Duoneb -) 1 amp NEB RQID [facility] Last Admin: 05/22/20 08:05 Dose: 1 amp Documented by: Amoxicillin/Clavulanate Potassium (Augmentin - 875mg Tablet) 1 tab PO BID@0800,1730 [facility] Stop: 05/25/20 07:59 Last Admin: 05/22/20 09:05 Dose: 1 tab Documented by: IV Flush (Curtis-Cath Flush) 10 ml IVPUSH PRN PRN PRN Reason: protocol, maintain patency Melatonin (Melatonin) 1 mg PO HS [facility] Last Admin: 05/21/20 21:44 Dose: 1 mg Documented by: Methylprednisolone Sodium Succinate (Solu-Medrol -) 40 mg IVPUSH DAILY [facility] Last Admin: 05/22/20 09:05 Dose: 40 mg Documented by: Nebivolol (Bystolic -) 2.5 mg PO DAILY [facility] Last Admin: 05/22/20 09:05 Dose: 2.5 mg Documented by: Pantoprazole Sodium (Protonix -) 40 mg PO DAILY [facility] Last Admin: 05/22/20 09:05 Dose: 40 mg Documented by: - Objective Vital Signs: Vital Signs Temperature 97.8 F 05/22/20 08:42 Pulse Rate 115 H 05/22/20 08:42 Respiratory Rate 20 05/22/20 08:42 Blood Pressure 100/56 L 05/22/20 08:42 O2 Sat by Pulse Oximetry (%) 94 L 05/22/20 08:42 Constitutional: Yes: No Distress, Calm Cardiovascular: Yes: S1, S2 Respiratory: Yes: Regular, On Nasal O2, Poor Air Entry Gastrointestinal: Yes: Normal Bowel Sounds, Soft Musculoskeletal: Yes: WNL Extremities: Yes: WNL Neurological: Yes: Alert, Oriented Psychiatric: Yes: Alert, Oriented Labs: CBC, BMP 05/21/20 06:55 05/21/20 06:55 Assessment/Plan Problem List - Problems (1) Demand ischemia Code(s): I24.8 - OTHER FORMS OF ACUTE ISCHEMIC HEART DISEASE (2) Sinus tachycardia Code(s): R00.0 - TACHYCARDIA, UNSPECIFIED (3) Compression fracture of T8 vertebra Code(s): S22.060A - WEDGE COMPRESSION FRACTURE OF T7-T8 VERTEBRA, INIT Qualifiers: Encounter type: initial encounter Qualified Code(s): S22.060A - Wedge compression fracture of T7-T8 vertebra, initial encounter for closed fracture (4) Pneumonia Code(s): J18.9 - PNEUMONIA, UNSPECIFIED ORGANISM Qualifiers: Pneumonia type: due to unspecified organism Laterality: left Lung location: upper lobe of lung Qualified Code(s): J18.9 - Pneumonia, unspecified organism (5) SOB (shortness of breath) Code(s): R06.02 - SHORTNESS OF BREATH (6) COPD (chronic obstructive pulmonary disease) Code(s): J44.9 - CHRONIC OBSTRUCTIVE PULMONARY DISEASE, UNSPECIFIED Qualifiers: COPD type: unspecified COPD Qualified Code(s): J44.9 - Chronic obstructive pulmonary disease, unspecified (7) Mass of left lung Code(s): R91.8 - OTHER NONSPECIFIC ABNORMAL FINDING OF LUNG FIELD patient has developed a new effusion, also patient does not use oxygen at home plan oral abx resp support rest as per the team
--- NOTE | 2020-05-22 15:55 | PN ---
Teaching Attending Note Name of Resident: Romelia Ruby ATTENDING PHYSICIAN STATEMENT I saw and evaluated the patient. I reviewed the resident's note and discussed the case with the resident. I agree with the resident's findings and plan as documented. SUBJECTIVE: pt seen and examined OBJECTIVE: Last Vital Signs Temp Pulse Resp BP Pulse Ox 97.8 F 115 H 20 100/56 L 94 L 05/22/20 08:42 05/22/20 08:42 05/22/20 08:42 05/22/20 08:42 05/22/20 09:00 HEENT - Atramatic, Normocephalic Heart - S1, S2, RRR Lungs - L sided crackles Abdomen - Soft, non-tender. Bowel Sounds normal. Extremities - no edema, no calf tenderness. Neuro - AAO x 3. Tone/power normal all extremities. MS - Mild tenderness lower thoracic spine. Laboratory Last Values WBC 10.0 K/mm3 (4.0-10.0) 05/21/20 06:55 RBC 3.67 M/mm3 (3.60-5.2) 05/21/20 06:55 Hgb 8.6 GM/dL (10.7-15.3) L 05/21/20 06:55 Hct 27.7 % (32.4-45.2) L 05/21/20 06:55 MCV 75.4 fl (80-96) L 05/21/20 06:55 MCH 23.3 pg (25.7-33.7) L 05/21/20 06:55 MCHC 30.9 g/dl (32.0-36.0) L 05/21/20 06:55 RDW 18.2 % (11.6-15.6) H 05/21/20 06:55 Plt Count 348 K/MM3 (134-434) 05/21/20 06:55 MPV 7.4 fl (7.5-11.1) L 05/21/20 06:55 Absolute Neuts (auto) 8.7 K/mm3 (1.5-8.0) H 05/21/20 06:55 Neutrophils % 86.8 % (42.8-82.8) H 05/21/20 06:55 Neutrophils % (Manual) 100.0 % (42.8-82.8) H 05/19/20 05:35 Band Neutrophils % 0.0 % 05/19/20 05:35 Lymphocytes % 6.1 % (8-40) L 05/21/20 06:55 Lymphocytes % (Manual) 0.0 % (8-40) L 05/19/20 05:35 Monocytes % 6.6 % (3.8-10.2) 05/21/20 06:55 Monocytes % (Manual) 0 % (3.8-10.2) L 05/19/20 05:35 Eosinophils % 0.3 % (0-4.5) D 05/21/20 06:55 Eosinophils % (Manual) 0.0 % (0-4.5) 05/19/20 05:35 Basophils % 0.2 % (0-2.0) 05/21/20 06:55 Basophils % (Manual) 0.0 % (0-2.0) 05/19/20 05:35 Myelocytes % (Man) 0 % (0-2) 05/19/20 05:35 Promyelocytes % (Man) 0 % (0-2) 05/19/20 05:35 Blast Cells % (Manual) 0 % (0-0) 05/19/20 05:35 Nucleated RBC % 0 % (0-0) 05/21/20 06:55 Metamyelocytes 0 % (0-2) 05/19/20 05:35 Hypochromia 2+ 05/19/20 05:35 Platelet Estimate Normal 05/19/20 05:35 Polychromasia 1+ 05/19/20 05:35 Poikilocytosis 1+ 05/19/20 05:35 Basophilic Stippling 1+ 05/19/20 05:35 Anisocytosis 2+ 05/19/20 05:35 Microcytosis 2+ 05/19/20 05:35 Macrocytosis 0 05/19/20 05:35 Ovalocytes 1+ 05/19/20 05:35 Sodium 142 mmol/L (136-145) 05/21/20 06:55 Potassium 3.9 mmol/L (3.5-5.1) 05/21/20 06:55 Chloride 103 mmol/L (98-107) 05/21/20 06:55 Carbon Dioxide 35 mmol/L (21-32) H 05/21/20 06:55 Anion Gap 4 MMOL/L (8-16) L 05/21/20 06:55 BUN 25.9 mg/dL (7-18) H 05/21/20 06:55 Creatinine 0.7 mg/dL (0.55-1.3) 05/21/20 06:55 Est GFR (CKD-EPI)AfAm 90.29 05/21/20 06:55 Est GFR (CKD-EPI)NonAf 77.90 05/21/20 06:55 Random Glucose 92 mg/dL (74-106) 05/21/20 06:55 Calcium 8.4 mg/dL (8.5-10.1) L 05/21/20 06:55 Phosphorus 3.3 mg/dL (2.5-4.9) 05/21/20 06:55 Magnesium 1.6 mg/dL (1.8-2.4) L 05/21/20 06:55 Iron 13 ug/dL (50-175) L 05/19/20 05:35 TIBC 207 ug/dL (250-450) L 05/19/20 05:35 Iron Saturation 6 % (17.5-39) L 05/19/20 05:35 Unsaturated IBC 194 ug/dL (200-275) L 05/19/20 05:35 Ferritin 459.1 ng/ml (8-388) H 05/19/20 05:35 Total Bilirubin 0.6 mg/dL (0.2-1) 05/20/20 06:06 AST 16 U/L (15-37) 05/20/20 06:06 ALT 31 U/L (13-61) 05/20/20 06:06 Alkaline Phosphatase 120 U/L (45-117) H 05/20/20 06:06 Creatine Kinase 25 U/L (26-192) L 05/18/20 13:50 Troponin I 0.08 ng/ml (0.00-0.05) H 05/19/20 00:30 Total Protein 6.1 g/dl (6.4-8.2) L 05/20/20 06:06 Albumin 2.3 g/dl (3.4-5.0) L 05/20/20 06:06 Urine Color Yellow 05/20/20 06:06 Urine Appearance Cloudy 05/20/20 06:06 Urine pH 5.0 (5.0-8.0) 05/20/20 06:06 Ur Specific [place] 1.025 (1.010-1.035) 05/20/20 06:06 Urine Protein Negative (NEGATIVE) 05/20/20 06:06 Urine Glucose (UA) Negative (NEGATIVE) 05/20/20 06:06 Urine Ketones Negative (NEGATIVE) 05/20/20 06:06 Urine Blood Negative (NEGATIVE) 05/20/20 06:06 Urine Nitrite Negative (NEGATIVE) 05/20/20 06:06 Urine Bilirubin Negative (NEGATIVE) 05/20/20 06:06 Urine Urobilinogen 0.2 mg/dL (0.2-1.0) 05/20/20 06:06 Ur Leukocyte Esterase Negative (NEGATIVE) 05/20/20 06:06 COVID-19 (KAROL) Not detected (Not Detected) 05/18/20 20:53 Blood Type O POSITIVE 05/18/20 13:50 Antibody Screen Negative 05/18/20 13:50 ASSESSMENT AND PLAN: 89 year old lady with history of left Squamous Cell Lung Cancer (diagnosed 2013, on Immunotherapy), HTN, COPD, Hx Thyroid nodules, Breast Ca s/p Mastectomy 1984, Hx of GI bleed (sec to duodenal ulcer 4 years ago), Depression, presents with 2 week history of worsening dyspnea, cough and mechanical fall # Sepsis and Acute Hypoxic respiratory Failure secondary to L sided Pneumonia (?post-obstructive) + Acute Exacerbation COPD resolved CXR - MAHENDRA mass +/- consolidation Chest CT - MAHENDRA/hany-aortic mass, L sided pleural effusion ?underlying consolidation Leukocytosis resolved, still tachy culture results noted Afebrile, Hemodynamically Stable. 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
== END 2020-05-22 11:48 | disposition home or self-care (01) | DRG 871 ==
LOC: JER 12:27 → JERBED 19:37 → J7W 05-19 18:32
PROVIDERS: ADMIT Internal Medicine; ATTEND Student in an Organized Health Care Education/Training Program
DX: A41.89 Other specified sepsis (principal); J96.01 Acute respiratory failure with hypoxia; J18.9 Pneumonia, unspecified organism; S22.060A Wedge compression fracture of T7-T8 vertebra, initial encounter for closed fracture; I24.8 Other forms of acute ischemic heart disease; J44.1 Chronic obstructive pulmonary disease with (acute) exacerbation; E46 Unspecified protein-calorie malnutrition; R64 Cachexia; J90 Pleural effusion, not elsewhere classified; C79.51 Secondary malignant neoplasm of bone; C50.919 Malignant neoplasm of unspecified site of unspecified female breast; R00.0 Tachycardia, unspecified; D72.829 Elevated white blood cell count, unspecified; E88.09 Other disorders of plasma-protein metabolism, not elsewhere classified; I10 Essential (primary) hypertension; E03.9 Hypothyroidism, unspecified; M25.562 Pain in left knee; Z68.20 Body mass index [BMI] 20.0-20.9, adult; D50.9 Iron deficiency anemia, unspecified; R26.9 Unspecified abnormalities of gait and mobility; R91.8 Other nonspecific abnormal finding of lung field; M48.56XG Collapsed vertebra, not elsewhere classified, lumbar region, subsequent encounter for fracture with delayed healing; W17.89XA Other fall from one level to another, initial encounter; Y92.098 Other place in other non-institutional residence as the place of occurrence of the external cause
CPT/HCPCS: 36415; 70450-TC; 71250-TC; 72125-TC; 72128-TC; 72131-TC; 72146-TC; 73562-TC-LT-FY; 80048; 80053; 81003; 82550; 82728; 83540; 83550; 83735; 84100; 84484; 85025; 86850; 86900; 86901; 87070; 87077; 87086; 87205; 87899; 93005; 93010; 94640; 94761; 97116-GP; 97161-GP; 99285-25; C9803; J0131; Q2036; U0003

== ENCOUNTER 2020-07-01 07:11 | Day surgery (SDC) | payer OTHER, BC ==
[2020-07-01] MEDS ORDERED: SODIUM CHLORIDE 250 ML IV ONE (10:00)
[2020-07-01] MEDS ORDERED: IRON SUCROSE INJECTION 200 MG in SODIUM CHLORIDE 100 ML IVPB ONE (10:00)
[2020-07-01 10:03] LABS: BASO % 0.2 % (0-2.0); EOS % 0.2 % (0-4.5); HEMATOCRIT 35.4 % (32.4-45.2); HEMOGLOBIN 10.8 GM/dL (10.7-15.3); LYMPH % 8.1 % (8-40); MCH 23.1 pg (25.7-33.7); MCHC 30.4 g/dl (32.0-36.0); MEAN PLT VOLUME 7.8 fl (7.5-11.1); MONO % 7.6 % (3.8-10.2); NEUT % 83.9 % (42.8-82.8); PLATELET COUNT 282 K/MM3 (134-434); RBC 4.65 M/mm3 (3.60-5.2); RDW 20.6 % (11.6-15.6); WHITE BLOOD COUNT 10.9 K/mm3 (4.0-10.0)
[2020-07-01 10:28] LABS: BLOOD UREA NITROGEN 24.9 mg/dL (7-18); CALCIUM 8.7 mg/dL (8.5-10.1)
[2020-07-01 10:29] LABS: MAGNESIUM 1.7 mg/dL (1.8-2.4)
[2020-07-01 10:31] LABS: BILIRUBIN,DIRECT 0.2 mg/dL (0.0-0.2); CREATININE 0.8 mg/dL (0.55-1.3)
[2020-07-01 10:33] LABS: BILIRUBIN,TOTAL 0.4 mg/dL (0.2-1); TOT PROT 6.6 g/dl (6.4-8.2)
[2020-07-01] MEDS ORDERED: LIDOCAINE 5% TOPICAL PATCH TP ONE (10:36)
[2020-07-01] MEDS ORDERED: MAGNESIUM OXIDE 400 MG TABLET (FP) PO ONE (11:00)
[2020-07-01] MEDS ORDERED: DEXAMETHASONE SODIUM PHOSPHATE 10 MG, ONDANSETRON INJECTION 12 MG in SODIUM CHLORIDE 10... IVPB ONE (11:00)
[2020-07-01] MEDS ORDERED: SODIUM CHLORIDE IVPB ONE (11:30)
[2020-07-01] MEDS ORDERED: NIVOLUMAB IVPB ONE (11:30)
[2020-07-01 12:02] LABS: ANISOCYTOSIS 2+; MACROCYTOSIS 0; PLATELET ESTIMATE NORMAL
[2020-07-01 15:19] VITALS: TEMP 97.7
[2020-07-01 15:20] VITALS: BP 110/56; PULSE 105
[2020-07-01] MEDS ORDERED: LIDOCAINE PATCH REMOVAL MC SCH (22:00)
== END 2020-07-01 13:22 | disposition home or self-care (01) ==
LOC: JONCCHEMO 07:11
PROVIDERS: ATTEND Internal Medicine Hematology & Oncology
DX: Z51.11 Encounter for antineoplastic chemotherapy (principal); C34.12 Malignant neoplasm of upper lobe, left bronchus or lung; C50.412 Malignant neoplasm of upper-outer quadrant of left female breast
CPT/HCPCS: 36415; 80048; 80076; 83735; 85025; 96361; 96367; 96413; J1756; J9299

== ENCOUNTER 2020-07-17 06:06 | Day surgery (SDC) | payer OTHER, BC ==
[2020-07-17 09:34] LABS: BASO % 0.4 % (0-2.0); EOS % 0.2 % (0-4.5); HEMATOCRIT 40.3 % (32.4-45.2); HEMOGLOBIN 12.5 GM/dL (10.7-15.3); LYMPH % 12.7 % (8-40); MCH 24.6 pg (25.7-33.7); MEAN CELL VOLUME 79.4 fl (80-96); MEAN PLT VOLUME 7.6 fl (7.5-11.1); NEUT % 81.7 % (42.8-82.8); PLATELET COUNT 259 K/MM3 (134-434); RBC 5.08 M/mm3 (3.60-5.2); RDW 22.2 % (11.6-15.6); WHITE BLOOD COUNT 9.1 K/mm3 (4.0-10.0)
[2020-07-17 09:46] LABS: POTASSIUM 3.8 mmol/L (3.5-5.1)
[2020-07-17 09:48] LABS: ALBUMIN 3.3 g/dl (3.4-5.0); BLOOD UREA NITROGEN 29.4 mg/dL (7-18); CALCIUM 8.8 mg/dL (8.5-10.1); MAGNESIUM 1.6 mg/dL (1.8-2.4)
[2020-07-17 09:51] LABS: BILIRUBIN,DIRECT 0.1 mg/dL (0.0-0.2); CREATININE 1.2 mg/dL (0.55-1.3)
[2020-07-17 09:53] LABS: BILIRUBIN,TOTAL 0.5 mg/dL (0.2-1); TOT PROT 6.8 g/dl (6.4-8.2)
[2020-07-17] MEDS ORDERED: SODIUM CHLORIDE 250 ML IV ONE (10:00)
[2020-07-17] MEDS ORDERED: IRON SUCROSE INJECTION 200 MG in SODIUM CHLORIDE 100 ML IVPB ONE (10:00)
[2020-07-17] MEDS ORDERED: MAGNESIUM SULF 50% (8.12 MEQ/2 ML-1 GM VIAL) IVPB ONE (10:11)
[2020-07-17] MEDS ORDERED: MAGNESIUM SULFATE IN WATER 2 GM/50 ML IVPB IVPB ONE (10:15)
[2020-07-17] MEDS ORDERED: ALTEPLASE 2 MG VIAL NR ONE (10:53)
[2020-07-17] MEDS ORDERED: DEXAMETHASONE SODIUM PHOSPHATE 10 MG, ONDANSETRON INJECTION 12 MG in SODIUM CHLORIDE 10... IVPB ONE (11:00)
[2020-07-17] MEDS ORDERED: NIVOLUMAB IVPB ONE (11:30)
[2020-07-17] MEDS ORDERED: SODIUM CHLORIDE IVPB ONE (11:30)
[2020-07-17] MEDS ORDERED: PORTA CATH FLUSH 10 ML IVPUSH ONE (16:26)
[2020-07-17 16:27] VITALS: BP 122/73; PULSE 114; TEMP 98.4
== END 2020-07-17 16:38 | disposition home or self-care (01) ==
LOC: JONCCHEMO 06:06
PROVIDERS: ATTEND Student in an Organized Health Care Education/Training Program
DX: Z51.11 Encounter for antineoplastic chemotherapy (principal); C34.90 Malignant neoplasm of unspecified part of unspecified bronchus or lung; D50.9 Iron deficiency anemia, unspecified
CPT/HCPCS: 36415; 80048; 80076; 82150; 83690; 83735; 84439; 84443; 85025; 96361; 96367; 96413; J1756; J2997; J9299

== ENCOUNTER 2020-07-22 10:30 | Emergency (ER) | payer OTHER, BC ==
[2020-07-22 10:47] VITALS: TEMP 98.4; BMI 19.5
[2020-07-22] MEDS ORDERED: ACETAMINOPHEN 325 MG TABLET (FP) PO ONE ×2 (11:19→11:43)
[2020-07-22] MEDS ORDERED: ACETAMINOPHEN 325 MG TABLET (FP) ONE (11:38)
[2020-07-22 12:16] VITALS: BP 104/86; PULSE 120
[2020-07-22 12:35] LABS: BASO % 0.2 % (0-2.0); HEMATOCRIT 37.7 % (32.4-45.2); HEMOGLOBIN 11.4 GM/dL (10.7-15.3); LYMPH % 2.4 % (8-40); MCH 24.2 pg (25.7-33.7); MCHC 30.3 g/dl (32.0-36.0); MEAN PLT VOLUME 7.9 fl (7.5-11.1); MONO % 5.2 % (3.8-10.2); NEUT % 92.2 % (42.8-82.8); PLATELET COUNT 266 K/MM3 (134-434); RBC 4.71 M/mm3 (3.60-5.2); RDW 22.6 % (11.6-15.6); WHITE BLOOD COUNT 19.1 K/mm3 (4.0-10.0)
[2020-07-22 12:41] LABS: INR 0.97 (0.83-1.09); PROTHROMBIN TIME (PATIENT) 11.9 SEC (9.7-13.0)
[2020-07-22 12:44] LABS: ACTIVATED PTT 21.6 SECONDS (25.2-36.5)
[2020-07-22 12:51] LABS: POTASSIUM 4.9 mmol/L (3.5-5.1)
[2020-07-22 12:52] LABS: CALCIUM 8.9 mg/dL (8.5-10.1)
[2020-07-22 12:53] LABS: ALBUMIN 3.2 g/dl (3.4-5.0); BLOOD UREA NITROGEN 23.7 mg/dL (7-18)
[2020-07-22 12:56] LABS: CREATININE 1.1 mg/dL (0.55-1.3)
[2020-07-22 12:57] LABS: BILIRUBIN,TOTAL 0.9 mg/dL (0.2-1)
[2020-07-22 12:58] LABS: TOT PROT 6.8 g/dl (6.4-8.2)
[2020-07-22 13:12] LABS: ANISOCYTOSIS 2+; MACROCYTOSIS 0; PLATELET ESTIMATE NORMAL
== END 2020-07-22 14:10 | disposition home or self-care (01) ==
LOC: JER 10:30
DX: S42.291A Other displaced fracture of upper end of right humerus, initial encounter for closed fracture (principal)
CPT/HCPCS: 36415; 71045-TC-FY; 73030-TC-RT-FY; 73060-TC-RT-FY; 73070-TC-RT-FY; 80053; 85025; 85610; 85730; 86850; 86900; 86901; 93005; 93010; 99285-25

== ENCOUNTER 2020-07-28 08:49 | Inpatient (IN) | payer OTHER, BC ==
[2020-07-28] MEDS ORDERED: ALBUTEROL SO4 HFA INHALER IH ONE ×2 (10:06→10:12)
[2020-07-28 11:43] LABS: POTASSIUM 3.8 mmol/L (3.5-5.1)
[2020-07-28 11:46] LABS: ALBUMIN 2.7 g/dl (3.4-5.0); BLOOD UREA NITROGEN 35.5 mg/dL (7-18); CALCIUM 8.6 mg/dL (8.5-10.1); MAGNESIUM 1.5 mg/dL (1.8-2.4)
[2020-07-28 11:49] LABS: PHOSPHOROUS 3.1 mg/dL (2.5-4.9)
[2020-07-28 11:51] LABS: BILIRUBIN,TOTAL 0.8 mg/dL (0.2-1); TOT PROT 5.6 g/dl (6.4-8.2)
[2020-07-28 12:37] LABS: BASO % 0.2 % (0-2.0); EOS % 0.1 % (0-4.5); HEMATOCRIT 29.7 % (32.4-45.2); HEMOGLOBIN 9.1 GM/dL (10.7-15.3); LYMPH % 3.9 % (8-40); MCH 24.5 pg (25.7-33.7); MCHC 30.8 g/dl (32.0-36.0); MEAN CELL VOLUME 79.4 fl (80-96); MEAN PLT VOLUME 7.5 fl (7.5-11.1); MONO % 6.4 % (3.8-10.2); NEUT % 89.4 % (42.8-82.8); PLATELET COUNT 311 K/MM3 (134-434); RBC 3.73 M/mm3 (3.60-5.2); RDW 22.2 % (11.6-15.6); WHITE BLOOD COUNT 9.9 K/mm3 (4.0-10.0)
[2020-07-28] MEDS ORDERED: SODIUM CHLORIDE 0.9% 500 ML INFUS.BAG IV ONE (12:38)
[2020-07-28] MEDS ORDERED: AZITHROMYCIN IVPB 500 MG in DEXTROSE 5%-WATER - 250 ML IVPB ONE (13:03)
[2020-07-28 13:51] LABS: ANISOCYTOSIS 1+; MACROCYTOSIS 0; PLATELET ESTIMATE NORMAL
[2020-07-28] MEDS ORDERED: AZITHROMYCIN IVPB 500 MG/250 ML BAG IVPB ONE (14:00)
[2020-07-28] MEDS ORDERED: CEFTRIAXONE 1 GM/50 ML BAG ONE (14:00)
[2020-07-28] MEDS ORDERED: MAGNESIUM 2GM/50ML STERILE WATER IVPB IVPB ONE (14:45)
[2020-07-28] MEDS ORDERED: PIPERACILLIN/TAZOB 4.5 GM 4.5 GM in DEXTROSE 5%-WATER 100 ML IVPB SCH (15:00)
[2020-07-28] MEDS ORDERED: MAGNESIUM SULFATE IN WATER 2 GM/50 ML IVPB IVPB ONE (15:11)
[2020-07-28] MEDS ORDERED: PIPERACILLIN/TAZOB 3.375 GM 3.375 GM in DEXTROSE 5%-WATER - 50 ML IVPB ONE (15:51)
[2020-07-28] MEDS ORDERED: PIPERACILLIN/TAZOB 4.5 GM 4.5 GM in DEXTROSE 5%-WATER 100 ML IVPB ONE (16:00)
[2020-07-28 17:14] LABS: EPI CELLS 21 /uL (0-25.1); HYALINE CASTS 4 /uL (0-3.1); URINE APPEARANCE CLEAR; URINE BACTERIA 410 /uL (0-1359); URINE BILIRUBIN NEGATIVE (NEGATIVE); URINE COLOR YELLOW; URINE GLUCOSE (UA) NEGATIVE (NEGATIVE); URINE KETONE TRACE (NEGATIVE); URINE LEUK ESTERASE 1+ (NEGATIVE); URINE NITRITE NEGATIVE (NEGATIVE); URINE PROTEIN 1+ (NEGATIVE); URINE RBC 13 /uL (0-23.9); URINE WBC 19 /uL (0-25.8)
[2020-07-28 17:40] LABS: N-TERMINAL BNP 1214.9 pg/ml (5-450)
[2020-07-28] MEDS ORDERED: MIRTAZAPINE 15 MG TABLET (FP) ONE (22:20)
[2020-07-28] MEDS ORDERED: ACETAMINOPHEN 325 MG TABLET (FP) ONE (22:20)
[2020-07-28] MEDS: ACETAMINOPHEN 325 MG TABLET (FP) PO PRN (22:25)
[2020-07-28] MEDS: MIRTAZAPINE 15 MG TABLET (FP) PO SCH (22:25)
[2020-07-29] MEDS ORDERED: ACETAMINOPHEN 1000 MG/100 ML VIAL (NON FORMULARY) IVPB ONE (03:00)
[2020-07-29 08:49] LABS: HEMATOCRIT 29.5 % (32.4-45.2); HEMOGLOBIN 9.2 GM/dL (10.7-15.3); MCHC 31.3 g/dl (32.0-36.0); MEAN CELL VOLUME 79.9 fl (80-96); MEAN PLT VOLUME 7.3 fl (7.5-11.1); PLATELET COUNT 299 K/MM3 (134-434); RDW 21.5 % (11.6-15.6); WHITE BLOOD COUNT 10.1 K/mm3 (4.0-10.0)
[2020-07-29] MEDS: PANTOPRAZOLE 20 MG TABLET PO SCH (09:12)
[2020-07-29] MEDS: AZITHROMYCIN 250 MG TABLET PO SCH (09:12)
[2020-07-29] MEDS: MAGNESIUM OXIDE 400 MG TABLET (FP) PO SCH (09:12)
[2020-07-29 09:13] LABS: POTASSIUM 3.9 mmol/L (3.5-5.1)
[2020-07-29 09:15] LABS: CALCIUM 8.1 mg/dL (8.5-10.1)
[2020-07-29 09:16] LABS: ALBUMIN 2.5 g/dl (3.4-5.0); BLOOD UREA NITROGEN 27.6 mg/dL (7-18); MAGNESIUM 1.9 mg/dL (1.8-2.4)
[2020-07-29 09:19] LABS: CREATININE 0.7 mg/dL (0.55-1.3)
[2020-07-29 09:20] LABS: BILIRUBIN,TOTAL 0.5 mg/dL (0.2-1); TOT PROT 5.6 g/dl (6.4-8.2)
[2020-07-29] MEDS ORDERED: ENOXAPARIN NA (PORCINE) 40 MG/0.4 ML DISP.SYRIN SQ SCH (10:00)
[2020-07-29] MEDS: ALPRAZolam 0.25 MG TABLET PO PRN ×2 (10:00→22:19)
[2020-07-29] MEDS: CEFTRIAXONE 1 GM in DEXTROSE 5%-WATER - 50 ML IVPB SCH (12:30)
[2020-07-29] MEDS: ENOXAPARIN NA (PORCINE) 40 MG/0.4 ML DISP.SYRIN SQ SCH (12:31)
[2020-07-29] MEDS: ACETAMINOPHEN 325 MG TABLET (FP) PO PRN (16:09)
[2020-07-29] MEDS: BUDESONIDE/FORMETEROL FUMARATE 160/4.5 mcg INHALER IH SCH ×2 (17:03→22:19)
[2020-07-29] MEDS: oxyCODONE HCL 5 MG TABLET PO PRN ×2 (17:05→22:20)
[2020-07-29] MEDS: MIRTAZAPINE 15 MG TABLET (FP) PO SCH (22:19)
[2020-07-30 08:15] LABS: BASO % 0.4 % (0-2.0); EOS % 1.5 % (0-4.5); HEMATOCRIT 30.7 % (32.4-45.2); HEMOGLOBIN 9.3 GM/dL (10.7-15.3); LYMPH % 8.7 % (8-40); MCH 24.6 pg (25.7-33.7); MCHC 30.3 g/dl (32.0-36.0); MEAN CELL VOLUME 81.4 fl (80-96); MONO % 8.3 % (3.8-10.2); NEUT % 81.1 % (42.8-82.8); PLATELET COUNT 314 K/MM3 (134-434); RBC 3.78 M/mm3 (3.60-5.2); RDW 21.9 % (11.6-15.6); WHITE BLOOD COUNT 10.4 K/mm3 (4.0-10.0)
[2020-07-30 08:21] LABS: POTASSIUM 4.1 mmol/L (3.5-5.1)
[2020-07-30 08:30] LABS: ALBUMIN 2.3 g/dl (3.4-5.0); BLOOD UREA NITROGEN 23.6 mg/dL (7-18); MAGNESIUM 1.8 mg/dL (1.8-2.4)
[2020-07-30 08:33] LABS: CREATININE 0.6 mg/dL (0.55-1.3)
[2020-07-30 08:34] LABS: PHOSPHOROUS 3.2 mg/dL (2.5-4.9)
[2020-07-30 08:35] LABS: BILIRUBIN,TOTAL 0.4 mg/dL (0.2-1)
[2020-07-30 08:36] LABS: TOT PROT 5.2 g/dl (6.4-8.2)
[2020-07-30] MEDS ORDERED: cefTRIAXone SODIUM 1 GM VIAL ONE (09:57)
[2020-07-30] MEDS ORDERED: DEXTROSE 5%-WATER - 50 ML IVPB ONE (09:57)
[2020-07-30] MEDS: ACETAMINOPHEN 325 MG TABLET (FP) PO PRN ×2 (10:16→21:06)
[2020-07-30] MEDS: ALPRAZolam 0.25 MG TABLET PO PRN ×2 (10:17→21:07)
[2020-07-30] MEDS: oxyCODONE HCL 5 MG TABLET PO PRN ×2 (10:17→21:07)
[2020-07-30] MEDS: PANTOPRAZOLE 20 MG TABLET PO SCH (10:19)
[2020-07-30] MEDS: MAGNESIUM OXIDE 400 MG TABLET (FP) PO SCH (10:19)
[2020-07-30] MEDS: AZITHROMYCIN 250 MG TABLET PO SCH (10:19)
[2020-07-30] MEDS: CEFTRIAXONE 1 GM in DEXTROSE 5%-WATER - 50 ML IVPB SCH (10:19)
[2020-07-30] MEDS: BUDESONIDE/FORMETEROL FUMARATE 160/4.5 mcg INHALER IH SCH ×2 (10:21→21:08)
[2020-07-30 11:09] LABS: INR 0.97 (0.83-1.09)
[2020-07-30 12:12] VITALS: BMI 18.1
[2020-07-30] MEDS ORDERED: PORTA CATH FLUSH 10 ML IVPUSH ONE (17:11)
[2020-07-30] MEDS: MIRTAZAPINE 15 MG TABLET (FP) PO SCH (21:07)
[2020-07-31] MEDS ORDERED: DEXTROSE 5%-WATER - 50 ML IVPB ONE (10:02)
[2020-07-31] MEDS ORDERED: cefTRIAXone SODIUM 1 GM VIAL ONE (10:02)
[2020-07-31] MEDS: CEFTRIAXONE 1 GM in DEXTROSE 5%-WATER - 50 ML IVPB SCH (10:14)
[2020-07-31] MEDS: MAGNESIUM OXIDE 400 MG TABLET (FP) PO SCH (10:14)
[2020-07-31] MEDS: AZITHROMYCIN 250 MG TABLET PO SCH (10:14)
[2020-07-31] MEDS: PANTOPRAZOLE 20 MG TABLET PO SCH (10:14)
[2020-07-31] MEDS: BUDESONIDE/FORMETEROL FUMARATE 160/4.5 mcg INHALER IH SCH ×2 (10:16→21:28)
[2020-07-31 14:28] LABS: BF WBC & OTHER NUCLEATED CELLS 770 /mm3
[2020-07-31 15:24] LABS: BODY FLUID BASOPHIL 1 %; BODY FLUID MACROPHAGES 18 %; BODY FLUID MESOTHELIAL 3 %; BODY FLUID MONOCYTE 1 %
[2020-07-31] MEDS ORDERED: PORTA CATH FLUSH 10 ML IVPUSH ONE (17:53)
[2020-07-31] MEDS: oxyCODONE HCL 5 MG TABLET PO PRN (21:27)
[2020-07-31] MEDS: MIRTAZAPINE 15 MG TABLET (FP) PO SCH (21:27)
[2020-08-01] MEDS ORDERED: MELATONIN 5 MG TABLETS PO ONE (03:01)
[2020-08-01] MEDS: ALPRAZolam 0.25 MG TABLET PO PRN ×2 (03:10→21:46)
[2020-08-01] MEDS: ALBUTEROL SO4 HFA INHALER IH PRN ×2 (03:13→21:45)
[2020-08-01] MEDS ORDERED: dilTIAZem HCL 50 MG/10 ML - 10 ML VIAL IVPUSH ONE (07:38)
[2020-08-01 09:07] LABS: BASO % 0.4 % (0-2.0); EOS % 0.2 % (0-4.5); HEMATOCRIT 30.5 % (32.4-45.2); HEMOGLOBIN 8.9 GM/dL (10.7-15.3); LYMPH % 8.3 % (8-40); MCHC 29.1 g/dl (32.0-36.0); MEAN CELL VOLUME 82.4 fl (80-96); MEAN PLT VOLUME 7.8 fl (7.5-11.1); MONO % 5.9 % (3.8-10.2); NEUT % 85.2 % (42.8-82.8); PLATELET COUNT 370 K/MM3 (134-434); RDW 21.9 % (11.6-15.6); WHITE BLOOD COUNT 12.4 K/mm3 (4.0-10.0)
[2020-08-01] MEDS ORDERED: cefTRIAXone SODIUM 1 GM VIAL ONE (09:17)
[2020-08-01] MEDS ORDERED: DEXTROSE 5%-WATER - 50 ML IVPB ONE (09:17)
[2020-08-01 09:25] LABS: POTASSIUM 4.4 mmol/L (3.5-5.1)
[2020-08-01 09:28] LABS: CALCIUM 8.8 mg/dL (8.5-10.1)
[2020-08-01 09:29] LABS: ALBUMIN 2.5 g/dl (3.4-5.0)
[2020-08-01 09:32] LABS: CREATININE 0.9 mg/dL (0.55-1.3)
[2020-08-01] MEDS: CEFTRIAXONE 1 GM in DEXTROSE 5%-WATER - 50 ML IVPB SCH (09:33)
[2020-08-01] MEDS: ENOXAPARIN NA (PORCINE) 40 MG/0.4 ML DISP.SYRIN SQ SCH (09:33)
[2020-08-01] MEDS: PANTOPRAZOLE 20 MG TABLET PO SCH (09:33)
[2020-08-01] MEDS: AZITHROMYCIN 250 MG TABLET PO SCH (09:33)
[2020-08-01] MEDS: BUDESONIDE/FORMETEROL FUMARATE 160/4.5 mcg INHALER IH SCH ×2 (09:33→21:44)
[2020-08-01] MEDS: MAGNESIUM OXIDE 400 MG TABLET (FP) PO SCH (09:33)
[2020-08-01] MEDS: DOCUSATE SODIUM 100 MG CAPSULE (FP) PO PRN ×2 (09:33→21:44)
[2020-08-01 09:34] LABS: TOT PROT 5.8 g/dl (6.4-8.2)
[2020-08-01 09:35] LABS: BILIRUBIN,TOTAL 0.9 mg/dL (0.2-1)
[2020-08-01] MEDS: MIRTAZAPINE 15 MG TABLET (FP) PO SCH (21:44)
[2020-08-02] MEDS ORDERED: PT OWN MED DRAWER 7, Y5N ONE (07:54)
[2020-08-02] MEDS ORDERED: DEXTROSE 5%-WATER - 50 ML IVPB ONE ×2 (07:54→11:50)
[2020-08-02] MEDS ORDERED: cefTRIAXone SODIUM 1 GM VIAL ONE ×2 (07:54→11:50)
[2020-08-02 09:25] LABS: ARTERIAL BLD GAS O2 SATURATION 90.4 mmHg (95-98); ARTERIAL BLOOD GAS BASE EXCESS 8.2 mmol/L (-2-2); ARTERIAL BLOOD GAS PO2 68.2 mmHg (80-100); ARTERIAL BLOOD GAS pH 7.284 (7.350-7.450)
[2020-08-02 09:27] LABS: ALLENS TEST POSITIVE
[2020-08-02 10:07] LABS: BASO % 0.1 % (0-2.0); HEMATOCRIT 31.5 % (32.4-45.2); HEMOGLOBIN 9.6 GM/dL (10.7-15.3); LYMPH % 2.3 % (8-40); MCH 24.5 pg (25.7-33.7); MCHC 30.5 g/dl (32.0-36.0); MEAN CELL VOLUME 80.4 fl (80-96); MEAN PLT VOLUME 7.2 fl (7.5-11.1); MONO % 3.4 % (3.8-10.2); NEUT % 94.2 % (42.8-82.8); PLATELET COUNT 377 K/MM3 (134-434); RBC 3.91 M/mm3 (3.60-5.2); RDW 21.4 % (11.6-15.6); WHITE BLOOD COUNT 14.5 K/mm3 (4.0-10.0)
[2020-08-02 10:26] LABS: POTASSIUM 4.5 mmol/L (3.5-5.1)
[2020-08-02 10:28] LABS: CALCIUM 8.9 mg/dL (8.5-10.1)
[2020-08-02 10:29] LABS: ALBUMIN 2.6 g/dl (3.4-5.0); BLOOD UREA NITROGEN 31.3 mg/dL (7-18)
[2020-08-02 10:32] LABS: CREATININE 0.7 mg/dL (0.55-1.3)
[2020-08-02 10:33] LABS: BILIRUBIN,TOTAL 0.3 mg/dL (0.2-1)
[2020-08-02 11:07] LABS: BODY FLUID ALBUMIN 1.2 g/dL (Not Estab.)
[2020-08-02] MEDS: CEFTRIAXONE 1 GM in DEXTROSE 5%-WATER - 50 ML IVPB SCH (12:01)
[2020-08-02] MEDS: PANTOPRAZOLE 20 MG TABLET PO SCH (12:02)
[2020-08-02] MEDS: ENOXAPARIN NA (PORCINE) 40 MG/0.4 ML DISP.SYRIN SQ SCH (12:02)
[2020-08-02] MEDS: BUDESONIDE/FORMETEROL FUMARATE 160/4.5 mcg INHALER IH SCH ×2 (12:02→21:01)
[2020-08-02] MEDS: MAGNESIUM OXIDE 400 MG TABLET (FP) PO SCH (12:02)
[2020-08-02] MEDS ORDERED: NOREPINEPHRINE BITARTRATE 8,000 MCG/500 ML BAG IVPB SCH (13:15)
[2020-08-02] MEDS ORDERED: PHENYLEPHRINE HCL 10 MG/1 ML SINGLE DOSE VIAL ONE (13:31)
[2020-08-02] MEDS: PHENYLEPHRINE NS PREMIX 50,000 MCG/500 ML BAG CVP SCH (13:45)
[2020-08-02 13:57] LABS: ANISOCYTOSIS 1+; MACROCYTOSIS 1+; PLATELET ESTIMATE NORMAL
[2020-08-02] MEDS: ALPRAZolam 0.25 MG TABLET PO PRN (21:01)
[2020-08-02] MEDS: MIRTAZAPINE 15 MG TABLET (FP) PO SCH (21:01)
[2020-08-02] MEDS ORDERED: ALBUTEROL SO4 HFA INHALER IH PRN (21:41)
[2020-08-02] MEDS ORDERED: DOCUSATE SODIUM 100 MG CAPSULE (FP) PO PRN (21:41)
[2020-08-02] MEDS ORDERED: ALPRAZolam 0.25 MG TABLET PO PRN (21:41)
[2020-08-03] MEDS: MIRTAZAPINE 15 MG TABLET (FP) PO SCH ×2 (00:18→21:03)
[2020-08-03] MEDS: BUDESONIDE/FORMETEROL FUMARATE 160/4.5 mcg INHALER IH SCH ×3 (00:18→21:04)
[2020-08-03] MEDS ORDERED: ENOXAPARIN NA (PORCINE) 40 MG/0.4 ML DISP.SYRIN SQ SCH (10:00)
[2020-08-03] MEDS ORDERED: PT OWN MED DRAWER 7, Y5N ONE (10:31)
[2020-08-03] MEDS ORDERED: DEXTROSE 5%-WATER - 50 ML IVPB ONE (10:32)
[2020-08-03] MEDS ORDERED: cefTRIAXone SODIUM 1 GM VIAL ONE (10:32)
[2020-08-03] MEDS: MAGNESIUM OXIDE 400 MG TABLET (FP) PO SCH (10:34)
[2020-08-03] MEDS: PANTOPRAZOLE 20 MG TABLET PO SCH (10:34)
[2020-08-03] MEDS: CEFTRIAXONE 1 GM in DEXTROSE 5%-WATER - 50 ML IVPB SCH (10:34)
[2020-08-03] MEDS ORDERED: dilTIAZem HCL 125 MG/25 ML - 25 ML VIAL ONE (13:34)
[2020-08-03] MEDS: dilTIAZem HCL 50 MG/10 ML - 10 ML VIAL IVPUSH PRN ×2 (13:36→17:43)
[2020-08-03] MEDS ORDERED: PHENYLEPHRINE HCL 10 MG/1 ML SINGLE DOSE VIAL ONE (18:09)
[2020-08-03] MEDS: PHENYLEPHRINE NS PREMIX 50,000 MCG/500 ML BAG CVP SCH (18:10)
[2020-08-03] MEDS: ALPRAZolam 0.25 MG TABLET PO PRN (18:30)
[2020-08-03] MEDS: APIXABAN 2.5 MG TABLET PO SCH (21:03)
[2020-08-03] MEDS: ACETAMINOPHEN 325 MG TABLET (FP) PO PRN (21:03)
[2020-08-03] MEDS: ZOLPIDEM TARTRATE 5 MG TABLET PO PRN (21:56)
[2020-08-03] MEDS: MELATONIN 5 MG TABLETS PO SCH (23:49)
[2020-08-04 07:24] LABS: HEMATOCRIT 29.3 % (32.4-45.2); HEMOGLOBIN 9.2 GM/dL (10.7-15.3); MCH 25.1 pg (25.7-33.7); MCHC 31.2 g/dl (32.0-36.0); MEAN CELL VOLUME 80.4 fl (80-96); MEAN PLT VOLUME 7.5 fl (7.5-11.1); PLATELET COUNT 422 K/MM3 (134-434); RBC 3.65 M/mm3 (3.60-5.2); RDW 21.7 % (11.6-15.6); WHITE BLOOD COUNT 12.8 K/mm3 (4.0-10.0)
[2020-08-04 07:31] LABS: ALBUMIN 2.5 g/dl (3.4-5.0); BLOOD UREA NITROGEN 22.3 mg/dL (7-18); CALCIUM 8.2 mg/dL (8.5-10.1); MAGNESIUM 1.5 mg/dL (1.8-2.4)
[2020-08-04 07:33] LABS: CREATININE 0.4 mg/dL (0.55-1.3)
[2020-08-04 07:34] LABS: PHOSPHOROUS 2.9 mg/dL (2.5-4.9)
[2020-08-04 07:35] LABS: BILIRUBIN,TOTAL 0.4 mg/dL (0.2-1); TOT PROT 5.5 g/dl (6.4-8.2)
[2020-08-04] MEDS ORDERED: MAGNESIUM SULF 50% (8.12 MEQ/2 ML-1 GM VIAL) IVPB ONE (09:30)
[2020-08-04] MEDS ORDERED: cefTRIAXone SODIUM 1 GM VIAL ONE (09:57)
[2020-08-04] MEDS ORDERED: DEXTROSE 5%-WATER - 50 ML IVPB ONE (09:57)
[2020-08-04] MEDS: PANTOPRAZOLE 20 MG TABLET PO SCH (10:00)
[2020-08-04] MEDS: MAGNESIUM OXIDE 400 MG TABLET (FP) PO SCH (10:00)
[2020-08-04] MEDS: dilTIAZem HCL 50 MG/10 ML - 10 ML VIAL IVPUSH PRN (10:05)
[2020-08-04] MEDS: CEFTRIAXONE 1 GM in DEXTROSE 5%-WATER - 50 ML IVPB SCH (10:12)
[2020-08-04] MEDS: BUDESONIDE/FORMETEROL FUMARATE 160/4.5 mcg INHALER IH SCH ×2 (10:17→21:17)
[2020-08-04] MEDS: ALPRAZolam 0.25 MG TABLET PO PRN ×2 (10:23→21:16)
[2020-08-04] MEDS: PHENYLEPHRINE NS PREMIX 50,000 MCG/500 ML BAG CVP SCH (17:42)
[2020-08-04] MEDS: MELATONIN 5 MG TABLETS PO SCH (21:16)
[2020-08-04] MEDS: MIRTAZAPINE 15 MG TABLET (FP) PO SCH (21:17)
[2020-08-05] MEDS: ZOLPIDEM TARTRATE 5 MG TABLET PO PRN (01:50)
[2020-08-05 07:29] LABS: BASO % 0.3 % (0-2.0); EOS % 0.1 % (0-4.5); HEMATOCRIT 30.4 % (32.4-45.2); HEMOGLOBIN 9.3 GM/dL (10.7-15.3); LYMPH % 4.4 % (8-40); MCH 25.1 pg (25.7-33.7); MCHC 30.7 g/dl (32.0-36.0); MEAN CELL VOLUME 81.5 fl (80-96); MEAN PLT VOLUME 7.4 fl (7.5-11.1); MONO % 4.9 % (3.8-10.2); NEUT % 90.3 % (42.8-82.8); PLATELET COUNT 474 K/MM3 (134-434); RBC 3.72 M/mm3 (3.60-5.2); RDW 21.8 % (11.6-15.6); WHITE BLOOD COUNT 14.6 K/mm3 (4.0-10.0)
[2020-08-05 07:43] LABS: CALCIUM 8.4 mg/dL (8.5-10.1)
[2020-08-05 07:44] LABS: ALBUMIN 2.5 g/dl (3.4-5.0); BLOOD UREA NITROGEN 22.7 mg/dL (7-18)
[2020-08-05 07:47] LABS: CREATININE 0.4 mg/dL (0.55-1.3); PHOSPHOROUS 3.3 mg/dL (2.5-4.9)
[2020-08-05 07:48] LABS: BILIRUBIN,TOTAL 0.4 mg/dL (0.2-1); TOT PROT 5.7 g/dl (6.4-8.2)
[2020-08-05 11:12] LABS: ANISOCYTOSIS 1+; MACROCYTOSIS 1+; OVALOCYTE 1+; PLATELET ESTIMATE NORMAL
[2020-08-05] MEDS ORDERED: DEXTROSE 5%-WATER - 50 ML IVPB ONE (12:24)
[2020-08-05] MEDS ORDERED: cefTRIAXone SODIUM 1 GM VIAL ONE (12:24)
[2020-08-05] MEDS: CEFTRIAXONE 1 GM in DEXTROSE 5%-WATER - 50 ML IVPB SCH (12:34)
[2020-08-05] MEDS: PHENYLEPHRINE NS PREMIX 50,000 MCG/500 ML BAG CVP SCH (12:44)
[2020-08-05] MEDS: PANTOPRAZOLE 20 MG TABLET PO SCH (14:31)
[2020-08-05] MEDS: MAGNESIUM OXIDE 400 MG TABLET (FP) PO SCH (14:31)
[2020-08-05] MEDS: dilTIAZem HCL 50 MG/10 ML - 10 ML VIAL IVPUSH PRN (16:20)
[2020-08-05] MEDS: BUDESONIDE/FORMETEROL FUMARATE 160/4.5 mcg INHALER IH SCH ×2 (19:38→21:20)
[2020-08-05] MEDS: ACETAMINOPHEN 325 MG TABLET (FP) PO PRN (21:18)
[2020-08-05] MEDS: ALPRAZolam 0.25 MG TABLET PO PRN (21:19)
[2020-08-05] MEDS: MELATONIN 5 MG TABLETS PO SCH (21:20)
[2020-08-05] MEDS: MIRTAZAPINE 15 MG TABLET (FP) PO SCH (21:20)
[2020-08-06] MEDS: ZOLPIDEM TARTRATE 5 MG TABLET PO PRN (00:15)
[2020-08-06 06:41] LABS: BASO % 0.1 % (0-2.0); HEMATOCRIT 32.3 % (32.4-45.2); HEMOGLOBIN 9.5 GM/dL (10.7-15.3); LYMPH % 1.7 % (8-40); MCHC 29.3 g/dl (32.0-36.0); MEAN CELL VOLUME 85.4 fl (80-96); MEAN PLT VOLUME 7.7 fl (7.5-11.1); MONO % 5.2 % (3.8-10.2); PLATELET COUNT 435 K/MM3 (134-434); RBC 3.78 M/mm3 (3.60-5.2); RDW 21.4 % (11.6-15.6); WHITE BLOOD COUNT 20.2 K/mm3 (4.0-10.0)
[2020-08-06 06:57] LABS: POTASSIUM 4.9 mmol/L (3.5-5.1)
[2020-08-06 06:59] LABS: CALCIUM 8.6 mg/dL (8.5-10.1)
[2020-08-06 07:00] LABS: ALBUMIN 2.6 g/dl (3.4-5.0)
[2020-08-06 07:03] LABS: PHOSPHOROUS 5.7 mg/dL (2.5-4.9)
[2020-08-06 07:04] LABS: BILIRUBIN,TOTAL 0.4 mg/dL (0.2-1)
[2020-08-06 07:23] VITALS: TEMP 97.2
[2020-08-06] MEDS ORDERED: DEXTROSE 5%-WATER - 50 ML IVPB ONE (09:11)
[2020-08-06] MEDS ORDERED: cefTRIAXone SODIUM 1 GM VIAL ONE (09:11)
[2020-08-06] MEDS: MAGNESIUM OXIDE 400 MG TABLET (FP) PO SCH (09:34)
[2020-08-06] MEDS: CEFTRIAXONE 1 GM in DEXTROSE 5%-WATER - 50 ML IVPB SCH (09:34)
[2020-08-06] MEDS: PANTOPRAZOLE 20 MG TABLET PO SCH (09:34)
[2020-08-06] MEDS: BUDESONIDE/FORMETEROL FUMARATE 160/4.5 mcg INHALER IH SCH ×2 (09:34→21:03)
[2020-08-06 09:41] LABS: ANISOCYTOSIS 2+; MACROCYTOSIS 1+; PLATELET ESTIMATE NORMAL
[2020-08-06] MEDS ORDERED: LORazepam 2 MG/ML SDV VIAL IVPUSH PRN (09:59)
[2020-08-06] MEDS ORDERED: FUROSEMIDE 40 MG/4 ML INJECTABLE VIAL IVPUSH ONE (12:03)
[2020-08-06] MEDS ORDERED: MORPHINE SULFATE/0.9% NACL/PF 100 MG/100 ML BAG IVPB SCH (16:30)
[2020-08-06] MEDS: PHENYLEPHRINE NS PREMIX 50,000 MCG/500 ML BAG CVP SCH (19:22)
[2020-08-06] MEDS: MIRTAZAPINE 15 MG TABLET (FP) PO SCH (21:02)
[2020-08-06] MEDS: MELATONIN 5 MG TABLETS PO SCH (21:02)
[2020-08-06] MEDS: APIXABAN 2.5 MG TABLET PO SCH (21:02)
[2020-08-07 07:11] VITALS: BP 53/43; PULSE 67
== END 2020-08-07 06:15 | disposition expired | DRG 180 ==
LOC: JER 08:49 → JERBED 13:54 → J6WEST-2 23:42 → J7W 07-29 13:26 → JICU 08-02 10:47
PROVIDERS: ATTEND Internal Medicine Pulmonary Disease
PROC: 0W9B3ZX Drainage of Left Pleural Cavity, Percutaneous Approach, Diagnostic (ICD-10-PCS; principal; 2020-07-30)
PROC: 5A09457 Assistance with Respiratory Ventilation, 24-96 Consecutive Hours, Continuous Positive Airway Pressure (ICD-10-PCS; 2020-08-05)
DX: C34.90 Malignant neoplasm of unspecified part of unspecified bronchus or lung (principal); J18.9 Pneumonia, unspecified organism; J96.22 Acute and chronic respiratory failure with hypercapnia; J96.21 Acute and chronic respiratory failure with hypoxia; S42.301A Unspecified fracture of shaft of humerus, right arm, initial encounter for closed fracture; S42.201A Unspecified fracture of upper end of right humerus, initial encounter for closed fracture; J44.1 Chronic obstructive pulmonary disease with (acute) exacerbation; J98.11 Atelectasis; J91.0 Malignant pleural effusion; Z85.3 Personal history of malignant neoplasm of breast; K21.9 Gastro-esophageal reflux disease without esophagitis; E83.42 Hypomagnesemia; W19.XXXA Unspecified fall, initial encounter; Y93.9 Activity, unspecified; Y92.89 Other specified places as the place of occurrence of the external cause; Y99.9 Unspecified external cause status
CPT/HCPCS: 36415; 36600; 71045-TC-FY; 71046-TC-FY; 71250-TC; 71275-TC; 76942; 80053; 81003; 82042; 82150; 82465; 82550; 82728; 82803; 82945; 83605; 83615; 83735; 83880; 83986; 84100; 84443; 84478; 84484; 85025; 85027; 85610; 86140; 87040; 87070; 87075; 87086; 87102; 87116; 87186; 87205; 87206; 87210; 87804; 88108; 88305-TC; 93005; 93010; 93971; 94010; 94660; 97116-GP; 97162-GP; 99285-25; C9803; J0131; Q9967; U0003